=== PATIENT | female | born 1955 | race Caucasian/White ===

== ENCOUNTER → 2017-12-16 14:20 | Outpatient (REF) | payer MEDICARE, MEDICAID, SELFPAY ==
[2017-12-16 14:39] LABS: Appearance Urine UA CLEAR; Bilirubin Urine UA NEGATIVE (NEGATIVE); Color Urine UA YELLOW; Glucose Urine UA TRACE g/dL (NEGATIVE); Ketones Urine UA NEGATIVE (NEGATIVE); Leukocyte Esterase Urine UA NEGATIVE (NEGATIVE); Nitrite Urine UA NEGATIVE (NEGATIVE); Occult Blood Urine UA NEGATIVE (NEGATIVE); Protein Urine UA NEGATIVE (NEGATIVE); Specific Gravity Urine UA <=1.005 (1.000-1.035); Urobilinogen Urine UA 0.2 E.U./dL (0.2)
[2017-12-16 15:21] LABS: Bacteria Urine None Seen; Culture Indicated Urine Cult Not Indicated; RBC Urine None Seen (0-5/HPF); Squamous Epithelial Cell Urine 0-1 /HPF; WBC Urine None Seen (0-5/HPF)
== END ==
LOC: LAB 14:20
PROVIDERS: PCP Nurse Practitioner Family; Visit Provider Internal Medicine
DX: N18.1 Chronic kidney disease, stage 1 (principal); I97.0 Postcardiotomy syndrome; I31.0 Chronic adhesive pericarditis; D50.0 Iron deficiency anemia secondary to blood loss (chronic)
CPT/HCPCS: 81001

== ENCOUNTER → 2018-01-11 06:46 | Outpatient (REF) | payer MEDICARE, MEDICAID, SELFPAY ==
[2018-01-11 09:11] LABS: Thyroid Stimulating Hormone 0.05 uIU/mL (0.47-4.68)
== END ==
LOC: LAB 06:46
PROVIDERS: PCP Nurse Practitioner Family; Visit Provider Internal Medicine Endocrinology, Diabetes & Metabolism
DX: E07.9 Disorder of thyroid, unspecified (principal)
CPT/HCPCS: 36415; 84443

== ENCOUNTER → 2018-01-13 19:55 | Outpatient (REF) | payer MEDICARE, SELFPAY ==
[2018-01-13 20:51] LABS: Thyroid Stimulating Hormone 0.04 uIU/mL (0.47-4.68)
== END ==
LOC: LAB 19:55
PROVIDERS: Visit Provider Internal Medicine
DX: E03.9 Hypothyroidism, unspecified (principal)
CPT/HCPCS: 84443

== ENCOUNTER → 2018-01-19 17:32 | Outpatient (CLI) | payer MEDICARE, MEDICAID, SELFPAY ==
[2018-01-19 18:58] LABS: BUN Creatinine Ratio 19.4 (6-22); Blood Urea Nitrogen 35 mg/dL (7-17); Calcium 9.1 mg/dL (8.4-10.2); Carbon Dioxide 24 mmol/L (22-32); Chloride 106 mmol/L (98-107); Estimated Glomerular Filt Rate 28.6 mL/min (>60); Glucose 75 mg/dL (80-110); HEMOLYSIS < 15 (0-50); Magnesium 2.2 mg/dL (1.6-2.3); Sodium 143 mmol/L (137-145)
[2018-01-19 19:14] LABS: Free T4, Direct Thyroxine 1.58 ng/dL (0.78-2.19)
[2018-01-19 19:28] LABS: Thyroid Stimulating Hormone 0.02 uIU/mL (0.47-4.68)
== END ==
PROVIDERS: Internal Medicine Endocrinology, Diabetes & Metabolism; PCP Internal Medicine Endocrinology, Diabetes & Metabolism; Visit Provider Internal Medicine
DX: E03.9 Hypothyroidism, unspecified (principal); I50.9 Heart failure, unspecified
CPT/HCPCS: 36415; 80048; 83735; 83880; 84439; 84443

== ENCOUNTER → 2018-03-01 07:17 | Outpatient (REF) | payer MEDICARE, MEDICAID, SELFPAY ==
[2018-03-01 08:15] LABS: Add Manual Diff / Slide Review NO; Basophils Percent Auto 0.7 % (0-2); Eosinophils Percent Auto 2.3 % (2-4); Hematocrit 33.8 % (36-46); Hemoglobin 11.6 g/dL (12.0-16.0); Lymphocytes Percent Auto 30.9 % (25-40); Mean Corpuscular HGB Conc 34.4 % (30-36); Mean Corpuscular Hemoglobin 30.2 PG (26-34); Mean Corpuscular Volume 87.8 fL (80-100); Monocytes Percent Auto 5.5 % (3-14); Neutrophils Absolute Auto 4600 /uL (3000-5900); Neutrophils Percent Auto 60.6 % (50-75); Platelet Count 147 X10^3/uL (150-400); Red Blood Cell Count 3.85 X10^6/uL (4.0-5.2); Red Cell Distribution Width 14.4 % (11.6-14.8); White Blood Cell Count 7.6 X10^3/uL (4.5-11.0)
[2018-03-01 09:02] LABS: TSH w/ Reflex to FT4 0.39 uIU/mL (0.47-4.68)
[2018-03-04 12:22] LABS: BUN Creatinine Ratio 12.8 (6-22); Blood Urea Nitrogen 23 mg/dL (7-17); Calcium 9.7 mg/dL (8.4-10.2); Carbon Dioxide 24 mmol/L (22-32); Chloride 106 mmol/L (98-107); Estimated Glomerular Filt Rate 28.6 mL/min (>60); Glucose 84 mg/dL (80-110); HEMOLYSIS < 15 (0-50); Potassium 4.3 mmol/L (3.4-5.1); Sodium 140 mmol/L (137-145)
== END ==
LOC: LAB 07:17
PROVIDERS: PCP Internal Medicine Endocrinology, Diabetes & Metabolism; Visit Provider Internal Medicine
DX: E03.9 Hypothyroidism, unspecified (principal)
CPT/HCPCS: 36415; 80048; 84439; 84443; 85025

== ENCOUNTER → 2018-03-17 09:04 | Outpatient (REF) | payer MEDICARE, SELFPAY ==
[2018-03-17 10:17] LABS: Thyroid Stimulating Hormone 0.14 uIU/mL (0.47-4.68)
== END ==
LOC: LAB 09:04
PROVIDERS: PCP Internal Medicine Endocrinology, Diabetes & Metabolism; Visit Provider Internal Medicine Endocrinology, Diabetes & Metabolism
DX: E03.9 Hypothyroidism, unspecified (principal)
CPT/HCPCS: 36415; 84443

== ENCOUNTER → 2018-03-22 06:52 | Outpatient (REF) | payer MEDICARE, SELFPAY ==
[2018-03-22 07:21] LABS: BUN Creatinine Ratio 14.4 (6-22); Blood Urea Nitrogen 23 mg/dL (7-17); Calcium 8.9 mg/dL (8.4-10.2); Carbon Dioxide 23 mmol/L (22-32); Chloride 106 mmol/L (98-107); Estimated Glomerular Filt Rate 32.8 mL/min (>60); Glucose 87 mg/dL (80-110); HEMOLYSIS < 15 (0-50); Potassium 4.1 mmol/L (3.4-5.1); Sodium 138 mmol/L (137-145)
== END ==
LOC: LAB 06:52
PROVIDERS: PCP Internal Medicine Endocrinology, Diabetes & Metabolism; Visit Provider Internal Medicine
DX: N18.3 Chronic kidney disease, stage 3 (moderate) (principal)
CPT/HCPCS: 36415; 80048

== ENCOUNTER → 2018-05-30 08:42 | Outpatient (REF) | payer SELFPAY ==
[2018-05-30 10:06] LABS: Add Manual Diff / Slide Review NO; Basophils Percent Auto 0.6 % (0-2); Eosinophils Percent Auto 3.1 % (2-4); Hematocrit 31.3 % (36-46); Hemoglobin 10.5 g/dL (12.0-16.0); Lymphocytes Percent Auto 11.2 % (25-40); Mean Corpuscular HGB Conc 33.5 % (30-36); Mean Corpuscular Hemoglobin 29.4 PG (26-34); Mean Corpuscular Volume 87.6 fL (80-100); Monocytes Percent Auto 4.1 % (3-14); Neutrophils Absolute Auto 9400 /uL (3000-5900); Platelet Count 213 X10^3/uL (150-400); Red Blood Cell Count 3.57 X10^6/uL (4.0-5.2); Red Cell Distribution Width 15.8 % (11.6-14.8); White Blood Cell Count 11.6 X10^3/uL (4.5-11.0)
[2018-05-30 10:30] LABS: Alanine Aminotransferase 27 IU/L (9-52); Albumin 3.9 g/dL (3.5-5.0); Albumin Globulin Ratio 1.6 (1.0-2.8); Alkaline Phosphatase 99 U/L (38-126); Aspartate Aminotransferase 22 IU/L (14-36); BUN Creatinine Ratio 6.1 (6-22); Bilirubin Total 0.6 mg/dL (0.2-1.3); Blood Urea Nitrogen 25 mg/dL (7-17); Calcium 9.8 mg/dL (8.4-10.2); Carbon Dioxide 27 mmol/L (22-32); Chloride 99 mmol/L (98-107); Globulin 2.4 g/dL (1.7-4.1); Glucose 92 mg/dL (80-110); HEMOLYSIS < 15 (0-50); Potassium 3.9 mmol/L (3.4-5.1); Sodium 140 mmol/L (137-145); Total Protein 6.3 g/dL (6.3-8.2)
== END ==
LOC: LAB 08:42
PROVIDERS: PCP Internal Medicine Endocrinology, Diabetes & Metabolism; Visit Provider Hospitalist
DX: I25.10 Atherosclerotic heart disease of native coronary artery without angina pectoris (principal); N18.3 Chronic kidney disease, stage 3 (moderate)
CPT/HCPCS: 36415; 71046; 80053; 84443; 85025

== ENCOUNTER → 2018-06-06 09:13 | Outpatient (REF) | payer SELFPAY ==
[2018-06-06 11:25] LABS: Add Manual Diff / Slide Review NO; Basophils Percent Auto 0.7 % (0-2); Eosinophils Percent Auto 3.7 % (2-4); Hematocrit 31.8 % (36-46); Hemoglobin 10.7 g/dL (12.0-16.0); Mean Corpuscular HGB Conc 33.6 % (30-36); Mean Corpuscular Hemoglobin 29.2 PG (26-34); Mean Corpuscular Volume 86.9 fL (80-100); Monocytes Percent Auto 5.2 % (3-14); Neutrophils Absolute Auto 7000 /uL (3000-5900); Neutrophils Percent Auto 77.4 % (50-75); Platelet Count 259 X10^3/uL (150-400); Red Blood Cell Count 3.66 X10^6/uL (4.0-5.2); Red Cell Distribution Width 15.6 % (11.6-14.8)
== END ==
LOC: LAB 09:13
PROVIDERS: PCP Internal Medicine Endocrinology, Diabetes & Metabolism; Visit Provider Hospitalist
DX: I10 Essential (primary) hypertension (principal)
CPT/HCPCS: 36415; 85025

== ENCOUNTER → 2018-06-16 12:02 | Outpatient (REF) | payer SELFPAY ==
[2018-06-16 12:08] LABS: Add Manual Diff / Slide Review NO; Basophils Percent Auto 0.3 % (0-2); Eosinophils Percent Auto 2.9 % (2-4); Hematocrit 28.7 % (36-46); Hemoglobin 9.7 g/dL (12.0-16.0); Lymphocytes Percent Auto 13.9 % (25-40); Mean Corpuscular HGB Conc 33.8 % (30-36); Mean Corpuscular Hemoglobin 29.1 PG (26-34); Mean Corpuscular Volume 86.1 fL (80-100); Neutrophils Absolute Auto 6600 /uL (3000-5900); Neutrophils Percent Auto 76.9 % (50-75); Platelet Count 209 X10^3/uL (150-400); Red Blood Cell Count 3.33 X10^6/uL (4.0-5.2); Red Cell Distribution Width 15.4 % (11.6-14.8); White Blood Cell Count 8.6 X10^3/uL (4.5-11.0)
[2018-06-16 12:38] LABS: Alanine Aminotransferase 23 IU/L (9-52); Albumin 3.4 g/dL (3.5-5.0); Albumin Globulin Ratio 1.5 (1.0-2.8); Alkaline Phosphatase 63 U/L (38-126); Aspartate Aminotransferase 19 IU/L (14-36); Bilirubin Total 0.3 mg/dL (0.2-1.3); Blood Urea Nitrogen 29 mg/dL (7-17); Calcium 8.8 mg/dL (8.4-10.2); Carbon Dioxide 23 mmol/L (22-32); Chloride 100 mmol/L (98-107); Estimated Glomerular Filt Rate 9.2 mL/min (>60); Globulin 2.2 g/dL (1.7-4.1); Glucose 83 mg/dL (80-110); HEMOLYSIS < 15 (0-50); Potassium 4.2 mmol/L (3.4-5.1); Sodium 139 mmol/L (137-145); Total Protein 5.6 g/dL (6.3-8.2)
== END ==
LOC: LAB 12:02
PROVIDERS: Visit Provider Hospitalist
DX: E03.9 Hypothyroidism, unspecified (principal)
CPT/HCPCS: 80053; 84443; 85025

== ENCOUNTER → 2018-06-22 08:17 | Outpatient (CLI) | payer SELFPAY ==
--- NOTE | 2018-06-22 | DI.ECHO.S_ITS ---
[facility]---------+ [facility] +---------+ : : [address] : [address] [address] : : : : [id number] : : : : Phone: [phone]---------+ Echocardiogram Report + + :Name: AURELIA ASIF Study Date: 06/22/2018 Height: 60 in: :[facility] Weight: 95 lb: : Gender: Female BSA: 1.4 m2 : :: 1955 Age: 63 yrs : :Reason For Study: Congestive Heart Failure : : Performed By: Aurelia Holguin : :Referring: SHIRAZ MOYA : + + Interpretation Summary The left ventricle is normal in size. Left ventricular systolic function is moderately reduced. Left ventricular ejection fraction is estimated to be 35%. LVEF has reduced since prior echo study. There is moderate global hypokinesis of the left ventricle. There appears to be evidence for increased LV end- diastolic pressures based on E/E' and E/A ratios. The right ventricular cavity is small. Right ventricular systolic function is mildly reduced. The right ventricular systolic pressure is estimated to be at least 31 mmHg based on an estimated right atrial pressure of 3 mm Hg. RVSP has not changed. The left atrium is severely dilated. Right atrial size is normal. There is mild to moderate mitral regurgitation. There is mild to moderate aortic regurgitation. Both MR and AR have increased. There is no other significant valvular heart disease. The aortic root is normal size. There is a large right-sided pleural effusion. There is a large left-sided pleural effusion. Both are new since prior echo study. Procedure: A two-dimensional transthoracic echocardiogram with color flow and Doppler was performed. The study quality was technically adequate. Comparison is made with the echocardiogram of 12-31-17. Blodd pressure was unobtainable. The patient was in normal sinus rhythm during the exam. Left Ventricle: The left ventricle is normal in size. There is normal left ventricular wall thickness. Left ventricular systolic function is moderately reduced. Left ventricular ejection fraction is estimated to be 35%. There is moderate global hypokinesis of the left ventricle. Right Ventricle: The right ventricular cavity is small. Right ventricular systolic function is mildly reduced. Atria: The left atrium is severely dilated. Right atrial size is normal. The interatrial septum is intact with no evidence for an atrial septal defect. Mitral Valve: The mitral valve is grossly normal. There is mild to moderate mitral regurgitation. Aortic Valve: The aortic valve is trileaflet. Leaflet mobility is minimally reduced. The aortic valve is mildly calcified. There is mild to moderate aortic regurgitation. Tricuspid Valve: The tricuspid valve leaflets are thin and pliable. There is mild tricuspid regurgitation. The right ventricular systolic pressure is estimated to be at least 31 mmHg based on an estimated right atrial pressure of 3 mm Hg. Pulmonic Valve: The pulmonic valve is not well seen, but is grossly normal. There is trace pulmonic regurgitation. There is no other significant valvular heart disease. Great Vessels: The aortic root is normal size. The dimensions of the ascending aorta are normal. The IVC is of normal diameter and collapses greater than 50% with a sniff. This suggests a low right atrial pressure of 3 mm Hg. Pericardium/ Pleura There is no pericardial effusion. There is a large right-sided pleural effusion. There is a large left-sided pleural effusion. MMode/2D Measurements & Calculations LVIDd: 5.2 cm Ao root diam: 2.7 cm LVIDs: 4.3 cm Aortic Jxn: 2.4 cm FS: 16.7 % asc Aorta Diam: 2.8 cm EPSS: 1.5 cm Ao Arch Diam (Prox Trans): 2.7 cm IVSd: 0.85 cm LVPWd: 0.76 cm LV morales. diameter/BSA (cm/m^2): 3.8 LV sys. diameter/BSA (cm/m^2): 3.2 LA dimension: 4.2 cm RA long axis: 4.4 cm LA A2 area: 22.4 cm2 RA area: 13.3 cm2 LA A4 area: 18.7 cm2 RA vol: 34.0 ml LA length (vol): 5.1 cm RA : 25.0 ml/m2 LA vol: 70.3 ml IVC diam: 1.4 cm LA vol index: 51.7 ml/m2 RVDd major: 5.0 cm RVD1 (basal): 2.4 cm RVD2 (mid): 1.9 cm Doppler Measurements & Calculations Ao V2 max: 133.8 cm/sec LVOT Max Manuel: 58.8 cm/sec Ao V2 mean: 84.0 cm/sec LV V1 max P.4 mmHg Ao max P.2 mmHg LV V1 VTI: 9.9 cm Ao mean P.3 mmHg sev ratio: 0.40 Ao V2 VTI: 24.7 cm AI P1/2t: 538.4 msec AI dec slope: 237.7 cm/sec2 MV E max manuel: 110.8 cm/sec TR max manuel: 264.6 cm/sec MV A max manuel: 59.9 cm/sec TR max P.0 mmHg MV E/A: 1.9 PA V2 max: 59.9 cm/sec Med Peak E' Manuel: 5.2 cm/sec PA V2 mean: 39.0 cm/sec E/E' med: 21.5 PA mean P.72 mmHg Lat Peak E' Manuel: 2.4 cm/sec PA Accel Time: 0.14 sec E/E' lat: 45.8 E/e' average: 33.6 MV dec time: 0.14 sec MV P1/2t: 41.8 msec MR ERO: 0.12 cm2 MV P1/2t max manuel: 110.2 cm/sec MR flow rate: 81.0 cm3/sec MVA(P1/2t): 5.3 cm2 MR PISA radius: 0.58 cm Reading Physician:SOLITARIO
== END ==
PROVIDERS: PCP Internal Medicine Endocrinology, Diabetes & Metabolism; Visit Provider Internal Medicine Cardiovascular Disease
DX: I08.3 Combined rheumatic disorders of mitral, aortic and tricuspid valves (principal); I50.22 Chronic systolic (congestive) heart failure
CPT/HCPCS: 93306

== ENCOUNTER 2018-07-04 09:16 | Emergency (ER) | payer MEDICARE, MEDICAID, SELFPAY ==
[2018-07-04] VITALS (11 sets, daily range): BP systolic 153–174; BP diastolic 72–126; PULSE 77–88; RESP 16–29; TEMP 37.2–37.7; O2SAT 91–100
--- NOTE | 2018-07-04 | DI.RAD.S_ITS ---
PROCEDURE: XR CHEST 1V INDICATIONS: POST LEFT SIDED THORACENTESIS TECHNIQUE: One view of the chest was acquired. COMPARISON: [facility], CR, XR CHEST 1V, 07/04/2018, 9:34. FINDINGS: Surgical changes and devices: Sternal wires, left hilar clips and right dialysis catheter is present overlying the right atrium. Lungs and pleura: Bilateral pleural effusions, decreased on the left compared to prior exam. Mediastinum: Mediastinal contours appear normal. Heart size is normal. Bones and chest wall: No suspicious bony lesions. Overlying soft tissues appear unremarkable. IMPRESSION: Status post thoracentesis with decreased appearance of left pleural effusion. Dictated by: Liset Britton M.D. on 07/04/2018 at 12:29 Approved by: Liset Britton M.D. on 07/04/2018 at 12:35
--- NOTE | 2018-07-04 09:25 | ED.SOB ---
HPI - SOB/Dyspnea General Chief Complaint: Shortness of Breath/Dyspnea Stated Complaint: Hypertension / SOB Time Seen by Provider: 07/04/18 09:20 Source: patient and EMS Mode of arrival: EMS Limitations: no limitations History of Present Illness Patient states that she has been having labored respirations since she had dialysis yesterday. Patient states she has been struggling with her breathing for the last couple of months since she had her last coronary artery bypass grafting. She states that her kidney failure also started at that same time, and that she has just been on dialysis for the past couple of months. Patient states that usually after dialysis, she experiences an increased feeling of difficulty breathing and labored respirations, and she states that her doctors think it is due to pulmonary edema. patient is not known to have COPD. Patient states she has somewhat of labored respirations and between but usually not as bad as right after dialysis. However, patient states that this episode is worse the previous episodes, and does not seem to be getting better. Patient denies any recent cough or fever. She has not had any chest pain. She has been at a rehab facility, trying to recover her strength after the CABG and with the new onset of renal failure. Patient was given a breathing treatment EN route, without improvement. She had been found to be quite hypertensive at her rehab facility and was given antihypertensive there, which did not initially seem to improve things. However, the medics have noted to be very good, normal blood pressures EN route. MD Complaint: shortness of breath Onset (ago): day(s) Context: other ( See above) Severity: moderate Consistency/Duration: constant Relieving factors: nothing Exacerbating factors: exertion Related Data Home Medications Medication Instructions Recorded Confirmed Bifidobacterium Bifidum 1 cap PO DAILY 07/04/18 07/04/18 Renal-Ameena 1 tab PO QPM 07/04/18 07/04/18 acetaminophen 500 mg PO Q6H PRN MDD 4 G 07/04/18 07/04/18 amlodipine 5 mg PO BID 07/04/18 07/04/18 atorvastatin 40 mg PO QPM 07/04/18 07/04/18 bisacodyl 5 - 10 mg PO PRN PRN 07/04/18 07/04/18 bisacodyl 10 mg ME DAILY PRN 07/04/18 07/04/18 cholecalciferol (vitamin D3) 1,000 unit PO DAILY 07/04/18 07/04/18 [Vitamin D3] clopidogrel 75 mg PO DAILY 07/04/18 07/04/18 cyanocobalamin (vitamin B-12) 1,000 mcg PO DAILY 07/04/18 07/04/18 [Vitamin B-12] famotidine 20 mg PO DAILY 07/04/18 07/04/18 ferrous sulfate 325 mg PO DAILY 07/04/18 07/04/18 hydralazine 25 mg PO Q8H PRN 07/04/18 07/04/18 hydrocortisone acetate 1 ea ME Q8H PRN 07/04/18 07/04/18 hydroxyzine pamoate 25 mg PO Q6H PRN 07/04/18 07/04/18 hydroxyzine pamoate 50 mg PO Q6H PRN 07/04/18 07/04/18 levothyroxine 88 mcg PO DAILY 07/04/18 07/04/18 lorazepam 0.5 mg PO Q8H PRN 07/04/18 07/04/18 magnesium hydroxide 10 ml PO DAILY PRN 07/04/18 07/04/18 melatonin 3 mg PO BEDTIME PRN 07/04/18 07/04/18 metoprolol tartrate 50 mg PO BID 07/04/18 07/04/18 mirtazapine 7.5 mg PO BEDTIME 07/04/18 07/04/18 ondansetron 4 mg PO Q6H PRN 07/04/18 07/04/18 sertraline 75 mg PO DAILY 07/04/18 07/04/18 sevelamer carbonate [Renvela] 800 mg PO TIDWM 07/04/18 07/04/18 sodium phosphates [Fleet Enema] 1 ea ME PRN PRN 07/04/18 07/04/18 Allergies Allergy/AdvReac Type Severity Reaction Status Date / Time No Known Drug Allergies Allergy Verified 07/04/18 09:21 Review of Systems Review of Systems All systems reviewed & are unremarkable except as noted in HPI and below Constitutional Denies chills, Denies fever(s), Denies lethargy and Denies weakness Eyes Denies change in vision, Denies eye discharge, Denies irritation and Denies loss of vision ENT Ears, Nose, Mouth, and Throat: Denies change in voice, Denies neck pain and Denies sore throat Cardiovascular Denies chest pain, Denies irregular heart rhythm, Denies lightheadedness, Denies palpitations, Reports dyspnea and Denies orthopnea Respiratory Denies cough, Reports dyspnea and Denies wheezing Gastrointestinal Gastrointestinal: Denies abdominal pain, Denies change in bowel habits, Denies diarrhea, Denies nausea and Denies vomiting Genitourinary Denies hematuria, Denies flank pain, Denies urinary incontinence and Denies urinary urgency Musculoskeletal Denies neck pain Integumentary/Breasts Denies pruritus, Denies erythema, Denies rash and Denies wounds Neurologic Denies confusion, Denies loss of vision and Denies weakness Psychiatric Denies anxiety, Denies confusion, Denies depression, Denies homicidal ideation and Denies suicidal ideation Endocrine Denies palpitations Hematologic/Lymphatic Denies easy bruising Allergic/Immunologic Denies wheezing PFSH Medical History Acute kidney failure (Acute) Acute renal failure on dialysis (Acute) Anemia (Acute) Anxiety (Acute) CHF (congestive heart failure) (Acute) Chronic kidney disease (Acute) Fibromyalgia (Acute) GI bleed (Acute) HTN (hypertension) (Acute) Hyperlipidemia (Acute) Hypothyroid (Acute) IBS (irritable bowel syndrome) (Acute) Major depressive disorder (Acute) Malnutrition (Acute) Peripheral vascular disease (Acute) TIA (transient ischemic attack) (Acute) Thrombocytopenia (Acute) Exam Initial Vital Signs Initial Vital Signs: Vital Signs Pulse Rate 81 07/04/18 09:21 Respiratory Rate 22 07/04/18 09:21 Pulse Oximetry 93 07/04/18 09:21 Const General: cooperative and well developed Nutritional Appearance: well nourished Orientation: alert, awake, oriented x3 and not confused [facility] [place] Head: normocephalic and atraumatic Ears: external ears normal and TM's normal bilaterally Nose: external nose normal and No nasal discharge Face and sinus: sinuses nontender, face symmetric, no sinus tenderness and No dry mucous membranes Mouth: oral mucosae normal and moist mucous membranes Teeth and gingiva: dentition normal Throat: tonsils normal and uvula midline Eyes General: appearance normal, both eyes and all related structures Eyelids: eyelids normal Conjunctivae: conjunctivae normal Sclera: sclerae normal Pupils: PERRL EOM: EOM intact bilaterally Neck Neck: normal visual inspection, trachea midline, No lymphadenopathy, No midline deformity and No JVD Lymphatic: No lymphedema Chest Chest: normal inspection of the chest Resp Effort & Inspection: abnormal respiratory effort, able to speak in complete sentences, respiratory distress ( Mild, with mildly labored respirations.) and no use of accessory muscles Auscultation: clear to auscultation bilaterally, no rales, no rhonchi and no wheezes Cardio Rate: regular rate Rhythm: regular rhythm Heart Sounds: no click, no gallops, no murmurs and no rubs Pulses: normal peripheral pulses GI Inspection: non-distended Palpation: soft, no hepatosplenomegaly, No guarding, No pulsatile mass and No tender Auscultation: normal bowel sounds Back/Spine/Pelvis Back: No CVA tenderness Cervical Spine: cervical ROM normal and No pain with cervical ROM Thoracic/Lumbar Spine: thoracic and lumbar spine normal to inspection Skin General: no rashes or lesions noted, No jaundice and No petechiae Neuro General: alert, oriented x3, gait normal and no focal motor deficits Speech: speech normal Extrem General: full ROM, no clubbing, cyanosis or edema, no pedal edema and no calf tenderness Psych Appearance: well kempt Mental Status: mental status grossly normal Attitude: cooperative Thought Content: normal and suicidality Judgment: judgment good Course Course Narrative: Patient was worked up with labs, EKG, and blood work. She was kept on supplemental oxygen in the emergency department. her chest x-ray showed a left pleural effusion a moderate size, and I felt the patient should have a thoracentesis for this. At the same time, Dr. Moya's nurse had called, and let us know that an x-ray 10 days ago had showed the same thing, and that Dr. Moya had also wanted her to get a thoracentesis. As such, I did have Radiology perform an ultrasound-guided thoracentesis. About 400 cc were evacuated from the patient's thoracic cavity when the patient began to cough and complained of discomfort. Therefore, the procedure was ended. Patient reported feeling overall much better, though she was coughing quite a bit. Repeat chest x-ray showed a greatly decreased left pleural effusion with no pneumothorax. Patient was observed in the emergency department and ultimately given a dose of morphine for her cough. Patient slept for a while while awaiting her ride, and upon awakening, complained of chest discomfort and was coughing again. I did repeat an x-ray 1 more time to be sure the patient did not have a slowly developing pneumothorax and this was once again negative for pneumothorax patient was given a little more analgesia, and reported feeling much better. I felt she was stable for discharge home. We have discussed the need for follow-up, as well as the usual indications for return. Orders Ordered: Discontinued Medications Albuterol (Ventolin) 2.5 mg INH NOW ONE Stop: 07/04/18 14:17 Last Admin: 07/04/18 14:16 Dose: 2.5 mg Morphine Sulfate (Morphine) 2 mg IV NOW ONE Stop: 07/04/18 14:30 Last Admin: 07/04/18 14:31 Dose: 2 mg Vital Signs - 8 hr 07/04/18 09:21 Pulse Rate 81 Respiratory Rate 22 Pulse Oximetry 93 MDM - SOB/Dyspnea Medical Records Attestation: I reviewed the patient's medical records. Lab Data Attestation: I reviewed the patient's lab results. Result diagrams: 07/04/18 09:45 07/04/18 09:45 Lab Results 07/04/18 07/04/18 07/04/18 Range/Units 09:45 09:45 09:45 WBC 13.1 H (4.5-11.0) X10^3/uL RBC 3.29 L (4.0-5.2) X10^6/uL Hgb 9.4 L (12.0-16.0) g/dL Hct 28.5 L (36-46) % MCV 86.6 (80-100) fL MCH 28.7 (26-34) PG MCHC 33.1 (30-36) % RDW 15.9 H (11.6-14.8) % Plt Count 231 (150-400) X10^3/uL Neut % (Auto) 84.4 H (50-75) % Lymph % (Auto) 9.1 L (25-40) % [place] % (Auto) 3.5 (3-14) % Eos % (Auto) 2.2 (2-4) % Baso % (Auto) 0.8 (0-2) % Neut # (Auto) 59772 H (3507-2763) /uL PT (10.1-12.7) SECONDS INR (0.9-1.3) APTT (26.4-36.2) SECONDS ABG pH (7.35-7.45) ABG pCO2 (35-45) mmHg ABG pO2 (80-105) mmHg ABG HCO3 (23-27) mmol/L ABG Total CO2 (23-27) mmol/L ABG O2 Saturation (95-100) % ABG Base Excess (-2-3) mmol/L FiO2 Sodium 134 L (137-145) mmol/L Potassium 4.2 (3.4-5.1) mmol/L Chloride 93 L (98-107) mmol/L Carbon Dioxide 24 (22-32) mmol/L BUN 44 H (7-17) mg/dL Creatinine 5.60 H (0.52-1.04) mg/dL Estimated GFR 7.7 L (>60) mL/min BUN/Creatinine Ratio 7.9 (6-22) Glucose 114 H (80-110) mg/dL Lactate (0.7-2.1) mmol/L Calcium 9.4 (8.4-10.2) mg/dL Total Bilirubin 0.3 (0.2-1.3) mg/dL AST 21 (14-36) IU/L ALT 19 (9-52) IU/L Alkaline Phosphatase 67 (38-126) U/L Total Creatine Kinase 33 (30-135) U/L CK-MB (CK-2) TNP CK-MB (CK-2) Rel Index TNP Troponin I 0.030 (0.01-0.034) ng/mL Total Protein 7.1 (6.3-8.2) g/dL Albumin 4.5 (3.5-5.0) g/dL Globulin 2.6 (1.7-4.1) g/dL Albumin/Globulin Ratio 1.7 (1.0-2.8) Procalcitonin (<0.5) ng/mL Fluid Color Fluid Appearance Fluid pH pH Fluid RBC /uL Fld Tot Nucleated Cell /uL Fluid Polynuclear WBCs % Fluid Mononuclear WBCs % Fluid Eosinophils Fluid Other Cells Body Fluid Clot Fluid Total Protein g/dL Fluid LDH U/L 07/04/18 07/04/18 07/04/18 Range/Units 09:45 09:45 09:59 WBC (4.5-11.0) X10^3/uL RBC (4.0-5.2) X10^6/uL Hgb (12.0-16.0) g/dL Hct (36-46) % MCV (80-100) fL MCH (26-34) PG MCHC (30-36) % RDW (11.6-14.8) % Plt Count (150-400) X10^3/uL Neut % (Auto) (50-75) % Lymph % (Auto) (25-40) % [place] % (Auto) (3-14) % Eos % (Auto) (2-4) % Baso % (Auto) (0-2) % Neut # (Auto) (4811-8347) /uL PT 12.5 (10.1-12.7) SECONDS INR 1.1 (0.9-1.3) APTT 38 H (26.4-36.2) SECONDS ABG pH 7.44 (7.35-7.45) ABG pCO2 33.9 L (35-45) mmHg ABG pO2 54 L (80-105) mmHg ABG HCO3 23 (23-27) mmol/L ABG Total CO2 24 (23-27) mmol/L ABG O2 Saturation 89 L (95-100) % ABG Base Excess -1.0 (-2-3) mmol/L FiO2 0.21 Sodium (137-145) mmol/L Potassium (3.4-5.1) mmol/L Chloride (98-107) mmol/L Carbon Dioxide (22-32) mmol/L BUN (7-17) mg/dL Creatinine (0.52-1.04) mg/dL Estimated GFR (>60) mL/min BUN/Creatinine Ratio (6-22) Glucose (80-110) mg/dL Lactate 1.4 (0.7-2.1) mmol/L Calcium (8.4-10.2) mg/dL Total Bilirubin (0.2-1.3) mg/dL AST (14-36) IU/L ALT (9-52) IU/L Alkaline Phosphatase (38-126) U/L Total Creatine Kinase (30-135) U/L CK-MB (CK-2) CK-MB (CK-2) Rel Index Troponin I (0.01-0.034) ng/mL Total Protein (6.3-8.2) g/dL Albumin (3.5-5.0) g/dL Globulin (1.7-4.1) g/dL Albumin/Globulin Ratio (1.0-2.8) Procalcitonin (<0.5) ng/mL Fluid Color Fluid Appearance Fluid pH pH Fluid RBC /uL Fld Tot Nucleated Cell /uL Fluid Polynuclear WBCs % Fluid Mononuclear WBCs % Fluid Eosinophils Fluid Other Cells Body Fluid Clot Fluid Total Protein g/dL Fluid LDH U/L 07/04/18 07/04/18 07/04/18 Range/Units 11:24 12:23 12:23 WBC (4.5-11.0) X10^3/uL RBC (4.0-5.2) X10^6/uL Hgb (12.0-16.0) g/dL Hct (36-46) % MCV (80-100) fL MCH (26-34) PG MCHC (30-36) % RDW (11.6-14.8) % Plt Count (150-400) X10^3/uL Neut % (Auto) (50-75) % Lymph % (Auto) (25-40) % [place] % (Auto) (3-14) % Eos % (Auto) (2-4) % Baso % (Auto) (0-2) % Neut # (Auto) (7067-6720) /uL PT (10.1-12.7) SECONDS INR (0.9-1.3) APTT (26.4-36.2) SECONDS ABG pH (7.35-7.45) ABG pCO2 (35-45) mmHg ABG pO2 (80-105) mmHg ABG HCO3 (23-27) mmol/L ABG Total CO2 (23-27) mmol/L ABG O2 Saturation (95-100) % ABG Base Excess (-2-3) mmol/L FiO2 Sodium (137-145) mmol/L Potassium (3.4-5.1) mmol/L Chloride (98-107) mmol/L Carbon Dioxide (22-32) mmol/L BUN (7-17) mg/dL Creatinine (0.52-1.04) mg/dL Estimated GFR (>60) mL/min BUN/Creatinine Ratio (6-22) Glucose (80-110) mg/dL Lactate (0.7-2.1) mmol/L Calcium (8.4-10.2) mg/dL Total Bilirubin (0.2-1.3) mg/dL AST (14-36) IU/L ALT (9-52) IU/L Alkaline Phosphatase (38-126) U/L Total Creatine Kinase (30-135) U/L CK-MB (CK-2) CK-MB (CK-2) Rel Index Troponin I (0.01-0.034) ng/mL Total Protein (6.3-8.2) g/dL Albumin (3.5-5.0) g/dL Globulin (1.7-4.1) g/dL Albumin/Globulin Ratio (1.0-2.8) Procalcitonin 0.14 (<0.5) ng/mL Fluid Color Yellow Fluid Appearance Hazy Fluid pH 7.5 pH Fluid RBC 1637 /uL Fld Tot Nucleated Cell 314 /uL Fluid Polynuclear WBCs 30 % Fluid Mononuclear WBCs 70 % Fluid Eosinophils Not Reportable Fluid Other Cells Not Reportable Body Fluid Clot No clots present Fluid Total Protein 3.2 g/dL Fluid LDH 240 U/L Imaging Data Chest x-ray: Radiologist's impression: PROCEDURE: XR CHEST 1V INDICATIONS: dyspnea TECHNIQUE: One view of the chest was acquired. COMPARISON: Outside Film, CR, XR CHEST 2 VIEWS, 06/24/2018, 10:10. FINDINGS: Surgical changes and devices: Sternal wires are present. Left axillary clips are present. Left tunnel catheter is present, with distal tip overlying the right atrium. Lungs and pleura: Unchanged mild to modreate left effusion, trace on the right. There is increased pulmonary vascularity. Mediastinum: Mediastinal contours appear normal. Heart size is normal. Bones and chest wall: No suspicious bony lesions. Overlying soft tissues appear unremarkable. IMPRESSION: Left greater than right pleural effusions with increased vascularity. Underlyhing air space disease such as pneumonia and/or atelectasis cannot be excluded. Recommend interval followup to document resolution to exclude underlying mass lesion. Dictated by: Liset Britton M.D. on 07/04/2018 at 9:51 Approved by: Liset Britton M.D. on 07/04/2018 at 9:59 PROCEDURE: XR CHEST 1V INDICATIONS: POST LEFT SIDED THORACENTESIS TECHNIQUE: One view of the chest was acquired. COMPARISON: [facility], , XR CHEST 1V, 07/04/2018, 9:34. FINDINGS: Surgical changes and devices: Sternal wires, left hilar clips and right dialysis catheter is present overlying the right atrium. Lungs and pleura: Bilateral pleural effusions, decreased on the left compared to prior exam. Mediastinum: Mediastinal contours appear normal. Heart size is normal. Bones and chest wall: No suspicious bony lesions. Overlying soft tissues appear unremarkable. IMPRESSION: Status post thoracentesis with decreased appearance of left pleural effusion. Dictated by: Liset Britton M.D. on 07/04/2018 at 12:29 Approved by: Liset Britton M.D. on 07/04/2018 at 12:35 PROCEDURE: XR CHEST 1V INDICATIONS: dyspnea TECHNIQUE: One view of the chest was acquired. COMPARISON: [facility], , XR CHEST 1V, 07/04/2018, 12:17. FINDINGS: Surgical changes and devices: There is a dual-lumen left-sided central line catheter identified with the tip overlying the right atrium. Postoperative changes related to prior median sternotomy is evident. Clips within the left axilla are noted. Lungs and pleura: Bibasilar airspace disease is identified that obscures the diaphragms (left greater than right). These areas of consolidation are more prominent on the left on the current study compared to the prior exam. The pulmonary vasculature is increased. No pneumothorax is evident. Mediastinum: Mediastinal contours appear normal. Heart size is enlarged. There is aortic atherosclerosis. Bones and chest wall: No suspicious bony lesions. Overlying soft tissues appear unremarkable. IMPRESSION: 1. Cardiomegaly and moderate vascular congestion may represent developing pulmonary edema. 2. Increasing left basilar consolidation is suggestive of atelectasis and/or pleural fluid. 3. Trace right-sided pleural effusion is unchanged. 4. No pneumothorax. Dictated by: Doug Atkinson M.D. on 07/04/2018 at 14:02 Approved by: Doug Atkinson M.D. on 07/04/2018 at 14:03 ECG Data Attestation: I personally reviewed and interpreted this ECG as follows: (see below) Interpretation: the 12 lead EKG performed on July 04, 2018 at 9:28 a.m., as follows: Regular ventricular rhythm with a rate of 81 beats per minute ME intervals 159 millisecond QRS duration 90 millisecond QTC interval 429 milliseconds normal axis in summary, normal sinus rhythm with left atrial enlargement and incomplete right bundle branch block, as interpreted by ED MD. Discharge Plan Departure Patient Disposition: Home Clinical Impression: Pleural effusion, S/P thoracentesis Discharge Date/Time: 07/04/18 16:45 Interventions: ED Discharge Assessment Last Done: 07/04/18 16:39 Instructions: DI for Pleural Effusion Prescriptions: No Action atorvastatin 40 mg Tablet 40 mg PO QPM RF: 0 cyanocobalamin (vitamin B-12) [Vitamin B-12] 1,000 mcg Tablet 1,000 mcg PO DAILY RF: 0 hydroxyzine pamoate 50 mg Capsule 50 mg PO Q6H PRN (Reason: Anxiety) RF: 0 hydralazine 25 mg Tablet 25 mg PO Q8H PRN (Reason: Hypertension) RF: 0 melatonin 3 mg Tablet 3 mg PO BEDTIME PRN (Reason: Insomnia) RF: 0 clopidogrel 75 mg Tablet 75 mg PO DAILY RF: 0 amlodipine 5 mg Tablet 5 mg PO BID RF: 0 acetaminophen 500 mg Tablet 500 mg PO Q6H MDD 4 G PRN (Reason: Fever) RF: 0 levothyroxine 88 mcg Tablet 88 mcg PO DAILY RF: 0 famotidine 20 mg Tablet 20 mg PO DAILY RF: 0 lorazepam 0.5 mg Tablet 0.5 mg PO Q8H PRN (Reason: Anxiety) RF: 0 bisacodyl 10 mg Suppository 10 mg ME DAILY PRN (Reason: Constipation) RF: 0 ferrous sulfate 325 mg (65 mg iron) Tablet 325 mg PO DAILY RF: 0 metoprolol tartrate 50 mg Tablet 50 mg PO BID RF: 0 sodium phosphates [Fleet Enema] 19-7 gram/118 mL Enema 1 ea ME PRN PRN (Reason: Constipation) RF: 0 sertraline 25 mg Tablet 75 mg PO DAILY RF: 0 ondansetron 4 mg Tablet,Disintegrating 4 mg PO Q6H PRN (Reason: Nausea And Vomiting) RF: 0 hydroxyzine pamoate 25 mg Capsule 25 mg PO Q6H PRN (Reason: Anxiety) RF: 0 bisacodyl 5 mg Tablet 5 - 10 mg PO PRN PRN (Reason: Constipation) RF: 0 cholecalciferol (vitamin D3) [Vitamin D3] 1,000 unit Capsule 1,000 unit PO DAILY RF: 0 mirtazapine 7.5 mg Tablet 7.5 mg PO BEDTIME RF: 0 magnesium hydroxide 2,400 mg/10 mL Suspension 10 ml PO DAILY PRN (Reason: Constipation) RF: 0 sevelamer carbonate [Renvela] 800 mg Tablet 800 mg PO TIDWM RF: 0 Bifidobacterium Bifidum capsule 1 cap PO DAILY RF: 0 Renal-Ameena 1 tab PO QPM RF: 0 hydrocortisone acetate suppository 1 ea ME Q8H PRN (Reason: LOWER GI BLEED) RF: 0 Referrals: Shiraz Moya MD [Physician] - (Please call for follow-up appointment in the next week.) Paulina Centeno [Primary Care Provider] -
--- NOTE | 2018-07-04 09:30 | ED_ITS ---
HPI - SOB/Dyspnea General Chief Complaint: Shortness of Breath/Dyspnea Stated Complaint: Hypertension / SOB Time Seen by Provider: 07/04/18 09:20 Source: patient and EMS Mode of arrival: EMS Limitations: no limitations History of Present Illness Patient states that she has been having labored respirations since she had dialysis yesterday. Patient states she has been struggling with her breathing for the last couple of months since she had her last coronary artery bypass grafting. She states that her kidney failure also started at that same time, and that she has just been on dialysis for the past couple of months. Patient states that usually after dialysis, she experiences an increased feeling of difficulty breathing and labored respirations, and she states that her doctors think it is due to pulmonary edema. patient is not known to have COPD. Patient states she has somewhat of labored respirations and between but usually not as bad as right after dialysis. However, patient states that this episode is worse the previous episodes, and does not seem to be getting better. Patient denies any recent cough or fever. She has not had any chest pain. She has been at a rehab facility, trying to recover her strength after the CABG and with the new onset of renal failure. Patient was given a breathing treatment EN route, without improvement. She had been found to be quite hypertensive at her rehab facility and was given antihypertensive there, which did not initially seem to improve things. However, the medics have noted to be very good, normal blood pressures EN route. MD Complaint: shortness of breath Onset (ago): day(s) Context: other ( See above) Severity: moderate Consistency/Duration: constant Relieving factors: nothing Exacerbating factors: exertion Related Data Home Medications Medication Instructions Recorded Confirmed Bifidobacterium Bifidum 1 cap PO DAILY 07/04/18 07/04/18 Renal-Ameena 1 tab PO QPM 07/04/18 07/04/18 acetaminophen 500 mg PO Q6H PRN MDD 4 G 07/04/18 07/04/18 amlodipine 5 mg PO BID 07/04/18 07/04/18 atorvastatin 40 mg PO QPM 07/04/18 07/04/18 bisacodyl 5 - 10 mg PO PRN PRN 07/04/18 07/04/18 bisacodyl 10 mg IL DAILY PRN 07/04/18 07/04/18 cholecalciferol (vitamin D3) 1,000 unit PO DAILY 07/04/18 07/04/18 [Vitamin D3] clopidogrel 75 mg PO DAILY 07/04/18 07/04/18 cyanocobalamin (vitamin B-12) 1,000 mcg PO DAILY 07/04/18 07/04/18 [Vitamin B-12] famotidine 20 mg PO DAILY 07/04/18 07/04/18 ferrous sulfate 325 mg PO DAILY 07/04/18 07/04/18 hydralazine 25 mg PO Q8H PRN 07/04/18 07/04/18 hydrocortisone acetate 1 ea IL Q8H PRN 07/04/18 07/04/18 hydroxyzine pamoate 25 mg PO Q6H PRN 07/04/18 07/04/18 hydroxyzine pamoate 50 mg PO Q6H PRN 07/04/18 07/04/18 levothyroxine 88 mcg PO DAILY 07/04/18 07/04/18 lorazepam 0.5 mg PO Q8H PRN 07/04/18 07/04/18 magnesium hydroxide 10 ml PO DAILY PRN 07/04/18 07/04/18 melatonin 3 mg PO BEDTIME PRN 07/04/18 07/04/18 metoprolol tartrate 50 mg PO BID 07/04/18 07/04/18 mirtazapine 7.5 mg PO BEDTIME 07/04/18 07/04/18 ondansetron 4 mg PO Q6H PRN 07/04/18 07/04/18 sertraline 75 mg PO DAILY 07/04/18 07/04/18 sevelamer carbonate [Renvela] 800 mg PO TIDWM 07/04/18 07/04/18 sodium phosphates [Fleet Enema] 1 ea IL PRN PRN 07/04/18 07/04/18 Allergies Allergy/AdvReac Type Severity Reaction Status Date / Time No Known Drug Allergies Allergy Verified 07/04/18 09:21 Review of Systems Review of Systems All systems reviewed & are unremarkable except as noted in HPI and below Constitutional Denies chills, Denies fever(s), Denies lethargy and Denies weakness Eyes Denies change in vision, Denies eye discharge, Denies irritation and Denies loss of vision ENT Ears, Nose, Mouth, and Throat: Denies change in voice, Denies neck pain and Denies sore throat Cardiovascular Denies chest pain, Denies irregular heart rhythm, Denies lightheadedness, Denies palpitations, Reports dyspnea and Denies orthopnea Respiratory Denies cough, Reports dyspnea and Denies wheezing Gastrointestinal Gastrointestinal: Denies abdominal pain, Denies change in bowel habits, Denies diarrhea, Denies nausea and Denies vomiting Genitourinary Denies hematuria, Denies flank pain, Denies urinary incontinence and Denies urinary urgency Musculoskeletal Denies neck pain Integumentary/Breasts Denies pruritus, Denies erythema, Denies rash and Denies wounds Neurologic Denies confusion, Denies loss of vision and Denies weakness Psychiatric Denies anxiety, Denies confusion, Denies depression, Denies homicidal ideation and Denies suicidal ideation Endocrine Denies palpitations Hematologic/Lymphatic Denies easy bruising Allergic/Immunologic Denies wheezing PFSH Medical History Acute kidney failure (Acute) Acute renal failure on dialysis (Acute) Anemia (Acute) Anxiety (Acute) CHF (congestive heart failure) (Acute) Chronic kidney disease (Acute) Fibromyalgia (Acute) GI bleed (Acute) HTN (hypertension) (Acute) Hyperlipidemia (Acute) Hypothyroid (Acute) IBS (irritable bowel syndrome) (Acute) Major depressive disorder (Acute) Malnutrition (Acute) Peripheral vascular disease (Acute) TIA (transient ischemic attack) (Acute) Thrombocytopenia (Acute) Exam Initial Vital Signs Initial Vital Signs: Vital Signs Pulse Rate 81 07/04/18 09:21 Respiratory Rate 22 07/04/18 09:21 Pulse Oximetry 93 07/04/18 09:21 Const General: cooperative and well developed Nutritional Appearance: well nourished Orientation: alert, awake, oriented x3 and not confused [facility] Head: normocephalic and atraumatic Ears: external ears normal and TM's normal bilaterally Nose: external nose normal and No nasal discharge Face and sinus: sinuses nontender, face symmetric, no sinus tenderness and No dry mucous membranes Mouth: oral mucosae normal and moist mucous membranes Teeth and gingiva: dentition normal Throat: tonsils normal and uvula midline Eyes General: appearance normal, both eyes and all related structures Eyelids: eyelids normal Conjunctivae: conjunctivae normal Sclera: sclerae normal Pupils: PERRL EOM: EOM intact bilaterally Neck Neck: normal visual inspection, trachea midline, No lymphadenopathy, No midline deformity and No JVD Lymphatic: No lymphedema Chest Chest: normal inspection of the chest Resp Effort & Inspection: abnormal respiratory effort, able to speak in complete sentences, respiratory distress ( Mild, with mildly labored respirations.) and no use of accessory muscles Auscultation: clear to auscultation bilaterally, no rales, no rhonchi and no wheezes Cardio Rate: regular rate Rhythm: regular rhythm Heart Sounds: no click, no gallops, no murmurs and no rubs Pulses: normal peripheral pulses GI Inspection: non-distended Palpation: soft, no hepatosplenomegaly, No guarding, No pulsatile mass and No tender Auscultation: normal bowel sounds Back/Spine/Pelvis Back: No CVA tenderness Cervical Spine: cervical ROM normal and No pain with cervical ROM Thoracic/Lumbar Spine: thoracic and lumbar spine normal to inspection Skin General: no rashes or lesions noted, No jaundice and No petechiae Neuro General: alert, oriented x3, gait normal and no focal motor deficits Speech: speech normal Extrem General: full ROM, no clubbing, cyanosis or edema, no pedal edema and no calf tenderness Psych Appearance: well kempt Mental Status: mental status grossly normal Attitude: cooperative Thought Content: normal and suicidality Judgment: judgment good Course Course Narrative: Patient was worked up with labs, EKG, and blood work. She was kept on supplemental oxygen in the emergency department. her chest x-ray showed a left pleural effusion a moderate size, and I felt the patient should have a thoracentesis for this. At the same time, Dr. Moya's nurse had called , and let us know that an x-ray 10 days ago had showed the same thing, and that Dr. Moya had also wanted her to get a thoracentesis. As such, I did have Radiology perform an ultrasound-guided thoracentesis. About 400 cc were evacuated from the patient's thoracic cavity when the patient began to cough and complained of discomfort. Therefore, the procedure was ended. Patient reported feeling overall much better, though she was coughing quite a bit. Repeat chest x-ray showed a greatly decreased left pleural effusion with no pneumothorax. Patient was observed in the emergency department and ultimately given a dose of morphine for her cough. Patient slept for a while while awaiting her ride, and upon awakening, complained of chest discomfort and was coughing again. I did repeat an x-ray 1 more time to be sure the patient did not have a slowly developing pneumothorax and this was once again negative for pneumothorax patient was given a little more analgesia, and reported feeling much better. I felt she was stable for discharge home. We have discussed the need for follow-up, as well as the usual indications for return. Orders Ordered: Discontinued Medications Albuterol (Ventolin) 2.5 mg INH NOW ONE Stop: 07/04/18 14:17 Last Admin: 07/04/18 14:16 Dose: 2.5 mg Morphine Sulfate (Morphine) 2 mg IV NOW ONE Stop: 07/04/18 14:30 Last Admin: 07/04/18 14:31 Dose: 2 mg Vital Signs - 8 hr 07/04/18 09:21 Pulse Rate 81 Respiratory Rate 22 Pulse Oximetry 93 MDM - SOB/Dyspnea Medical Records Attestation: I reviewed the patient's medical records. Lab Data Attestation: I reviewed the patient's lab results. Result diagrams: 07/04/18 09:45 07/04/18 09:45 Lab Results 07/04/18 07/04/18 07/04/18 Range/Units 09:45 09:45 09:45 WBC 13.1 H (4.5-11.0) X10^3/uL RBC 3.29 L (4.0-5.2) X10^6/uL Hgb 9.4 L (12.0-16.0) g/dL Hct 28.5 L (36-46) % MCV 86.6 (80-100) fL MCH 28.7 (26-34) PG MCHC 33.1 (30-36) % RDW 15.9 H (11.6-14.8) % Plt Count 231 (150-400) X10^3/uL Neut % (Auto) 84.4 H (50-75) % Lymph % (Auto) 9.1 L (25-40) % [place] % (Auto) 3.5 (3-14) % Eos % (Auto) 2.2 (2-4) % Baso % (Auto) 0.8 (0-2) % Neut # (Auto) 40364 H (7442-9414) /uL PT (10.1-12.7) SECONDS INR (0.9-1.3) APTT (26.4-36.2) SECONDS ABG pH (7.35-7.45) ABG pCO2 (35-45) mmHg ABG pO2 (80-105) mmHg ABG HCO3 (23-27) mmol/L ABG Total CO2 (23-27) mmol/L ABG O2 Saturation (95-100) % ABG Base Excess (-2-3) mmol/L FiO2 Sodium 134 L (137-145) mmol/L Potassium 4.2 (3.4-5.1) mmol/L Chloride 93 L (98-107) mmol/L Carbon Dioxide 24 (22-32) mmol/L BUN 44 H (7-17) mg/dL Creatinine 5.60 H (0.52-1.04) mg/dL Estimated GFR 7.7 L (>60) mL/min BUN/Creatinine Ratio 7.9 (6-22) Glucose 114 H (80-110) mg/dL Lactate (0.7-2.1) mmol/L Calcium 9.4 (8.4-10.2) mg/dL Total Bilirubin 0.3 (0.2-1.3) mg/dL AST 21 (14-36) IU/L ALT 19 (9-52) IU/L Alkaline Phosphatase 67 (38-126) U/L Total Creatine Kinase 33 (30-135) U/L CK-MB (CK-2) TNP CK-MB (CK-2) Rel Index TNP Troponin I 0.030 (0.01-0.034) ng/mL Total Protein 7.1 (6.3-8.2) g/dL Albumin 4.5 (3.5-5.0) g/dL Globulin 2.6 (1.7-4.1) g/dL Albumin/Globulin Ratio 1.7 (1.0-2.8) Procalcitonin (<0.5) ng/mL Fluid Color Fluid Appearance Fluid pH pH Fluid RBC /uL Fld Tot Nucleated Cell /uL Fluid Polynuclear WBCs % Fluid Mononuclear WBCs % Fluid Eosinophils Fluid Other Cells Body Fluid Clot Fluid Total Protein g/dL Fluid LDH U/L 07/04/18 07/04/18 07/04/18 Range/Units 09:45 09:45 09:59 WBC (4.5-11.0) X10^3/uL RBC (4.0-5.2) X10^6/uL Hgb (12.0-16.0) g/dL Hct (36-46) % MCV (80-100) fL MCH (26-34) PG MCHC (30-36) % RDW (11.6-14.8) % Plt Count (150-400) X10^3/uL Neut % (Auto) (50-75) % Lymph % (Auto) (25-40) % [place] % (Auto) (3-14) % Eos % (Auto) (2-4) % Baso % (Auto) (0-2) % Neut # (Auto) (9572-9320) /uL PT 12.5 (10.1-12.7) SECONDS INR 1.1 (0.9-1.3) APTT 38 H (26.4-36.2) SECONDS ABG pH 7.44 (7.35-7.45) ABG pCO2 33.9 L (35-45) mmHg ABG pO2 54 L (80-105) mmHg ABG HCO3 23 (23-27) mmol/L ABG Total CO2 24 (23-27) mmol/L ABG O2 Saturation 89 L (95-100) % ABG Base Excess -1.0 (-2-3) mmol/L FiO2 0.21 Sodium (137-145) mmol/L Potassium (3.4-5.1) mmol/L Chloride (98-107) mmol/L Carbon Dioxide (22-32) mmol/L BUN (7-17) mg/dL Creatinine (0.52-1.04) mg/dL Estimated GFR (>60) mL/min BUN/Creatinine Ratio (6-22) Glucose (80-110) mg/dL Lactate 1.4 (0.7-2.1) mmol/L Calcium (8.4-10.2) mg/dL Total Bilirubin (0.2-1.3) mg/dL AST (14-36) IU/L ALT (9-52) IU/L Alkaline Phosphatase (38-126) U/L Total Creatine Kinase (30-135) U/L CK-MB (CK-2) CK-MB (CK-2) Rel Index Troponin I (0.01-0.034) ng/mL Total Protein (6.3-8.2) g/dL Albumin (3.5-5.0) g/dL Globulin (1.7-4.1) g/dL Albumin/Globulin Ratio (1.0-2.8) Procalcitonin (<0.5) ng/mL Fluid Color Fluid Appearance Fluid pH pH Fluid RBC /uL Fld Tot Nucleated Cell /uL Fluid Polynuclear WBCs % Fluid Mononuclear WBCs % Fluid Eosinophils Fluid Other Cells Body Fluid Clot Fluid Total Protein g/dL Fluid LDH U/L 07/04/18 07/04/18 07/04/18 Range/Units 11:24 12:23 12:23 WBC (4.5-11.0) X10^3/uL RBC (4.0-5.2) X10^6/uL Hgb (12.0-16.0) g/dL Hct (36-46) % MCV (80-100) fL MCH (26-34) PG MCHC (30-36) % RDW (11.6-14.8) % Plt Count (150-400) X10^3/uL Neut % (Auto) (50-75) % Lymph % (Auto) (25-40) % [place] % (Auto) (3-14) % Eos % (Auto) (2-4) % Baso % (Auto) (0-2) % Neut # (Auto) (8846-4695) /uL PT (10.1-12.7) SECONDS INR (0.9-1.3) APTT (26.4-36.2) SECONDS ABG pH (7.35-7.45) ABG pCO2 (35-45) mmHg ABG pO2 (80-105) mmHg ABG HCO3 (23-27) mmol/L ABG Total CO2 (23-27) mmol/L ABG O2 Saturation (95-100) % ABG Base Excess (-2-3) mmol/L FiO2 Sodium (137-145) mmol/L Potassium (3.4-5.1) mmol/L Chloride (98-107) mmol/L Carbon Dioxide (22-32) mmol/L BUN (7-17) mg/dL Creatinine (0.52-1.04) mg/dL Estimated GFR (>60) mL/min BUN/Creatinine Ratio (6-22) Glucose (80-110) mg/dL Lactate (0.7-2.1) mmol/L Calcium (8.4-10.2) mg/dL Total Bilirubin (0.2-1.3) mg/dL AST (14-36) IU/L ALT (9-52) IU/L Alkaline Phosphatase (38-126) U/L Total Creatine Kinase (30-135) U/L CK-MB (CK-2) CK-MB (CK-2) Rel Index Troponin I (0.01-0.034) ng/mL Total Protein (6.3-8.2) g/dL Albumin (3.5-5.0) g/dL Globulin (1.7-4.1) g/dL Albumin/Globulin Ratio (1.0-2.8) Procalcitonin 0.14 (<0.5) ng/mL Fluid Color Yellow Fluid Appearance Hazy Fluid pH 7.5 pH Fluid RBC 1637 /uL Fld Tot Nucleated Cell 314 /uL Fluid Polynuclear WBCs 30 % Fluid Mononuclear WBCs 70 % Fluid Eosinophils Not Reportable Fluid Other Cells Not Reportable Body Fluid Clot No clots present Fluid Total Protein 3.2 g/dL Fluid LDH 240 U/L Imaging Data Chest x-ray: Radiologist's impression: PROCEDURE: XR CHEST 1V INDICATIONS: dyspnea TECHNIQUE: One view of the chest was acquired. COMPARISON: Outside Film, CR, XR CHEST 2 VIEWS, 06/24/2018, 10:10. FINDINGS: Surgical changes and devices: Sternal wires are present. Left axillary clips are present. Left tunnel catheter is present, with distal tip overlying the right atrium. Lungs and pleura: Unchanged mild to modreate left effusion, trace on the right. There is increased pulmonary vascularity. Mediastinum: Mediastinal contours appear normal. Heart size is normal. Bones and chest wall: No suspicious bony lesions. Overlying soft tissues appear unremarkable. IMPRESSION: Left greater than right pleural effusions with increased vascularity. Underlyhing air space disease such as pneumonia and/or atelectasis cannot be excluded. Recommend interval followup to document resolution to exclude underlying mass lesion. Dictated by: Liset Britton M.D. on 07/04/2018 at 9:51 Approved by: Liset Brittno M.D. on 07/04/2018 at 9:59 PROCEDURE: XR CHEST 1V INDICATIONS: POST LEFT SIDED THORACENTESIS TECHNIQUE: One view of the chest was acquired. COMPARISON: [facility], , XR CHEST 1V, 07/04/2018, 9:34. FINDINGS: Surgical changes and devices: Sternal wires, left hilar clips and right dialysis catheter is present overlying the right atrium. Lungs and pleura: Bilateral pleural effusions, decreased on the left compared to prior exam. Mediastinum: Mediastinal contours appear normal. Heart size is normal. Bones and chest wall: No suspicious bony lesions. Overlying soft tissues appear unremarkable. IMPRESSION: Status post thoracentesis with decreased appearance of left pleural effusion. Dictated by: Liset Britton M.D. on 07/04/2018 at 12:29 Approved by: Liset Britton M.D. on 07/04/2018 at 12:35 PROCEDURE: XR CHEST 1V INDICATIONS: dyspnea TECHNIQUE: One view of the chest was acquired. COMPARISON: [facility], , XR CHEST 1V, 07/04/2018, 12:17. FINDINGS: Surgical changes and devices: There is a dual-lumen left-sided central line catheter identified with the tip overlying the right atrium. Postoperative changes related to prior median sternotomy is evident. Clips within the left axilla are noted. Lungs and pleura: Bibasilar airspace disease is identified that obscures the diaphragms (left greater than right). These areas of consolidation are more prominent on the left on the current study compared to the prior exam. The pulmonary vasculature is increased. No pneumothorax is evident. Mediastinum: Mediastinal contours appear normal. Heart size is enlarged. There is aortic atherosclerosis. Bones and chest wall: No suspicious bony lesions. Overlying soft tissues appear unremarkable. IMPRESSION: 1. Cardiomegaly and moderate vascular congestion may represent developing pulmonary edema. 2. Increasing left basilar consolidation is suggestive of atelectasis and/or pleural fluid. 3. Trace right-sided pleural effusion is unchanged. 4. No pneumothorax. Dictated by: Doug Atkinson M.D. on 07/04/2018 at 14:02 Approved by: Doug Atkinson M.D. on 07/04/2018 at 14:03 ECG Data Attestation: I personally reviewed and interpreted this ECG as follows: (see below) Interpretation: the 12 lead EKG performed on July 04, 2018 at 9:28 a.m., as follows: Regular ventricular rhythm with a rate of 81 beats per minute IL intervals 159 millisecond QRS duration 90 millisecond QTC interval 429 milliseconds normal axis in summary, normal sinus rhythm with left atrial enlargement and incomplete right bundle branch block, as interpreted by ED MD. Discharge Plan Departure Patient Disposition: Home Clinical Impression: Pleural effusion, S/P thoracentesis Discharge Date/Time: 07/04/18 16:45 Interventions: ED Discharge Assessment Last Done: 07/04/18 16:39 Instructions: DI for Pleural Effusion Prescriptions: No Action atorvastatin 40 mg Tablet 40 mg PO QPM RF: 0 cyanocobalamin (vitamin B-12) [Vitamin B-12] 1,000 mcg Tablet 1,000 mcg PO DAILY RF: 0 hydroxyzine pamoate 50 mg Capsule 50 mg PO Q6H PRN (Reason: Anxiety) RF: 0 hydralazine 25 mg Tablet 25 mg PO Q8H PRN (Reason: Hypertension) RF: 0 melatonin 3 mg Tablet 3 mg PO BEDTIME PRN (Reason: Insomnia) RF: 0 clopidogrel 75 mg Tablet 75 mg PO DAILY RF: 0 amlodipine 5 mg Tablet 5 mg PO BID RF: 0 acetaminophen 500 mg Tablet 500 mg PO Q6H MDD 4 G PRN (Reason: Fever) RF: 0 levothyroxine 88 mcg Tablet 88 mcg PO DAILY RF: 0 famotidine 20 mg Tablet 20 mg PO DAILY RF: 0 lorazepam 0.5 mg Tablet 0.5 mg PO Q8H PRN (Reason: Anxiety) RF: 0 bisacodyl 10 mg Suppository 10 mg IL DAILY PRN (Reason: Constipation) RF: 0 ferrous sulfate 325 mg (65 mg iron) Tablet 325 mg PO DAILY RF: 0 metoprolol tartrate 50 mg Tablet 50 mg PO BID RF: 0 sodium phosphates [Fleet Enema] 19-7 gram/118 mL Enema 1 ea IL PRN PRN (Reason: Constipation) RF: 0 sertraline 25 mg Tablet 75 mg PO DAILY RF: 0 ondansetron 4 mg Tablet,Disintegrating 4 mg PO Q6H PRN (Reason: Nausea And Vomiting) RF: 0 hydroxyzine pamoate 25 mg Capsule 25 mg PO Q6H PRN (Reason: Anxiety) RF: 0 bisacodyl 5 mg Tablet 5 - 10 mg PO PRN PRN (Reason: Constipation) RF: 0 cholecalciferol (vitamin D3) [Vitamin D3] 1,000 unit Capsule 1,000 unit PO DAILY RF: 0 mirtazapine 7.5 mg Tablet 7.5 mg PO BEDTIME RF: 0 magnesium hydroxide 2,400 mg/10 mL Suspension 10 ml PO DAILY PRN (Reason: Constipation) RF: 0 sevelamer carbonate [Renvela] 800 mg Tablet 800 mg PO TIDWM RF: 0 Bifidobacterium Bifidum capsule 1 cap PO DAILY RF: 0 Renal-Ameena 1 tab PO QPM RF: 0 hydrocortisone acetate suppository 1 ea IL Q8H PRN (Reason: LOWER GI BLEED) RF: 0 Referrals: Shiraz Moya MD [Physician] - (Please call for follow-up appointment in the next week.) Paulina Centeno [Primary Care Provider] -
--- NOTE | 2018-07-04 09:52 | PC.NURSE ---
Pt arrived on oxygen and was weaned to room air. H/O COPD. RA 93% w/ RR 30-32 & labored. BS in upper lobes clear. Left Lower Lobe is absent, right lower lobe has scant aeration.
[2018-07-04 10:05] LABS: Add Manual Diff / Slide Review NO; Basophils Percent Auto 0.8 % (0-2); Eosinophils Percent Auto 2.2 % (2-4); Hematocrit 28.5 % (36-46); Hemoglobin 9.4 g/dL (12.0-16.0); Lymphocytes Percent Auto 9.1 % (25-40); Mean Corpuscular HGB Conc 33.1 % (30-36); Mean Corpuscular Hemoglobin 28.7 PG (26-34); Mean Corpuscular Volume 86.6 fL (80-100); Monocytes Percent Auto 3.5 % (3-14); Neutrophils Absolute Auto 11100 /uL (3000-5900); Neutrophils Percent Auto 84.4 % (50-75); Platelet Count 231 X10^3/uL (150-400); Red Blood Cell Count 3.29 X10^6/uL (4.0-5.2); Red Cell Distribution Width 15.9 % (11.6-14.8); White Blood Cell Count 13.1 X10^3/uL (4.5-11.0)
[2018-07-04 10:09] LABS: Fractionated Inspired Oxygen 0.21; HCO3 ABG 23 mmol/L (23-27); Oxygen Saturation ABG 89 % (95-100); PCO2 ABG 33.9 mmHg (35-45); PO2 ABG 54 mmHg (80-105); TCO2 ABG 24 mmol/L (23-27); pH ABG 7.44 (7.35-7.45)
[2018-07-04 10:18] LABS: Alanine Aminotransferase 19 IU/L (9-52); Albumin 4.5 g/dL (3.5-5.0); Albumin Globulin Ratio 1.7 (1.0-2.8); Alkaline Phosphatase 67 U/L (38-126); Aspartate Aminotransferase 21 IU/L (14-36); BUN Creatinine Ratio 7.9 (6-22); Bilirubin Total 0.3 mg/dL (0.2-1.3); Blood Urea Nitrogen 44 mg/dL (7-17); Calcium 9.4 mg/dL (8.4-10.2); Carbon Dioxide 24 mmol/L (22-32); Chloride 93 mmol/L (98-107); Creatine Kinase 33 U/L (30-135); Estimated Glomerular Filt Rate 7.7 mL/min (>60); Globulin 2.6 g/dL (1.7-4.1); Glucose 114 mg/dL (80-110); HEMOLYSIS < 15 (0-50); Potassium 4.2 mmol/L (3.4-5.1); Sodium 134 mmol/L (137-145); Total Protein 7.1 g/dL (6.3-8.2)
--- NOTE | 2018-07-04 10:30 | DI.US.S_ITS ---
PROCEDURE: US THORACENTESIS INDICATIONS: LEFT PLEURAL EFFUSION; DYSPNEA TECHNIQUE: The indications, alternatives, benefits, risks, and complications of the procedure were explained to the patient. Written informed consent was obtained and placed in the chart. The chest was examined sonographically, and an appropriate site was chosen for thoracentesis. The skin was prepared and draped in the usual sterile fashion, and 1% lidocaine was infiltrated from the skin down through the pleural surface. A 19-gauge catheter-covered needle was then introduced into the pleural space, the catheter was advanced and the needle was withdrawn, and thereafter pleural fluid was aspirated. The catheter was then removed and a dressing was applied. COMPARISON: [facility], CR, XR CHEST 1V, 07/04/2018, 9:34. [facility], CR, XR CHEST 1V, 07/04/2018, 12:17. FINDINGS: Access site: Left hemithorax. Needle: One-Step centesis catheter with introducer needle. Fluid volume and description: 300 cc of serous fluid, however the patient experienced chest pain and uncontrollable coughing therefore the procedure was terminated before additional fluid could be obtained. Fluid sent for diagnostic testing: As requested Medications: 1% lidocaine for local anaesthesia. Complications: None; post-procedural chest radiograph is pending to assess for pneumothorax. IMPRESSION: Successful ultrasound-guided thoracentesis. Dictated by: Gilson Moore M.D. on 07/04/2018 at 14:41 Approved by: Gilson Moore M.D. on 07/04/2018 at 14:48
[2018-07-04 10:45] LABS: Lactate (Lactic Acid) 1.4 mmol/L (0.7-2.1)
[2018-07-04 11:12] LABS: INR 1.1 (0.9-1.3); Prothrombin Time 12.5 SECONDS (10.1-12.7)
[2018-07-04 11:14] LABS: PTT Partial Thromboplastin Tim 38 SECONDS (26.4-36.2)
--- NOTE | 2018-07-04 11:42 | PATH_ITS ---
Note [facility] Accession Number: [id number] TESTS RESULT FLAG UNITS REF RANGE LAB Clinician Provided Cytology Information No. of containers..01 Other (Miscellaneous) 01 PLERAL FLUID DIAGNOSIS: 02 PLERAL FLUID NEGATIVE FOR MALIGNANT CELLS. Pathologist ICD10: 02 J90 02 Pelon Love MD, PhD, Pathologist NPI- [id number] Slade Garcia, Architecture Technician ([facility]) 01 55 CC, YELLOW, CLEAR /LCS FLAG LEGEND: L-Low Normal,H-High Normal,LL-Alert Low,HH-Alert High <-Panic Low,>-Panic High,A-Abnormal,AA-Critical Abnormal Performed at: 01 =Z [facility] Located within [facility] [address], [place] [address] Vasiliy Roy MD, 02 LCLWA [facility] [place] [address] [place] [id number] Teresa Miller MD, Performed at: 01 [facility] Located within [facility] [address], [place], [place] [id number] MD Vasiliy Roy MD Phone: [phone]
[2018-07-04 12:49] LABS: Body Fluid Red Blood Cells 1637 /uL; Body Fluid Tot Nucleated Cells 314 /uL
[2018-07-04 12:50] LABS: Body Fluid Appearance HAZY; Body Fluid Color YELLOW
[2018-07-04 12:51] LABS: Body Fluid Clotted? NO CLOTS PRESENT
[2018-07-04 12:52] LABS: Mononuclear WBC Body Fluid 70 %; Polynuclear WBC Body Fluid 30 %
[2018-07-04 13:16] LABS: Total Protein Body Fluid 3.2 g/dL
[2018-07-04 13:31] LABS: Procalcitonin 0.14 ng/mL (<0.5)
[2018-07-04] MEDS: ALBUTEROL 2.5 MG/3 ML NEB (ADULT) INH (14:16)
--- NOTE | 2018-07-04 14:29 | DI.RAD.S_ITS ---
PROCEDURE: XR CHEST 1V INDICATIONS: dyspnea TECHNIQUE: One view of the chest was acquired. COMPARISON: [facility], CR, XR CHEST 1V, 07/04/2018, 12:17. FINDINGS: Surgical changes and devices: There is a dual-lumen left-sided central line catheter identified with the tip overlying the right atrium. Postoperative changes related to prior median sternotomy is evident. Clips within the left axilla are noted. Lungs and pleura: Bibasilar airspace disease is identified that obscures the diaphragms (left greater than right). These areas of consolidation are more prominent on the left on the current study compared to the prior exam. The pulmonary vasculature is increased. No pneumothorax is evident. Mediastinum: Mediastinal contours appear normal. Heart size is enlarged. There is aortic atherosclerosis. Bones and chest wall: No suspicious bony lesions. Overlying soft tissues appear unremarkable. IMPRESSION: 1. Cardiomegaly and moderate vascular congestion may represent developing pulmonary edema. 2. Increasing left basilar consolidation is suggestive of atelectasis and/or pleural fluid. 3. Trace right-sided pleural effusion is unchanged. 4. No pneumothorax. Dictated by: Doug Atkinson M.D. on 07/04/2018 at 14:02 Approved by: Doug Atkinson M.D. on 07/04/2018 at 14:03
[2018-07-04] MEDS: MORPHINE 2 MG/ML INJ IV (14:31)
[2018-07-04 15:08] LABS: pH Body Fluid 7.5 pH
--- NOTE | 2018-07-04 16:08 | PC.NURSE ---
spoke with caregiver at [facility].
[2018-07-04 18:01] LABS: LDH Body Fluid 240 U/L
== END 2018-07-04 16:45 | disposition home or self-care (01) ==
PROVIDERS: Emergency Provider Emergency Medicine; PCP Internal Medicine Endocrinology, Diabetes & Metabolism
DX: J90 Pleural effusion, not elsewhere classified (principal); Z98.890 Other specified postprocedural states
CPT/HCPCS: 32555; 36415; 36591; 36600; 71045; 80053; 82550; 82805; 83605; 83615; 83986; 84145; 84157; 84484; 85025; 85610; 85730; 87040; 87070; 87075; 87205; 89051; 93005; 93041; 94640; 96374; 99285; J2270; J7613

== ENCOUNTER → 2018-07-13 08:53 | Outpatient (REF) | payer MEDICARE, MEDICAID, SELFPAY | LOC: LAB 08:53 | PROVIDERS: PCP Internal Medicine Endocrinology, Diabetes & Metabolism; Visit Provider Nurse Practitioner | DX: E03.9 Hypothyroidism, unspecified (principal) | CPT/HCPCS: 36415; 84443 ==

== ENCOUNTER 2018-07-13 15:14 | Emergency (ER) | payer MEDICARE, MEDICAID, SELFPAY ==
[2018-07-13 15:15] VITALS: BP 137/68; PULSE 74; RESP 18; TEMP 36.9; O2SAT 98
[2018-07-13 15:30] VITALS: BP 133/46; PULSE 72; O2SAT 19
[2018-07-13 15:45] LABS: Add Manual Diff / Slide Review NO; Basophils Percent Auto 0.9 % (0-2); Eosinophils Percent Auto 2.8 % (2-4); Hematocrit 26.7 % (36-46); Hemoglobin 9.1 g/dL (12.0-16.0); Lymphocytes Percent Auto 12.6 % (25-40); Mean Corpuscular HGB Conc 33.9 % (30-36); Mean Corpuscular Hemoglobin 29.5 PG (26-34); Monocytes Percent Auto 6.2 % (3-14); Neutrophils Absolute Auto 6500 /uL (3000-5900); Neutrophils Percent Auto 77.5 % (50-75); Platelet Count 231 X10^3/uL (150-400); Red Blood Cell Count 3.07 X10^6/uL (4.0-5.2); Red Cell Distribution Width 16.8 % (11.6-14.8); White Blood Cell Count 8.4 X10^3/uL (4.5-11.0)
[2018-07-13 15:55] LABS: INR 1.2 (0.9-1.3); Prothrombin Time 12.5 SECONDS (10.1-12.7)
[2018-07-13 15:58] LABS: PTT Partial Thromboplastin Tim 36 SECONDS (26.4-36.2)
[2018-07-13 16:03] LABS: BUN Creatinine Ratio 6.8 (6-22); Blood Urea Nitrogen 25 mg/dL (7-17); Calcium 8.3 mg/dL (8.4-10.2); Carbon Dioxide 27 mmol/L (22-32); Chloride 97 mmol/L (98-107); Estimated Glomerular Filt Rate 12.4 mL/min (>60); Glucose 109 mg/dL (80-110); HEMOLYSIS < 15 (0-50); Potassium 3.7 mmol/L (3.4-5.1); Sodium 136 mmol/L (137-145)
--- NOTE | 2018-07-13 16:05 | ED.WEAKNESS ---
HPI - Weakness General Chief complaint: Weakness Stated complaint: low blood count Time Seen by Provider: 07/13/18 15:19 Source: EMS Limitations: no limitations History of Present Illness HPI Narrative: Patient is a 63-year-old female who presents with abnormal blood work. Apparently she had his blood work at dialysis yesterday and noted that her hemoglobin was 6.6. She is completely asymptomatic she denies shortness of breath weakness or fatigue. Dialysis is relatively new for her. She has no cough black stool she is not vomiting Related Data Home Medications Medication Instructions Recorded Confirmed Renal-Ameena 1 tab PO QPM 07/04/18 07/13/18 acetaminophen 500 mg PO Q6H PRN MDD 4 G 07/04/18 07/13/18 atorvastatin 40 mg PO QPM 07/04/18 07/13/18 bisacodyl 5 - 10 mg PO PRN PRN 07/04/18 07/13/18 bisacodyl 10 mg [place] DAILY PRN 07/04/18 07/13/18 cholecalciferol (vitamin D3) 1,000 unit PO DAILY 07/04/18 07/13/18 [Vitamin D3] clopidogrel 75 mg PO DAILY 07/04/18 07/13/18 cyanocobalamin (vitamin B-12) 1,000 mcg PO DAILY 07/04/18 07/13/18 [Vitamin B-12] famotidine 20 mg PO DAILY 07/04/18 07/13/18 hydrocortisone acetate 1 ea [place] Q8H PRN 07/04/18 07/13/18 hydroxyzine pamoate 25 mg PO Q6H PRN 07/04/18 07/13/18 hydroxyzine pamoate 50 mg PO Q6H PRN 07/04/18 07/13/18 levothyroxine 88 mcg PO DAILY 07/04/18 07/13/18 lorazepam 0.5 mg PO Q8H PRN 07/04/18 07/13/18 melatonin 3 mg PO BEDTIME PRN 07/04/18 07/13/18 metoprolol tartrate 50 mg PO BID 07/04/18 07/13/18 mirtazapine 7.5 mg PO BEDTIME 07/04/18 07/13/18 ondansetron 4 mg PO Q6H PRN 07/04/18 07/13/18 sertraline 75 mg PO DAILY 07/04/18 07/13/18 sevelamer carbonate [Renvela] 800 mg PO TIDWM 07/04/18 07/13/18 sodium phosphates [Fleet Enema] 1 ea OH PRN PRN 07/04/18 07/13/18 Lactobacillus acidophilus 1 tab PO DAILY 07/13/18 07/13/18 [Acidophilus] Nitrostat 1 tab SUBLINGUAL .ONCE PRN 07/13/18 07/13/18 acetaminophen-codeine 1 - 2 tab PO Q4H PRN 07/13/18 07/13/18 clonidine HCl 0.2 mg PO .ONCE PRN 07/13/18 07/13/18 isosorbide mononitrate 30 mg PO QAM 07/13/18 07/13/18 Allergies Allergy/AdvReac Type Severity Reaction Status Date / Time No Known Drug Allergies Allergy Verified 07/13/18 15:26 Review of Systems Review of Systems All systems reviewed & are unremarkable except as noted in HPI and below Constitutional Denies chills, Denies fever(s), Denies lethargy and Denies weakness Cardiovascular Denies chest pain, Denies irregular heart rhythm, Denies lightheadedness, Denies palpitations, Denies dyspnea, Denies dyspnea on exertion and Denies orthopnea Respiratory Denies cough, Denies dyspnea, Denies dyspnea on exertion and Denies wheezing Gastrointestinal Gastrointestinal: Denies abdominal pain, Denies change in bowel habits, Denies diarrhea, Denies nausea and Denies vomiting Musculoskeletal Denies back pain, Denies muscle weakness, Denies numbness and Denies tingling Integumentary/Breasts Denies pruritus, Denies erythema, Denies rash and Denies wounds Neurologic Denies numbness, Denies tingling and Denies weakness Endocrine Denies palpitations Hematologic/Lymphatic Reports as per HPI Allergic/Immunologic Denies wheezing PFSH Medical History Acute kidney failure (Acute) Acute renal failure on dialysis (Acute) Anemia (Acute) Anxiety (Acute) CHF (congestive heart failure) (Acute) Chronic kidney disease (Acute) Fibromyalgia (Acute) GI bleed (Acute) HTN (hypertension) (Acute) Hyperlipidemia (Acute) Hypothyroid (Acute) IBS (irritable bowel syndrome) (Acute) Major depressive disorder (Acute) Malnutrition (Acute) Peripheral vascular disease (Acute) TIA (transient ischemic attack) (Acute) Thrombocytopenia (Acute) Social History Smoking Status: Former smoker Exam Initial Vital Signs Initial Vital Signs: Vital Signs Temperature 98.5 F 07/13/18 15:15 Pulse Rate 74 07/13/18 15:15 Respiratory Rate 18 07/13/18 15:15 Blood Pressure 137/68 07/13/18 15:15 Pulse Oximetry 98 07/13/18 15:15 GENERAL: Thin slightly pale female no acute distress alert oriented and cooperative HEENT: Head atraumatic,EOMI, pupils reactive, CARDIOVASCULAR: Regular rate and rhythm without murmurs, rubs or gallops. RESPIRATORY: Breath sounds equal bilaterally, no wheezes rales or rhonchi. ABDOMEN: Soft, nontender. Normoactive bowel sounds all 4 quadrants. No guarding or rebound. EXTREMITIES: Normal range of motion, no clubbing or edema. Neurovascularly intact NEUROLOGICAL: Alert and oriented x4.Normal gait and speech. Cranial nerves II through XII grossly intact. SKIN: Warm, dry, no laceration, no petechiae, no rashes or lesions. Course Orders Ordered: ED Orders 07/13/18 15:30 Basic Metabolic Panel Stat Complete Blood Count AUTO DIFF Stat Partial Thromboplastin Time Stat Prothrombin Time INR Stat Type and Screen Stat Vital Signs - 8 hr 07/13/18 15:15 07/13/18 15:30 07/13/18 16:07 Temperature 98.5 F Pulse Rate 74 72 75 Respiratory Rate 18 20 Blood Pressure 137/68 Blood Pressure [Right Arm] 133/46 L 142/58 H Pulse Oximetry 98 19 L 99 07/13/18 16:30 07/13/18 17:01 Temperature 98.5 F Pulse Rate 73 74 Respiratory Rate 18 Blood Pressure 149/67 H Blood Pressure [Right Arm] 134/68 Pulse Oximetry 17 L 97 MDM - Weakness Lab Data Attestation: I reviewed the patient's lab results. Result diagrams: 07/13/18 15:30 07/13/18 15:30 Lab Results 07/13/18 07/13/18 07/13/18 Range/Units 15:30 15:30 15:30 WBC 8.4 (4.5-11.0) X10^3/uL RBC 3.07 L (4.0-5.2) X10^6/uL Hgb 9.1 L (12.0-16.0) g/dL Hct 26.7 L (36-46) % MCV 87.0 (80-100) fL MCH 29.5 (26-34) PG MCHC 33.9 (30-36) % RDW 16.8 H (11.6-14.8) % Plt Count 231 (150-400) X10^3/uL Neut % (Auto) 77.5 H (50-75) % Lymph % (Auto) 12.6 L (25-40) % [place] % (Auto) 6.2 (3-14) % Eos % (Auto) 2.8 (2-4) % Baso % (Auto) 0.9 (0-2) % Neut # (Auto) 6500 H (0587-5004) /uL PT 12.5 (10.1-12.7) SECONDS INR 1.2 (0.9-1.3) APTT 36 D (26.4-36.2) SECONDS Sodium 136 L (137-145) mmol/L Potassium 3.7 (3.4-5.1) mmol/L Chloride 97 L (98-107) mmol/L Carbon Dioxide 27 (22-32) mmol/L BUN 25 H (7-17) mg/dL Creatinine 3.70 H (0.52-1.04) mg/dL Estimated GFR 12.4 L (>60) mL/min BUN/Creatinine Ratio 6.8 (6-22) Glucose 109 (80-110) mg/dL Calcium 8.3 L (8.4-10.2) mg/dL Blood Type Antibody Screen 07/13/18 Range/Units 15:30 WBC (4.5-11.0) X10^3/uL RBC (4.0-5.2) X10^6/uL Hgb (12.0-16.0) g/dL Hct (36-46) % MCV (80-100) fL MCH (26-34) PG MCHC (30-36) % RDW (11.6-14.8) % Plt Count (150-400) X10^3/uL Neut % (Auto) (50-75) % Lymph % (Auto) (25-40) % [place] % (Auto) (3-14) % Eos % (Auto) (2-4) % Baso % (Auto) (0-2) % Neut # (Auto) (5605-6142) /uL PT (10.1-12.7) SECONDS INR (0.9-1.3) APTT (26.4-36.2) SECONDS Sodium (137-145) mmol/L Potassium (3.4-5.1) mmol/L Chloride (98-107) mmol/L Carbon Dioxide (22-32) mmol/L BUN (7-17) mg/dL Creatinine (0.52-1.04) mg/dL Estimated GFR (>60) mL/min BUN/Creatinine Ratio (6-22) Glucose (80-110) mg/dL Calcium (8.4-10.2) mg/dL Blood Type A Positive Antibody Screen Negative MDM Narrative Medical decision making narrative: Patient is hemoglobin is 9.1 which is slightly lower than her previous, but it certainly is not in the transfusion range. Patient again is asymptomatic she feels ready and able to go. Discharge Plan Departure Patient Disposition: Home Clinical Impression: Anemia Discharge Date/Time: 07/13/18 17:24 Interventions: ED Discharge Assessment Last Done: 07/13/18 17:01 Instructions: Anemia Activity Restrictions/Additional Instructions: *You have been diagnosed with anemia *What to do: At this time there is no indication for any blood transfusion. Hemoglobin 9.1, hematocrit 26.7 though this is slightly lower than your previous level. Please continue to monitor *Continue to take medications as directed *Follow up with your primary care provider in 2-3 days *Return to ER if you should have dizziness, lightheadedness, extreme fatigue, shortness of breath or any new, worsening or concerning symptoms Prescriptions: No Action atorvastatin 40 mg Tablet 40 mg PO QPM RF: 0 cyanocobalamin (vitamin B-12) [Vitamin B-12] 1,000 mcg Tablet 1,000 mcg PO DAILY RF: 0 hydroxyzine pamoate 50 mg Capsule 50 mg PO Q6H PRN (Reason: Anxiety) RF: 0 melatonin 3 mg Tablet 3 mg PO BEDTIME PRN (Reason: Insomnia) RF: 0 clopidogrel 75 mg Tablet 75 mg PO DAILY RF: 0 acetaminophen 500 mg Tablet 500 mg PO Q6H MDD 4 G PRN (Reason: Fever) RF: 0 levothyroxine 88 mcg Tablet 88 mcg PO DAILY RF: 0 famotidine 20 mg Tablet 20 mg PO DAILY RF: 0 lorazepam 0.5 mg Tablet 0.5 mg PO Q8H PRN (Reason: Anxiety) RF: 0 bisacodyl 10 mg Suppository 10 mg [place] DAILY PRN (Reason: Constipation) RF: 0 metoprolol tartrate 50 mg Tablet 50 mg PO BID RF: 0 sodium phosphates [Fleet Enema] 19-7 gram/118 mL Enema 1 ea OH PRN PRN (Reason: Constipation) RF: 0 sertraline 25 mg Tablet 75 mg PO DAILY RF: 0 ondansetron 4 mg Tablet,Disintegrating 4 mg PO Q6H PRN (Reason: Nausea And Vomiting) RF: 0 hydroxyzine pamoate 25 mg Capsule 25 mg PO Q6H PRN (Reason: Anxiety) RF: 0 bisacodyl 5 mg Tablet 5 - 10 mg PO PRN PRN (Reason: Constipation) RF: 0 cholecalciferol (vitamin D3) [Vitamin D3] 1,000 unit Capsule 1,000 unit PO DAILY RF: 0 mirtazapine 7.5 mg Tablet 7.5 mg PO BEDTIME RF: 0 sevelamer carbonate [Renvela] 800 mg Tablet 800 mg PO TIDWM RF: 0 Renal-Ameena 1 tab PO QPM RF: 0 hydrocortisone acetate suppository 1 ea [place] Q8H PRN (Reason: LOWER GI BLEED) RF: 0 Lactobacillus acidophilus [Acidophilus] Capsule 1 tab PO DAILY RF: 0 isosorbide mononitrate 30 mg Tablet Extended Release 24 Hr 30 mg PO QAM RF: 0 clonidine HCl 0.2 mg Tablet 0.2 mg PO .ONCE PRN (Reason: BP>160) RF: 0 acetaminophen-codeine 300-30 mg Tablet 1 - 2 tab PO Q4H PRN (Reason: mild-mod cough and chest pain) RF: 0 Nitrostat 1 tab Sublingual .ONCE PRN (Reason: BP >160) RF: 0 Referrals: Paulina Centeno [Primary Care Provider] -
[2018-07-13 16:07] VITALS: BP 142/58; PULSE 75; RESP 20; O2SAT 99
[2018-07-13 16:30] VITALS: BP 134/68; PULSE 73; O2SAT 17
[2018-07-13 17:01] VITALS: BP 149/67; PULSE 74; RESP 18; TEMP 36.9; O2SAT 97
== END 2018-07-13 17:24 | disposition home or self-care (01) ==
PROVIDERS: Emergency Provider Emergency Medicine; PCP Internal Medicine Endocrinology, Diabetes & Metabolism
DX: D64.9 Anemia, unspecified (principal); E03.9 Hypothyroidism, unspecified
CPT/HCPCS: 36415; 36591; 80048; 84443; 85025; 85610; 85730; 86850; 86900; 86901; 93041; 99283; 99284

== ENCOUNTER → 2018-07-14 10:12 | Outpatient (CLI) | payer MEDICARE, MEDICAID, SELFPAY ==
--- NOTE | 2018-07-14 | DI.RAD.S_ITS ---
PROCEDURE: XR CHEST 2V INDICATIONS: PLEURAL EFFUSION TECHNIQUE: 2 views of the chest were acquired. COMPARISON: [facility], CR, XR CHEST 1V, 07/04/2018, 14:36. [facility], CR, XR CHEST 1V, 07/04/2018, 12:17. FINDINGS: Surgical changes and devices: Double-lumen central venous catheter from left-sided approach extends into the right atrium. Sternotomy wires, presumed prior CABG. Lungs and pleura: No right-sided pleural effusions or pneumothorax bilaterally but there is a subpulmonic left effusion previously present associated with left lower lobe pneumonia seen 07/04/18. A slight subpulmonic right effusion has almost completely. Lungs are clear on the right but demonstrate persistent pneumonia on the left versus left basilar atelectasis. Mediastinum: Mediastinal contours are normal. Heart size is normal. Bones and chest wall: No suspicious bony abnormalities. Soft tissues appear unremarkable. IMPRESSION: Subpulmonic right effusion has almost completely resolved. Subpulmonic left effusion is mild to moderate in quantity and associated with what appears to be a left lower lobe pneumonia. Secondary atelectasis at the left lung base adjacent to the effusion also could produce the appearance. Double-lumen central venous catheter in normal position. Dictated by: Ash aDmon M.D. on 07/14/2018 at 10:31 Approved by: Ash Damon M.D. on 07/14/2018 at 10:33
== END ==
PROVIDERS: PCP Internal Medicine Endocrinology, Diabetes & Metabolism; Visit Provider Internal Medicine Cardiovascular Disease
DX: J90 Pleural effusion, not elsewhere classified (principal)
CPT/HCPCS: 71046

== ENCOUNTER → 2018-07-18 12:49 | Outpatient (REF) | payer SELFPAY ==
[2018-07-18 12:57] LABS: Hematocrit 26.6 % (36-46); Hemoglobin 8.8 g/dL (12.0-16.0); Platelet Count 165 X10^3/uL (150-400)
[2018-07-18 12:58] LABS: INR 1.1 (0.9-1.3); Prothrombin Time 12.3 SECONDS (10.1-12.7)
== END ==
LOC: LAB 12:49
PROVIDERS: PCP Internal Medicine Endocrinology, Diabetes & Metabolism; Visit Provider Hospitalist
DX: N18.9 Chronic kidney disease, unspecified (principal)
CPT/HCPCS: 85014; 85018; 85049; 85610

== ENCOUNTER 2018-07-28 02:43 | Emergency (ER) | payer MEDICARE, MEDICAID, SELFPAY ==
--- NOTE | 2018-07-28 02:51 | DI.RAD.S_ITS ---
PROCEDURE: XR CHEST 2V INDICATIONS: Shortness of breath TECHNIQUE: 2 views of the chest were acquired. COMPARISON: [facility], CR, XR CHEST 1 VIEW, 07/19/2018, 10:32. [facility], CR, XR CHEST 2V, 07/14/2018, 10:15. FINDINGS: Surgical changes and devices: Large bore left tunneled central venous catheter. Sternotomy wires and CABG clips. Surgical clips projecting in the left axilla Lungs and pleura: Probable small left pleural effusion. No pneumothorax. Retrocardiac and left basilar consolidation. There are scattered bilateral diffuse hazy groundglass opacities. Mediastinum: Mediastinal contours are normal. Heart size is mildly enlarged. Bones and chest wall: No suspicious bony abnormalities. Soft tissues appear unremarkable. IMPRESSION: Interval development of retrocardiac and left lower lobe consolidation, probable small left pleural effusion since 07/19/18 Widespread bilateral groundglass opacities in keeping with pulmonary edema. This finding is also new. Please correlate clinically to exclude superimposed infection. Dictated by: Gilson Moore M.D. on 07/28/2018 at 8:08 Approved by: Gilson Moore M.D. on 07/28/2018 at 8:11
--- NOTE | 2018-07-28 02:52 | ED.SOB ---
HPI - SOB/Dyspnea General Chief Complaint: Shortness of Breath/Dyspnea Stated Complaint: SOB Time Seen by Provider: 07/28/18 02:47 Source: patient Mode of arrival: EMS Limitations: no limitations History of Present Illness Patient is a 63-year-old female on dialysis Wednesday. She stated that she reported a full dialysis treatment on Wednesday of this week. Her renal failure started after she underwent a coronary artery bypass graft several weeks ago. She is currently a resident at a intermediate facility secondary to her new onset renal failure and also recovery from her coronary bypass graft. Approximately 1 month ago she was seen here in our emergency department for left-sided pleural effusion which was drained under ultrasound guidance by Radiology. Her symptoms seemed to improve with this procedure. She returns today with symptoms very similar to that. She states she has shortness of breath with any sort of exertion. She only produces a very small amount a urine. She reports no prior history of heart failure. Related Data Home Medications Medication Instructions Recorded Confirmed Renal-Ameena 1 tab PO QPM 07/04/18 07/13/18 acetaminophen 500 mg PO Q6H PRN MDD 4 G 07/04/18 07/13/18 atorvastatin 40 mg PO QPM 07/04/18 07/13/18 bisacodyl 5 - 10 mg PO PRN PRN 07/04/18 07/13/18 bisacodyl 10 mg [place] DAILY PRN 07/04/18 07/13/18 cholecalciferol (vitamin D3) 1,000 unit PO DAILY 07/04/18 07/13/18 [Vitamin D3] clopidogrel 75 mg PO DAILY 07/04/18 07/13/18 cyanocobalamin (vitamin B-12) 1,000 mcg PO DAILY 07/04/18 07/13/18 [Vitamin B-12] famotidine 20 mg PO DAILY 07/04/18 07/13/18 hydrocortisone acetate 1 ea AK Q8H PRN 07/04/18 07/13/18 hydroxyzine pamoate 25 mg PO Q6H PRN 07/04/18 07/13/18 hydroxyzine pamoate 50 mg PO Q6H PRN 07/04/18 07/13/18 levothyroxine 88 mcg PO DAILY 07/04/18 07/13/18 lorazepam 0.5 mg PO Q8H PRN 07/04/18 07/13/18 melatonin 3 mg PO BEDTIME PRN 07/04/18 07/13/18 metoprolol tartrate 50 mg PO BID 07/04/18 07/13/18 mirtazapine 7.5 mg PO BEDTIME 07/04/18 07/13/18 ondansetron 4 mg PO Q6H PRN 07/04/18 07/13/18 sertraline 75 mg PO DAILY 07/04/18 07/13/18 sevelamer carbonate [Renvela] 800 mg PO TIDWM 07/04/18 07/13/18 sodium phosphates [Fleet Enema] 1 ea [place] PRN PRN 07/04/18 07/13/18 Lactobacillus acidophilus 1 tab PO DAILY 07/13/18 07/13/18 [Acidophilus] Nitrostat 1 tab SUBLINGUAL .ONCE PRN 07/13/18 07/13/18 acetaminophen-codeine 1 - 2 tab PO Q4H PRN 07/13/18 07/13/18 clonidine HCl 0.2 mg PO .ONCE PRN 07/13/18 07/13/18 isosorbide mononitrate 30 mg PO QAM 07/13/18 07/13/18 Allergies Allergy/AdvReac Type Severity Reaction Status Date / Time No Known Drug Allergies Allergy Verified 07/13/18 15:26 Review of Systems Constitutional Reports fatigue and Denies headache(s) ENT Ears, Nose, Mouth, and Throat: Denies headache(s) Cardiovascular Denies chest pain, Denies rapid heart rate, Denies edema, Reports dyspnea and Reports dyspnea on exertion Respiratory Denies cough, Denies pain on inspiration, Reports dyspnea and Reports dyspnea on exertion Gastrointestinal Gastrointestinal: Denies abdominal pain, Denies nausea and Denies vomiting Genitourinary Comments: Anuric Musculoskeletal Denies myalgias and Denies arthralgias Integumentary/Breasts Denies lesions and Denies rash Neurologic Denies headache(s) Endocrine Reports fatigue Hematologic/Lymphatic Denies easy bleeding and Denies easy bruising PFSH Social History lives independently: No Smoking Status: Former smoker Exam Initial Vital Signs Initial Vital Signs: Vital Signs Temperature 98 F 07/28/18 02:53 Pulse Rate 88 07/28/18 02:53 Respiratory Rate 25 H 07/28/18 02:53 Blood Pressure 125/87 07/28/18 02:53 Pulse Oximetry 92 07/28/18 02:53 Const General: cooperative, well developed, well groomed and No acute distress Orientation: alert, awake and oriented x3 HENMT Head: normal to inspection and normocephalic Chest Other: Dialysis catheter left upper chest Resp Other: Decreased breath sounds bilateral lower lung [place]. Crackles upper lung field Cardio Rate: regular rate Rhythm: regular rhythm Pulses: radial pulses present GI Inspection: non-distended Palpation: soft Skin Lesions: no lesions Rashes: no rashes Neuro General: alert, awake and oriented x3 Cognition: normal cognition Speech: speech normal Extrem General: No edema Psych Appearance: grossly normal and well kempt Course Orders Ordered: ED Orders 07/28/18 EKG-12 Lead Stat 07/28/18 02:50 B Type Natriuretic Peptide Stat Complete Blood Count AUTO DIFF Stat Comprehensive Metabolic Panel Stat Lipase Stat Partial Thromboplastin Time Stat Prothrombin Time INR Stat 07/28/18 02:51 XR chest 2V Stat EKG-12 Lead Stat Vital Signs - 8 hr 07/28/18 02:53 Temperature 98 F Pulse Rate 88 Respiratory Rate 25 H Blood Pressure 125/87 Pulse Oximetry 92 MDM - SOB/Dyspnea Medical Records Attestation: I reviewed the patient's medical records. Lab Data Attestation: I reviewed the patient's lab results. Result diagrams: 07/28/18 02:50 07/28/18 02:50 Lab Results 07/28/18 07/28/18 07/28/18 Range/Units 02:50 02:50 02:50 WBC 8.0 (4.5-11.0) X10^3/uL RBC 2.74 L (4.0-5.2) X10^6/uL Hgb 8.0 L (12.0-16.0) g/dL Hct 23.6 L (36-46) % MCV 86.1 (80-100) fL MCH 29.3 (26-34) PG MCHC 34.1 (30-36) % RDW 16.6 H (11.6-14.8) % Plt Count 206 (150-400) X10^3/uL Neut % (Auto) 77.0 H (50-75) % Lymph % (Auto) 14.1 L (25-40) % [place] % (Auto) 4.7 (3-14) % Eos % (Auto) 3.4 (2-4) % Baso % (Auto) 0.8 (0-2) % Neut # (Auto) 6200 H (0564-3808) /uL PT 13.0 H (10.1-12.7) SECONDS INR 1.1 (0.9-1.3) APTT 36 (26.4-36.2) SECONDS Sodium 135 L (137-145) mmol/L Potassium 3.9 (3.4-5.1) mmol/L Chloride 96 L (98-107) mmol/L Carbon Dioxide 24 (22-32) mmol/L BUN 29 H (7-17) mg/dL Creatinine 3.60 H (0.52-1.04) mg/dL Estimated GFR 12.8 L (>60) mL/min BUN/Creatinine Ratio 8.1 (6-22) Glucose 95 (80-110) mg/dL Calcium 8.6 (8.4-10.2) mg/dL Total Bilirubin 0.4 (0.2-1.3) mg/dL AST 22 (14-36) IU/L ALT 22 (9-52) IU/L Alkaline Phosphatase 65 (38-126) U/L B-Natriuretic Peptide 1530.0 H (<100) Total Protein 6.3 (6.3-8.2) g/dL Albumin 3.9 (3.5-5.0) g/dL Globulin 2.4 (1.7-4.1) g/dL Albumin/Globulin Ratio 1.6 (1.0-2.8) Lipase (23-300) U/L 07/28/18 Range/Units 02:50 WBC (4.5-11.0) X10^3/uL RBC (4.0-5.2) X10^6/uL Hgb (12.0-16.0) g/dL Hct (36-46) % MCV (80-100) fL MCH (26-34) PG MCHC (30-36) % RDW (11.6-14.8) % Plt Count (150-400) X10^3/uL Neut % (Auto) (50-75) % Lymph % (Auto) (25-40) % [place] % (Auto) (3-14) % Eos % (Auto) (2-4) % Baso % (Auto) (0-2) % Neut # (Auto) (4420-9368) /uL PT (10.1-12.7) SECONDS INR (0.9-1.3) APTT (26.4-36.2) SECONDS Sodium (137-145) mmol/L Potassium (3.4-5.1) mmol/L Chloride (98-107) mmol/L Carbon Dioxide (22-32) mmol/L BUN (7-17) mg/dL Creatinine (0.52-1.04) mg/dL Estimated GFR (>60) mL/min BUN/Creatinine Ratio (6-22) Glucose (80-110) mg/dL Calcium (8.4-10.2) mg/dL Total Bilirubin (0.2-1.3) mg/dL AST (14-36) IU/L ALT (9-52) IU/L Alkaline Phosphatase (38-126) U/L B-Natriuretic Peptide (<100) Total Protein (6.3-8.2) g/dL Albumin (3.5-5.0) g/dL Globulin (1.7-4.1) g/dL Albumin/Globulin Ratio (1.0-2.8) Lipase 156 (23-300) U/L Imaging Data Chest x-ray: Radiologist's impression: Findings suggest active congestive heart failure with persistent density in the left lower lobe may represent a combination of atelectasis infiltrate or effusion. Cardiomegaly. Sternotomy. Multi lumen catheter from a left-sided approach distal tip seen in the right atrium ECG Data Attestation: I personally reviewed and interpreted this ECG as follows: Prior ECG tracings: not available for review Interpretation: Sinus rhythm Ventricular rate 81 Normal axis Normal QRS Normal QTC Nonspecific ST T wave changes MDM Narrative Medical decision making narrative: Patient's chest x-ray today shows more pulmonary edema rather than effusion. There is a small effusion on the left lower lung. Patient is not complaining of any chest pain. Is on 2 L of nasal cannula for comfort and the fact she dropped to the high 80s with exertion. Patient is tachypneic. No signs of pneumonia. Nonischemic EKG. Is scheduled for dialysis later today. Does have a elevation in her BNP. The patient was not given any Lasix here in the emergency department. Not hypotensive. I do feel that she needs admitted to the hospital for dialysis and then continued evaluation. I discussed the case with the party planner over at [facility] who stated that they would be able to evaluate the patient. I discussed the case with Dr. Valdez with Internal Medicine who accepts the patient in transport. I discussed the transfer with the patient. She expressed understanding and agreement. Patient is stable for transport. Discharge Plan Departure Patient Disposition: [facility] Clinical Impression: Pulmonary edema, Acute renal failure on dialysis, Anemia, Coronary artery disease Prescriptions: No Action atorvastatin 40 mg Tablet 40 mg PO QPM RF: 0 cyanocobalamin (vitamin B-12) [Vitamin B-12] 1,000 mcg Tablet 1,000 mcg PO DAILY RF: 0 hydroxyzine pamoate 50 mg Capsule 50 mg PO Q6H PRN (Reason: Anxiety) RF: 0 melatonin 3 mg Tablet 3 mg PO BEDTIME PRN (Reason: Insomnia) RF: 0 clopidogrel 75 mg Tablet 75 mg PO DAILY RF: 0 acetaminophen 500 mg Tablet 500 mg PO Q6H MDD 4 G PRN (Reason: Fever) RF: 0 levothyroxine 88 mcg Tablet 88 mcg PO DAILY RF: 0 famotidine 20 mg Tablet 20 mg PO DAILY RF: 0 lorazepam 0.5 mg Tablet 0.5 mg PO Q8H PRN (Reason: Anxiety) RF: 0 bisacodyl 10 mg Suppository 10 mg [place] DAILY PRN (Reason: Constipation) RF: 0 metoprolol tartrate 50 mg Tablet 50 mg PO BID RF: 0 sodium phosphates [Fleet Enema] 19-7 gram/118 mL Enema 1 ea [place] PRN PRN (Reason: Constipation) RF: 0 sertraline 25 mg Tablet 75 mg PO DAILY RF: 0 ondansetron 4 mg Tablet,Disintegrating 4 mg PO Q6H PRN (Reason: Nausea And Vomiting) RF: 0 hydroxyzine pamoate 25 mg Capsule 25 mg PO Q6H PRN (Reason: Anxiety) RF: 0 bisacodyl 5 mg Tablet 5 - 10 mg PO PRN PRN (Reason: Constipation) RF: 0 cholecalciferol (vitamin D3) [Vitamin D3] 1,000 unit Capsule 1,000 unit PO DAILY RF: 0 mirtazapine 7.5 mg Tablet 7.5 mg PO BEDTIME RF: 0 sevelamer carbonate [Renvela] 800 mg Tablet 800 mg PO TIDWM RF: 0 Renal-Ameena 1 tab PO QPM RF: 0 hydrocortisone acetate suppository 1 ea [place] Q8H PRN (Reason: LOWER GI BLEED) RF: 0 Lactobacillus acidophilus [Acidophilus] Capsule 1 tab PO DAILY RF: 0 isosorbide mononitrate 30 mg Tablet Extended Release 24 Hr 30 mg PO QAM RF: 0 clonidine HCl 0.2 mg Tablet 0.2 mg PO .ONCE PRN (Reason: BP>160) RF: 0 acetaminophen-codeine 300-30 mg Tablet 1 - 2 tab PO Q4H PRN (Reason: mild-mod cough and chest pain) RF: 0 Nitrostat 1 tab Sublingual .ONCE PRN (Reason: BP >160) RF: 0
[2018-07-28 02:53] VITALS: BP 125/87; PULSE 88; RESP 25; TEMP 36.6; O2SAT 92; BMI 20.5
[2018-07-28 03:09] LABS: Add Manual Diff / Slide Review NO; Basophils Percent Auto 0.8 % (0-2); Eosinophils Percent Auto 3.4 % (2-4); Hematocrit 23.6 % (36-46); Lymphocytes Percent Auto 14.1 % (25-40); Mean Corpuscular HGB Conc 34.1 % (30-36); Mean Corpuscular Hemoglobin 29.3 PG (26-34); Mean Corpuscular Volume 86.1 fL (80-100); Monocytes Percent Auto 4.7 % (3-14); Neutrophils Absolute Auto 6200 /uL (3000-5900); Platelet Count 206 X10^3/uL (150-400); Red Blood Cell Count 2.74 X10^6/uL (4.0-5.2); Red Cell Distribution Width 16.6 % (11.6-14.8)
[2018-07-28 03:19] LABS: Lipase 156 U/L (23-300)
[2018-07-28 03:21] LABS: Alanine Aminotransferase 22 IU/L (9-52); Albumin 3.9 g/dL (3.5-5.0); Albumin Globulin Ratio 1.6 (1.0-2.8); Alkaline Phosphatase 65 U/L (38-126); Aspartate Aminotransferase 22 IU/L (14-36); BUN Creatinine Ratio 8.1 (6-22); Bilirubin Total 0.4 mg/dL (0.2-1.3); Blood Urea Nitrogen 29 mg/dL (7-17); Calcium 8.6 mg/dL (8.4-10.2); Carbon Dioxide 24 mmol/L (22-32); Chloride 96 mmol/L (98-107); Estimated Glomerular Filt Rate 12.8 mL/min (>60); Globulin 2.4 g/dL (1.7-4.1); Glucose 95 mg/dL (80-110); HEMOLYSIS < 15 (0-50); Potassium 3.9 mmol/L (3.4-5.1); Sodium 135 mmol/L (137-145); Total Protein 6.3 g/dL (6.3-8.2)
[2018-07-28 03:47] LABS: INR 1.1 (0.9-1.3)
[2018-07-28 03:50] LABS: PTT Partial Thromboplastin Tim 36 SECONDS (26.4-36.2)
[2018-07-28 04:30] VITALS: BP 134/89; PULSE 83; RESP 22; O2SAT 97
[2018-07-28 06:01] VITALS: BP 130/87; PULSE 69; RESP 20; O2SAT 96
== END 2018-07-28 06:03 | disposition short-term general hospital (02) ==
PROVIDERS: Emergency Provider Emergency Medicine; PCP Internal Medicine Endocrinology, Diabetes & Metabolism
DX: J81.1 Chronic pulmonary edema (principal); N17.9 Acute kidney failure, unspecified; D64.9 Anemia, unspecified; I25.10 Atherosclerotic heart disease of native coronary artery without angina pectoris; Z99.2 Dependence on renal dialysis
CPT/HCPCS: 36415; 36591; 71046; 80053; 83690; 83880; 85025; 85610; 85730; 93005; 93010; 99282; 99285

== ENCOUNTER → 2018-09-06 18:22 | Outpatient (REF) | payer MEDICARE, MEDICAID, SELFPAY ==
[2018-09-06 18:49] LABS: Influenza A and B by PCR Rapid Negative (Negative)
== END ==
LOC: LAB 18:22
PROVIDERS: PCP Internal Medicine Endocrinology, Diabetes & Metabolism; Visit Provider Internal Medicine
DX: R05 Cough (principal); R51 Headache; J02.9 Acute pharyngitis, unspecified
CPT/HCPCS: 87400

== ENCOUNTER → 2018-09-09 09:08 | Outpatient (CLI) | payer MEDICARE, MEDICAID, SELFPAY ==
--- NOTE | 2018-09-09 | DI.CT.S_ITS ---
PROCEDURE: CT CHEST WO CON INDICATIONS: CHRONIC COUGH TECHNIQUE: Noncontrast 5 mm thick sections acquired from the pulmonary apices to the posterior costophrenic angles. 7 mm thick coronal and sagittal MIP reformats were then acquired. For radiation dose reduction, the following was used: automated exposure control, adjustment of mA and/or kV according to patient size. COMPARISON: [facility], CR, XR CHEST 1V, 07/04/2018, 9:34. FINDINGS: Image quality: Excellent. Lungs and pleura: Pleural thickening and scar is present at the left apex. There is a small low-density left pleural effusion. There is mild centrilobular emphysema with an apical predominance. Trace pulmonary scar is present along the anterior aspect of the left hemithorax. A calcified granuloma is present within the right lower lobe and at the lateral right lung base. Mediastinum: Heart size is normal. No pericardial effusion. No mediastinal adenopathy by size criteria. There are calcified right hilar lymph nodes. Thoracic aorta and central pulmonary arteries are normal in size. Scattered atheromatous calcifications are present within the aortic arch. Esophagus is normal in caliber. No hiatal hernia. A hemodialysis catheter is present with the tip in the right atrium. Bones and chest wall: The bilateral breast implants are intact. Patient is status post median sternotomy and CABG. Patient is status post left axillary maksim dissection.. No suspicious bony lesions. No vertebral body compression fractures. No axillary or supraclavicular adenopathy by size criteria. Thyroid gland are is poorly visualized. Abdomen: Visualized upper abdominal solid organs and bowel loops appear normal in the absence of contrast. IMPRESSION: 1. Probable left apical pleural scarring. However, apical mass cannot be entirely excluded. If there is clinical suspicion for neoplasm, PET CT may be helpful to evaluate this region. Given the deep apical location, this is likely not amenable to percutaneous biopsy. Alternatively, prior chest CTs would be helpful to evaluate for stability over time. 2. Small low-density left pleural effusion. 3. Findings suspicious for prior granulomatous disease. Dictated by: Suzi Payne M.D. on 09/09/2018 at 14:06 Approved by: Suzi Payne M.D. on 09/09/2018 at 14:13
== END ==
PROVIDERS: PCP Internal Medicine Endocrinology, Diabetes & Metabolism; Visit Provider Internal Medicine
DX: R05 Cough (principal); J90 Pleural effusion, not elsewhere classified
CPT/HCPCS: 71250

== ENCOUNTER → 2018-09-10 19:12 | Outpatient (REF) | payer MEDICARE, MEDICAID, SELFPAY ==
[2018-09-10 19:31] LABS: Add Manual Diff / Slide Review NO; Basophils Absolute Auto 0 /uL (0-100); Basophils Percent Auto 0.5 % (0-2); Eosinophils Absolute Auto 200 /uL (0-450); Eosinophils Percent Auto 3.5 % (2-4); Hematocrit 27.6 % (36-46); Hemoglobin 9.3 g/dL (12.0-16.0); Lymphocytes Absolute Auto 900 /uL (1100-4500); Lymphocytes Percent Auto 15.8 % (25-40); Mean Corpuscular HGB Conc 33.7 % (30-36); Mean Corpuscular Hemoglobin 29.8 PG (26-34); Mean Corpuscular Volume 88.4 fL (80-100); Monocytes Absolute Auto 200 /uL (0-900); Monocytes Percent Auto 4.2 % (3-14); Neutrophils Absolute Auto 4100 /uL (1500-7000); Platelet Count 146 X10^3/uL (150-400); Red Blood Cell Count 3.13 X10^6/uL (4.0-5.2); Red Cell Distribution Width 17.7 % (11.6-14.8); White Blood Cell Count 5.5 X10^3/uL (4.5-11.0)
[2018-09-10 20:04] LABS: Thyroid Stimulating Hormone 5.18 uIU/mL (0.47-4.68)
== END ==
LOC: LAB 19:12
PROVIDERS: PCP Internal Medicine Endocrinology, Diabetes & Metabolism; Visit Provider Internal Medicine
DX: I10 Essential (primary) hypertension (principal); D64.9 Anemia, unspecified
CPT/HCPCS: 84443; 85025

== ENCOUNTER 2018-10-04 00:07 | Emergency (ER) | payer MEDICARE, MEDICAID, SELFPAY ==
[2018-10-04] VITALS (17 sets, daily range): BP systolic 82–149; BP diastolic 60–90; PULSE 64–95; RESP 12–24; TEMP 36.3–36.4; O2SAT 91–100; BMI 22.4
--- NOTE | 2018-10-04 00:25 | ED.SOB ---
HPI - SOB/Dyspnea <Erica Kellie, DO - Last Filed: 10/07/18 09:23> General Chief Complaint: Shortness of Breath/Dyspnea Stated Complaint: Does not feel well S/P 3 day dialysis Time Seen by Provider: 10/04/18 00:11 Source: patient, EMS and old records reviewed Mode of arrival: EMS Limitations: no limitations History of Present Illness Patient is a 63-year-old female who presents with increasing shortness of breath. He is in known dialysis patient she has dialysis to stay Wednesday she had dialysis 3 days ago on Wednesday. She does have a tendency to get short of breath between dialysis appointments. She has previously had pulmonary edema and pleural effusion. She has no chest pain no cough. She does feel like she is short of breath at rest. She states that she has not been making much urine over the last day but she does still make some. She was recently started on dialysis after heart surgery, Where she had a bypass is MD Complaint: shortness of breath Related Data Home Medications Medication Instructions Recorded Confirmed atorvastatin 40 mg PO QPM 07/04/18 10/04/18 cholecalciferol (vitamin D3) 1,000 unit PO DAILY 07/04/18 10/04/18 [Vitamin D3] clopidogrel 75 mg PO DAILY 07/04/18 10/04/18 cyanocobalamin (vitamin B-12) 1,000 mcg PO DAILY 07/04/18 10/04/18 [Vitamin B-12] hydrocortisone acetate 25 mg MT PRN PRN 07/04/18 10/04/18 lorazepam 0.5 mg PO Q8H PRN 07/04/18 10/04/18 melatonin 3 mg PO BEDTIME PRN 07/04/18 10/04/18 ondansetron 4 mg PO Q6H PRN 07/04/18 10/04/18 Lactobacillus acidophilus 1 tab PO DAILY 07/13/18 10/04/18 [Acidophilus] acetaminophen-codeine 1 - 2 tab PO Q4H PRN 07/13/18 10/04/18 clonidine HCl 0.2 mg PO PRN PRN 07/13/18 10/04/18 isosorbide mononitrate 30 mg PO QAM 07/13/18 10/04/18 nitroglycerin [Nitrostat] 0.4 mg SUBLINGUAL Q5-15M PRN 07/13/18 10/04/18 acetaminophen 650 mg PO Q4H PRN 10/04/18 10/04/18 albuterol sulfate [Ventolin HFA] 2 puff INHALATION Q4H PRN 10/04/18 10/04/18 carvedilol 3.125 mg PO BID 10/04/18 10/04/18 fluticasone [Flovent HFA] 2 puff INHALATION BID 10/04/18 10/04/18 levothyroxine 125 mcg PO QAM 10/04/18 10/04/18 mirtazapine 15 mg PO DAILY 10/04/18 10/04/18 multivitamin 1 cap PO DAILY 10/04/18 10/04/18 omeprazole 20 mg PO DAILY 10/04/18 10/04/18 promethazine-codeine 5 ml PO Q4H PRN 10/04/18 10/04/18 valsartan 20 mg PO DAILY 10/04/18 10/04/18 Allergies Allergy/AdvReac Type Severity Reaction Status Date / Time No Known Drug Allergies Allergy Verified 10/04/18 00:33 Review of Systems <Erica Hopkins DO - Last Filed: 10/07/18 09:23> Review of Systems ROS Unobtainable: All systems reviewed & are unremarkable except as noted in HPI and below Constitutional Denies chills, Denies fever(s), Denies lethargy and Denies weakness Eyes Denies change in vision, Denies eye discharge, Denies irritation and Denies loss of vision ENT Ears, Nose, Mouth, and Throat: Denies change in voice, Denies neck pain and Denies sore throat Cardiovascular Denies chest pain, Denies irregular heart rhythm, Denies lightheadedness, Denies palpitations, Reports dyspnea, Reports dyspnea on exertion (and at rest) and Denies orthopnea Respiratory Denies cough, Reports dyspnea and Reports dyspnea on exertion (and at rest) Gastrointestinal Gastrointestinal: Denies abdominal pain, Denies change in bowel habits, Denies diarrhea, Denies nausea and Denies vomiting Genitourinary Denies hematuria, Denies flank pain, Denies urinary incontinence and Denies urinary urgency Musculoskeletal Denies neck pain Integumentary/Breasts Denies pruritus, Denies erythema, Denies rash and Denies wounds Neurologic Denies loss of vision and Denies weakness Endocrine Denies palpitations PFS <Erica Hopkins DO - Last Filed: 10/07/18 09:23> Medical History Acute kidney failure (Acute) Acute renal failure on dialysis (Acute) Anemia (Acute) Anxiety (Acute) CHF (congestive heart failure) (Acute) Chronic kidney disease (Acute) Fibromyalgia (Acute) GI bleed (Acute) HTN (hypertension) (Acute) Hyperlipidemia (Acute) Hypothyroid (Acute) IBS (irritable bowel syndrome) (Acute) Major depressive disorder (Acute) Malnutrition (Acute) Peripheral vascular disease (Acute) TIA (transient ischemic attack) (Acute) Thrombocytopenia (Acute) Breast cancer, left (Resolved) Social History lives independently: No Smoking Status: Never smoker Social History lives independently: No Smoking Status: Never smoker Exam <Erica Hopkins DO - Last Filed: 10/07/18 09:23> Initial Vital Signs Initial Vital Signs: Vital Signs Temperature 97.5 F L 10/04/18 00:33 Pulse Rate 83 10/04/18 00:33 Respiratory Rate 22 10/04/18 00:33 Blood Pressure 105/73 10/04/18 00:33 Pulse Oximetry 94 10/04/18 00:33 GENERAL: alert chronically ill well-appearing female no acute distress HEENT: Head atraumatic,EOMI, pupils reactive, CARDIOVASCULAR: Regular rate and rhythm without murmurs, rubs or gallops. RESPIRATORY: Breath sounds equal bilaterally, no wheezes rales or rhonchi. ABDOMEN: Soft, nontender. Normoactive bowel sounds all 4 quadrants. No guarding or rebound. EXTREMITIES: Normal range of motion, no clubbing or edema. Neurovascularly intact NEUROLOGICAL: Alert and oriented x4.Normal gait and speech. Cranial nerves II through XII grossly intact. SKIN: Warm, dry, no laceration, no petechiae, no rashes or lesions. <Edson Friend DO - Last Filed: 10/04/18 10:56> Initial Vital Signs Initial Vital Signs: Vital Signs Temperature 97.5 F L 10/04/18 00:33 Pulse Rate 83 10/04/18 00:33 Respiratory Rate 22 10/04/18 00:33 Blood Pressure 105/73 02/19/19 00:33 Pulse Oximetry 94 10/04/18 00:33 Course <DO Lv Shi Last Filed: 10/07/18 09:23> Orders Ordered: Discontinued Medications Dextrose (D50w) 25 gm IV NOW ONE Stop: 10/04/18 01:19 Last Admin: 10/04/18 01:33 Dose: 25 gm Furosemide (Lasix) 60 mg IV NOW ONE Stop: 10/04/18 01:13 Last Admin: 10/04/18 01:34 Dose: 60 mg Sodium Chloride (Normal Saline 0.9%) 500 mls @ 1,000 mls/hr IV BOLUS ONE Stop: 10/04/18 07:57 Last Infusion: 10/04/18 11:24 Dose: 0 mls/hr Admin: 10/04/18 07:39 Dose: 1,000 mls/hr Insulin Human Regular (Humulin R) 10 unit IV NOW ONE Stop: 10/04/18 01:19 Last Admin: 10/04/18 01:40 Dose: 10 unit Sodium Polystyrene Sulfonate (Kayexalate) 15 gm PO NOW ONE Stop: 10/04/18 01:19 Last Admin: 10/04/18 01:34 Dose: 15 gm Vital Signs - 8 hr 10/04/18 03:25 10/04/18 04:30 10/04/18 05:00 Pulse Rate 87 81 79 Respiratory Rate 20 17 19 Blood Pressure [Left Arm] 149/85 H 137/90 99/61 Pulse Oximetry 91 97 100 10/04/18 05:35 10/04/18 06:53 10/04/18 07:30 Pulse Rate 80 89 82 Respiratory Rate 19 24 17 Blood Pressure [Left Arm] 82/60 L 85/66 L 102/71 Pulse Oximetry 98 91 10/04/18 08:06 10/04/18 08:50 10/04/18 09:31 Pulse Rate 82 95 H 78 Respiratory Rate 16 22 12 Blood Pressure [Left Arm] 94/61 103/83 119/83 Pulse Oximetry 96 95 10/04/18 10:01 10/04/18 10:30 Pulse Rate 87 84 Respiratory Rate 15 17 Blood Pressure [Left Arm] 118/76 102/68 Pulse Oximetry 96 94 <DO Lv Perales Last Filed: 10/04/18 10:56> Orders Ordered: Discontinued Medications Dextrose (D50w) 25 gm IV NOW ONE Stop: 10/04/18 01:19 Last Admin: 10/04/18 01:33 Dose: 25 gm Furosemide (Lasix) 60 mg IV NOW ONE Stop: 10/04/18 01:13 Last Admin: 10/04/18 01:34 Dose: 60 mg Sodium Chloride (Normal Saline 0.9%) 500 mls @ 1,000 mls/hr IV BOLUS ONE Stop: 10/04/18 07:57 Last Infusion: 10/04/18 11:24 Dose: 0 mls/hr Admin: 10/04/18 07:39 Dose: 1,000 mls/hr Insulin Human Regular (Humulin R) 10 unit IV NOW ONE Stop: 10/04/18 01:19 Last Admin: 10/04/18 01:40 Dose: 10 unit Sodium Polystyrene Sulfonate (Kayexalate) 15 gm PO NOW ONE Stop: 10/04/18 01:19 Last Admin: 10/04/18 01:34 Dose: 15 gm Vital Signs - 8 hr 10/04/18 03:25 10/04/18 04:30 10/04/18 05:00 Pulse Rate 87 81 79 Respiratory Rate 20 17 19 Blood Pressure [Left Arm] 149/85 H 137/90 99/61 Pulse Oximetry 91 97 100 10/04/18 05:35 10/04/18 06:53 10/04/18 07:30 Pulse Rate 80 89 82 Respiratory Rate 19 24 17 Blood Pressure [Left Arm] 82/60 L 85/66 L 102/71 Pulse Oximetry 98 91 10/04/18 08:06 10/04/18 08:50 10/04/18 09:31 Pulse Rate 82 95 H 78 Respiratory Rate 16 22 12 Blood Pressure [Left Arm] 94/61 103/83 119/83 Pulse Oximetry 96 95 10/04/18 10:01 10/04/18 10:30 Pulse Rate 87 84 Respiratory Rate 15 17 Blood Pressure [Left Arm] 118/76 102/68 Pulse Oximetry 96 94 MDM - SOB/Dyspnea <Erica Hopkins DO - Last Filed: 10/07/18 09:23> Lab Data Attestation: I reviewed the patient's lab results. Result diagrams: 10/04/18 00:20 10/04/18 07:48 Lab Results 10/04/18 10/04/18 10/04/18 Range/Units 00:20 00:20 00:20 WBC 9.2 (4.5-11.0) X10^3/uL RBC 3.22 L (4.0-5.2) X10^6/uL Hgb 9.3 L (12.0-16.0) g/dL Hct 28.7 L (36-46) % MCV 89.2 (80-100) fL MCH 28.9 (26-34) PG MCHC 32.4 (30-36) % RDW 18.5 H (11.6-14.8) % Plt Count 112 L (150-400) X10^3/uL Neut % (Auto) 79.7 H (50-75) % Lymph % (Auto) 10.6 L (25-40) % [place] % (Auto) 6.2 (3-14) % Eos % (Auto) 2.9 (2-4) % Baso % (Auto) 0.6 (0-2) % Neut # (Auto) 7300 H (2629-6909) /uL Lymph # (Auto) 1000 L (2267-1647) /uL [place] # (Auto) 600 (0-900) /uL Eos # (Auto) 300 (0-450) /uL Baso # (Auto) 100 (0-100) /uL PT 12.5 (10.1-12.7) SECONDS INR 1.1 (0.9-1.3) APTT 33 D (26.4-36.2) SECONDS Sodium (137-145) mmol/L Potassium (3.4-5.1) mmol/L Chloride (98-107) mmol/L Carbon Dioxide (22-32) mmol/L BUN (7-17) mg/dL Creatinine (0.52-1.04) mg/dL Estimated GFR (>60) mL/min BUN/Creatinine Ratio (6-22) Glucose (80-110) mg/dL Calcium (8.4-10.2) mg/dL Magnesium 1.8 (1.6-2.3) mg/dL Total Bilirubin (0.2-1.3) mg/dL AST (14-36) IU/L ALT (9-52) IU/L Alkaline Phosphatase (38-126) U/L Total Creatine Kinase < 20 L (30-135) U/L CK-MB (CK-2) TNP CK-MB (CK-2) Rel Index TNP Troponin I 0.042 H (0.01-0.034) ng/mL B-Natriuretic Peptide 2330 H (<100) Total Protein (6.3-8.2) g/dL Albumin (3.5-5.0) g/dL Globulin (1.7-4.1) g/dL Albumin/Globulin Ratio (1.0-2.8) 10/04/18 10/04/18 10/04/18 Range/Units 00:20 03:31 07:48 WBC (4.5-11.0) X10^3/uL RBC (4.0-5.2) X10^6/uL Hgb (12.0-16.0) g/dL Hct (36-46) % MCV (80-100) fL MCH (26-34) PG MCHC (30-36) % RDW (11.6-14.8) % Plt Count (150-400) X10^3/uL Neut % (Auto) (50-75) % Lymph % (Auto) (25-40) % [place] % (Auto) (3-14) % Eos % (Auto) (2-4) % Baso % (Auto) (0-2) % Neut # (Auto) (8242-7128) /uL Lymph # (Auto) (8384-6451) /uL [place] # (Auto) (0-900) /uL Eos # (Auto) (0-450) /uL Baso # (Auto) (0-100) /uL PT (10.1-12.7) SECONDS INR (0.9-1.3) APTT (26.4-36.2) SECONDS Sodium 134 L 134 L (137-145) mmol/L Potassium 6.5 H* 5.1 D 5.8 H (3.4-5.1) mmol/L Chloride 99 97 L (98-107) mmol/L Carbon Dioxide 20 L 19 L (22-32) mmol/L BUN 90 H 94 H (7-17) mg/dL Creatinine 6.90 H 7.00 H (0.52-1.04) mg/dL Estimated GFR 6.0 L 5.9 L (>60) mL/min BUN/Creatinine Ratio 13.0 13.4 (6-22) Glucose 88 174 H (80-110) mg/dL Calcium 8.7 8.4 (8.4-10.2) mg/dL Magnesium (1.6-2.3) mg/dL Total Bilirubin 0.4 (0.2-1.3) mg/dL AST 45 H (14-36) IU/L ALT 45 (9-52) IU/L Alkaline Phosphatase 72 (38-126) U/L Total Creatine Kinase (30-135) U/L CK-MB (CK-2) CK-MB (CK-2) Rel Index Troponin I (0.01-0.034) ng/mL B-Natriuretic Peptide (<100) Total Protein 6.1 L (6.3-8.2) g/dL Albumin 3.7 (3.5-5.0) g/dL Globulin 2.4 (1.7-4.1) g/dL Albumin/Globulin Ratio 1.5 (1.0-2.8) Point of Care Testing Glucose POC 169 Imaging Data Chest x-ray: Attestation: I personally reviewed and interpreted this imaging study as follows: My impression: improved left-sided pleural effusion is some bilateral pulmonary congestion. ECG Data Attestation: I personally reviewed and interpreted this ECG as follows: Prior ECG tracings: available for review Interpretation: Sinus rhythm rate [address] changes no T-wave inversions. no peaked T changes MDM Narrative Medical decision making narrative: patient is a not actually requiring oxygen although sometimes she does decreased. Potassium noted to be 6.5. I did call and talk with hospitalist Dr. Keith, at [facility] at around 2:00 a.m.. The patient is currently being treated for hyperkalemia. He recommended rechecking the potassium and possibly having the patient go to dialysis from the emergency department. He actually did call the operator supply on-call to see if patient can get in earlier today. I personally did not speak with the operator supply. But he did state the operator supply with make a phone call the dialysis center to get patient dialysis earlier than scheduled. At this time patient is non toxic and cooperative and agrees with this plan. Patient got sweaty and diaphoretic. Accu-Chek was 37. She was given orange juice cheese and a sandwich. Patient's blood pressure did start to decrease. She seemed to be asymptomatic however her systolic did drop down to 79. His she is given 500 cc bolus. Patient is ambulatory to the restroom with minimal assistance and continues to be asymptomatic. I personally called at the and a [facility] dialysis center to see if her dialysis could be moved up. The unfortunately a cannot. I have paged Dr. Horton and waiting for return call. Patient signed out to Dr. Friend anticipate discharge directly to dialysis when time is available. <Edson Friend, DO - Last Filed: 10/04/18 10:56> Lab Data Lab Results 10/04/18 10/04/18 10/04/18 Range/Units 00:20 00:20 00:20 WBC 9.2 (4.5-11.0) X10^3/uL RBC 3.22 L (4.0-5.2) X10^6/uL Hgb 9.3 L (12.0-16.0) g/dL Hct 28.7 L (36-46) % MCV 89.2 (80-100) fL MCH 28.9 (26-34) PG MCHC 32.4 (30-36) % RDW 18.5 H (11.6-14.8) % Plt Count 112 L (150-400) X10^3/uL Neut % (Auto) 79.7 H (50-75) % Lymph % (Auto) 10.6 L (25-40) % [place] % (Auto) 6.2 (3-14) % Eos % (Auto) 2.9 (2-4) % Baso % (Auto) 0.6 (0-2) % Neut # (Auto) 7300 H (0130-7777) /uL Lymph # (Auto) 1000 L (4819-0676) /uL [place] # (Auto) 600 (0-900) /uL Eos # (Auto) 300 (0-450) /uL Baso # (Auto) 100 (0-100) /uL PT 12.5 (10.1-12.7) SECONDS INR 1.1 (0.9-1.3) APTT 33 D (26.4-36.2) SECONDS Sodium (137-145) mmol/L Potassium (3.4-5.1) mmol/L Chloride (98-107) mmol/L Carbon Dioxide (22-32) mmol/L BUN (7-17) mg/dL Creatinine (0.52-1.04) mg/dL Estimated GFR (>60) mL/min BUN/Creatinine Ratio (6-22) Glucose (80-110) mg/dL Calcium (8.4-10.2) mg/dL Magnesium 1.8 (1.6-2.3) mg/dL Total Bilirubin (0.2-1.3) mg/dL AST (14-36) IU/L ALT (9-52) IU/L Alkaline Phosphatase (38-126) U/L Total Creatine Kinase < 20 L (30-135) U/L CK-MB (CK-2) TNP CK-MB (CK-2) Rel Index TNP Troponin I 0.042 H (0.01-0.034) ng/mL B-Natriuretic Peptide 2330 H (<100) Total Protein (6.3-8.2) g/dL Albumin (3.5-5.0) g/dL Globulin (1.7-4.1) g/dL Albumin/Globulin Ratio (1.0-2.8) 10/04/18 10/04/18 10/04/18 Range/Units 00:20 03:31 07:48 WBC (4.5-11.0) X10^3/uL RBC (4.0-5.2) X10^6/uL Hgb (12.0-16.0) g/dL Hct (36-46) % MCV (80-100) fL MCH (26-34) PG MCHC (30-36) % RDW (11.6-14.8) % Plt Count (150-400) X10^3/uL Neut % (Auto) (50-75) % Lymph % (Auto) (25-40) % [place] % (Auto) (3-14) % Eos % (Auto) (2-4) % Baso % (Auto) (0-2) % Neut # (Auto) (9228-9389) /uL Lymph # (Auto) (3136-3236) /uL [place] # (Auto) (0-900) /uL Eos # (Auto) (0-450) /uL Baso # (Auto) (0-100) /uL PT (10.1-12.7) SECONDS INR (0.9-1.3) APTT (26.4-36.2) SECONDS Sodium 134 L 134 L (137-145) mmol/L Potassium 6.5 H* 5.1 D 5.8 H (3.4-5.1) mmol/L Chloride 99 97 L (98-107) mmol/L Carbon Dioxide 20 L 19 L (22-32) mmol/L BUN 90 H 94 H (7-17) mg/dL Creatinine 6.90 H 7.00 H (0.52-1.04) mg/dL Estimated GFR 6.0 L 5.9 L (>60) mL/min BUN/Creatinine Ratio 13.0 13.4 (6-22) Glucose 88 174 H (80-110) mg/dL Calcium 8.7 8.4 (8.4-10.2) mg/dL Magnesium (1.6-2.3) mg/dL Total Bilirubin 0.4 (0.2-1.3) mg/dL AST 45 H (14-36) IU/L ALT 45 (9-52) IU/L Alkaline Phosphatase 72 (38-126) U/L Total Creatine Kinase (30-135) U/L CK-MB (CK-2) CK-MB (CK-2) Rel Index Troponin I (0.01-0.034) ng/mL B-Natriuretic Peptide (<100) Total Protein 6.1 L (6.3-8.2) g/dL Albumin 3.7 (3.5-5.0) g/dL Globulin 2.4 (1.7-4.1) g/dL Albumin/Globulin Ratio 1.5 (1.0-2.8) Point of Care Testing Glucose POC 169 MDM Narrative Medical decision making narrative: 0730: Received turned over. Perform my own history and physical. Review the patient's lab report. Her blood pressure was decreasing however the last blood pressure had a systolic greater than 100. She is slowly receiving 500 cc of normal saline. Plan will be to repeat her BMP. If her blood sugar is unremarkable. The frequent blood sugar checks. This is also to evaluate her potassium level. She states that she feels much better. She has ambulated without becoming short of breath. She states that she does have oxygen at home that she uses occasionally. Plan will be is to keep the patient here in the emergency department until her dialysis appointment later today and then transport her. Patient's potassium is climbing slightly however having no ectopy. Her blood sugars unremarkable. Blood pressure has improved. Patient does have an appointment dialysis at 1215. She will be picked up by her nursing facility transport at noon. Patient is stable for discharge to go to dialysis and then back to her nursing facility afterwards. Discharge Plan Departure Patient Disposition: Home Clinical Impression: Acute hyperkalemia Pulmonary edema Qualifiers: Chronicity: acute Qualified Code(s): J81.0 - Acute pulmonary edema Discharge Date/Time: 10/04/18 11:57 Interventions: ED Discharge Assessment Last Done: 10/04/18 11:57 Activity Restrictions/Additional Instructions: *You have been diagnosed with Pulmonary edema, hyperkalemia *What to do: GO DIRECTLY TO DIALYSIS *Continue to take medications as directed *Follow up with your primary care provider in 2-3 days *Return to ER if you should have chest pain, shortness of breath or any new, worsening or concerning symptoms You also need to follow up with your primary doctor regarding non emergent finding seen on the CT scan specifically a nodule in your left lung. Prescriptions: No Action atorvastatin 40 mg Tablet 40 mg PO QPM RF: 0 cyanocobalamin (vitamin B-12) [Vitamin B-12] 1,000 mcg Tablet 1,000 mcg PO DAILY RF: 0 melatonin 3 mg Tablet 3 mg PO BEDTIME PRN (Reason: Insomnia) RF: 0 clopidogrel 75 mg Tablet 75 mg PO DAILY RF: 0 hydrocortisone acetate 25 mg Suppository 25 mg MT PRN PRN (Reason: Hemorrhoids) RF: 0 lorazepam 0.5 mg Tablet 0.5 mg PO Q8H PRN (Reason: Anxiety) RF: 0 ondansetron 4 mg Tablet,Disintegrating 4 mg PO Q6H PRN (Reason: Nausea And Vomiting) RF: 0 cholecalciferol (vitamin D3) [Vitamin D3] 1,000 unit Capsule 1,000 unit PO DAILY RF: 0 Lactobacillus acidophilus [Acidophilus] Capsule 1 tab PO DAILY RF: 0 isosorbide mononitrate 30 mg Tablet Extended Release 24 Hr 30 mg PO QAM RF: 0 clonidine HCl 0.2 mg Tablet 0.2 mg PO PRN PRN (Reason: BP>160) RF: 0 acetaminophen-codeine 300-30 mg Tablet 1 - 2 tab PO Q4H PRN (Reason: pain) RF: 0 nitroglycerin [Nitrostat] 0.4 mg Tablet, Sublingual 0.4 mg SUBLINGUAL Q5-15M PRN (Reason: Chest Pain) RF: 0 acetaminophen 325 mg Tablet 650 mg PO Q4H PRN (Reason: fever>100 and pain) RF: 0 promethazine-codeine 6.25-10 mg/5 mL Syrup 5 ml PO Q4H PRN (Reason: Cough) RF: 0 carvedilol 3.125 mg tablet 3.125 mg PO BID RF: 0 levothyroxine 125 mcg tablet 125 mcg PO QAM RF: 0 Flovent HFA 44 mcg/actuation HFA aerosol inhaler 2 puff Inhalation BID RF: 0 omeprazole 20 mg capsule,delayed release(DR/EC) 20 mg PO DAILY RF: 0 mirtazapine 15 mg tablet 15 mg PO DAILY RF: 0 Ventolin HFA 90 mcg/actuation HFA aerosol inhaler 2 puff Inhalation Q4H PRN (Reason: cough, shortness of breath) RF: 0 multivitamin Capsule 1 cap PO DAILY RF: 0 valsartan 40 mg tablet 20 mg PO DAILY RF: 0 Referrals: Paulina Centeno [Primary Care Provider] -
--- NOTE | 2018-10-04 00:28 | DI.RAD.S_ITS ---
PROCEDURE: XR CHEST 1V INDICATIONS: short of breath TECHNIQUE: One view of the chest was acquired. COMPARISON: [facility], CT, CT CHEST WO CON, 09/09/2018, 9:07. [facility], CR, XR CHEST 1 VIEW, 07/31/2018, 8:05. [facility], CR, XR CHEST 2V, 07/28/2018, 2:54. FINDINGS: Surgical changes and devices: Sternotomy wires and CABG clips. A left-sided tunnel catheter is unchanged with the tip projecting at the cavoatrial junction. Lungs and pleura: bilateral widespread hazy and ground glass opacities, suggesting pulmonary edema. There is small left pleural effusion, slightly increased since the prior study. There is adjacent atelectasis. Left apical focal nodular opacity, better characterized on the recent chest CT dated 09/09/18 please see report Cardiac silhouette and mediastinal contours are stable. Bones and chest wall: No suspicious bony lesions. Overlying soft tissues appear unremarkable. IMPRESSION: Small left pleural effusion with adjacent atelectasis. Pulmonary edema. Please correlate clinically to exclude the possibility of superimposed infection. Left apical nodular opacity, better characterized on the comparison CT dated 09/09/18. Please see report and followup recommendations Dictated by: Gilson Moore M.D. on 10/04/2018 at 8:20 Approved by: Gilson Moore M.D. on 10/04/2018 at 8:24
--- NOTE | 2018-10-04 00:32 | ED_ITS ---
HPI - SOB/Dyspnea <Erica Kellie, DO - Last Filed: 10/07/18 09:23> General Chief Complaint: Shortness of Breath/Dyspnea Stated Complaint: Does not feel well S/P 3 day dialysis Time Seen by Provider: 10/04/18 00:11 Source: patient, EMS and old records reviewed Mode of arrival: EMS Limitations: no limitations History of Present Illness Patient is a 63-year-old female who presents with increasing shortness of shauna ath. He is in known dialysis patient she has dialysis to stay Wednesday she had dialysis 3 days ago on Wednesday. She does have a tendency to get short of breath between dialysis appointments. She has previously had pulmonary edema and pleural effusion. She has no chest pain no cough. She does feel like she is short of breath at rest. She states that she has not been making much urine over the last day but she does still make some. She was recently started on dialysis after heart surgery, Where she had a bypass is MD Complaint: shortness of breath Related Data Home Medications Medication Instructions Recorded Confirmed atorvastatin 40 mg PO QPM 07/04/18 10/04/18 cholecalciferol (vitamin D3) 1,000 unit PO DAILY 07/04/18 10/04/18 [Vitamin D3] clopidogrel 75 mg PO DAILY 07/04/18 10/04/18 cyanocobalamin (vitamin B-12) 1,000 mcg PO DAILY 07/04/18 10/04/18 [Vitamin B-12] hydrocortisone acetate 25 mg OR PRN PRN 07/04/18 10/04/18 lorazepam 0.5 mg PO Q8H PRN 07/04/18 10/04/18 melatonin 3 mg PO BEDTIME PRN 07/04/18 10/04/18 ondansetron 4 mg PO Q6H PRN 07/04/18 10/04/18 Lactobacillus acidophilus 1 tab PO DAILY 07/13/18 10/04/18 [Acidophilus] acetaminophen-codeine 1 - 2 tab PO Q4H PRN 07/13/18 10/04/18 clonidine HCl 0.2 mg PO PRN PRN 07/13/18 10/04/18 isosorbide mononitrate 30 mg PO QAM 07/13/18 10/04/18 nitroglycerin [Nitrostat] 0.4 mg SUBLINGUAL Q5-15M PRN 07/13/18 10/04/18 acetaminophen 650 mg PO Q4H PRN 10/04/18 10/04/18 albuterol sulfate [Ventolin HFA] 2 puff INHALATION Q4H PRN 10/04/18 10/04/18 carvedilol 3.125 mg PO BID 10/04/18 10/04/18 fluticasone [Flovent HFA] 2 puff INHALATION BID 10/04/18 10/04/18 levothyroxine 125 mcg PO QAM 10/04/18 10/04/18 mirtazapine 15 mg PO DAILY 10/04/18 10/04/18 multivitamin 1 cap PO DAILY 10/04/18 10/04/18 omeprazole 20 mg PO DAILY 10/04/18 10/04/18 promethazine-codeine 5 ml PO Q4H PRN 10/04/18 10/04/18 valsartan 20 mg PO DAILY 10/04/18 10/04/18 Allergies Allergy/AdvReac Type Severity Reaction Status Date / Time No Known Drug Allergies Allergy Verified 10/04/18 00:33 Review of Systems <Erica Hopkins DO - Last Filed: 10/07/18 09:23> Review of Systems ROS Unobtainable: All systems reviewed & are unremarkable except as noted in HPI and below Constitutional Denies chills, Denies fever(s), Denies lethargy and Denies weakness Eyes Denies change in vision, Denies eye discharge, Denies irritation and Denies loss of vision ENT Ears, Nose, Mouth, and Throat: Denies change in voice, Denies neck pain and Denies sore throat Cardiovascular Denies chest pain, Denies irregular heart rhythm, Denies lightheadedness, Denies palpitations, Reports dyspnea, Reports dyspnea on exertion (and at rest) and Denies orthopnea Respiratory Denies cough, Reports dyspnea and Reports dyspnea on exertion (and at rest) Gastrointestinal Gastrointestinal: Denies abdominal pain, Denies change in bowel habits, Denies diarrhea, Denies nausea and Denies vomiting Genitourinary Denies hematuria, Denies flank pain, Denies urinary incontinence and Denies urinary urgency Musculoskeletal Denies neck pain Integumentary/Breasts Denies pruritus, Denies erythema, Denies rash and Denies wounds Neurologic Denies loss of vision and Denies weakness Endocrine Denies palpitations PFS <Erica Hopkins DO - Last Filed: 10/07/18 09:23> Medical History Acute kidney failure (Acute) Acute renal failure on dialysis (Acute) Anemia (Acute) Anxiety (Acute) CHF (congestive heart failure) (Acute) Chronic kidney disease (Acute) Fibromyalgia (Acute) GI bleed (Acute) HTN (hypertension) (Acute) Hyperlipidemia (Acute) Hypothyroid (Acute) IBS (irritable bowel syndrome) (Acute) Major depressive disorder (Acute) Malnutrition (Acute) Peripheral vascular disease (Acute) TIA (transient ischemic attack) (Acute) Thrombocytopenia (Acute) Breast cancer, left (Resolved) Social History lives independently: No Smoking Status: Never smoker Social History lives independently: No Smoking Status: Never smoker Exam <Erica Hopkins DO - Last Filed: 10/07/18 09:23> Initial Vital Signs Initial Vital Signs: Vital Signs Temperature 97.5 F L 10/04/18 00:33 Pulse Rate 83 10/04/18 00:33 Respiratory Rate 22 10/04/18 00:33 Blood Pressure 105/73 10/04/18 00:33 Pulse Oximetry 94 10/04/18 00:33 GENERAL: alert chronically ill well-appearing female no acute distress HEENT: Head atraumatic,EOMI, pupils reactive, CARDIOVASCULAR: Regular rate and rhythm without murmurs, rubs or gallops. RESPIRATORY: Breath sounds equal bilaterally, no wheezes rales or rhonchi. ABDOMEN: Soft, nontender. Normoactive bowel sounds all 4 quadrants. No guarding or rebound. EXTREMITIES: Normal range of motion, no clubbing or edema. Neurovascularly intact NEUROLOGICAL: Alert and oriented x4.Normal gait and speech. Cranial nerves II through XII grossly intact. SKIN: Warm, dry, no laceration, no petechiae, no rashes or lesions. <Edson Friend DO - Last Filed: 10/04/18 10:56> Initial Vital Signs Initial Vital Signs: Vital Signs Temperature 97.5 F L 10/04/18 00:33 Pulse Rate 83 10/04/18 00:33 Respiratory Rate 22 10/04/18 00:33 Blood Pressure 105/73 02/19/19 00:33 Pulse Oximetry 94 10/04/18 00:33 Course <Erica Hopkins DO - Last Filed: 10/07/18 09:23> Orders Ordered: Discontinued Medications Dextrose (D50w) 25 gm IV NOW ONE Stop: 10/04/18 01:19 Last Admin: 10/04/18 01:33 Dose: 25 gm Furosemide (Lasix) 60 mg IV NOW ONE Stop: 10/04/18 01:13 Last Admin: 10/04/18 01:34 Dose: 60 mg Sodium Chloride (Normal Saline 0.9%) 500 mls @ 1,000 mls/hr IV BOLUS ONE Stop: 10/04/18 07:57 Last Infusion: 10/04/18 11:24 Dose: 0 mls/hr Admin: 10/04/18 07:39 Dose: 1,000 mls/hr Insulin Human Regular (Humulin R) 10 unit IV NOW ONE Stop: 10/04/18 01:19 Last Admin: 10/04/18 01:40 Dose: 10 unit Sodium Polystyrene Sulfonate (Kayexalate) 15 gm PO NOW ONE Stop: 10/04/18 01:19 Last Admin: 10/04/18 01:34 Dose: 15 gm Vital Signs - 8 hr 10/04/18 03:25 10/04/18 04:30 10/04/18 05:00 Pulse Rate 87 81 79 Respiratory Rate 20 17 19 Blood Pressure [Left Arm] 149/85 H 137/90 99/61 Pulse Oximetry 91 97 100 10/04/18 05:35 10/04/18 06:53 10/04/18 07:30 Pulse Rate 80 89 82 Respiratory Rate 19 24 17 Blood Pressure [Left Arm] 82/60 L 85/66 L 102/71 Pulse Oximetry 98 91 10/04/18 08:06 10/04/18 08:50 10/04/18 09:31 Pulse Rate 82 95 H 78 Respiratory Rate 16 22 12 Blood Pressure [Left Arm] 94/61 103/83 119/83 Pulse Oximetry 96 95 10/04/18 10:01 10/04/18 10:30 Pulse Rate 87 84 Respiratory Rate 15 17 Blood Pressure [Left Arm] 118/76 102/68 Pulse Oximetry 96 94 <DO Lv Perales Last Filed: 10/04/18 10:56> Orders Ordered: Discontinued Medications Dextrose (D50w) 25 gm IV NOW ONE Stop: 10/04/18 01:19 Last Admin: 10/04/18 01:33 Dose: 25 gm Furosemide (Lasix) 60 mg IV NOW ONE Stop: 10/04/18 01:13 Last Admin: 10/04/18 01:34 Dose: 60 mg Sodium Chloride (Normal Saline 0.9%) 500 mls @ 1,000 mls/hr IV BOLUS ONE Stop: 10/04/18 07:57 Last Infusion: 10/04/18 11:24 Dose: 0 mls/hr Admin: 10/04/18 07:39 Dose: 1,000 mls/hr Insulin Human Regular (Humulin R) 10 unit IV NOW ONE Stop: 10/04/18 01:19 Last Admin: 10/04/18 01:40 Dose: 10 unit Sodium Polystyrene Sulfonate (Kayexalate) 15 gm PO NOW ONE Stop: 10/04/18 01:19 Last Admin: 10/04/18 01:34 Dose: 15 gm Vital Signs - 8 hr 10/04/18 03:25 10/04/18 04:30 10/04/18 05:00 Pulse Rate 87 81 79 Respiratory Rate 20 17 19 Blood Pressure [Left Arm] 149/85 H 137/90 99/61 Pulse Oximetry 91 97 100 10/04/18 05:35 10/04/18 06:53 10/04/18 07:30 Pulse Rate 80 89 82 Respiratory Rate 19 24 17 Blood Pressure [Left Arm] 82/60 L 85/66 L 102/71 Pulse Oximetry 98 91 10/04/18 08:06 10/04/18 08:50 10/04/18 09:31 Pulse Rate 82 95 H 78 Respiratory Rate 16 22 12 Blood Pressure [Left Arm] 94/61 103/83 119/83 Pulse Oximetry 96 95 10/04/18 10:01 10/04/18 10:30 Pulse Rate 87 84 Respiratory Rate 15 17 Blood Pressure [Left Arm] 118/76 102/68 Pulse Oximetry 96 94 MDM - SOB/Dyspnea <Erica Hopkins DO - Last Filed: 10/07/18 09:23> Lab Data Attestation: I reviewed the patient's lab results. Result diagrams: 10/04/18 00:20 10/04/18 07:48 Lab Results 10/04/18 10/04/18 10/04/18 Range/Units 00:20 00:20 00:20 WBC 9.2 (4.5-11.0) X10^3/uL RBC 3.22 L (4.0-5.2) X10^6/uL Hgb 9.3 L (12.0-16.0) g/dL Hct 28.7 L (36-46) % MCV 89.2 (80-100) fL MCH 28.9 (26-34) PG MCHC 32.4 (30-36) % RDW 18.5 H (11.6-14.8) % Plt Count 112 L (150-400) X10^3/uL Neut % (Auto) 79.7 H (50-75) % Lymph % (Auto) 10.6 L (25-40) % Bollinger % (Auto) 6.2 (3-14) % Eos % (Auto) 2.9 (2-4) % Baso % (Auto) 0.6 (0-2) % Neut # (Auto) 7300 H (9929-0441) /uL Lymph # (Auto) 1000 L (5115-0654) /uL Bollinger # (Auto) 600 (0-900) /uL Eos # (Auto) 300 (0-450) /uL Baso # (Auto) 100 (0-100) /uL PT 12.5 (10.1-12.7) SECONDS INR 1.1 (0.9-1.3) APTT 33 D (26.4-36.2) SECONDS Sodium (137-145) mmol/L Potassium (3.4-5.1) mmol/L Chloride (98-107) mmol/L Carbon Dioxide (22-32) mmol/L BUN (7-17) mg/dL Creatinine (0.52-1.04) mg/dL Estimated GFR (>60) mL/min BUN/Creatinine Ratio (6-22) Glucose (80-110) mg/dL Calcium (8.4-10.2) mg/dL Magnesium 1.8 (1.6-2.3) mg/dL Total Bilirubin (0.2-1.3) mg/dL AST (14-36) IU/L ALT (9-52) IU/L Alkaline Phosphatase (38-126) U/L Total Creatine Kinase < 20 L (30-135) U/L CK-MB (CK-2) TNP CK-MB (CK-2) Rel Index TNP Troponin I 0.042 H (0.01-0.034) ng/mL B-Natriuretic Peptide 2330 H (<100) Total Protein (6.3-8.2) g/dL Albumin (3.5-5.0) g/dL Globulin (1.7-4.1) g/dL Albumin/Globulin Ratio (1.0-2.8) 10/04/18 10/04/18 10/04/18 Range/Units 00:20 03:31 07:48 WBC (4.5-11.0) X10^3/uL RBC (4.0-5.2) X10^6/uL Hgb (12.0-16.0) g/dL Hct (36-46) % MCV (80-100) fL MCH (26-34) PG MCHC (30-36) % RDW (11.6-14.8) % Plt Count (150-400) X10^3/uL Neut % (Auto) (50-75) % Lymph % (Auto) (25-40) % Bollinger % (Auto) (3-14) % Eos % (Auto) (2-4) % Baso % (Auto) (0-2) % Neut # (Auto) (8240-0730) /uL Lymph # (Auto) (6181-1312) /uL Bollinger # (Auto) (0-900) /uL Eos # (Auto) (0-450) /uL Baso # (Auto) (0-100) /uL PT (10.1-12.7) SECONDS INR (0.9-1.3) APTT (26.4-36.2) SECONDS Sodium 134 L 134 L (137-145) mmol/L Potassium 6.5 H* 5.1 D 5.8 H (3.4-5.1) mmol/L Chloride 99 97 L (98-107) mmol/L Carbon Dioxide 20 L 19 L (22-32) mmol/L BUN 90 H 94 H (7-17) mg/dL Creatinine 6.90 H 7.00 H (0.52-1.04) mg/dL Estimated GFR 6.0 L 5.9 L (>60) mL/min BUN/Creatinine Ratio 13.0 13.4 (6-22) Glucose 88 174 H (80-110) mg/dL Calcium 8.7 8.4 (8.4-10.2) mg/dL Magnesium (1.6-2.3) mg/dL Total Bilirubin 0.4 (0.2-1.3) mg/dL AST 45 H (14-36) IU/L ALT 45 (9-52) IU/L Alkaline Phosphatase 72 (38-126) U/L Total Creatine Kinase (30-135) U/L CK-MB (CK-2) CK-MB (CK-2) Rel Index Troponin I (0.01-0.034) ng/mL B-Natriuretic Peptide (<100) Total Protein 6.1 L (6.3-8.2) g/dL Albumin 3.7 (3.5-5.0) g/dL Globulin 2.4 (1.7-4.1) g/dL Albumin/Globulin Ratio 1.5 (1.0-2.8) Point of Care Testing Glucose POC 169 Imaging Data Chest x-ray: Attestation: I personally reviewed and interpreted this imaging study as follows: My impression: improved left-sided pleural effusion is some bilateral pulmonary congestion. ECG Data Attestation: I personally reviewed and interpreted this ECG as follows: Prior ECG tracings: available for review Interpretation: Sinus rhythm rate [address] changes no T-wave inversions. no peaked T changes MDM Narrative Medical decision making narrative: patient is a not actually requiring oxygen although sometimes she does decreased. Potassium noted to be 6.5. I did call and talk with hospitalist Dr. Keith, at [facility] at around 2:00 a.m.. The patient is currently being treated for hyperkalemia. He recommended rechecking the potassium and possibly having the patient go to dialysis from the emergency department. He actually did call the caterer helper on-call to see if patient can get in earlier today. I personally did not speak with the caterer helper. But he did state the caterer helper with make a phone call the dialysis center to get patient dialysis earlier than scheduled. At this time patient is non toxic and cooperative and agrees with this plan. Patient got sweaty and diaphoretic. Accu-Chek was 37. She was given orange juice cheese and a sandwich. Patient's blood pressure did start to decrease. She seemed to be asymptomatic however her systolic did drop down to 79. His she is given 500 cc bolus. Patient is ambulatory to the restroom with minimal assistance and continues to be asymptomatic. I personally called at the and a [facility] dialysis center to see if her dialysis could be moved up. The unfortunately a cannot. I have paged Dr. Horton and waiting for return call. Patient signed out to Dr. Friend anticipate discharge directly to dialysis when time is available. <Edson Friend, DO - Last Filed: 10/04/18 10:56> Lab Data Lab Results 10/04/18 10/04/18 10/04/18 Range/Units 00:20 00:20 00:20 WBC 9.2 (4.5-11.0) X10^3/uL RBC 3.22 L (4.0-5.2) X10^6/uL Hgb 9.3 L (12.0-16.0) g/dL Hct 28.7 L (36-46) % MCV 89.2 (80-100) fL MCH 28.9 (26-34) PG MCHC 32.4 (30-36) % RDW 18.5 H (11.6-14.8) % Plt Count 112 L (150-400) X10^3/uL Neut % (Auto) 79.7 H (50-75) % Lymph % (Auto) 10.6 L (25-40) % Bollinger % (Auto) 6.2 (3-14) % Eos % (Auto) 2.9 (2-4) % Baso % (Auto) 0.6 (0-2) % Neut # (Auto) 7300 H (5131-7469) /uL Lymph # (Auto) 1000 L (8022-3092) /uL Bollinger # (Auto) 600 (0-900) /uL Eos # (Auto) 300 (0-450) /uL Baso # (Auto) 100 (0-100) /uL PT 12.5 (10.1-12.7) SECONDS INR 1.1 (0.9-1.3) APTT 33 D (26.4-36.2) SECONDS Sodium (137-145) mmol/L Potassium (3.4-5.1) mmol/L Chloride (98-107) mmol/L Carbon Dioxide (22-32) mmol/L BUN (7-17) mg/dL Creatinine (0.52-1.04) mg/dL Estimated GFR (>60) mL/min BUN/Creatinine Ratio (6-22) Glucose (80-110) mg/dL Calcium (8.4-10.2) mg/dL Magnesium 1.8 (1.6-2.3) mg/dL Total Bilirubin (0.2-1.3) mg/dL AST (14-36) IU/L ALT (9-52) IU/L Alkaline Phosphatase (38-126) U/L Total Creatine Kinase < 20 L (30-135) U/L CK-MB (CK-2) TNP CK-MB (CK-2) Rel Index TNP Troponin I 0.042 H (0.01-0.034) ng/mL B-Natriuretic Peptide 2330 H (<100) Total Protein (6.3-8.2) g/dL Albumin (3.5-5.0) g/dL Globulin (1.7-4.1) g/dL Albumin/Globulin Ratio (1.0-2.8) 10/04/18 10/04/18 10/04/18 Range/Units 00:20 03:31 07:48 WBC (4.5-11.0) X10^3/uL RBC (4.0-5.2) X10^6/uL Hgb (12.0-16.0) g/dL Hct (36-46) % MCV (80-100) fL MCH (26-34) PG MCHC (30-36) % RDW (11.6-14.8) % Plt Count (150-400) X10^3/uL Neut % (Auto) (50-75) % Lymph % (Auto) (25-40) % Bollinger % (Auto) (3-14) % Eos % (Auto) (2-4) % Baso % (Auto) (0-2) % Neut # (Auto) (3978-5435) /uL Lymph # (Auto) (8143-3321) /uL Bollinger # (Auto) (0-900) /uL Eos # (Auto) (0-450) /uL Baso # (Auto) (0-100) /uL PT (10.1-12.7) SECONDS INR (0.9-1.3) APTT (26.4-36.2) SECONDS Sodium 134 L 134 L (137-145) mmol/L Potassium 6.5 H* 5.1 D 5.8 H (3.4-5.1) mmol/L Chloride 99 97 L (98-107) mmol/L Carbon Dioxide 20 L 19 L (22-32) mmol/L BUN 90 H 94 H (7-17) mg/dL Creatinine 6.90 H 7.00 H (0.52-1.04) mg/dL Estimated GFR 6.0 L 5.9 L (>60) mL/min BUN/Creatinine Ratio 13.0 13.4 (6-22) Glucose 88 174 H (80-110) mg/dL Calcium 8.7 8.4 (8.4-10.2) mg/dL Magnesium (1.6-2.3) mg/dL Total Bilirubin 0.4 (0.2-1.3) mg/dL AST 45 H (14-36) IU/L ALT 45 (9-52) IU/L Alkaline Phosphatase 72 (38-126) U/L Total Creatine Kinase (30-135) U/L CK-MB (CK-2) CK-MB (CK-2) Rel Index Troponin I (0.01-0.034) ng/mL B-Natriuretic Peptide (<100) Total Protein 6.1 L (6.3-8.2) g/dL Albumin 3.7 (3.5-5.0) g/dL Globulin 2.4 (1.7-4.1) g/dL Albumin/Globulin Ratio 1.5 (1.0-2.8) Point of Care Testing Glucose POC 169 MDM Narrative Medical decision making narrative: 0730: Received turned over. Perform my own history and physical. Review the patient's lab report. Her blood pressure was decreasing however the last blood pressure had a systolic greater than 100. She is slowly receiving 500 cc of normal saline. Plan will be to repeat her BMP. If her blood sugar is unremarkable. The frequent blood sugar checks. This is also to evaluate her potassium level. She states that she feels much better. She has ambulated without becoming short of breath. She states that she does have oxygen at home that she uses occasionally. Plan will be is to keep the patient here in the emergency department until her dialysis appointment later today and then transport her. Patient's potassium is climbing slightly however having no ectopy. Her blood sugars unremarkable. Blood pressure has improved. Patient does have an appointment dialysis at 1215. She will be picked up by her nursing facility transport at noon. Patient is stable for discharge to go to dialysis and then back to her nursing facility afterwards. Discharge Plan Departure Patient Disposition: Home Clinical Impression: Acute hyperkalemia Pulmonary edema Qualifiers: Chronicity: acute Qualified Code(s): J81.0 - Acute pulmonary edema Discharge Date/Time: 10/04/18 11:57 Interventions: ED Discharge Assessment Last Done: 10/04/18 11:57 Activity Restrictions/Additional Instructions: *You have been diagnosed with Pulmonary edema, hyperkalemia *What to do: GO DIRECTLY TO DIALYSIS *Continue to take medications as directed *Follow up with your primary care provider in 2-3 days *Return to ER if you should have chest pain, shortness of breath or any new, worsening or concerning symptoms You also need to follow up with your primary doctor regarding non emergent finding seen on the CT scan specifically a nodule in your left lung. Prescriptions: No Action atorvastatin 40 mg Tablet 40 mg PO QPM RF: 0 cyanocobalamin (vitamin B-12) [Vitamin B-12] 1,000 mcg Tablet 1,000 mcg PO DAILY RF: 0 melatonin 3 mg Tablet 3 mg PO BEDTIME PRN (Reason: Insomnia) RF: 0 clopidogrel 75 mg Tablet 75 mg PO DAILY RF: 0 hydrocortisone acetate 25 mg Suppository 25 mg OR PRN PRN (Reason: Hemorrhoids) RF: 0 lorazepam 0.5 mg Tablet 0.5 mg PO Q8H PRN (Reason: Anxiety) RF: 0 ondansetron 4 mg Tablet,Disintegrating 4 mg PO Q6H PRN (Reason: Nausea And Vomiting) RF: 0 cholecalciferol (vitamin D3) [Vitamin D3] 1,000 unit Capsule 1,000 unit PO DAILY RF: 0 Lactobacillus acidophilus [Acidophilus] Capsule 1 tab PO DAILY RF: 0 isosorbide mononitrate 30 mg Tablet Extended Release 24 Hr 30 mg PO QAM RF: 0 clonidine HCl 0.2 mg Tablet 0.2 mg PO PRN PRN (Reason: BP>160) RF: 0 acetaminophen-codeine 300-30 mg Tablet 1 - 2 tab PO Q4H PRN (Reason: pain) RF: 0 nitroglycerin [Nitrostat] 0.4 mg Tablet, Sublingual 0.4 mg SUBLINGUAL Q5-15M PRN (Reason: Chest Pain) RF: 0 acetaminophen 325 mg Tablet 650 mg PO Q4H PRN (Reason: fever>100 and pain) RF: 0 promethazine-codeine 6.25-10 mg/5 mL Syrup 5 ml PO Q4H PRN (Reason: Cough) RF: 0 carvedilol 3.125 mg tablet 3.125 mg PO BID RF: 0 levothyroxine 125 mcg tablet 125 mcg PO QAM RF: 0 Flovent HFA 44 mcg/actuation HFA aerosol inhaler 2 puff Inhalation BID RF: 0 omeprazole 20 mg capsule,delayed release(DR/EC) 20 mg PO DAILY RF: 0 mirtazapine 15 mg tablet 15 mg PO DAILY RF: 0 Ventolin HFA 90 mcg/actuation HFA aerosol inhaler 2 puff Inhalation Q4H PRN (Reason: cough, shortness of breath) RF: 0 multivitamin Capsule 1 cap PO DAILY RF: 0 valsartan 40 mg tablet 20 mg PO DAILY RF: 0 Referrals: Paulina Centeno [Primary Care Provider] -
[2018-10-04 00:36] LABS: INR 1.1 (0.9-1.3); Prothrombin Time 12.5 SECONDS (10.1-12.7)
[2018-10-04 00:38] LABS: Add Manual Diff / Slide Review NO; Basophils Absolute Auto 100 /uL (0-100); Basophils Percent Auto 0.6 % (0-2); Eosinophils Absolute Auto 300 /uL (0-450); Eosinophils Percent Auto 2.9 % (2-4); Hematocrit 28.7 % (36-46); Hemoglobin 9.3 g/dL (12.0-16.0); Lymphocytes Absolute Auto 1000 /uL (1100-4500); Lymphocytes Percent Auto 10.6 % (25-40); Mean Corpuscular HGB Conc 32.4 % (30-36); Mean Corpuscular Hemoglobin 28.9 PG (26-34); Mean Corpuscular Volume 89.2 fL (80-100); Monocytes Absolute Auto 600 /uL (0-900); Monocytes Percent Auto 6.2 % (3-14); Neutrophils Absolute Auto 7300 /uL (1500-7000); Neutrophils Percent Auto 79.7 % (50-75); Platelet Count 112 X10^3/uL (150-400); Red Blood Cell Count 3.22 X10^6/uL (4.0-5.2); Red Cell Distribution Width 18.5 % (11.6-14.8); White Blood Cell Count 9.2 X10^3/uL (4.5-11.0)
[2018-10-04 00:40] LABS: Creatine Kinase < 20 U/L (30-135); Magnesium 1.8 mg/dL (1.6-2.3)
[2018-10-04 00:47] LABS: PTT Partial Thromboplastin Tim 33 SECONDS (26.4-36.2)
[2018-10-04 00:53] LABS: Troponin I 0.042 ng/mL (0.01-0.034)
[2018-10-04 00:54] LABS: B Type Natriuretic Peptide 2330 (<100)
[2018-10-04 01:15] LABS: Alanine Aminotransferase 45 IU/L (9-52); Albumin 3.7 g/dL (3.5-5.0); Albumin Globulin Ratio 1.5 (1.0-2.8); Alkaline Phosphatase 72 U/L (38-126); Aspartate Aminotransferase 45 IU/L (14-36); Bilirubin Total 0.4 mg/dL (0.2-1.3); Blood Urea Nitrogen 90 mg/dL (7-17); Calcium 8.7 mg/dL (8.4-10.2); Carbon Dioxide 20 mmol/L (22-32); Chloride 99 mmol/L (98-107); Globulin 2.4 g/dL (1.7-4.1); Glucose 88 mg/dL (80-110); HEMOLYSIS < 15 (0-50); Sodium 134 mmol/L (137-145); Total Protein 6.1 g/dL (6.3-8.2)
[2018-10-04 01:18] LABS: Potassium 6.5 mmol/L (3.4-5.1)
[2018-10-04] MEDS: DEXTROSE 50 % IN WATER 25 GM/50 ML SYRINGE IV (01:33)
[2018-10-04] MEDS: SODIUM POLYSTYRENE SULFON/SORB 15 GM/60 ML CUP PO (01:34)
[2018-10-04] MEDS: FUROSEMIDE 100 MG/10 ML VIAL 60 MG IV (01:34)
[2018-10-04] MEDS: INSULIN REGULAR 100 UNIT/ML 3 ML VIAL 10 UNIT IV (01:40)
[2018-10-04 03:43] LABS: HEMOLYSIS < 15 (0-50); Potassium 5.1 mmol/L (3.4-5.1)
--- NOTE | 2018-10-04 04:48 | PC.NURSE ---
04:19 patient check and patient was clammy and diaphoretic. patients blood glucose checked with a result of 37. patient arouses to sternal rub. provider notified. 04:21 patient given (2)-118 oz orange juice boxes, cheese and a tuna sandwich. patient tolerating well. provider aware. 04:26 patients blood sugar rechecked with a result 41. patient still eating and drinking. patient also given several donut holes and 3 more 118oz orange juice boxes. patient tolerating well and reports that she is feeling better. 04:40 patients blood sugar rechecked with a result of 90. patient feeling much better. provider aware. provider ordered Q1 hour accuchecks.
--- NOTE | 2018-10-04 04:57 | PC.NURSE ---
patients O2 saturation drifting into the 80's while sleeping. patient aroused and O2 saturation does not improve. patient placed on 2L via NC and patients O2 saturation is now 97%.
--- NOTE | 2018-10-04 05:48 | PC.NURSE ---
provider notified and aware of patients blood pressure. no new orders at this time.
[2018-10-04] MEDS: SODIUM CHLORIDE 0.9% 500 ML 1000 ML IV (07:39)
[2018-10-04 08:05] LABS: BUN Creatinine Ratio 13.4 (6-22); Blood Urea Nitrogen 94 mg/dL (7-17); Calcium 8.4 mg/dL (8.4-10.2); Carbon Dioxide 19 mmol/L (22-32); Chloride 97 mmol/L (98-107); Estimated Glomerular Filt Rate 5.9 mL/min (>60); Glucose 174 mg/dL (80-110); HEMOLYSIS < 15 (0-50); Sodium 134 mmol/L (137-145)
[2018-10-04 08:07] LABS: Potassium 5.8 mmol/L (3.4-5.1)
== END 2018-10-04 11:57 | disposition home or self-care (01) ==
PROVIDERS: Emergency Medicine; Emergency Provider Emergency Medicine; PCP Internal Medicine Endocrinology, Diabetes & Metabolism
DX: E87.5 Hyperkalemia (principal); J81.0 Acute pulmonary edema
CPT/HCPCS: 36415; 36591; 71045; 80048; 80053; 82550; 82962; 83735; 83880; 84132; 84484; 85025; 85610; 85730; 93005; 96361; 96374; 96375; 99285; J1940

== ENCOUNTER → 2018-10-20 07:48 | Outpatient (REF) | payer MEDICARE, MEDICAID, SELFPAY ==
[2018-10-20 08:30] LABS: Add Manual Diff / Slide Review NO; Basophils Absolute Auto 100 /uL (0-100); Basophils Percent Auto 1.1 % (0-2); Eosinophils Absolute Auto 300 /uL (0-450); Eosinophils Percent Auto 3.6 % (2-4); Hematocrit 32.3 % (36-46); Hemoglobin 10.4 g/dL (12.0-16.0); Lymphocytes Absolute Auto 1100 /uL (1100-4500); Lymphocytes Percent Auto 13.1 % (25-40); Mean Corpuscular HGB Conc 32.2 % (30-36); Mean Corpuscular Volume 87.1 fL (80-100); Monocytes Absolute Auto 600 /uL (0-900); Monocytes Percent Auto 7.1 % (3-14); Neutrophils Absolute Auto 6300 /uL (1500-7000); Neutrophils Percent Auto 75.1 % (50-75); Platelet Count 234 X10^3/uL (150-400); Red Blood Cell Count 3.71 X10^6/uL (4.0-5.2); Red Cell Distribution Width 18.1 % (11.6-14.8); White Blood Cell Count 8.4 X10^3/uL (4.5-11.0)
[2018-10-20 08:50] LABS: Alanine Aminotransferase 24 IU/L (9-52); Albumin 4.4 g/dL (3.5-5.0); Albumin Globulin Ratio 1.6 (1.0-2.8); Alkaline Phosphatase 95 U/L (38-126); Aspartate Aminotransferase 20 IU/L (14-36); BUN Creatinine Ratio 8.4 (6-22); Bilirubin Total 0.4 mg/dL (0.2-1.3); Blood Urea Nitrogen 59 mg/dL (7-17); Calcium 9.4 mg/dL (8.4-10.2); Carbon Dioxide 22 mmol/L (22-32); Chloride 94 mmol/L (98-107); Estimated Glomerular Filt Rate 5.9 mL/min (>60); Globulin 2.7 g/dL (1.7-4.1); Glucose 84 mg/dL (80-110); HEMOLYSIS < 15 (0-50); Potassium 5.2 mmol/L (3.4-5.1); Sodium 134 mmol/L (137-145); Total Protein 7.1 g/dL (6.3-8.2)
[2018-10-20 09:13] LABS: Thyroid Stimulating Hormone 3.91 uIU/mL (0.47-4.68)
[2018-10-20 13:28] LABS: Free T4, Direct Thyroxine 1.83 ng/dL (0.78-2.19)
== END ==
LOC: LAB 07:48
PROVIDERS: PCP Internal Medicine Endocrinology, Diabetes & Metabolism; Visit Provider Internal Medicine
DX: E89.0 Postprocedural hypothyroidism (principal); I25.10 Atherosclerotic heart disease of native coronary artery without angina pectoris; N18.3 Chronic kidney disease, stage 3 (moderate)
CPT/HCPCS: 36415; 80053; 84439; 84443; 85025

== ENCOUNTER → 2018-11-01 07:40 | Outpatient (REF) | payer MEDICARE, MEDICAID, SELFPAY ==
[2018-11-01 08:32] LABS: BUN Creatinine Ratio 6.3 (6-22); Blood Urea Nitrogen 56 mg/dL (7-17); Calcium 9.1 mg/dL (8.4-10.2); Carbon Dioxide 20 mmol/L (22-32); Chloride 95 mmol/L (98-107); Estimated Glomerular Filt Rate 4.5 mL/min (>60); Glucose 90 mg/dL (80-110); HEMOLYSIS < 15 (0-50); Potassium 4.9 mmol/L (3.4-5.1); Sodium 132 mmol/L (137-145)
[2018-11-01 08:33] LABS: Add Manual Diff / Slide Review NO; Basophils Absolute Auto 0 /uL (0-100); Basophils Percent Auto 0.6 % (0-2); Eosinophils Absolute Auto 200 /uL (0-450); Eosinophils Percent Auto 3.2 % (2-4); Hematocrit 27.7 % (36-46); Hemoglobin 9.2 g/dL (12.0-16.0); Lymphocytes Absolute Auto 800 /uL (1100-4500); Lymphocytes Percent Auto 13.9 % (25-40); Mean Corpuscular HGB Conc 33.3 % (30-36); Mean Corpuscular Hemoglobin 28.8 PG (26-34); Mean Corpuscular Volume 86.6 fL (80-100); Monocytes Absolute Auto 400 /uL (0-900); Monocytes Percent Auto 7.6 % (3-14); Neutrophils Absolute Auto 4200 /uL (1500-7000); Neutrophils Percent Auto 74.7 % (50-75); Platelet Count 106 X10^3/uL (150-400); Red Blood Cell Count 3.19 X10^6/uL (4.0-5.2); Red Cell Distribution Width 18.2 % (11.6-14.8); White Blood Cell Count 5.6 X10^3/uL (4.5-11.0)
[2018-11-01 08:46] LABS: Free T4, Direct Thyroxine 2.25 ng/dL (0.78-2.19)
[2018-11-01 09:00] LABS: Thyroid Stimulating Hormone 0.52 uIU/mL (0.47-4.68)
== END ==
LOC: LAB 07:40
PROVIDERS: PCP Internal Medicine Endocrinology, Diabetes & Metabolism; Visit Provider Internal Medicine
DX: I50.22 Chronic systolic (congestive) heart failure (principal); K92.2 Gastrointestinal hemorrhage, unspecified; D62 Acute posthemorrhagic anemia; N18.3 Chronic kidney disease, stage 3 (moderate); Z99.2 Dependence on renal dialysis; E03.8 Other specified hypothyroidism
CPT/HCPCS: 36415; 80048; 84439; 84443; 85025

== ENCOUNTER 2018-11-03 17:34 | Emergency (ER) | payer MEDICARE, MEDICAID, SELFPAY ==
[2018-11-03] VITALS (8 sets, daily range): BP systolic 123–150; BP diastolic 65–98; PULSE 105–121; RESP 17–26; TEMP 36.7–39.4; O2SAT 86–100; BMI 19.5
--- NOTE | 2018-11-03 17:44 | DI.RAD.S_ITS ---
PROCEDURE: XR CHEST 1V INDICATIONS: cough TECHNIQUE: One view of the chest was acquired. COMPARISON: [facility], CT, CT CHEST WO CON, 09/09/2018, 9:07. [facility], CR, XR CHEST 1V, 10/04/2018, 0:41. FINDINGS: Surgical changes and devices: Multiple sternotomy wires are intact. Left-sided central venous catheter is unchanged in position with the distal tip projecting over the cavoatrial junction. Multiple clips noted over the mediastinum and left axilla. Lungs and pleura: Stable appearance of diffuse interstitial prominence. No new focal consolidation. Subtle left apical nodularity as before. Interval decrease in size of left pleural effusion with associated compressive atelectasis. Mediastinum: Mediastinal contours appear normal. Heart size is normal. Bones and chest wall: No suspicious bony lesions. Overlying soft tissues appear unremarkable. IMPRESSION: 1. Interval decrease in size of left pleural effusion. 2. Persistent diffuse interstitial prominence remains unchanged. This likely represents a chronic process. No new focal airspace disease. 3. Stable appearance of left apical nodularity better seen on comparison CT of 09/09/2018. Dictated by: Raymond Flores M.D. on 11/03/2018 at 19:02 Approved by: Raymond Flores M.D. on 11/03/2018 at 19:07
--- NOTE | 2018-11-03 18:07 | ED.URI ---
HPI - URI/Sore Throat <SHAHZAD Torres - Last Filed: 11/03/18 22:41> General Chief Complaint: Upper Respiratory Symptoms Stated Complaint: Fever & Cough Time Seen by Provider: 11/03/18 17:43 Source: EMS Mode of arrival: EMS Limitations: no limitations History of Present Illness HPI Narrative: 63-year-old female with history of renal failure is currently on dialysis here for complaint fever and cough over the past couple of days. She was seen at dialysis today with notice of that she had fever today and worsening cough. She denies having a productive cough at this point. She states that there have been several people that have been ill at the care facility that she is at. She denies any chest pain no shortness of breath. No abdominal pain. Positive p.o. intake. No nausea vomiting. She denies any other concerns or complaints at this timeframe. She does not make much urine she denies any urinary symptoms. No abdominal pain. No flank pain. Related Data Home Medications Medication Instructions Recorded Confirmed atorvastatin 40 mg PO BEDTIME 07/04/18 11/03/18 cholecalciferol (vitamin D3) 1,000 unit PO DAILY 07/04/18 11/03/18 [Vitamin D3] clopidogrel 75 mg PO DAILY 07/04/18 11/03/18 cyanocobalamin (vitamin B-12) 1,000 mcg PO DAILY 07/04/18 11/03/18 [Vitamin B-12] hydrocortisone acetate 25 mg MD TID 07/04/18 11/03/18 lorazepam 0.5 mg PO Q8H PRN 07/04/18 11/03/18 melatonin 3 mg PO BEDTIME PRN 07/04/18 11/03/18 ondansetron 4 mg PO Q6H PRN 07/04/18 11/03/18 Lactobacillus acidophilus 1 tab PO DAILY 07/13/18 11/03/18 [Acidophilus] acetaminophen-codeine 1 - 2 tab PO Q4H PRN 07/13/18 11/03/18 clonidine HCl 0.2 mg PO PRN PRN 07/13/18 11/03/18 isosorbide mononitrate 30 mg PO QAM 07/13/18 11/03/18 nitroglycerin [Nitrostat] 0.4 mg SUBLINGUAL Q5-15M PRN 07/13/18 11/03/18 albuterol sulfate [Ventolin HFA] 2 puff INHALATION Q4H PRN 10/04/18 11/03/18 carvedilol 3.125 mg PO BID 10/04/18 11/03/18 fluticasone propionate [Flovent 2 puff INHALATION BID 10/04/18 11/03/18 HFA] levothyroxine 125 mcg PO QAM 10/04/18 11/03/18 mirtazapine 15 mg PO DAILY 10/04/18 11/03/18 multivitamin 1 cap PO DAILY 10/04/18 11/03/18 omeprazole 20 mg PO DAILY 10/04/18 11/03/18 promethazine-codeine 5 ml PO Q4H PRN 10/04/18 11/03/18 valsartan 20 mg PO DAILY 10/04/18 11/03/18 acetaminophen 500 mg PO PRN PRN 11/03/18 11/03/18 epoetin beta, methoxy peg [Mircera] 75 mcg SUBCUT Q2W 11/03/18 11/03/18 famotidine 20 mg PO DAILY 11/03/18 11/03/18 ferrous sulfate 325 mg PO DAILY 11/03/18 11/03/18 sevelamer carbonate 800 mg PO DAILY 11/03/18 11/03/18 sodium ferric gluconat-sucrose 125 mg IV DIRECTED 11/03/18 11/03/18 [Ferrlecit] Previous Rx's Medication Instructions Recorded benzonatate [Tessalon Perles] 100 mg PO BID-TID PRN #15 cap 11/03/18 Allergies Allergy/AdvReac Type Severity Reaction Status Date / Time No Known Drug Allergies Allergy Verified 11/03/18 17:47 Review of Systems <SHAHZAD Torres - Last Filed: 11/03/18 22:41> Constitutional Denies chills, Reports fever(s), Denies lethargy and Denies weakness Eyes Denies change in vision, Denies eye discharge, Denies irritation and Denies loss of vision ENT Ears, Nose, Mouth, and Throat: Denies change in voice, Denies neck pain, Denies sore throat and Denies throat swelling Cardiovascular Denies chest pain, Denies irregular heart rhythm, Denies lightheadedness, Denies palpitations and Denies orthopnea Respiratory Reports cough and Denies wheezing Genitourinary Denies hematuria, Denies flank pain, Denies urinary incontinence and Denies urinary urgency Musculoskeletal Denies neck pain Integumentary/Breasts Denies pruritus, Denies erythema, Denies rash and Denies wounds Neurologic Denies confusion, Denies loss of vision and Denies weakness Psychiatric Denies anxiety, Denies confusion, Denies depression, Denies homicidal ideation and Denies suicidal ideation Endocrine Denies palpitations Allergic/Immunologic Denies urticaria, Denies throat swelling and Denies wheezing PFSH <SHAHZAD Torres - Last Filed: 11/03/18 22:41> Medical History Acute kidney failure (Acute) Acute renal failure on dialysis (Acute) Anemia (Acute) Anxiety (Acute) CHF (congestive heart failure) (Acute) Chronic kidney disease (Acute) Fibromyalgia (Acute) GI bleed (Acute) HTN (hypertension) (Acute) Hyperlipidemia (Acute) Hypothyroid (Acute) IBS (irritable bowel syndrome) (Acute) Major depressive disorder (Acute) Malnutrition (Acute) Peripheral vascular disease (Acute) TIA (transient ischemic attack) (Acute) Thrombocytopenia (Acute) Breast cancer, left (Resolved) Social History lives independently: No Smoking Status: Never smoker Social History lives independently: No Smoking Status: Never smoker Exam <SHAHZAD Torres - Last Filed: 11/03/18 22:41> Initial Vital Signs Initial Vital Signs: Vital Signs Temperature 103.0 F H 11/03/18 17:47 Pulse Rate 121 H 11/03/18 17:47 Respiratory Rate 17 11/03/18 17:47 Blood Pressure 150/70 H 11/03/18 17:47 Pulse Oximetry 86 L 11/03/18 17:47 Const General: cooperative and well developed Nutritional Appearance: well nourished Orientation: alert, awake, oriented x3 and not confused HENKY Mouth: oral mucosae normal and moist mucous membranes Eyes Conjunctivae: conjunctivae normal Sclera: sclerae normal Pupils: PERRL EOM: EOM intact bilaterally Resp Effort & Inspection: normal respiratory effort, able to speak in complete sentences, no respiratory distress and no use of accessory muscles Auscultation: clear to auscultation bilaterally, no rales and no rhonchi Cardio Rate: regular rate Rhythm: regular rhythm Heart Sounds: no click, no gallops, no murmurs and no rubs Pulses: normal peripheral pulses GI Inspection: non-distended Palpation: soft, no hepatosplenomegaly, No guarding, No pulsatile mass and No tender Auscultation: normal bowel sounds General: No CVA tenderness Neuro General: alert, oriented x3, gait normal and no focal motor deficits Speech: speech normal <Kary Adrian MD - Last Filed: 11/04/18 05:34> Initial Vital Signs Initial Vital Signs: Vital Signs Temperature 103.0 F H 11/03/18 17:47 Pulse Rate 121 H 11/03/18 17:47 Respiratory Rate 17 11/03/18 17:47 Blood Pressure 150/70 H 11/03/18 17:47 Pulse Oximetry 86 L 11/03/18 17:47 Course <SHAHZAD Torres - Last Filed: 11/03/18 22:41> Orders Ordered: ED Orders 11/03/18 15:28 Blood Culture Stat 11/03/18 17:25 Complete Blood Count AUTO DIFF Stat Comprehensive Metabolic Panel Stat Procalcitonin Stat 11/03/18 17:44 XR chest 1V Stat 11/03/18 18:10 Lactate (Lactic Acid) Stat 11/03/18 18:30 Influenza A and B by PCR Rapid Stat Vital Signs - 8 hr 11/03/18 17:47 11/03/18 17:50 11/03/18 18:30 Temperature 103.0 F H Pulse Rate 121 H 110 H Respiratory Rate 17 19 Blood Pressure 150/70 H Blood Pressure [Right Arm] 123/98 H Pulse Oximetry 86 L 96 100 11/03/18 18:51 11/03/18 19:00 11/03/18 19:36 Temperature Pulse Rate 105 H 111 H 107 H Respiratory Rate 18 26 H 22 Blood Pressure Blood Pressure [Right Arm] 123/98 H 145/71 H 147/66 H Pulse Oximetry 98 94 11/03/18 19:50 11/03/18 20:21 Temperature 98.1 F 100.3 F H Pulse Rate 106 H Respiratory Rate 23 Blood Pressure 124/65 Blood Pressure [Right Arm] Pulse Oximetry 97 <Kary Adrian MD - Last Filed: 11/04/18 05:34> Orders Ordered: ED Orders 11/03/18 15:28 Blood Culture Stat 11/03/18 17:25 Complete Blood Count AUTO DIFF Stat Comprehensive Metabolic Panel Stat Procalcitonin Stat 11/03/18 17:44 XR chest 1V Stat 11/03/18 18:10 Lactate (Lactic Acid) Stat 11/03/18 18:30 Influenza A and B by PCR Rapid Stat Vital Signs - 8 hr 11/03/18 17:47 11/03/18 17:50 11/03/18 18:30 Temperature 103.0 F H Pulse Rate 121 H 110 H Respiratory Rate 17 19 Blood Pressure 150/70 H Blood Pressure [Right Arm] 123/98 H Pulse Oximetry 86 L 96 100 11/03/18 18:51 11/03/18 19:00 11/03/18 19:36 Temperature Pulse Rate 105 H 111 H 107 H Respiratory Rate 18 26 H 22 Blood Pressure Blood Pressure [Right Arm] 123/98 H 145/71 H 147/66 H Pulse Oximetry 98 94 11/03/18 19:50 11/03/18 20:21 Temperature 98.1 F 100.3 F H Pulse Rate 106 H Respiratory Rate 23 Blood Pressure 124/65 Blood Pressure [Right Arm] Pulse Oximetry 97 MDM - URI/Sore Throat <SHAHZAD Torres - Last Filed: 11/03/18 22:41> Lab Data Result diagrams: 11/03/18 17:25 11/03/18 17:25 Lab Results 11/03/18 11/03/18 11/03/18 Range/Units 17:25 17:25 17:25 WBC 8.1 (4.5-11.0) X10^3/uL RBC 3.54 L (4.0-5.2) X10^6/uL Hgb 9.9 L (12.0-16.0) g/dL Hct 30.7 L (36-46) % MCV 86.6 (80-100) fL MCH 28.0 (26-34) PG MCHC 32.4 (30-36) % RDW 18.4 H (11.6-14.8) % Plt Count 129 L (150-400) X10^3/uL Neut % (Auto) 84.7 H (50-75) % Lymph % (Auto) 7.9 L (25-40) % [place] % (Auto) 6.3 (3-14) % Eos % (Auto) 0.6 L (2-4) % Baso % (Auto) 0.5 (0-2) % Neut # (Auto) 6800 (2795-6746) /uL Lymph # (Auto) 600 L (0887-2786) /uL [place] # (Auto) 500 (0-900) /uL Eos # (Auto) 100 (0-450) /uL Baso # (Auto) 0 (0-100) /uL Sodium 137 (137-145) mmol/L Potassium 4.4 (3.4-5.1) mmol/L Chloride 98 (98-107) mmol/L Carbon Dioxide 26 (22-32) mmol/L BUN 10 (7-17) mg/dL Creatinine 2.30 H (0.52-1.04) mg/dL Estimated GFR 21.5 L (>60) mL/min BUN/Creatinine Ratio 4.3 L (6-22) Glucose 86 (80-110) mg/dL Lactate (0.7-2.1) mmol/L Calcium 8.6 (8.4-10.2) mg/dL Total Bilirubin 0.7 (0.2-1.3) mg/dL AST 30 (14-36) IU/L ALT 25 (9-52) IU/L Alkaline Phosphatase 89 (38-126) U/L Total Protein 6.8 (6.3-8.2) g/dL Albumin 4.1 (3.5-5.0) g/dL Globulin 2.7 (1.7-4.1) g/dL Albumin/Globulin Ratio 1.5 (1.0-2.8) Procalcitonin 0.56 H (<0.5) ng/mL Influenza A & B (PCR) (Negative) 11/03/18 11/03/18 Range/Units 18:10 18:30 WBC (4.5-11.0) X10^3/uL RBC (4.0-5.2) X10^6/uL Hgb (12.0-16.0) g/dL Hct (36-46) % MCV (80-100) fL MCH (26-34) PG MCHC (30-36) % RDW (11.6-14.8) % Plt Count (150-400) X10^3/uL Neut % (Auto) (50-75) % Lymph % (Auto) (25-40) % [place] % (Auto) (3-14) % Eos % (Auto) (2-4) % Baso % (Auto) (0-2) % Neut # (Auto) (8318-6360) /uL Lymph # (Auto) (0246-8638) /uL [place] # (Auto) (0-900) /uL Eos # (Auto) (0-450) /uL Baso # (Auto) (0-100) /uL Sodium (137-145) mmol/L Potassium (3.4-5.1) mmol/L Chloride (98-107) mmol/L Carbon Dioxide (22-32) mmol/L BUN (7-17) mg/dL Creatinine (0.52-1.04) mg/dL Estimated GFR (>60) mL/min BUN/Creatinine Ratio (6-22) Glucose (80-110) mg/dL Lactate 1.3 (0.7-2.1) mmol/L Calcium (8.4-10.2) mg/dL Total Bilirubin (0.2-1.3) mg/dL AST (14-36) IU/L ALT (9-52) IU/L Alkaline Phosphatase (38-126) U/L Total Protein (6.3-8.2) g/dL Albumin (3.5-5.0) g/dL Globulin (1.7-4.1) g/dL Albumin/Globulin Ratio (1.0-2.8) Procalcitonin (<0.5) ng/mL Influenza A & B (PCR) Negative (Negative) Imaging Data Chest x-ray: Radiologist's impression: [address] [address] XRay Report Signed Patient: Aurelia Gr EMR#: [id number] : 6Acct:[id number] Age/Sex: 63 / FDate of Service: 11/03/18 Loc: ED Accession Number: [id number] Procedure: XR chest 1V Ordering Provider: Erica Hopkins D.O. PROCEDURE: XR CHEST 1V INDICATIONS: cough TECHNIQUE: One view of the chest was acquired. COMPARISON: [facility], CT, CT CHEST WO CON, 09/09/2018, 9:07. [facility], CR, XR CHEST 1V, 10/04/2018, 0:41. FINDINGS: Surgical changes and devices: Multiple sternotomy wires are intact. Left-sided central venous catheter is unchanged in position with the distal tip projecting over the cavoatrial junction. Multiple clips noted over the mediastinum and left axilla. Lungs and pleura: Stable appearance of diffuse interstitial prominence. No new focal consolidation. Subtle left apical nodularity as before. Interval decrease in size of left pleural effusion with associated compressive atelectasis. Mediastinum: Mediastinal contours appear normal. Heart size is normal. Bones and chest wall: No suspicious bony lesions. Overlying soft tissues appear unremarkable. IMPRESSION: 1. Interval decrease in size of left pleural effusion. 2. Persistent diffuse interstitial prominence remains unchanged. This likely represents a chronic process. No new focal airspace disease. 3. Stable appearance of left apical nodularity better seen on comparison CT of 09/09/2018. Dictated by: Raymond Flores M.D. on 11/03/2018 at 19:02 Approved by: Raymond Flores M.D. on 11/03/2018 at 19:07 MDM Narrative Medical decision making narrative: CBC was obtained and shows H&H of 10 and 30.7 which is consistent with her prior lab values. Chem panel shows creatinine 2.3 and GFR 21.5. Lactate was unremarkable. Procalcitonin was at 0.56 chest x-ray was obtained and shows decrease in size of chronic left pleural effusion. And also shows a persistent diffuse interstitial prominence no focal findings are seen.. Influenza swab was obtained and was negative. Sinus symptoms presents as a viral upper respiratory infection. Follow up with primary care provider in the next couple days for re-evaluation. Use [id number] Tylenol as needed for discomfort or fever. Plenty of fluids. Return emergency room for any worsening symptoms. <Kary Adrian MD - Last Filed: 11/04/18 05:34> Lab Data Lab Results 11/03/18 11/03/18 11/03/18 Range/Units 17:25 17:25 17:25 WBC 8.1 (4.5-11.0) X10^3/uL RBC 3.54 L (4.0-5.2) X10^6/uL Hgb 9.9 L (12.0-16.0) g/dL Hct 30.7 L (36-46) % MCV 86.6 (80-100) fL MCH 28.0 (26-34) PG MCHC 32.4 (30-36) % RDW 18.4 H (11.6-14.8) % Plt Count 129 L (150-400) X10^3/uL Neut % (Auto) 84.7 H (50-75) % Lymph % (Auto) 7.9 L (25-40) % [place] % (Auto) 6.3 (3-14) % Eos % (Auto) 0.6 L (2-4) % Baso % (Auto) 0.5 (0-2) % Neut # (Auto) 6800 (6038-0617) /uL Lymph # (Auto) 600 L (9957-0222) /uL [place] # (Auto) 500 (0-900) /uL Eos # (Auto) 100 (0-450) /uL Baso # (Auto) 0 (0-100) /uL Sodium 137 (137-145) mmol/L Potassium 4.4 (3.4-5.1) mmol/L Chloride 98 (98-107) mmol/L Carbon Dioxide 26 (22-32) mmol/L BUN 10 (7-17) mg/dL Creatinine 2.30 H (0.52-1.04) mg/dL Estimated GFR 21.5 L (>60) mL/min BUN/Creatinine Ratio 4.3 L (6-22) Glucose 86 (80-110) mg/dL Lactate (0.7-2.1) mmol/L Calcium 8.6 (8.4-10.2) mg/dL Total Bilirubin 0.7 (0.2-1.3) mg/dL AST 30 (14-36) IU/L ALT 25 (9-52) IU/L Alkaline Phosphatase 89 (38-126) U/L Total Protein 6.8 (6.3-8.2) g/dL Albumin 4.1 (3.5-5.0) g/dL Globulin 2.7 (1.7-4.1) g/dL Albumin/Globulin Ratio 1.5 (1.0-2.8) Procalcitonin 0.56 H (<0.5) ng/mL Influenza A & B (PCR) (Negative) 11/03/18 11/03/18 Range/Units 18:10 18:30 WBC (4.5-11.0) X10^3/uL RBC (4.0-5.2) X10^6/uL Hgb (12.0-16.0) g/dL Hct (36-46) % MCV (80-100) fL MCH (26-34) PG MCHC (30-36) % RDW (11.6-14.8) % Plt Count (150-400) X10^3/uL Neut % (Auto) (50-75) % Lymph % (Auto) (25-40) % [place] % (Auto) (3-14) % Eos % (Auto) (2-4) % Baso % (Auto) (0-2) % Neut # (Auto) (2578-6359) /uL Lymph # (Auto) (1983-8549) /uL [place] # (Auto) (0-900) /uL Eos # (Auto) (0-450) /uL Baso # (Auto) (0-100) /uL Sodium (137-145) mmol/L Potassium (3.4-5.1) mmol/L Chloride (98-107) mmol/L Carbon Dioxide (22-32) mmol/L BUN (7-17) mg/dL Creatinine (0.52-1.04) mg/dL Estimated GFR (>60) mL/min BUN/Creatinine Ratio (6-22) Glucose (80-110) mg/dL Lactate 1.3 (0.7-2.1) mmol/L Calcium (8.4-10.2) mg/dL Total Bilirubin (0.2-1.3) mg/dL AST (14-36) IU/L ALT (9-52) IU/L Alkaline Phosphatase (38-126) U/L Total Protein (6.3-8.2) g/dL Albumin (3.5-5.0) g/dL Globulin (1.7-4.1) g/dL Albumin/Globulin Ratio (1.0-2.8) Procalcitonin (<0.5) ng/mL Influenza A & B (PCR) Negative (Negative) Discharge Plan Departure Patient Disposition: Home Clinical Impression: Upper respiratory infection Qualifiers: URI type: unspecified viral URI Qualified Code(s): J06.9 - Acute upper respiratory infection, unspecified Discharge Date/Time: 11/03/18 20:22 Interventions: ED Discharge Assessment Last Done: 11/03/18 20:21 Instructions: DI for Viral Upper Respiratory Infection -- Adult Activity Restrictions/Additional Instructions: Laboratory results today were consistent with her prior laboratory results. Chest x-ray was obtained and shows findings consistent with prior findings no acute findings are seen today. Influenza swab was obtained was negative. Signs and symptoms presents as a viral upper respiratory infection. Fluids as directed. Tylenol as needed for fever or discomfort. Follow up with primary care provider in the next couple days for re-evaluation. For any worsening symptoms return to the emergency room. Tessalon Perles as prescribed to help with cough Prescriptions: New benzonatate [Tessalon Perles] 100 mg capsule 100 mg PO BID-TID PRN (Reason: cough) Qty: 15 RF: 0 No Action atorvastatin 40 mg Tablet 40 mg PO BEDTIME RF: 0 cyanocobalamin (vitamin B-12) [Vitamin B-12] 1,000 mcg Tablet 1,000 mcg PO DAILY RF: 0 melatonin 3 mg Tablet 3 mg PO BEDTIME PRN (Reason: Insomnia) RF: 0 clopidogrel 75 mg Tablet 75 mg PO DAILY RF: 0 hydrocortisone acetate 25 mg Suppository 25 mg MD TID RF: 0 lorazepam 0.5 mg Tablet 0.5 mg PO Q8H PRN (Reason: Anxiety) RF: 0 ondansetron 4 mg Tablet,Disintegrating 4 mg PO Q6H PRN (Reason: Nausea And Vomiting) RF: 0 cholecalciferol (vitamin D3) [Vitamin D3] 1,000 unit Capsule 1,000 unit PO DAILY RF: 0 sodium ferric gluconat-sucrose [Ferrlecit] 62.5 mg/5 mL Solution 125 mg IV DIRECTED RF: 0 sevelamer carbonate 800 mg tablet 800 mg PO DAILY RF: 0 Mircera 75 mcg/0.3 mL Syringe 75 mcg SUBCUT Q2W RF: 0 acetaminophen 500 mg Tablet 500 mg PO PRN PRN (Reason: pain or fever) RF: 0 famotidine 20 mg Tablet 20 mg PO DAILY RF: 0 ferrous sulfate 325 mg (65 mg iron) Tablet 325 mg PO DAILY RF: 0 Lactobacillus acidophilus [Acidophilus] Capsule 1 tab PO DAILY RF: 0 isosorbide mononitrate 30 mg Tablet Extended Release 24 Hr 30 mg PO QAM RF: 0 clonidine HCl 0.2 mg Tablet 0.2 mg PO PRN PRN (Reason: BP>160) RF: 0 acetaminophen-codeine 300-30 mg Tablet 1 - 2 tab PO Q4H PRN (Reason: pain) RF: 0 nitroglycerin [Nitrostat] 0.4 mg Tablet, Sublingual 0.4 mg SUBLINGUAL Q5-15M PRN (Reason: Chest Pain) RF: 0 promethazine-codeine 6.25-10 mg/5 mL Syrup 5 ml PO Q4H PRN (Reason: Cough) RF: 0 carvedilol 3.125 mg tablet 3.125 mg PO BID RF: 0 levothyroxine 125 mcg tablet 125 mcg PO QAM RF: 0 Flovent HFA 44 mcg/actuation HFA aerosol inhaler 2 puff Inhalation BID RF: 0 omeprazole 20 mg capsule,delayed release(DR/EC) 20 mg PO DAILY RF: 0 mirtazapine 15 mg tablet 15 mg PO DAILY RF: 0 albuterol sulfate [Ventolin HFA] 90 mcg/actuation HFA aerosol inhaler 2 puff Inhalation Q4H PRN (Reason: cough, shortness of breath) RF: 0 multivitamin Capsule 1 cap PO DAILY RF: 0 valsartan 40 mg tablet 20 mg PO DAILY RF: 0 Referrals: Germaine Jalloh MD [Primary Care Provider] -
[2018-11-03 18:11] LABS: Add Manual Diff / Slide Review NO; Basophils Absolute Auto 0 /uL (0-100); Basophils Percent Auto 0.5 % (0-2); Eosinophils Absolute Auto 100 /uL (0-450); Eosinophils Percent Auto 0.6 % (2-4); Hematocrit 30.7 % (36-46); Hemoglobin 9.9 g/dL (12.0-16.0); Lymphocytes Absolute Auto 600 /uL (1100-4500); Lymphocytes Percent Auto 7.9 % (25-40); Mean Corpuscular HGB Conc 32.4 % (30-36); Mean Corpuscular Volume 86.6 fL (80-100); Monocytes Absolute Auto 500 /uL (0-900); Monocytes Percent Auto 6.3 % (3-14); Neutrophils Absolute Auto 6800 /uL (1500-7000); Neutrophils Percent Auto 84.7 % (50-75); Platelet Count 129 X10^3/uL (150-400); Red Blood Cell Count 3.54 X10^6/uL (4.0-5.2); Red Cell Distribution Width 18.4 % (11.6-14.8); White Blood Cell Count 8.1 X10^3/uL (4.5-11.0)
[2018-11-03 18:13] LABS: Alanine Aminotransferase 25 IU/L (9-52); Albumin 4.1 g/dL (3.5-5.0); Albumin Globulin Ratio 1.5 (1.0-2.8); Alkaline Phosphatase 89 U/L (38-126); Aspartate Aminotransferase 30 IU/L (14-36); BUN Creatinine Ratio 4.3 (6-22); Bilirubin Total 0.7 mg/dL (0.2-1.3); Blood Urea Nitrogen 10 mg/dL (7-17); Calcium 8.6 mg/dL (8.4-10.2); Carbon Dioxide 26 mmol/L (22-32); Chloride 98 mmol/L (98-107); Estimated Glomerular Filt Rate 21.5 mL/min (>60); Globulin 2.7 g/dL (1.7-4.1); Glucose 86 mg/dL (80-110); HEMOLYSIS 21 (0-50); Potassium 4.4 mmol/L (3.4-5.1); Sodium 137 mmol/L (137-145); Total Protein 6.8 g/dL (6.3-8.2)
[2018-11-03 18:40] LABS: Procalcitonin 0.56 ng/mL (<0.5)
[2018-11-03 18:42] LABS: Lactate (Lactic Acid) 1.3 mmol/L (0.7-2.1)
--- NOTE | 2018-11-03 18:50 | PC.NURSE ---
left cw dialysis cath. dressing clean dry and intact.
[2018-11-03 18:53] LABS: Influenza A and B by PCR Rapid Negative (Negative)
--- NOTE | 2018-11-03 19:41 | ED_ITS ---
HPI - URI/Sore Throat <SHAHZAD Torres - Last Filed: 11/03/18 22:41> General Chief Complaint: Upper Respiratory Symptoms Stated Complaint: Fever & Cough Time Seen by Provider: 11/03/18 17:43 Source: EMS Mode of arrival: EMS Limitations: no limitations History of Present Illness HPI Narrative: 63-year-old female with history of renal failure is currently on dialysis here for complaint fever and cough over the past couple of days. She was seen at dialysis today with notice of that she had fever today and worsening cough. She denies having a productive cough at this point. She states that there have been several people that have been ill at the care facility that she is at. She denies any chest pain no shortness of breath. No abdominal pain. Positive p.o. intake. No nausea vomiting. She denies any other concerns or complaints at this timeframe. She does not make much urine she denies any urinary symptoms. No abdominal pain. No flank pain. Related Data Home Medications Medication Instructions Recorded Confirmed atorvastatin 40 mg PO BEDTIME 07/04/18 11/03/18 cholecalciferol (vitamin D3) 1,000 unit PO DAILY 07/04/18 11/03/18 [Vitamin D3] clopidogrel 75 mg PO DAILY 07/04/18 11/03/18 cyanocobalamin (vitamin B-12) 1,000 mcg PO DAILY 07/04/18 11/03/18 [Vitamin B-12] hydrocortisone acetate 25 mg WV TID 07/04/18 11/03/18 lorazepam 0.5 mg PO Q8H PRN 07/04/18 11/03/18 melatonin 3 mg PO BEDTIME PRN 07/04/18 11/03/18 ondansetron 4 mg PO Q6H PRN 07/04/18 11/03/18 Lactobacillus acidophilus 1 tab PO DAILY 07/13/18 11/03/18 [Acidophilus] acetaminophen-codeine 1 - 2 tab PO Q4H PRN 07/13/18 11/03/18 clonidine HCl 0.2 mg PO PRN PRN 07/13/18 11/03/18 isosorbide mononitrate 30 mg PO QAM 07/13/18 11/03/18 nitroglycerin [Nitrostat] 0.4 mg SUBLINGUAL Q5-15M PRN 07/13/18 11/03/18 albuterol sulfate [Ventolin HFA] 2 puff INHALATION Q4H PRN 10/04/18 11/03/18 carvedilol 3.125 mg PO BID 10/04/18 11/03/18 fluticasone propionate [Flovent 2 puff INHALATION BID 10/04/18 11/03/18 HFA] levothyroxine 125 mcg PO QAM 10/04/18 11/03/18 mirtazapine 15 mg PO DAILY 10/04/18 11/03/18 multivitamin 1 cap PO DAILY 10/04/18 11/03/18 omeprazole 20 mg PO DAILY 10/04/18 11/03/18 promethazine-codeine 5 ml PO Q4H PRN 10/04/18 11/03/18 valsartan 20 mg PO DAILY 10/04/18 11/03/18 acetaminophen 500 mg PO PRN PRN 11/03/18 11/03/18 epoetin beta, methoxy peg [Mircera] 75 mcg SUBCUT Q2W 11/03/18 11/03/18 famotidine 20 mg PO DAILY 11/03/18 11/03/18 ferrous sulfate 325 mg PO DAILY 11/03/18 11/03/18 sevelamer carbonate 800 mg PO DAILY 11/03/18 11/03/18 sodium ferric gluconat-sucrose 125 mg IV DIRECTED 11/03/18 11/03/18 [Ferrlecit] Previous Rx's Medication Instructions Recorded benzonatate [Tessalon Perles] 100 mg PO BID-TID PRN #15 cap 11/03/18 Allergies Allergy/AdvReac Type Severity Reaction Status Date / Time No Known Drug Allergies Allergy Verified 11/03/18 17:47 Review of Systems <SHAHZAD Torres - Last Filed: 11/03/18 22:41> Constitutional Denies chills, Reports fever(s), Denies lethargy and Denies weakness Eyes Denies change in vision, Denies eye discharge, Denies irritation and Denies loss of vision ENT Ears, Nose, Mouth, and Throat: Denies change in voice, Denies neck pain, Denies sore throat and Denies throat swelling Cardiovascular Denies chest pain, Denies irregular heart rhythm, Denies lightheadedness, Denies palpitations and Denies orthopnea Respiratory Reports cough and Denies wheezing Genitourinary Denies hematuria, Denies flank pain, Denies urinary incontinence and Denies urinary urgency Musculoskeletal Denies neck pain Integumentary/Breasts Denies pruritus, Denies erythema, Denies rash and Denies wounds Neurologic Denies confusion, Denies loss of vision and Denies weakness Psychiatric Denies anxiety, Denies confusion, Denies depression, Denies homicidal ideation and Denies suicidal ideation Endocrine Denies palpitations Allergic/Immunologic Denies urticaria, Denies throat swelling and Denies wheezing PFSH <SHAHZAD Torres - Last Filed: 11/03/18 22:41> Medical History Acute kidney failure (Acute) Acute renal failure on dialysis (Acute) Anemia (Acute) Anxiety (Acute) CHF (congestive heart failure) (Acute) Chronic kidney disease (Acute) Fibromyalgia (Acute) GI bleed (Acute) HTN (hypertension) (Acute) Hyperlipidemia (Acute) Hypothyroid (Acute) IBS (irritable bowel syndrome) (Acute) Major depressive disorder (Acute) Malnutrition (Acute) Peripheral vascular disease (Acute) TIA (transient ischemic attack) (Acute) Thrombocytopenia (Acute) Breast cancer, left (Resolved) Social History lives independently: No Smoking Status: Never smoker Social History lives independently: No Smoking Status: Never smoker Exam <SHAHZAD Torres - Last Filed: 11/03/18 22:41> Initial Vital Signs Initial Vital Signs: Vital Signs Temperature 103.0 F H 11/03/18 17:47 Pulse Rate 121 H 11/03/18 17:47 Respiratory Rate 17 11/03/18 17:47 Blood Pressure 150/70 H 11/03/18 17:47 Pulse Oximetry 86 L 11/03/18 17:47 Const General: cooperative and well developed Nutritional Appearance: well nourished Orientation: alert, awake, oriented x3 and not confused HENWI Mouth: oral mucosae normal and moist mucous membranes Eyes Conjunctivae: conjunctivae normal Sclera: sclerae normal Pupils: PERRL EOM: EOM intact bilaterally Resp Effort & Inspection: normal respiratory effort, able to speak in complete sentences, no respiratory distress and no use of accessory muscles Auscultation: clear to auscultation bilaterally, no rales and no rhonchi Cardio Rate: regular rate Rhythm: regular rhythm Heart Sounds: no click, no gallops, no murmurs and no rubs Pulses: normal peripheral pulses GI Inspection: non-distended Palpation: soft, no hepatosplenomegaly, No guarding, No pulsatile mass and No t luke Auscultation: normal bowel sounds General: No CVA tenderness Neuro General: alert, oriented x3, gait normal and no focal motor deficits Speech: speech normal <Kray Adrian MD - Last Filed: 11/04/18 05:34> Initial Vital Signs Initial Vital Signs: Vital Signs Temperature 103.0 F H 11/03/18 17:47 Pulse Rate 121 H 11/03/18 17:47 Respiratory Rate 17 11/03/18 17:47 Blood Pressure 150/70 H 11/03/18 17:47 Pulse Oximetry 86 L 11/03/18 17:47 Course <SHAHZAD Torres - Last Filed: 11/03/18 22:41> Orders Ordered: ED Orders 11/03/18 15:28 Blood Culture Stat 11/03/18 17:25 Complete Blood Count AUTO DIFF Stat Comprehensive Metabolic Panel Stat Procalcitonin Stat 11/03/18 17:44 XR chest 1V Stat 11/03/18 18:10 Lactate (Lactic Acid) Stat 11/03/18 18:30 Influenza A and B by PCR Rapid Stat Vital Signs - 8 hr 11/03/18 17:47 11/03/18 17:50 11/03/18 18:30 Temperature 103.0 F H Pulse Rate 121 H 110 H Respiratory Rate 17 19 Blood Pressure 150/70 H Blood Pressure [Right Arm] 123/98 H Pulse Oximetry 86 L 96 100 11/03/18 18:51 11/03/18 19:00 11/03/18 19:36 Temperature Pulse Rate 105 H 111 H 107 H Respiratory Rate 18 26 H 22 Blood Pressure Blood Pressure [Right Arm] 123/98 H 145/71 H 147/66 H Pulse Oximetry 98 94 11/03/18 19:50 11/03/18 20:21 Temperature 98.1 F 100.3 F H Pulse Rate 106 H Respiratory Rate 23 Blood Pressure 124/65 Blood Pressure [Right Arm] Pulse Oximetry 97 <Kary Adrian MD - Last Filed: 11/04/18 05:34> Orders Ordered: ED Orders 11/03/18 15:28 Blood Culture Stat 11/03/18 17:25 Complete Blood Count AUTO DIFF Stat Comprehensive Metabolic Panel Stat Procalcitonin Stat 11/03/18 17:44 XR chest 1V Stat 11/03/18 18:10 Lactate (Lactic Acid) Stat 11/03/18 18:30 Influenza A and B by PCR Rapid Stat Vital Signs - 8 hr 11/03/18 17:47 11/03/18 17:50 11/03/18 18:30 Temperature 103.0 F H Pulse Rate 121 H 110 H Respiratory Rate 17 19 Blood Pressure 150/70 H Blood Pressure [Right Arm] 123/98 H Pulse Oximetry 86 L 96 100 11/03/18 18:51 11/03/18 19:00 11/03/18 19:36 Temperature Pulse Rate 105 H 111 H 107 H Respiratory Rate 18 26 H 22 Blood Pressure Blood Pressure [Right Arm] 123/98 H 145/71 H 147/66 H Pulse Oximetry 98 94 11/03/18 19:50 11/03/18 20:21 Temperature 98.1 F 100.3 F H Pulse Rate 106 H Respiratory Rate 23 Blood Pressure 124/65 Blood Pressure [Right Arm] Pulse Oximetry 97 MDM - URI/Sore Throat <SHAHZAD Torres - Last Filed: 11/03/18 22:41> Lab Data Result diagrams: 11/03/18 17:25 11/03/18 17:25 Lab Results 11/03/18 11/03/18 11/03/18 Range/Units 17:25 17:25 17:25 WBC 8.1 (4.5-11.0) X10^3/uL RBC 3.54 L (4.0-5.2) X10^6/uL Hgb 9.9 L (12.0-16.0) g/dL Hct 30.7 L (36-46) % MCV 86.6 (80-100) fL MCH 28.0 (26-34) PG MCHC 32.4 (30-36) % RDW 18.4 H (11.6-14.8) % Plt Count 129 L (150-400) X10^3/uL Neut % (Auto) 84.7 H (50-75) % Lymph % (Auto) 7.9 L (25-40) % [place] % (Auto) 6.3 (3-14) % Eos % (Auto) 0.6 L (2-4) % Baso % (Auto) 0.5 (0-2) % Neut # (Auto) 6800 (3392-3997) /uL Lymph # (Auto) 600 L (0611-9060) /uL [place] # (Auto) 500 (0-900) /uL Eos # (Auto) 100 (0-450) /uL Baso # (Auto) 0 (0-100) /uL Sodium 137 (137-145) mmol/L Potassium 4.4 (3.4-5.1) mmol/L Chloride 98 (98-107) mmol/L Carbon Dioxide 26 (22-32) mmol/L BUN 10 (7-17) mg/dL Creatinine 2.30 H (0.52-1.04) mg/dL Estimated GFR 21.5 L (>60) mL/min BUN/Creatinine Ratio 4.3 L (6-22) Glucose 86 (80-110) mg/dL Lactate (0.7-2.1) mmol/L Calcium 8.6 (8.4-10.2) mg/dL Total Bilirubin 0.7 (0.2-1.3) mg/dL AST 30 (14-36) IU/L ALT 25 (9-52) IU/L Alkaline Phosphatase 89 (38-126) U/L Total Protein 6.8 (6.3-8.2) g/dL Albumin 4.1 (3.5-5.0) g/dL Globulin 2.7 (1.7-4.1) g/dL Albumin/Globulin Ratio 1.5 (1.0-2.8) Procalcitonin 0.56 H (<0.5) ng/mL Influenza A & B (PCR) (Negative) 11/03/18 11/03/18 Range/Units 18:10 18:30 WBC (4.5-11.0) X10^3/uL RBC (4.0-5.2) X10^6/uL Hgb (12.0-16.0) g/dL Hct (36-46) % MCV (80-100) fL MCH (26-34) PG MCHC (30-36) % RDW (11.6-14.8) % Plt Count (150-400) X10^3/uL Neut % (Auto) (50-75) % Lymph % (Auto) (25-40) % [place] % (Auto) (3-14) % Eos % (Auto) (2-4) % Baso % (Auto) (0-2) % Neut # (Auto) (0344-3120) /uL Lymph # (Auto) (2170-9321) /uL [place] # (Auto) (0-900) /uL Eos # (Auto) (0-450) /uL Baso # (Auto) (0-100) /uL Sodium (137-145) mmol/L Potassium (3.4-5.1) mmol/L Chloride (98-107) mmol/L Carbon Dioxide (22-32) mmol/L BUN (7-17) mg/dL Creatinine (0.52-1.04) mg/dL Estimated GFR (>60) mL/min BUN/Creatinine Ratio (6-22) Glucose (80-110) mg/dL Lactate 1.3 (0.7-2.1) mmol/L Calcium (8.4-10.2) mg/dL Total Bilirubin (0.2-1.3) mg/dL AST (14-36) IU/L ALT (9-52) IU/L Alkaline Phosphatase (38-126) U/L Total Protein (6.3-8.2) g/dL Albumin (3.5-5.0) g/dL Globulin (1.7-4.1) g/dL Albumin/Globulin Ratio (1.0-2.8) Procalcitonin (<0.5) ng/mL Influenza A & B (PCR) Negative (Negative) Imaging Data Chest x-ray: Radiologist's impression: [address] [address] XRay Report Signed Patient: Aurelia Gr EMR#: [id number] : 6Acct:[id number] Age/Sex: 63 / FDate of Service: 11/03/18 Loc: ED Accession Number: [id number] Procedure: XR chest 1V Ordering Provider: Erica Hopkins D.O. PROCEDURE: XR CHEST 1V INDICATIONS: cough TECHNIQUE: One view of the chest was acquired. COMPARISON: [facility], CT, CT CHEST WO CON, 09/09/2018, 9:07. [facility], CR, XR CHEST 1V, 10/04/2018, 0:41. FINDINGS: Surgical changes and devices: Multiple sternotomy wires are intact. Left-sided central venous catheter is unchanged in position with the distal tip projecting over the cavoatrial junction. Multiple clips noted over the mediastinum and left axilla. Lungs and pleura: Stable appearance of diffuse interstitial prominence. No new f ocal consolidation. Subtle left apical nodularity as before. Interval decrease in size of left pleural effusion with associated compressive atelectasis. Mediastinum: Mediastinal contours appear normal. Heart size is normal. Bones and chest wall: No suspicious bony lesions. Overlying soft tissues appear unremarkable. IMPRESSION: 1. Interval decrease in size of left pleural effusion. 2. Persistent diffuse interstitial prominence remains unchanged. This likely represents a chronic process. No new focal airspace disease. 3. Stable appearance of left apical nodularity better seen on comparison CT of 09/09/2018. Dictated by: Raymond Flores M.D. on 11/03/2018 at 19:02 Approved by: Raymond Flores M.D. on 11/03/2018 at 19:07 MDM Narrative Medical decision making narrative: CBC was obtained and shows H&H of 10 and 30.7 which is consistent with her prior lab values. Chem panel shows creatinine 2.3 and GFR 21.5. Lactate was unremarkable. Procalcitonin was at 0.56 chest x-ray was obtained and shows decrease in size of chronic left pleural effusion. And also shows a persistent diffuse interstitial prominence no focal findings are seen.. Influenza swab was obtained and was negative. Sinus symptoms presents as a viral upper respiratory infection. Follow up with primary care provider in the next couple days for re-evaluation. Use [id number] Tylenol as needed for discomfort or fever. Plenty of fluids. Return emergency room for any worsening symptoms. <Kary Adrian MD - Last Filed: 11/04/18 05:34> Lab Data Lab Results 11/03/18 11/03/18 11/03/18 Range/Units 17:25 17:25 17:25 WBC 8.1 (4.5-11.0) X10^3/uL RBC 3.54 L (4.0-5.2) X10^6/uL Hgb 9.9 L (12.0-16.0) g/dL Hct 30.7 L (36-46) % MCV 86.6 (80-100) fL MCH 28.0 (26-34) PG MCHC 32.4 (30-36) % RDW 18.4 H (11.6-14.8) % Plt Count 129 L (150-400) X10^3/uL Neut % (Auto) 84.7 H (50-75) % Lymph % (Auto) 7.9 L (25-40) % [place] % (Auto) 6.3 (3-14) % Eos % (Auto) 0.6 L (2-4) % Baso % (Auto) 0.5 (0-2) % Neut # (Auto) 6800 (6693-9979) /uL Lymph # (Auto) 600 L (4340-5540) /uL [place] # (Auto) 500 (0-900) /uL Eos # (Auto) 100 (0-450) /uL Baso # (Auto) 0 (0-100) /uL Sodium 137 (137-145) mmol/L Potassium 4.4 (3.4-5.1) mmol/L Chloride 98 (98-107) mmol/L Carbon Dioxide 26 (22-32) mmol/L BUN 10 (7-17) mg/dL Creatinine 2.30 H (0.52-1.04) mg/dL Estimated GFR 21.5 L (>60) mL/min BUN/Creatinine Ratio 4.3 L (6-22) Glucose 86 (80-110) mg/dL Lactate (0.7-2.1) mmol/L Calcium 8.6 (8.4-10.2) mg/dL Total Bilirubin 0.7 (0.2-1.3) mg/dL AST 30 (14-36) IU/L ALT 25 (9-52) IU/L Alkaline Phosphatase 89 (38-126) U/L Total Protein 6.8 (6.3-8.2) g/dL Albumin 4.1 (3.5-5.0) g/dL Globulin 2.7 (1.7-4.1) g/dL Albumin/Globulin Ratio 1.5 (1.0-2.8) Procalcitonin 0.56 H (<0.5) ng/mL Influenza A & B (PCR) (Negative) 11/03/18 11/03/18 Range/Units 18:10 18:30 WBC (4.5-11.0) X10^3/uL RBC (4.0-5.2) X10^6/uL Hgb (12.0-16.0) g/dL Hct (36-46) % MCV (80-100) fL MCH (26-34) PG MCHC (30-36) % RDW (11.6-14.8) % Plt Count (150-400) X10^3/uL Neut % (Auto) (50-75) % Lymph % (Auto) (25-40) % [place] % (Auto) (3-14) % Eos % (Auto) (2-4) % Baso % (Auto) (0-2) % Neut # (Auto) (8256-5634) /uL Lymph # (Auto) (2442-7472) /uL [place] # (Auto) (0-900) /uL Eos # (Auto) (0-450) /uL Baso # (Auto) (0-100) /uL Sodium (137-145) mmol/L Potassium (3.4-5.1) mmol/L Chloride (98-107) mmol/L Carbon Dioxide (22-32) mmol/L BUN (7-17) mg/dL Creatinine (0.52-1.04) mg/dL Estimated GFR (>60) mL/min BUN/Creatinine Ratio (6-22) Glucose (80-110) mg/dL Lactate 1.3 (0.7-2.1) mmol/L Calcium (8.4-10.2) mg/dL Total Bilirubin (0.2-1.3) mg/dL AST (14-36) IU/L ALT (9-52) IU/L Alkaline Phosphatase (38-126) U/L Total Protein (6.3-8.2) g/dL Albumin (3.5-5.0) g/dL Globulin (1.7-4.1) g/dL Albumin/Globulin Ratio (1.0-2.8) Procalcitonin (<0.5) ng/mL Influenza A & B (PCR) Negative (Negative) Discharge Plan Departure Patient Disposition: Home Clinical Impression: Upper respiratory infection Qualifiers: URI type: unspecified viral URI Qualified Code(s): J06.9 - Acute upper respiratory infection, unspecified Discharge Date/Time: 11/03/18 20:22 Interventions: ED Discharge Assessment Last Done: 11/03/18 20:21 Instructions: DI for Viral Upper Respiratory Infection -- Adult Activity Restrictions/Additional Instructions: Laboratory results today were consistent with her prior laboratory results. Chest x-ray was obtained and shows findings consistent with prior findings no acute findings are seen today. Influenza swab was obtained was negative. Signs and symptoms presents as a viral upper respiratory infection. Fluids as directed. Tylenol as needed for fever or discomfort. Follow up with primary care provider in the next couple days for re-evaluation. For any worsening symptoms return to the emergency room. Tessalon Perles as prescribed to help with cough Prescriptions: New benzonatate [Tessalon Perles] 100 mg capsule 100 mg PO BID-TID PRN (Reason: cough) Qty: 15 RF: 0 No Action atorvastatin 40 mg Tablet 40 mg PO BEDTIME RF: 0 cyanocobalamin (vitamin B-12) [Vitamin B-12] 1,000 mcg Tablet 1,000 mcg PO DAILY RF: 0 melatonin 3 mg Tablet 3 mg PO BEDTIME PRN (Reason: Insomnia) RF: 0 clopidogrel 75 mg Tablet 75 mg PO DAILY RF: 0 hydrocortisone acetate 25 mg Suppository 25 mg [place] TID RF: 0 lorazepam 0.5 mg Tablet 0.5 mg PO Q8H PRN (Reason: Anxiety) RF: 0 ondansetron 4 mg Tablet,Disintegrating 4 mg PO Q6H PRN (Reason: Nausea And Vomiting) RF: 0 cholecalciferol (vitamin D3) [Vitamin D3] 1,000 unit Capsule 1,000 unit PO DAILY RF: 0 sodium ferric gluconat-sucrose [Ferrlecit] 62.5 mg/5 mL Solution 125 mg IV DIRECTED RF: 0 sevelamer carbonate 800 mg tablet 800 mg PO DAILY RF: 0 Mircera 75 mcg/0.3 mL Syringe 75 mcg SUBCUT Q2W RF: 0 acetaminophen 500 mg Tablet 500 mg PO PRN PRN (Reason: pain or fever) RF: 0 famotidine 20 mg Tablet 20 mg PO DAILY RF: 0 ferrous sulfate 325 mg (65 mg iron) Tablet 325 mg PO DAILY RF: 0 Lactobacillus acidophilus [Acidophilus] Capsule 1 tab PO DAILY RF: 0 isosorbide mononitrate 30 mg Tablet Extended Release 24 Hr 30 mg PO QAM RF: 0 clonidine HCl 0.2 mg Tablet 0.2 mg PO PRN PRN (Reason: BP>160) RF: 0 acetaminophen-codeine 300-30 mg Tablet 1 - 2 tab PO Q4H PRN (Reason: pain) RF: 0 nitroglycerin [Nitrostat] 0.4 mg Tablet, Sublingual 0.4 mg SUBLINGUAL Q5-15M PRN (Reason: Chest Pain) RF: 0 promethazine-codeine 6.25-10 mg/5 mL Syrup 5 ml PO Q4H PRN (Reason: Cough) RF: 0 carvedilol 3.125 mg tablet 3.125 mg PO BID RF: 0 levothyroxine 125 mcg tablet 125 mcg PO QAM RF: 0 Flovent HFA 44 mcg/actuation HFA aerosol inhaler 2 puff Inhalation BID RF: 0 omeprazole 20 mg capsule,delayed release(DR/EC) 20 mg PO DAILY RF: 0 mirtazapine 15 mg tablet 15 mg PO DAILY RF: 0 albuterol sulfate [Ventolin HFA] 90 mcg/actuation HFA aerosol inhaler 2 puff Inhalation Q4H PRN (Reason: cough, shortness of breath) RF: 0 multivitamin Capsule 1 cap PO DAILY RF: 0 valsartan 40 mg tablet 20 mg PO DAILY RF: 0 Referrals: Germaine Jalloh MD [Primary Care Provider] -
== END 2018-11-03 20:22 | disposition home or self-care (01) ==
PROVIDERS: Emergency Medicine; Emergency Provider Nurse Practitioner Family; PCP Internal Medicine
DX: J06.9 Acute upper respiratory infection, unspecified (principal)
CPT/HCPCS: 36591; 71045; 80053; 83605; 84145; 85025; 87040; 87400; 99283; 99284

== ENCOUNTER → 2019-01-27 07:41 | Outpatient (CLI) | payer MEDICARE, MEDICAID, SELFPAY ==
--- NOTE | 2019-01-27 | DI.NM.S_ITS ---
PROCEDURE: NM SANTOSH PERF SPECT R&S PHARM Rest and pharmacological stress myocardial perfusion SPECT with gated imaging and ejection fraction RADIOPHARMACEUTICAL: 11.0 mCi Tc-99m tetrafosmin IV at rest and 25.4 mCi Tc-99m tetrafosmin IV at peak effect of pharmacological stress. [id number] was performed. INDICATIONS: chronic systolic heart failure TECHNIQUE: Radiopharmaceutical was injected at peak stress test, and also at rest. SPECT images were obtained. SPECT myocardial perfusion images were displayed in short axis, horizontal long axis, and vertical long axis views. Gated images were reviewed using [employer] software. COMPARISON: None. CARDIAC STRESS: A pharmacologic stress test was performed under the supervision of an attending staff, using an infusion of lexiscan 0.4mg IV X1. Hemodynamic data: There is normal blood pressure and heart rate response to pharmacologic stress. Symptoms: The patient denied anginal chest pain. Aminophylline: none EKG: No diagnostic changes of ischemia; no ectopy. FINDINGS: Raw data: There is good myocardial uptake of radiotracer. No significant motion artifacts. Tacp-dr-aihbh ratio is 0.38 (normal is less than 0.38 for tetrafosmin tracer). Left ventricle function: Gated images demonstrate akinesis of the entire apex. No transient ischemic dilation; TID is 1.03 (normal less than 1.3). Left ventricle resting end diastolic volume is 94 mL. Left ventricle stress ejection fraction is 40%; normal range is above 45%. Myocardial perfusion: There is severe fixed defect of the entire apex consistent with prior infarction with no ischemia. SSS 8. Patient unable to do prone images. IMPRESSION: Abnormal nuclear stress test consistent with prior infarction. 1) Prior infarct of the entire apex. There is severe fixed defect of the entire apex consistent with prior infarction with no ischemia. SSS 8. 2) Normal left ventricular size with mildly-moderately reduced LV function (EF about 40%). The entire apex is akinetic. 3) No ECG evidence of ischemia. 4) No angina during the study. 5) No prior nuclear stress test available for comparison. Dictated by: Aston Goldman MD on 01/30/2019 at 12:57 Approved by: Aston Goldman MD on 01/30/2019 at 13:00
--- NOTE | 2019-01-27 08:50 | PM.TREADMILL ---
Cardiac Stress Test Report Referral & Results Date Patient Seen: 01/27/19 Time Patient Seen: 08:30 Requesting provider: Shiraz Moya Indication: Ischemic cardiomyopathy Rest ECG: Sinus tachycardia Procedure Note: After both written and verbal informed consent the patient had an IV started by the diagnostic imaging RN, and then was hooked up to the treadmill monitoring system. The Lexiscan material, and then the Cardiolite tracer, were administered sequentially. An additional 3 min was spent monitoring the patient while supine on the gurney. The patient had a normal response to all infused materials. Impression: Completed Lexiscan protocol. Will await perfusion imaging. Please note: Actual ECG tracings can be found in the PACS system.
== END ==
PROVIDERS: PCP Internal Medicine; Visit Provider Internal Medicine Cardiovascular Disease
DX: I50.22 Chronic systolic (congestive) heart failure (principal); I25.5 Ischemic cardiomyopathy; I25.2 Old myocardial infarction
CPT/HCPCS: 78452; 93016; 93017; 93018; A9502; J2785

== ENCOUNTER 2019-02-22 20:52 | Emergency (ER) | payer MEDICARE, MEDICAID, SELFPAY ==
[2019-02-22] VITALS (20 sets, daily range): BP systolic 142–229; BP diastolic 61–136; PULSE 96–130; RESP 17–26; O2SAT 86–99
[2019-02-22] MEDS: LORazepam 2 MG/ML INJ IV (20:50)
--- NOTE | 2019-02-22 20:57 | ED_ITS ---
HPI - General Adult General Chief complaint: Neuro Symptoms/Deficit Stated complaint: Stroke Time Seen by Provider: 02/22/19 20:56 Source: EMS Mode of arrival: EMS Limitations: altered mental status History of Present Illness HPI narrative: 63-year-old female arrived as a code stroke after EMS was called to her nursing facility for altered level consciousness. Last normal was within an hour prior to arrival in the emergency department. EMS reports that she potentially had a seizure in the ambulance on the way to the emergency department. Patient was maintaining airway. Not following commands. Due to short transport time to the emergency department EMS unable to provide in neurologic exam. Related Data Home Medications Medication Instructions Recorded Confirmed atorvastatin 40 mg PO BEDTIME 07/04/18 02/22/19 cholecalciferol (vitamin D3) 1,000 unit PO DAILY 07/04/18 02/22/19 [Vitamin D3] clopidogrel 75 mg PO DAILY 07/04/18 02/22/19 hydrocortisone acetate 25 mg CO TID 07/04/18 02/22/19 lorazepam 0.5 mg PO Q8H PRN 07/04/18 02/22/19 melatonin 3 mg PO BEDTIME PRN 07/04/18 02/22/19 ondansetron 4 mg PO Q6H PRN 07/04/18 02/22/19 Lactobacillus acidophilus 1 tab PO DAILY 07/13/18 02/22/19 [Acidophilus] acetaminophen-codeine 1 - 2 tab PO Q4H PRN 07/13/18 02/22/19 clonidine HCl 0.2 mg PO PRN PRN 07/13/18 02/22/19 isosorbide mononitrate 30 mg PO QAM 07/13/18 02/22/19 nitroglycerin [Nitrostat] 0.4 mg SUBLINGUAL Q5-15M PRN 07/13/18 02/22/19 albuterol sulfate [Ventolin HFA] 2 puff INHALATION Q4H PRN 10/04/18 02/22/19 carvedilol 3.125 mg PO BID 10/04/18 02/22/19 fluticasone propionate [Flovent 2 puff INHALATION BID 10/04/18 02/22/19 HFA] levothyroxine 125 mcg PO QAM 10/04/18 02/22/19 mirtazapine 15 mg PO DAILY 10/04/18 02/22/19 multivitamin 1 cap PO DAILY 10/04/18 02/22/19 omeprazole 20 mg PO DAILY 10/04/18 02/22/19 promethazine-codeine 5 ml PO Q4H PRN 10/04/18 11/03/18 valsartan 20 mg PO DAILY 10/04/18 02/22/19 acetaminophen 500 mg PO PRN PRN 11/03/18 02/22/19 sevelamer carbonate 800 mg PO DAILY 11/03/18 02/22/19 sodium ferric gluconat-sucrose 125 mg IV DIRECTED 11/03/18 11/03/18 [Ferrlecit] calcium carbonate 195 mg PO QID 02/22/19 02/22/19 sevelamer HCl 800 mg PO TID 02/22/19 02/22/19 Previous Rx's Medication Instructions Recorded benzonatate [Tessalon Perles] 100 mg PO BID-TID PRN #15 cap 11/03/18 Allergies Allergy/AdvReac Type Severity Reaction Status Date / Time No Known Drug Allergies Allergy Verified 11/03/18 17:47 Review of Systems Review of Systems ROS Unobtainable: Unobtainable due to medical condition [facility] Medical History Acute kidney failure (Acute) Acute renal failure on dialysis (Acute) Anemia (Acute) Anxiety (Acute) CHF (congestive heart failure) (Acute) Chronic kidney disease (Acute) Fibromyalgia (Acute) GI bleed (Acute) HTN (hypertension) (Acute) Hyperlipidemia (Acute) Hypothyroid (Acute) IBS (irritable bowel syndrome) (Acute) Major depressive disorder (Acute) Malnutrition (Acute) Peripheral vascular disease (Acute) TIA (transient ischemic attack) (Acute) Thrombocytopenia (Acute) Breast cancer, left (Resolved) Social History lives independently: No Smoking Status: Never smoker Social History lives independently: No Smoking Status: Never smoker Exam Initial Vital Signs Initial Vital Signs: Vital Signs Pulse Rate 128 H 02/22/19 20:47 Respiratory Rate 22 02/22/19 20:47 Blood Pressure 227/99 H 02/22/19 20:47 Pulse Oximetry 86 L 02/22/19 20:47 Const General: in distress and ill appearing Nutritional Appearance: average body habitus Orientation: obtunded Limitations: altered mental status HENMT Head: normal to inspection and normocephalic Eyes Pupils: PERRL Neck Neck: trachea midline Chest Chest: No crepitus Resp Effort & Inspection: grunting, labored and tachypneic Auscultation: clear to auscultation bilaterally Cardio Rate: tachycardic Rhythm: regular rhythm Pulses: radial pulses present GI Inspection: non-distended Palpation: soft Back/Spine/Pelvis Other: Pelvis stable Skin Lesions: no lesions Rashes: no rashes Neuro Other: Patient did move all 4 extremities spontaneously however not to command. Did not follow commands. Extrem General: capillary refill normal and No edema Other: No gross deformities Psych Appearance: well kempt Scores GCS Trey coma scale eye opening: None Trey coma scale verbal response: None Trey coma scale motor response: None Trey coma scale total score: 3 Course Orders Ordered: ED Orders 02/22/19 21:00 Complete Blood Count AUTO DIFF Stat Comprehensive Metabolic Panel Stat Ethanol (ETOH) Stat Lipase Stat Partial Thromboplastin Time Stat Prolactin Stat Prothrombin Time INR Stat Troponin I Stat 02/22/19 21:07 CT head/brain wo con Stat EKG-12 Lead Stat 02/22/19 21:30 Ammonia (NH3) Stat Sodium Chloride (Normal Saline 0.9%) 1,000 mls @ 125 mls/hr IV CONT WILMAR Last Admin: 02/22/19 21:31 Dose: 125 mls/hr Discontinued Medications Acetaminophen (Tylenol) 325 mg CO NOW ONE Stop: 02/22/19 22:57 Last Admin: 02/22/19 22:59 Dose: 325 mg Levetiracetam 1,000 mg/ Sodium (Chloride) 110 mls @ 440 mls/hr IV NOW ONE Stop: 02/22/19 23:35 Last Infusion: 02/23/19 00:21 Dose: 0 mls/hr Admin: 02/23/19 00:05 Dose: 440 mls/hr Lorazepam (Ativan) 2 mg IV NOW ONE Stop: 02/22/19 21:07 Last Admin: 02/22/19 20:50 Dose: 2 mg Ondansetron HCl (Zofran) 4 mg IV NOW ONE Stop: 02/22/19 21:43 Last Admin: 02/22/19 21:45 Dose: 4 mg Ondansetron HCl (Zofran) 4 mg IV NOW ONE Stop: 02/22/19 21:54 Last Admin: 02/22/19 21:56 Dose: Not Given Ondansetron HCl (Zofran) 4 mg IV NOW ONE Stop: 02/22/19 21:54 Last Admin: 02/22/19 21:57 Dose: 4 mg Ondansetron HCl (Zofran) 4 mg IV NOW ONE Stop: 02/22/19 23:24 Last Admin: 02/22/19 23:24 Dose: 4 mg Vital Signs - 8 hr 02/22/19 20:59 02/22/19 21:01 02/22/19 21:15 Pulse Rate 124 H 117 H 124 H Respiratory Rate 22 22 26 H Blood Pressure [Left Arm] Blood Pressure [Right Arm] 229/101 H 210/85 H 222/110 H Pulse Oximetry 90 L 95 94 02/22/19 21:25 02/22/19 21:42 02/22/19 22:05 Pulse Rate 130 H 98 H 100 H Respiratory Rate 24 26 H 23 Blood Pressure [Left Arm] Blood Pressure [Right Arm] 210/99 H 199/120 H 175/136 H Pulse Oximetry 94 88 L 92 02/22/19 22:07 02/22/19 22:22 02/22/19 22:26 Pulse Rate 100 H 97 H 97 H Respiratory Rate 21 17 Blood Pressure [Left Arm] Blood Pressure [Right Arm] 145/111 H 142/117 H 166/89 H Pulse Oximetry 98 98 02/22/19 22:31 02/22/19 22:36 02/22/19 22:40 Pulse Rate 96 H 98 H 98 H Respiratory Rate 20 21 21 Blood Pressure [Left Arm] Blood Pressure [Right Arm] 180/71 H 188/70 H 188/75 H Pulse Oximetry 96 96 98 02/22/19 22:48 02/22/19 22:55 02/22/19 23:15 Pulse Rate 98 H 100 H 100 H Respiratory Rate 18 21 19 Blood Pressure [Left Arm] Blood Pressure [Right Arm] 189/72 H 174/61 H 193/72 H Pulse Oximetry 99 99 98 02/22/19 23:25 02/22/19 23:30 02/22/19 23:40 Pulse Rate 104 H 102 H 106 H Respiratory Rate 22 18 Blood Pressure [Left Arm] Blood Pressure [Right Arm] 177/95 H 182/92 H 187/78 H Pulse Oximetry 98 99 99 02/22/19 23:50 02/23/19 00:06 02/23/19 00:18 Pulse Rate 104 H 104 H 105 H Respiratory Rate 19 19 Blood Pressure [Left Arm] 119/64 Blood Pressure [Right Arm] 187/73 H 192/87 H Pulse Oximetry 99 98 99 02/23/19 00:31 02/23/19 01:29 02/23/19 02:00 Pulse Rate 103 H 96 H 103 H Respiratory Rate 20 30 H 20 Blood Pressure [Left Arm] 149/78 H 167/77 H 131/82 Blood Pressure [Right Arm] Pulse Oximetry 92 98 93 02/23/19 02:30 02/23/19 03:30 02/23/19 04:30 Pulse Rate 97 H 99 H 102 H Respiratory Rate 20 15 17 Blood Pressure [Left Arm] 175/79 H 141/70 H 145/69 H Blood Pressure [Right Arm] 141/70 H Pulse Oximetry 95 95 95 Medical Decision Making Lab Data Lab results reviewed: Yes I reviewed the patient's lab results. Result diagrams: 02/22/19 21:00 02/22/19 21:00 Lab Results 02/22/19 02/22/19 02/22/19 Range/Units 21:00 21:00 21:00 WBC 16.3 H (4.5-11.0) X10^3/uL RBC 5.02 (4.0-5.2) X10^6/uL Hgb 14.9 (12.0-16.0) g/dL Hct 47.1 H (36-46) % MCV 93.9 (80-100) fL MCH 29.7 (26-34) PG MCHC 31.7 (30-36) % RDW 21.5 H (11.6-14.8) % Plt Count 134 L (150-400) X10^3/uL Neut % (Auto) 81.9 H (50-75) % Lymph % (Auto) 8.3 L (25-40) % Sampson % (Auto) 8.0 (3-14) % Eos % (Auto) 1.2 L (2-4) % Baso % (Auto) 0.6 (0-2) % Neut # (Auto) 98541 H (6501-2954) /uL Lymph # (Auto) 1300 (6637-4353) /uL Sampson # (Auto) 1300 H (0-900) /uL Eos # (Auto) 200 (0-450) /uL Baso # (Auto) 100 (0-100) /uL Hypersegmented Neuts 2+ RBC Morphology Not Reportable Anisocytosis 3+ H Microcytosis 1+ H Macrocytosis 1+ H PT 11.8 (10.1-12.7) SECONDS INR 1.0 (0.9-1.3) APTT 101 H* D (26.4-36.2) SECONDS Sodium 145 (137-145) mmol/L Potassium 3.7 (3.4-5.1) mmol/L Chloride 100 (98-107) mmol/L Carbon Dioxide 15 L (22-32) mmol/L BUN 30 H (7-17) mg/dL Creatinine 4.40 H (0.52-1.04) mg/dL Estimated GFR 10.2 L (>60) mL/min BUN/Creatinine Ratio 6.8 (6-22) Glucose 138 H (80-110) mg/dL Calcium 9.6 (8.4-10.2) mg/dL Total Bilirubin 0.9 (0.2-1.3) mg/dL AST 30 (14-36) IU/L ALT 7 L (9-52) IU/L Alkaline Phosphatase 88 (38-126) U/L Ammonia (9-30) umol/L Troponin I (0.01-0.034) ng/mL Total Protein 7.3 (6.3-8.2) g/dL Albumin 4.9 (3.5-5.0) g/dL Globulin 2.4 (1.7-4.1) g/dL Albumin/Globulin Ratio 2.0 (1.0-2.8) Lipase (23-300) U/L Prolactin (3.0-18.6) ng/mL Ethyl Alcohol < 10 mg/dL 02/22/19 02/22/19 Range/Units 21:00 21:30 WBC (4.5-11.0) X10^3/uL RBC (4.0-5.2) X10^6/uL Hgb (12.0-16.0) g/dL Hct (36-46) % MCV (80-100) fL MCH (26-34) PG MCHC (30-36) % RDW (11.6-14.8) % Plt Count (150-400) X10^3/uL Neut % (Auto) (50-75) % Lymph % (Auto) (25-40) % Sampson % (Auto) (3-14) % Eos % (Auto) (2-4) % Baso % (Auto) (0-2) % Neut # (Auto) (8112-3654) /uL Lymph # (Auto) (9731-7394) /uL Sampson # (Auto) (0-900) /uL Eos # (Auto) (0-450) /uL Baso # (Auto) (0-100) /uL Hypersegmented Neuts RBC Morphology Anisocytosis Microcytosis Macrocytosis PT (10.1-12.7) SECONDS INR (0.9-1.3) APTT (26.4-36.2) SECONDS Sodium (137-145) mmol/L Potassium (3.4-5.1) mmol/L Chloride (98-107) mmol/L Carbon Dioxide (22-32) mmol/L BUN (7-17) mg/dL Creatinine (0.52-1.04) mg/dL Estimated GFR (>60) mL/min BUN/Creatinine Ratio (6-22) Glucose (80-110) mg/dL Calcium (8.4-10.2) mg/dL Total Bilirubin (0.2-1.3) mg/dL AST (14-36) IU/L ALT (9-52) IU/L Alkaline Phosphatase (38-126) U/L Ammonia < 9.0 L (9-30) umol/L Troponin I 0.064 H (0.01-0.034) ng/mL Total Protein (6.3-8.2) g/dL Albumin (3.5-5.0) g/dL Globulin (1.7-4.1) g/dL Albumin/Globulin Ratio (1.0-2.8) Lipase 234 (23-300) U/L Prolactin 131.7 H (3.0-18.6) ng/mL Ethyl Alcohol mg/dL Point of Care Testing Glucose POC 127 Point of care testing: Point of Care Testing Glucose POC [address] scan - head: Radiologist's impression: [address] [address] [address] Scan Report Signed Patient: Aurelia Gr EMR#: [id number] : 6Acct:[id number] Age/Sex: 63 / FDate of Service: 02/22/19 Loc: ED Accession Number: [id number] Procedure: CT head/brain wo con Ordering Provider: Edson Friend D.O. PROCEDURE: CT HEAD/BRAIN WO CON INDICATIONS: Code stroke. Seizure. TECHNIQUE: Noncontrast 4.5 mm thick angled axial sections acquired from the foramen magnum to the vertex, with coronal and sagittal reformats. For radiation dose reduction, the following was used: automated exposure control, adjustment of mA and/or kV according to patient size. COMPARISON: None. FINDINGS: Image quality: There is motion artifact limiting evaluation. CSF spaces: Basal cisterns are patent. No extra-axial fluid collections. The ventricles are symmetric in size and shape. There is mild cerebral volume loss, with resultant ventricular and sulcal prominence. Brain: No intracranial hemorrhage, mass, or mass effect. There is a moderate sized region of encephalomalacia in the medial right occipital lobe consistent with sequela of a prior infarct. There are subcortical, periventricular and deep white matter hypodensities consistent with mild chronic small vessel ischemic changes. There is intracranial internal carotid artery atherosclerosis. Skull and face: Calvarium and visualized facial bones are intact, without suspicious lesions. Sinuses: Visualized sinuses and mastoids are clear. IMPRESSION: 1. No definite acute intracranial abnormality. 2. Right occipital lobe encephalomalacia consistent with sequela of a prior infarct. 3. Mild chronic white matter small vessel ischemic changes and cerebral volume loss. Findings discussed with Dr. Friend on 02/22/19 at 9:35 PM. Dictated by: Vasiliy Marcelino M.D. on 02/22/2019 at 21:32 Approved by: Vasiliy Marcelino M.D. on 02/22/2019 at 21:37 ECG Data Attestation: I personally reviewed and interpreted this ECG as follows: Prior ECG tracings: not available for review Interpretation: Sinus tachycardia Ventricular rate of 110 Normal axis Normal QRS Normal QTC Q-waves V1 V2 Nonspecific ST T wave changes MDM Narrative Medical decision making narrative: Patient was taken directly to the CT scan upon arrival however had a seizure while still on the EMS gurney. Supplemental oxygen and chin lift was provided and mouth was suctioned. 2 mg of Ativan is given IV. We were unable to obtain a head CT immediately secondary to this. She was brought back to the trauma room for respiratory support. A nasopharyngeal airway was placed. Supplemental oxygen was provided. Paperwork with EMS does contain a PLOST form which states DNR with selective treatment. I did contact the patient's [id number] that [phone]. This is the patient's sister. I talk with her on the phone. They were on her way to the ospital from [place]. Patient's sister stated that if we found a condition that was reversible then in intubation was okay however she made it abundantly clear that she did not want to see her sister have to be extubated secondary to a non reversible condition. She also minute abundantly clear that she did not want chest compressions performed. The head CT did not show into cranial hemorrhage or acute CVA. I did have concern that patient did not have a stroke but did have seizures which reported by the sister the patient has never had in the past. I feel that given her PLOST form and her presentation that tPA would not be warranted. Patient was brought back to the trauma room after the CTA respiratory support was again provided. She seemed to become more arousable during this observation time and eventually was able to follow commands and speak. She did not remember how she got to the emergency department. She did not remember the time prior to coming to the emergency department. She denied any chest pain or problems breathing. She did complain of a headache. Her renal function seems to be at baseline. Her prolactin was elevated which would support seizure-like activity. She does have a leukocytosis however I feel that this is demargination secondary to seizure-like activity. Will hold on any antibiotics for now. She is due for dialysis tomorrow. Given her need for dialysis in the new onset of seizures we are unable to provide a this supported the hospital. Bili transport and admission is necessary. Discussed the case with Dr. Valdez with internal medicine in [facility] who accepts the patient in transport. Patient was given Keppra. Discussed the transfer with the patient and the family is at bedside and they expressed understanding and agreement. Patient is stable for transport. 0420: Patient is much more alert and oriented. She states that she generally just does not feel very well but has no other specific complaints. She is a sking to go the bathroom. She is asking for something to eat. She still does not remember what brought her here to the emergency department. Moving all 4 extremities. GCS of 15. Awaiting transport. Patient was informed of transport. She expressed understanding and agreement. Critical Care Time Critical Care Time: Yes Total Critical Care Time: 40 Attestation: The high probability of a clinically significant, sudden or life threatening deterioration of the neurologic system(s) required my full and direct attention, intervention and personal management. The aggregate critical care time was 40 minutes. This time is in addition to time spent performing reported procedures but includes the following: [] Data Review and interpretation [] Patient assessment and monitoring of vital signs [] Documentation [] Medication orders and management Discharge Plan Departure Patient Disposition: [facility] Clinical Impression: Seizure, End stage renal disease on dialysis Altered mental status Qualifiers: Altered mental status type: unspecified Qualified Code(s): R41.82 - Altered mental status, unspecified Prescriptions: No Action atorvastatin 40 mg Tablet 40 mg PO BEDTIME RF: 0 melatonin 3 mg Tablet 3 mg PO BEDTIME PRN (Reason: Insomnia) RF: 0 clopidogrel 75 mg Tablet 75 mg PO DAILY RF: 0 hydrocortisone acetate 25 mg Suppository 25 mg CO TID RF: 0 lorazepam 0.5 mg Tablet 0.5 mg PO Q8H PRN (Reason: Anxiety) RF: 0 ondansetron 4 mg Tablet,Disintegrating 4 mg PO Q6H PRN (Reason: Nausea And Vomiting) RF: 0 cholecalciferol (vitamin D3) [Vitamin D3] 1,000 unit Capsule 1,000 unit PO DAILY RF: 0 sodium ferric gluconat-sucrose [Ferrlecit] 62.5 mg/5 mL Solution 125 mg IV DIRECTED RF: 0 sevelamer carbonate 800 mg tablet 800 mg PO DAILY RF: 0 acetaminophen 500 mg Tablet 500 mg PO PRN PRN (Reason: pain or fever) RF: 0 benzonatate [Tessalon Perles] 100 mg capsule 100 mg PO BID-TID PRN (Reason: cough) Qty: 15 RF: 0 calcium carbonate 195 mg calcium (500 mg) Tablet,Chewable 195 mg PO QID RF: 0 sevelamer HCl 800 mg Tablet 800 mg PO TID RF: 0 Lactobacillus acidophilus [Acidophilus] Capsule 1 tab PO DAILY RF: 0 isosorbide mononitrate 30 mg Tablet Extended Release 24 Hr 30 mg PO QAM RF: 0 clonidine HCl 0.2 mg Tablet 0.2 mg PO PRN PRN (Reason: BP>160) RF: 0 acetaminophen-codeine 300-30 mg Tablet 1 - 2 tab PO Q4H PRN (Reason: pain) RF: 0 nitroglycerin [Nitrostat] 0.4 mg Tablet, Sublingual 0.4 mg SUBLINGUAL Q5-15M PRN (Reason: Chest Pain) RF: 0 promethazine-codeine 6.25-10 mg/5 mL Syrup 5 ml PO Q4H PRN (Reason: Cough) RF: 0 carvedilol 3.125 mg tablet 3.125 mg PO BID RF: 0 levothyroxine 125 mcg tablet 125 mcg PO QAM RF: 0 Flovent HFA 44 mcg/actuation HFA aerosol inhaler 2 puff Inhalation BID RF: 0 omeprazole 20 mg capsule,delayed release(DR/EC) 20 mg PO DAILY RF: 0 mirtazapine 15 mg tablet 15 mg PO DAILY RF: 0 albuterol sulfate [Ventolin HFA] 90 mcg/actuation HFA aerosol inhaler 2 puff Inhalation Q4H PRN (Reason: cough, shortness of breath) RF: 0 multivitamin Capsule 1 cap PO DAILY RF: 0 valsartan 40 mg tablet 20 mg PO DAILY RF: 0 Referrals: Germaine Jalloh MD [Primary Care Provider] -
--- NOTE | 2019-02-22 21:07 | DI.CT.S_ITS ---
PROCEDURE: CT HEAD/BRAIN WO CON INDICATIONS: Code stroke. Seizure. TECHNIQUE: Noncontrast 4.5 mm thick angled axial sections acquired from the foramen magnum to the vertex, with coronal and sagittal reformats. For radiation dose reduction, the following was used: automated exposure control, adjustment of mA and/or kV according to patient size. COMPARISON: None. FINDINGS: Image quality: There is motion artifact limiting evaluation. CSF spaces: Basal cisterns are patent. No extra-axial fluid collections. The ventricles are symmetric in size and shape. There is mild cerebral volume loss, with resultant ventricular and sulcal prominence. Brain: No intracranial hemorrhage, mass, or mass effect. There is a moderate sized region of encephalomalacia in the medial right occipital lobe consistent with sequela of a prior infarct. There are subcortical, periventricular and deep white matter hypodensities consistent with mild chronic small vessel ischemic changes. There is intracranial internal carotid artery atherosclerosis. Skull and face: Calvarium and visualized facial bones are intact, without suspicious lesions. Sinuses: Visualized sinuses and mastoids are clear. IMPRESSION: 1. No definite acute intracranial abnormality. 2. Right occipital lobe encephalomalacia consistent with sequela of a prior infarct. 3. Mild chronic white matter small vessel ischemic changes and cerebral volume loss. Findings discussed with Dr. Friend on 02/22/19 at 9:35 PM. Dictated by: Vasiliy Marcelino M.D. on 02/22/2019 at 21:32 Approved by: Vasiliy Marcelino M.D. on 02/22/2019 at 21:37
[2019-02-22 21:12] LABS: Add Manual Diff / Slide Review NO; Basophils Absolute Auto 100 /uL (0-100); Basophils Percent Auto 0.6 % (0-2); Eosinophils Absolute Auto 200 /uL (0-450); Eosinophils Percent Auto 1.2 % (2-4); Hematocrit 47.1 % (36-46); Hemoglobin 14.9 g/dL (12.0-16.0); Lymphocytes Absolute Auto 1300 /uL (1100-4500); Lymphocytes Percent Auto 8.3 % (25-40); Mean Corpuscular HGB Conc 31.7 % (30-36); Mean Corpuscular Hemoglobin 29.7 PG (26-34); Mean Corpuscular Volume 93.9 fL (80-100); Monocytes Absolute Auto 1300 /uL (0-900); Neutrophils Absolute Auto 13300 /uL (1500-7000); Neutrophils Percent Auto 81.9 % (50-75); Platelet Count 134 X10^3/uL (150-400); Red Blood Cell Count 5.02 X10^6/uL (4.0-5.2); Red Cell Distribution Width 21.5 % (11.6-14.8); White Blood Cell Count 16.3 X10^3/uL (4.5-11.0)
[2019-02-22 21:19] LABS: Prothrombin Time 11.8 SECONDS (10.1-12.7)
--- NOTE | 2019-02-22 21:20 | PC.NURSE ---
Upon arrival to CT via EMS per Stroke protocol pt began to foam at mouth, have decorticate posturing, clenched teeth and involuntary muscle movement which appeared to be seizure activity. Pt airway maintained w/ jaw thrust, suctioned for secretions, turned to side (recovery position). Given Ativan 2 mg IV w/ resolution of symptoms after 2 -3 min. [employer] airway placed w/ resolution of snoring respirations. NRB changed to NC 2 L to maintain sats > 95%. Pt remained unresponsive to general stimulus but responsive to knoxious stimultus.
[2019-02-22 21:21] LABS: Lipase 234 U/L (23-300)
[2019-02-22 21:23] LABS: Alanine Aminotransferase 7 IU/L (9-52); Albumin 4.9 g/dL (3.5-5.0); Alkaline Phosphatase 88 U/L (38-126); Aspartate Aminotransferase 30 IU/L (14-36); BUN Creatinine Ratio 6.8 (6-22); Bilirubin Total 0.9 mg/dL (0.2-1.3); Blood Urea Nitrogen 30 mg/dL (7-17); Calcium 9.6 mg/dL (8.4-10.2); Carbon Dioxide 15 mmol/L (22-32); Chloride 100 mmol/L (98-107); Estimated Glomerular Filt Rate 10.2 mL/min (>60); Ethanol (ETOH) < 10 mg/dL; Globulin 2.4 g/dL (1.7-4.1); Glucose 138 mg/dL (80-110); HEMOLYSIS < 15 (0-50); Potassium 3.7 mmol/L (3.4-5.1); Sodium 145 mmol/L (137-145); Total Protein 7.3 g/dL (6.3-8.2)
[2019-02-22] MEDS: SODIUM CHLORIDE 0.9% 1,000 ML 125 ML IV (21:31)
[2019-02-22 21:34] LABS: Troponin I 0.064 ng/mL (0.01-0.034)
[2019-02-22 21:39] LABS: Prolactin 131.7 ng/mL (3.0-18.6)
[2019-02-22 21:43] LABS: Anisocytosis 3+; Hypersegmented Neutrophils 2+; Macrocytosis 1+; Microcytosis 1+
--- NOTE | 2019-02-22 21:44 | PC.NURSE ---
pulling at monitoring, non redirectable. family in to see patient
[2019-02-22] MEDS: ONDANSETRON 4 MG/2 ML INJ IV ×3 (21:45→23:24)
[2019-02-22 21:53] LABS: Ammonia (NH3) < 9.0 umol/L (9-30)
[2019-02-22 22:19] LABS: PTT Partial Thromboplastin Tim 101 SECONDS (26.4-36.2)
--- NOTE | 2019-02-22 22:23 | PC.NURSE ---
At 2214, pt spontaneously opened eyes. Pt talking with me and with family. Port event confusion. Notified. Pt able to move all limbs on command, opens eyes on her own. States she feels fuzzy. Does not know what happened
--- NOTE | 2019-02-22 22:35 | PC.NURSE ---
Dr. Friend came and spoke with patient. Pt spontaneously opens eyes. Is confused about situation and does not remember anything. Pt able to follow basic commands and is no longer putting at cords. States she feels Fuzzy, Informed her of dose of ativan.
--- NOTE | 2019-02-22 22:47 | PC.NURSE ---
pt C/o pain on tounge. it appears that she bit it. Swelling noted and slight laceration noted to lip and left side of tounge.
[2019-02-22] MEDS: ACETAMINOPHEN 325 MG SUPP PR (22:59)
--- NOTE | 2019-02-22 23:40 | PC.NURSE ---
Medication list updated per report From [facility].
[2019-02-23] VITALS (8 sets, daily range): BP systolic 119–192; BP diastolic 64–87; PULSE 96–105; RESP 15–30; O2SAT 92–99
[2019-02-23] MEDS: levETIRAcetam 1,000 MG in SODIUM CHLORIDE 0.9% 100 ML 440 ML IV (00:05)
--- NOTE | 2019-02-23 00:11 | PC.NURSE ---
Manny Cell (Son in law) [phone]
== END 2019-02-23 05:00 | disposition short-term general hospital (02) ==
LOC: ED 23:00
PROVIDERS: Emergency Provider Emergency Medicine; PCP Internal Medicine
DX: R41.82 Altered mental status, unspecified (principal); R56.9 Unspecified convulsions; R00.0 Tachycardia, unspecified; N18.6 End stage renal disease; I50.9 Heart failure, unspecified; Z99.2 Dependence on renal dialysis; Z86.73 Personal history of transient ischemic attack (TIA), and cerebral infarction without residual deficits
CPT/HCPCS: 36415; 36591; 70450; 80053; 80320; 82140; 82962; 83690; 84146; 84484; 85025; 85610; 85730; 93005; 96361; 96365; 96375; 96376; 99285; 99291; 99292; J1953; J2060; J2405

== ENCOUNTER → 2019-03-29 11:26 | Outpatient (ROUT) | payer MEDICARE, MEDICAID, SELFPAY ==
[2019-03-29 11:28] LABS: Bacteria Urine None Seen; RBC Urine None Seen (0-5/HPF)
[2019-03-29 11:34] LABS: Appearance Urine UA CLEAR; Bilirubin Urine UA NEGATIVE (NEGATIVE); Color Urine UA YELLOW; Glucose Urine UA NEGATIVE (Negative); Ketones Urine UA NEGATIVE (NEGATIVE); Leukocyte Esterase Urine UA 1+ (NEGATIVE); Nitrite Urine UA NEGATIVE (Negative); Occult Blood Urine UA TRACE-LYSED (Negative); Protein Urine UA 2+ (Negative); Urobilinogen Urine UA 0.2 E.U./dL (0.2)
[2019-03-29 11:40] LABS: Culture Indicated Urine Cult Not Indicated; Squamous Epithelial Cell Urine 5-10 /HPF (0-5/HPF); WBC Urine 1-5/HPF (0-5/HPF)
== END ==
PROVIDERS: PCP Internal Medicine; Visit Provider Internal Medicine
DX: R35.0 Frequency of micturition (principal)
CPT/HCPCS: 81001

== ENCOUNTER → 2019-04-21 15:16 | Outpatient (ROUT) | payer MEDICARE, MEDICAID, SELFPAY ==
[2019-04-21 16:46] LABS: BUN Creatinine Ratio 7.2 (6-22); Blood Urea Nitrogen 42 mg/dL (7-17); Calcium 8.7 mg/dL (8.4-10.2); Carbon Dioxide 24 mmol/L (22-32); Chloride 99 mmol/L (98-107); Estimated Glomerular Filt Rate 7.4 mL/min (>60); Glucose 92 mg/dL (80-110); HEMOLYSIS < 15 (0-50); Sodium 136 mmol/L (137-145)
[2019-04-21 16:52] LABS: Potassium 5.8 mmol/L (3.4-5.1)
[2019-04-21 17:17] LABS: Thyroid Stimulating Hormone 0.37 uIU/mL (0.47-4.68)
== END ==
PROVIDERS: PCP Internal Medicine; Visit Provider Registered Nurse
DX: E03.9 Hypothyroidism, unspecified (principal)
CPT/HCPCS: 80048; 84443

== ENCOUNTER → 2019-05-30 08:00 | Outpatient (ROUT) | payer MEDICARE, MEDICAID, SELFPAY ==
[2019-05-30 09:37] LABS: Thyroid Stimulating Hormone 0.08 uIU/mL (0.47-4.68)
== END ==
PROVIDERS: PCP Internal Medicine; Visit Provider Internal Medicine
DX: E03.9 Hypothyroidism, unspecified (principal)
CPT/HCPCS: 36415; 84443

== ENCOUNTER 2019-06-14 12:56 | Emergency (ER) | payer MEDICARE, MEDICAID, SELFPAY ==
[2019-06-14 13:00] VITALS: BP 89/77; PULSE 101; RESP 22; TEMP 37; O2SAT 96
--- NOTE | 2019-06-14 13:10 | DI.RAD.S_ITS ---
PROCEDURE: XR CHEST 1V INDICATIONS: chest pain TECHNIQUE: One view of the chest was acquired. COMPARISON: [facility], CR, XR CHEST 1V, 11/03/2018, 17:51. FINDINGS: Surgical changes and devices: Left-sided tunneled hemodialysis catheter. Median sternotomy. Left axillary surgical clips. Lungs and pleura: Lungs are clear. No pleural effusions or pneumothorax. Mediastinum: Mediastinal contours appear normal. Heart size is normal. Bones and chest wall: No suspicious bony lesions. Overlying soft tissues appear unremarkable. IMPRESSION: No acute process. Dictated by: Milad Reilly M.D. on 06/14/2019 at 14:17 Approved by: Milad Reilly M.D. on 06/14/2019 at 14:18
[2019-06-14 13:28] LABS: Add Manual Diff / Slide Review NO; Basophils Absolute Auto 100 /uL (0-100); Basophils Percent Auto 1.5 % (0-2); Eosinophils Absolute Auto 300 /uL (0-450); Eosinophils Percent Auto 3.4 % (2-4); Hematocrit 36.7 % (36-46); Hemoglobin 12.6 g/dL (12.0-16.0); Lymphocytes Absolute Auto 1400 /uL (1100-4500); Lymphocytes Percent Auto 17.9 % (25-40); Mean Corpuscular HGB Conc 34.2 % (30-36); Mean Corpuscular Hemoglobin 31.3 PG (26-34); Mean Corpuscular Volume 91.6 fL (80-100); Monocytes Absolute Auto 500 /uL (0-900); Neutrophils Absolute Auto 5300 /uL (1500-7000); Neutrophils Percent Auto 70.2 % (50-75); Platelet Count 133 X10^3/uL (150-400); Red Blood Cell Count 4.01 X10^6/uL (4.0-5.2); Red Cell Distribution Width 17.9 % (11.6-14.8); White Blood Cell Count 7.6 X10^3/uL (4.5-11.0)
[2019-06-14 13:30] VITALS: BP 106/58; PULSE 94; RESP 20; O2SAT 96
[2019-06-14 13:32] LABS: Prothrombin Time 11.8 SECONDS (10.1-12.7)
[2019-06-14 13:35] LABS: PTT Partial Thromboplastin Tim 37 SECONDS (26.4-36.2)
[2019-06-14 13:36] LABS: Alanine Aminotransferase 21 IU/L (9-52); Albumin 4.4 g/dL (3.5-5.0); Albumin Globulin Ratio 2.2 (1.0-2.8); Alkaline Phosphatase 109 U/L (38-126); Aspartate Aminotransferase 22 IU/L (14-36); BUN Creatinine Ratio 5.8 (6-22); Bilirubin Total 0.5 mg/dL (0.2-1.3); Blood Urea Nitrogen 39 mg/dL (7-17); Carbon Dioxide 26 mmol/L (22-32); Chloride 96 mmol/L (98-107); Creatine Kinase 23 U/L (30-135); Estimated Glomerular Filt Rate 6.2 mL/min (>60); Glucose 91 mg/dL (80-110); HEMOLYSIS < 15 (0-50); Lipase 237 U/L (23-300); Potassium 4.7 mmol/L (3.4-5.1); Sodium 136 mmol/L (137-145); Total Protein 6.4 g/dL (6.3-8.2)
--- NOTE | 2019-06-14 14:18 | ED_ITS ---
HPI - Chest Pain General Chief Complaint: Chest Pain Stated Complaint: Chest Pain Time Seen by Provider: 06/14/19 13:01 Source: EMS Mode of arrival: EMS Limitations: no limitations History of Present Illness HPI narrative: Patient comes emergency department complaining of an episode of chest pain that occurred earlier today. Patient states she was just sitting in her chair and began to feel a pressure pain in the middle of her chest. Patient denies any radiation of pain. No shortness of breath or nausea. No diaphoresis or lightheadedness. Patient states that the pain resolved on its own within a couple of hours. Nothing seems to make it better or worse. Patient is completely back at baseline now. 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 Related Data Home Medications Medication Instructions Recorded Confirmed atorvastatin 40 mg PO BEDTIME 07/04/18 06/14/19 cholecalciferol (vitamin D3) 1,000 unit PO DAILY 07/04/18 06/14/19 [Vitamin D3] hydrocortisone acetate 25 mg AL Q12H PRN 07/04/18 06/14/19 lorazepam 0.5 mg PO Q12H PRN 07/04/18 06/14/19 melatonin 3 mg PO BEDTIME PRN 07/04/18 06/14/19 Lactobacillus acidophilus 1 tab PO DAILY 07/13/18 06/14/19 [Acidophilus] acetaminophen-codeine 1 tab PO Q12H PRN 07/13/18 06/14/19 nitroglycerin [Nitrostat] 0.4 mg SUBLINGUAL Q5-15M PRN 07/13/18 06/14/19 fluticasone propionate [Flovent 2 puff INHALATION BID 10/04/18 06/14/19 HFA] mirtazapine 7.5 mg PO BEDTIMEX7 10/04/18 06/14/19 multivitamin 1 cap PO DAILY 10/04/18 06/14/19 sevelamer carbonate 800 mg PO BID 11/03/18 06/14/19 Nepro Liquid 240 ml PO TID 06/14/19 06/14/19 acetaminophen 650 mg PO Q4H PRN 06/14/19 06/14/19 aspirin 81 mg PO DAILY 06/14/19 06/14/19 benzonatate [Tessalon Perles] 100 mg PO Q8H PRN 06/14/19 06/14/19 calcium carbonate [Calcium 500] 500 mg PO Q2H PRN 06/14/19 06/14/19 cyanocobalamin (vitamin B-12) 1,000 mcg PO DAILY 06/14/19 06/14/19 [Vitamin B-12] hydrocortisone 15 mg PO QAM 06/14/19 06/14/19 levetiracetam 500 mg PO BID 06/14/19 06/14/19 levothyroxine 112 mcg PO QAM 06/14/19 06/14/19 loperamide [Imodium A-D] 2 mg PO PRN PRN MDD 6 CAP 06/14/19 06/14/19 magnesium hydroxide [Milk of 30 ml PO PRN PRN 06/14/19 06/14/19 Magnesia] sacubitril-valsartan [Entresto] 1 tab PO BID 06/14/19 06/14/19 Allergies Allergy/AdvReac Type Severity Reaction Status Date / Time No Known Drug Allergies Allergy Verified 11/03/18 17:47 Review of Systems Constitutional Constitutional: Denies chills, Denies fatigue, Denies fever(s), Denies frequent falls, Denies lethargy and Denies weakness Eyes Eyes: Denies change in vision, Denies eye discharge, Denies irritation and Denies loss of vision ENT Ears, Nose, Mouth, and Throat: Denies change in voice, Denies dizziness, Denies neck pain, Denies sore throat and Denies throat swelling Cardiovascular Cardiovascular: Reports chest pain, Denies irregular heart rhythm, Denies lightheadedness, Denies palpitations, Denies dyspnea, Denies dyspnea on exertion and Denies orthopnea Respiratory Respiratory: Denies cough, Denies dyspnea, Denies dyspnea on exertion and Denies wheezing Gastrointestinal Gastrointestinal: Denies abdominal pain, Denies change in bowel habits, Denies diarrhea, Denies nausea and Denies vomiting Genitourinary Genitourinary: Denies hematuria, Denies flank pain, Denies urinary incontinence and Denies urinary urgency Musculoskeletal Musculoskeletal: Denies back pain, Denies muscle weakness, Denies neck pain, Denies numbness and Denies tingling Integumentary/Breasts Skin/Breast: Denies pruritus, Denies erythema, Denies rash and Denies wounds Neurologic Neurologic: Denies behavioral changes, Denies confusion, Denies dizziness, Denies frequent falls, Denies loss of vision, Denies numbness, Denies tingling and Denies weakness Psychiatric Psychiatric: Denies anxiety, Denies behavioral changes, Denies confusion, Denies depression, Denies homicidal ideation and Denies suicidal ideation Endocrine Endocrine: Denies fatigue, Denies flushing and Denies palpitations Hematologic/Lymphatic Hematologic/Lymphatic: Denies easy bruising Allergic/Immunologic Allergic/Immunologic: Denies urticaria, Denies throat swelling and Denies wheezing Patient History Medical History Acute kidney failure (Acute) Acute renal failure on dialysis (Acute) Anemia (Acute) Anxiety (Acute) Breast cancer, left (Resolved) CHF (congestive heart failure) (Acute) Chronic kidney disease (Acute) Fibromyalgia (Acute) GI bleed (Acute) HTN (hypertension) (Acute) Hyperlipidemia (Acute) Hypothyroid (Acute) IBS (irritable bowel syndrome) (Acute) Major depressive disorder (Acute) Malnutrition (Acute) Peripheral vascular disease (Acute) Thrombocytopenia (Acute) TIA (transient ischemic attack) (Acute) Social History lives independently: No Smoking Status: Never smoker alcohol intake frequency: holidays/special occasions only Substance Use Type: does not use Exam Initial Vital Signs Initial Vital Signs: Vital Signs Temperature 98.6 F 06/14/19 13:00 Pulse Rate 101 H 06/14/19 13:00 Respiratory Rate 22 06/14/19 13:00 Blood Pressure 89/77 L 06/14/19 13:00 Pulse Oximetry 96 06/14/19 13:00 Const General: cooperative and well developed Nutritional Appearance: well nourished Orientation: alert, awake, oriented x3 and not confused [facility] Head: normocephalic and atraumatic Ears: external ears normal Nose: external nose normal and No nasal discharge Face and sinus: face symmetric and No dry mucous membranes Mouth: oral mucosae normal and moist mucous membranes Teeth and gingiva: dentition normal Eyes General: appearance normal, both eyes and all related structures Eyelids: eyelids normal Conjunctivae: conjunctivae normal Sclera: sclerae normal Pupils: PERRL EOM: EOM intact bilaterally Neck Neck: normal visual inspection, trachea midline, No lymphadenopathy, No midline deformity and No JVD Lymphatic: No lymphedema Chest Chest: normal inspection of the chest Resp Effort & Inspection: normal respiratory effort, able to speak in complete sentences, no respiratory distress and no use of accessory muscles Auscultation: clear to auscultation bilaterally, no rales, no rhonchi and no wheezes Cardio Rate: regular rate Rhythm: regular rhythm Heart Sounds: no click, no gallops, no murmurs and no rubs Pulses: normal peripheral pulses GI Inspection: non-distended Palpation: soft, no hepatosplenomegaly, No guarding, No pulsatile mass and No tender Back/Spine/Pelvis Back: No CVA tenderness Cervical Spine: cervical ROM normal and No pain with cervical ROM Thoracic/Lumbar Spine: thoracic and lumbar spine normal to inspection Skin General: no rashes or lesions noted, No jaundice and No petechiae Neuro General: alert, oriented x3, gait normal and no focal motor deficits Speech: speech normal Extrem General: full ROM, no clubbing, cyanosis or edema, no pedal edema and no calf tenderness Psych Appearance: well kempt Mental Status: mental status grossly normal Attitude: cooperative Thought Content: normal and suicidality Judgment: judgment good Course Course Course Narrative: Patient was pain-free at the time of my evaluation. She was evaluated initially with basic labs and troponin, with troponin being found to be slightly, indeterminately elevated. A repeat troponin was performed a couple of hours later and found to be slightly less than the initial value. The patient remained pain-free and I felt she was stable for discharge home. We have discussed home management of symptoms, the need for follow-up, and the usual indications for return. Orders Ordered: ED Orders 06/14/19 13:10 XR chest 1V Stat EKG-12 Lead Stat 06/14/19 13:20 Complete Blood Count AUTO DIFF Stat Comprehensive Metabolic Panel Stat Lipase Stat Partial Thromboplastin Time Stat Prothrombin Time INR Stat Troponin & CK Cardiac Panel Stat 06/14/19 15:37 Troponin I Stat Vital Signs Vital signs: Vital Signs - 8 hr 06/14/19 13:00 06/14/19 13:30 06/14/19 14:30 Temperature 98.6 F Pulse Rate 101 H 94 H 90 Respiratory Rate 22 20 19 Blood Pressure 89/77 L Blood Pressure [Left Arm] 106/58 L 94/78 Pulse Oximetry 96 96 98 06/14/19 15:49 06/14/19 16:29 Temperature 97.7 F Pulse Rate 105 H 94 H Respiratory Rate 19 14 Blood Pressure Blood Pressure [Left Arm] 101/76 109/82 Pulse Oximetry 97 95 MDM - Chest Pain Medical Records Data Attestation: I reviewed the patient's medical records. Lab Data Attestation: I reviewed the patient's lab results. Result diagrams: 06/14/19 13:20 06/14/19 13:20 Labs: Lab Results 06/14/19 06/14/19 06/14/19 Range/Units 13:20 13:20 13:20 WBC 7.6 (4.5-11.0) X10^3/uL RBC 4.01 (4.0-5.2) X10^6/uL Hgb 12.6 (12.0-16.0) g/dL Hct 36.7 (36-46) % MCV 91.6 (80-100) fL MCH 31.3 (26-34) PG MCHC 34.2 (30-36) % RDW 17.9 H (11.6-14.8) % Plt Count 133 L (150-400) X10^3/uL Neut % (Auto) 70.2 (50-75) % Lymph % (Auto) 17.9 L (25-40) % Letcher % (Auto) 7.0 (3-14) % Eos % (Auto) 3.4 (2-4) % Baso % (Auto) 1.5 (0-2) % Neut # (Auto) 5300 (6191-7570) /uL Lymph # (Auto) 1400 (3011-5721) /uL Letcher # (Auto) 500 (0-900) /uL Eos # (Auto) 300 (0-450) /uL Baso # (Auto) 100 (0-100) /uL PT 11.8 (10.1-12.7) SECONDS INR 1.0 (0.9-1.3) APTT 37 H D (26.4-36.2) SECONDS Sodium 136 L (137-145) mmol/L Potassium 4.7 (3.4-5.1) mmol/L Chloride 96 L (98-107) mmol/L Carbon Dioxide 26 (22-32) mmol/L BUN 39 H (7-17) mg/dL Creatinine 6.70 H (0.52-1.04) mg/dL Estimated GFR 6.2 L (>60) mL/min BUN/Creatinine Ratio 5.8 L (6-22) Glucose 91 (80-110) mg/dL Calcium 9.0 (8.4-10.2) mg/dL Total Bilirubin 0.5 (0.2-1.3) mg/dL AST 22 (14-36) IU/L ALT 21 (9-52) IU/L Alkaline Phosphatase 109 (38-126) U/L Total Creatine Kinase 23 L (30-135) U/L CK-MB (CK-2) TNP CK-MB (CK-2) Rel Index TNP Troponin I 0.040 H (0.01-0.034) ng/mL Total Protein 6.4 (6.3-8.2) g/dL Albumin 4.4 (3.5-5.0) g/dL Globulin 2.0 (1.7-4.1) g/dL Albumin/Globulin Ratio 2.2 (1.0-2.8) Lipase 237 (23-300) U/L 06/14/ Range/Units 15:37 WBC (4.5-11.0) X10^3/uL RBC (4.0-5.2) X10^6/uL Hgb (12.0-16.0) g/dL Hct (36-46) % MCV (80-100) fL MCH (26-34) PG MCHC (30-36) % RDW (11.6-14.8) % Plt Count (150-400) X10^3/uL Neut % (Auto) (50-75) % Lymph % (Auto) (25-40) % Letcher % (Auto) (3-14) % Eos % (Auto) (2-4) % Baso % (Auto) (0-2) % Neut # (Auto) (2518-0823) /uL Lymph # (Auto) (2530-1583) /uL Letcher # (Auto) (0-900) /uL Eos # (Auto) (0-450) /uL Baso # (Auto) (0-100) /uL PT (10.1-12.7) SECONDS INR (0.9-1.3) APTT (26.4-36.2) SECONDS Sodium (137-145) mmol/L Potassium (3.4-5.1) mmol/L Chloride (98-107) mmol/L Carbon Dioxide (22-32) mmol/L BUN (7-17) mg/dL Creatinine (0.52-1.04) mg/dL Estimated GFR (>60) mL/min BUN/Creatinine Ratio (6-22) Glucose (80-110) mg/dL Calcium (8.4-10.2) mg/dL Total Bilirubin (0.2-1.3) mg/dL AST (14-36) IU/L ALT (9-52) IU/L Alkaline Phosphatase (38-126) U/L Total Creatine Kinase (30-135) U/L CK-MB (CK-2) CK-MB (CK-2) Rel Index Troponin I 0.039 H (0.01-0.034) ng/mL Total Protein (6.3-8.2) g/dL Albumin (3.5-5.0) g/dL Globulin (1.7-4.1) g/dL Albumin/Globulin Ratio (1.0-2.8) Lipase (23-300) U/L Imaging Data Chest x-ray: Radiologist's impression: OCEDURE: XR CHEST 1V INDICATIONS: chest pain TECHNIQUE: One view of the chest was acquired. COMPARISON: [facility], , XR CHEST 1V, 11/03/2018, 17:51. FINDINGS: Surgical changes and devices: Left-sided tunneled hemodialysis catheter. Median sternotomy. Left axillary surgical clips. Lungs and pleura: Lungs are clear. No pleural effusions or pneumothorax. Mediastinum: Mediastinal contours appear normal. Heart size is normal. Bones and chest wall: No suspicious bony lesions. Overlying soft tissues appear unremarkable. IMPRESSION: No acute process. Dictated by: Milad Reilly M.D. on 06/14/2019 at 14:17 Approved by: Milad Reilly M.D. on 06/14/2019 at 14:18 ECG Data Attestation: I personally reviewed and interpreted this ECG as follows: (See below) Interpretation: Twelve lead EKG performed June 14, 2019 at 1:11 p.m., as follows: Regular ventricular rhythm with a rate of 98 beats per minute AL intervals 133 millisecond QRS duration 90 millisecond QTC interval 416 millisecond No ectopy No significant ST T wave changes Interpretation: Sinus rhythm; left atrial enlargement; borderline left axis deviation; nonspecific T-wave abnormality; no signs of acute ischemia; abnormal EKG as interpreted by ED MD. Discharge Plan Departure Patient Disposition: Home Clinical Impression: Chest pain Qualifiers: Chest pain type: unspecified Qualified Code(s): R07.9 - Chest pain, unspecified Discharge Date/Time: 06/14/19 17:06 Instructions: DI for Chest Pain Activity Restrictions/Additional Instructions: Your labs, x-ray and EKG do not show any sign of a heart attack or any other emergent condition causing your symptoms today. Please continue to take your medications, as directed, and follow up with your primary care physician as needed. Prescriptions: No Action atorvastatin 40 mg Tablet 40 mg PO BEDTIME RF: 0 melatonin 3 mg Tablet 3 mg PO BEDTIME PRN (Reason: Insomnia) RF: 0 hydrocortisone acetate 25 mg Suppository 25 mg AL Q12H PRN (Reason: Hemorrhoids) RF: 0 lorazepam 0.5 mg Tablet 0.5 mg PO Q12H PRN (Reason: Anxiety) RF: 0 cholecalciferol (vitamin D3) [Vitamin D3] 1,000 unit Capsule 1,000 unit PO DAILY RF: 0 sevelamer carbonate 800 mg tablet 800 mg PO BID RF: 0 Lactobacillus acidophilus [Acidophilus] Capsule 1 tab PO DAILY RF: 0 acetaminophen-codeine 300-30 mg Tablet 1 tab PO Q12H PRN (Reason: pain) RF: 0 nitroglycerin [Nitrostat] 0.4 mg Tablet, Sublingual 0.4 mg SUBLINGUAL Q5-15M PRN (Reason: Chest Pain) RF: 0 Flovent HFA 44 mcg/actuation HFA aerosol inhaler 2 puff Inhalation BID RF: 0 mirtazapine 15 mg tablet 7.5 mg PO [id number] RF: 0 multivitamin Capsule 1 cap PO DAILY RF: 0 acetaminophen 325 mg Tablet 650 mg PO Q4H PRN (Reason: FEVER > 100 AND PAIN) RF: 0 levetiracetam 500 mg tablet 500 mg PO BID RF: 0 cyanocobalamin (vitamin B-12) [Vitamin B-12] 1,000 mcg Tablet 1,000 mcg PO DAILY RF: 0 aspirin 81 mg Tablet,Chewable 81 mg PO DAILY RF: 0 hydrocortisone 10 mg tablet 15 mg PO QAM RF: 0 levothyroxine 112 mcg tablet 112 mcg PO QAM RF: 0 Entresto 24-26 mg tablet 1 tab PO BID RF: 0 Nepro Liquid 240 ml PO TID RF: 0 loperamide [Imodium A-D] 2 mg Capsule 2 mg PO PRN MDD 6 CAP PRN (Reason: Diarrhea) RF: 0 magnesium hydroxide [Milk of Magnesia] 400 mg/5 mL Suspension 30 ml PO PRN PRN (Reason: Constipation) RF: 0 calcium carbonate [Calcium 500] 500 mg calcium (1,250 mg) Tablet,Chewable 500 mg PO Q2H PRN (Reason: GI UPSET) RF: 0 benzonatate [Tessalon Perles] 100 mg capsule 100 mg PO Q8H PRN (Reason: cough) RF: 0 Referrals: Germaine Jalloh MD [Primary Care Provider] -
[2019-06-14 14:30] VITALS: BP 94/78; PULSE 90; RESP 19; O2SAT 98
[2019-06-14 15:49] VITALS: BP 101/76; PULSE 105; RESP 19; O2SAT 97
[2019-06-14 16:11] LABS: Troponin I 0.039 ng/mL (0.01-0.034)
[2019-06-14 16:29] VITALS: BP 109/82; PULSE 94; RESP 14; TEMP 36.5; O2SAT 95
--- NOTE | 2019-06-14 17:05 | PC.NURSE ---
pt discharged in no acute distress. denies chest pain. sob, vss. aaox3.
== END 2019-06-14 17:06 | disposition home or self-care (01) ==
PROVIDERS: Emergency Provider Emergency Medicine; PCP Internal Medicine
DX: R07.9 Chest pain, unspecified (principal); R94.31 Abnormal electrocardiogram [ECG] [EKG]; R79.89 Other specified abnormal findings of blood chemistry
CPT/HCPCS: 36415; 71045; 80053; 82550; 83690; 84484; 85025; 85610; 85730; 93005; 93010; 99283; 99285

== ENCOUNTER → 2019-07-04 07:46 | Outpatient (ROUT) | payer MEDICARE, MEDICAID, SELFPAY ==
[2019-07-04 08:57] LABS: Thyroid Stimulating Hormone 0.14 uIU/mL (0.47-4.68)
== END ==
PROVIDERS: PCP Internal Medicine; Visit Provider Nurse Practitioner Family
DX: E03.9 Hypothyroidism, unspecified (principal)
CPT/HCPCS: 36415; 84443

== ENCOUNTER 2019-08-18 17:16 | Emergency (ER) | payer MEDICARE, MEDICAID, SELFPAY ==
[2019-08-18 17:15] VITALS: BP 114/84; PULSE 111; RESP 20; TEMP 37.1; O2SAT 94; BMI 27.6
--- NOTE | 2019-08-18 17:21 | DI.RAD.S_ITS ---
PROCEDURE: XR CHEST 1V INDICATIONS: suspected sepsis TECHNIQUE: One view of the chest was acquired. COMPARISON: [facility], CR, XR CHEST 1V, 06/14/2019, 13:45. FINDINGS: Surgical changes and devices: Sternotomy wires and CABG clips. Surgical clips projecting in the left axilla. Large bore right-sided central venous catheter with the tip projecting in the cavoatrial junction as before. Lungs and pleura: Mildly increasing retrocardiac patchy consolidative opacities. Probable small left pleural effusion. Probable nipple shadow projects in the left costophrenic angle although this could be confirmed with followup chest radiographs utilizing nipple markers to exclude pulmonary nodule. No pleural effusions or pneumothorax. Mediastinum: Mediastinal contours appear normal. Heart size is normal. Bones and chest wall: No suspicious bony lesions. Overlying soft tissues appear unremarkable. IMPRESSION: Mildly worsening retrocardiac and left basilar patchy opacities suggesting pneumonia or aspiration. Small left pleural effusion Nonspecific nodular opacity projects in the left costophrenic angle as discussed above. Please see recommendations Dictated by: Gilson Moore M.D. on 08/18/2019 at 17:45 Approved by: Gilson Moore M.D. on 08/18/2019 at 17:48
[2019-08-18 17:46] VITALS: O2SAT 100
[2019-08-18 17:47] LABS: Add Manual Diff / Slide Review NO; Basophils Absolute Auto 0 /uL (0-100); Basophils Percent Auto 0.2 % (0-2); Eosinophils Absolute Auto 100 /uL (0-450); Eosinophils Percent Auto 0.6 % (2-4); Hematocrit 36.3 % (36-46); Hemoglobin 12.1 g/dL (12.0-16.0); Lymphocytes Absolute Auto 600 /uL (1100-4500); Lymphocytes Percent Auto 5.7 % (25-40); Mean Corpuscular HGB Conc 33.5 % (30-36); Mean Corpuscular Hemoglobin 30.7 PG (26-34); Mean Corpuscular Volume 91.9 fL (80-100); Monocytes Absolute Auto 500 /uL (0-900); Monocytes Percent Auto 4.3 % (3-14); Neutrophils Absolute Auto 9500 /uL (1500-7000); Neutrophils Percent Auto 89.2 % (50-75); Platelet Count 112 X10^3/uL (150-400); Red Blood Cell Count 3.95 X10^6/uL (4.0-5.2); Red Cell Distribution Width 18.1 % (11.6-14.8); White Blood Cell Count 10.6 X10^3/uL (4.5-11.0)
--- NOTE | 2019-08-18 17:48 | ED_ITS ---
HPI - URI/Sore Throat General Chief Complaint: Upper Respiratory Symptoms Stated Complaint: Congestion Time Seen by Provider: 08/18/19 17:30 Source: EMS Mode of arrival: EMS Limitations: no limitations History of Present Illness HPI Narrative: 64-year-old female nonsmoker with history of significant coronary artery disease including multiple stents and a bypass as well as end-stage renal disease with hemodialysis on Tuesdays, and Saturdays presents with 2 days of worsening shortness of breath cough productive of yellow sputum chills and body aches over the course of the day. She has had some nausea but denies any vomiting. [facility] and has not been admitted within the last year. Her chest pain is described as pressure and she denies any provocation, palliation or radiation. MD Complaint: rhinorrhea and nasal congestion Onset (ago): hour(s) Duration: constant and progressively worsening Severity: moderate Exacerbating factors: nothing Description of mucous: yellow Able to tolerate fluids by mouth: Yes Associated symptoms: chills, cough and shortness of breath Treatments prior to arrival: none Related Data Home Medications Medication Instructions Recorded Confirmed atorvastatin 40 mg PO BEDTIME 07/04/18 06/14/19 cholecalciferol (vitamin D3) 1,000 unit PO DAILY 07/04/18 06/14/19 [Vitamin D3] hydrocortisone acetate 25 mg AZ Q12H PRN 07/04/18 06/14/19 lorazepam 0.5 mg PO Q12H PRN 07/04/18 06/14/19 melatonin 3 mg PO BEDTIME PRN 07/04/18 06/14/19 Lactobacillus acidophilus 1 tab PO DAILY 07/13/18 06/14/19 [Acidophilus] acetaminophen-codeine 1 tab PO Q12H PRN 07/13/18 06/14/19 nitroglycerin [Nitrostat] 0.4 mg SUBLINGUAL Q5-15M PRN 07/13/18 06/14/19 fluticasone propionate [Flovent 2 puff INHALATION BID 10/04/18 06/14/19 HFA] mirtazapine 7.5 mg PO BEDTIMEX7 10/04/18 06/14/19 multivitamin 1 cap PO DAILY 10/04/18 06/14/19 sevelamer carbonate 800 mg PO BID 11/03/18 06/14/19 Nepro Liquid 240 ml PO TID 06/14/19 06/14/19 acetaminophen 650 mg PO Q4H PRN 06/14/19 06/14/19 aspirin 81 mg PO DAILY 06/14/19 06/14/19 benzonatate [Tessalon Perles] 100 mg PO Q8H PRN 06/14/19 06/14/19 calcium carbonate [Calcium 500] 500 mg PO Q2H PRN 06/14/19 06/14/19 cyanocobalamin (vitamin B-12) 1,000 mcg PO DAILY 06/14/19 06/14/19 [Vitamin B-12] hydrocortisone 15 mg PO QAM 06/14/19 06/14/19 levetiracetam 500 mg PO BID 06/14/19 06/14/19 levothyroxine 112 mcg PO QAM 06/14/19 06/14/19 loperamide [Imodium A-D] 2 mg PO PRN PRN MDD 6 CAP 06/14/19 06/14/19 magnesium hydroxide [Milk of 30 ml PO PRN PRN 06/14/19 06/14/19 Magnesia] sacubitril-valsartan [Entresto] 1 tab PO BID 06/14/19 06/14/19 Allergies Allergy/AdvReac Type Severity Reaction Status Date / Time No Known Drug Allergies Allergy Verified 08/18/19 17:42 Review of Systems Constitutional Constitutional: Reports chills, Reports fatigue, Denies frequent falls, Denies lethargy and Reports weakness Eyes Eyes: Denies change in vision, Denies eye discharge, Denies irritation and Denies loss of vision ENT Ears, Nose, Mouth, and Throat: Denies change in voice, Denies dizziness, Denies neck pain, Denies sore throat and Denies throat swelling Cardiovascular Cardiovascular: Denies chest pain, Denies irregular heart rhythm, Denies lightheadedness, Denies palpitations, Reports dyspnea, Reports dyspnea on exertion and Denies orthopnea Respiratory Respiratory: Reports cough, Reports dyspnea, Reports dyspnea on exertion and Denies wheezing Gastrointestinal Gastrointestinal: Denies abdominal pain, Denies change in bowel habits, Denies diarrhea, Denies nausea and Denies vomiting Genitourinary Genitourinary: Denies hematuria, Denies flank pain, Denies urinary incontinence and Denies urinary urgency Musculoskeletal Musculoskeletal: Denies back pain, Denies muscle weakness, Denies neck pain, Denies numbness and Denies tingling Integumentary/Breasts Skin/Breast: Denies pruritus, Denies erythema, Denies rash and Denies wounds Neurologic Neurologic: Denies behavioral changes, Denies confusion, Denies dizziness, Denies frequent falls, Denies loss of vision, Denies numbness, Denies tingling and Reports weakness Psychiatric Psychiatric: Denies anxiety, Denies behavioral changes, Denies confusion, Denies depression, Denies homicidal ideation and Denies suicidal ideation Endocrine Endocrine: Reports fatigue, Denies flushing and Denies palpitations Hematologic/Lymphatic Hematologic/Lymphatic: Denies easy bruising Allergic/Immunologic Allergic/Immunologic: Denies urticaria, Denies throat swelling and Denies wheezing Patient History Medical History Acute kidney failure (Acute) Acute renal failure on dialysis (Acute) Anemia (Acute) Anxiety (Acute) Breast cancer, left (Resolved) CHF (congestive heart failure) (Acute) Chronic kidney disease (Acute) Fibromyalgia (Acute) GI bleed (Acute) HTN (hypertension) (Acute) Hyperlipidemia (Acute) Hypothyroid (Acute) IBS (irritable bowel syndrome) (Acute) Major depressive disorder (Acute) Malnutrition (Acute) Peripheral vascular disease (Acute) Thrombocytopenia (Acute) TIA (transient ischemic attack) (Acute) Social History lives independently: No Smoking Status: Never smoker Smoking Status: Never smoker alcohol intake frequency: holidays/special occasions only Substance Use Type: does not use Exam Narrative Exam Narrative: GENERAL: 64 year old patient appears stated age. Well-nourished, well-developed patient, in mild distress. Chronically ill HEAD: Atraumatic. Normocephalic. EYES: Pupils equal round and reactive. Extraocular motions intact. No scleral icterus. No injection or drainage. ENT: Nose without bleeding, purulent drainage. Throat without erythema, tonsillar hypertrophy or exudate. Airway patent. NECK: Trachea midline. Non tender CARDIOVASCULAR: Tachycardic but regular rhythm without murmurs, gallops, or rubs. RESPIRATORY: Crackles in bases GASTROINTESTINAL: Abdomen soft, non-tender, nondistended. EXTREMITIES: No edema or joint tenderness. BACK: Nontender without deformity or crepitance. No flank tenderness. NEURO: AOx3. SKIN: No rash or erythema of visible areas Initial Vital Signs Initial Vital Signs: Vital Signs Temperature 98.8 F 08/18/19 17:15 Pulse Rate 111 H 08/18/19 17:15 Respiratory Rate 20 08/18/19 17:15 Blood Pressure 114/84 08/18/19 17:15 Pulse Oximetry 94 08/18/19 17:15 Scores qSOFA Altered Mental Status (GCS <15): No Respiratory rate greater than/equal to 22: No Systolic blood pressure less than or equal to 100: Yes qSOFA Total: 1 0-1 Not High Risk 1-3 High risk Course Orders Ordered: ED Orders 08/18/19 17:21 XR chest 1V Stat EKG-12 Lead Stat RT Consult Eval and Treat Now 08/18/19 17:26 B Type Natriuretic Peptide Stat Complete Blood Count AUTO DIFF Stat Comprehensive Metabolic Panel Stat Lactate (Lactic Acid) Stat Lipase Stat Partial Thromboplastin Time Stat Phosphorous Stat Procalcitonin Stat Prothrombin Time INR Stat Troponin & CK Cardiac Panel Stat 08/18/19 18:16 Blood Culture Stat 08/18/19 18:22 Influenza A & B (PCR) Stat Discontinued Medications Alprazolam (Xanax) 0.25 mg PO NOW ONE Stop: 08/18/19 18:41 Last Admin: 08/18/19 18:44 Dose: 0.25 mg Documented by: LORENASENJesus Sodium Chloride (Normal Saline 0.9%) 1,000 mls @ 1,000 mls/hr IV BOLUS ONE Stop: 08/18/19 19:02 Last Infusion: 08/18/19 19:38 Dose: 0 mls/hr Documented by: Admin: 08/18/19 18:14 Dose: 1,000 mls/hr Documented by: ESPERANZA Ceftriaxone Sodium/Dextrose (Rocephin) 1 gm in 50 mls @ 100 mls/hr IV NOW ONE Stop: 08/18/19 18:32 Last Infusion: 08/18/19 19:00 Dose: 0 mls/hr Documented by: Admin: 08/18/19 18:13 Dose: 100 mls/hr Documented by: LORENASENJesus Azithromycin 500 mg/ Dextrose 250 mls @ 250 mls/hr IV NOW ONE Stop: 08/18/19 18:04 Last Admin: 08/18/19 18:24 Dose: 250 mls/hr Documented by: ESPERANZA Ondansetron HCl (Zofran) 4 mg IV NOW ONE Stop: 08/18/19 19:30 Last Admin: 08/18/19 19:32 Dose: 4 mg Documented by: LEXI Ondansetron HCl (Zofran) 4 mg IV NOW ONE Stop: 08/18/19 19:53 Last Admin: 08/18/19 19:57 Dose: 4 mg Documented by: LEXI [facility] and agrees with plan Vital Signs Vital signs: Vital Signs - 8 hr 08/18/19 17:15 08/18/19 17:46 08/18/19 18:14 Temperature 98.8 F Pulse Rate 111 H 113 H Respiratory Rate 20 17 Blood Pressure 114/84 Blood Pressure [Left Arm] 113/92 H Pulse Oximetry 94 100 99 08/18/19 19:30 Temperature Pulse Rate 121 H Respiratory Rate 27 H Blood Pressure Blood Pressure [Left Arm] 121/98 H Pulse Oximetry 100 MDM - URI/Sore Throat Lab Data Result diagrams: 08/18/19 17:26 08/18/19 17:26 Labs: Lab Results 08/18/19 08/18/19 08/18/19 Range/Units 17:26 17:26 17:26 WBC 10.6 (4.5-11.0) X10^3/uL RBC 3.95 L (4.0-5.2) X10^6/uL Hgb 12.1 (12.0-16.0) g/dL Hct 36.3 (36-46) % MCV 91.9 (80-100) fL MCH 30.7 (26-34) PG MCHC 33.5 (30-36) % RDW 18.1 H (11.6-14.8) % Plt Count 112 L (150-400) X10^3/uL Neut % (Auto) 89.2 H (50-75) % Lymph % (Auto) 5.7 L (25-40) % [place] % (Auto) 4.3 (3-14) % Eos % (Auto) 0.6 L (2-4) % Baso % (Auto) 0.2 (0-2) % Neut # (Auto) 9500 H (8375-4022) /uL Lymph # (Auto) 600 L (2369-0647) /uL [place] # (Auto) 500 (0-900) /uL Eos # (Auto) 100 (0-450) /uL Baso # (Auto) 0 (0-100) /uL PT 12.3 (10.1-12.7) SECONDS INR 1.1 (0.9-1.3) APTT 40 H D (26.4-36.2) SECONDS Sodium (137-145) mmol/L Potassium (3.4-5.1) mmol/L Chloride (98-107) mmol/L Carbon Dioxide (22-32) mmol/L BUN (7-17) mg/dL Creatinine (0.52-1.04) mg/dL Estimated GFR (>60) mL/min BUN/Creatinine Ratio (6-22) Glucose (80-110) mg/dL Lactate (0.7-2.1) mmol/L Calcium (8.4-10.2) mg/dL Phosphorus (2.8-4.1) mg/dL Total Bilirubin (0.2-1.3) mg/dL AST (14-36) IU/L ALT (<35) IU/L Alkaline Phosphatase (38-126) U/L Total Creatine Kinase (30-135) U/L CK-MB (CK-2) CK-MB (CK-2) Rel Index Troponin I (0.01-0.034) ng/mL B-Natriuretic Peptide (<100) Total Protein (6.3-8.2) g/dL Albumin (3.5-5.0) g/dL Globulin (1.7-4.1) g/dL Albumin/Globulin Ratio (1.0-2.8) Lipase (23-300) U/L Procalcitonin 0.20 (<0.5) ng/mL Influenza A (RT-PCR) (NEGATIVE) Influenza B (RT-PCR) (NEGATIVE) 08/18/19 08/18/19 08/18/19 Range/Units 17:26 17:26 17:26 WBC (4.5-11.0) X10^3/uL RBC (4.0-5.2) X10^6/uL Hgb (12.0-16.0) g/dL Hct (36-46) % MCV (80-100) fL MCH (26-34) PG MCHC (30-36) % RDW (11.6-14.8) % Plt Count (150-400) X10^3/uL Neut % (Auto) (50-75) % Lymph % (Auto) (25-40) % [place] % (Auto) (3-14) % Eos % (Auto) (2-4) % Baso % (Auto) (0-2) % Neut # (Auto) (7931-1096) /uL Lymph # (Auto) (9528-8997) /uL [place] # (Auto) (0-900) /uL Eos # (Auto) (0-450) /uL Baso # (Auto) (0-100) /uL PT (10.1-12.7) SECONDS INR (0.9-1.3) APTT (26.4-36.2) SECONDS Sodium 132 L (137-145) mmol/L Potassium 4.5 (3.4-5.1) mmol/L Chloride 94 L (98-107) mmol/L Carbon Dioxide 25 (22-32) mmol/L BUN 21 H (7-17) mg/dL Creatinine 5.70 H (0.52-1.04) mg/dL Estimated GFR 7.5 L (>60) mL/min BUN/Creatinine Ratio 3.7 L (6-22) Glucose 93 (80-110) mg/dL Lactate 0.9 (0.7-2.1) mmol/L Calcium 8.9 (8.4-10.2) mg/dL Phosphorus 4.1 (2.8-4.1) mg/dL Total Bilirubin 0.7 (0.2-1.3) mg/dL AST 23 (14-36) IU/L ALT 13 (<35) IU/L Alkaline Phosphatase 115 (38-126) U/L Total Creatine Kinase (30-135) U/L CK-MB (CK-2) CK-MB (CK-2) Rel Index Troponin I (0.01-0.034) ng/mL B-Natriuretic Peptide (<100) Total Protein 6.3 (6.3-8.2) g/dL Albumin 4.3 (3.5-5.0) g/dL Globulin 2.0 (1.7-4.1) g/dL Albumin/Globulin Ratio 2.2 (1.0-2.8) Lipase 189 (23-300) U/L Procalcitonin (<0.5) ng/mL Influenza A (RT-PCR) (NEGATIVE) Influenza B (RT-PCR) (NEGATIVE) 08/18/19 08/18/19 08/18/19 Range/Units 17:26 17:26 18:22 WBC (4.5-11.0) X10^3/uL RBC (4.0-5.2) X10^6/uL Hgb (12.0-16.0) g/dL Hct (36-46) % MCV (80-100) fL MCH (26-34) PG MCHC (30-36) % RDW (11.6-14.8) % Plt Count (150-400) X10^3/uL Neut % (Auto) (50-75) % Lymph % (Auto) (25-40) % [place] % (Auto) (3-14) % Eos % (Auto) (2-4) % Baso % (Auto) (0-2) % Neut # (Auto) (1191-2786) /uL Lymph # (Auto) (0380-5887) /uL [place] # (Auto) (0-900) /uL Eos # (Auto) (0-450) /uL Baso # (Auto) (0-100) /uL PT (10.1-12.7) SECONDS INR (0.9-1.3) APTT (26.4-36.2) SECONDS Sodium (137-145) mmol/L Potassium (3.4-5.1) mmol/L Chloride (98-107) mmol/L Carbon Dioxide (22-32) mmol/L BUN (7-17) mg/dL Creatinine (0.52-1.04) mg/dL Estimated GFR (>60) mL/min BUN/Creatinine Ratio (6-22) Glucose (80-110) mg/dL Lactate (0.7-2.1) mmol/L Calcium (8.4-10.2) mg/dL Phosphorus (2.8-4.1) mg/dL Total Bilirubin (0.2-1.3) mg/dL AST (14-36) IU/L ALT (<35) IU/L Alkaline Phosphatase (38-126) U/L Total Creatine Kinase 31 (30-135) U/L CK-MB (CK-2) TNP CK-MB (CK-2) Rel Index TNP Troponin I 0.035 H (0.01-0.034) ng/mL B-Natriuretic Peptide > 3630 H (<100) Total Protein (6.3-8.2) g/dL Albumin (3.5-5.0) g/dL Globulin (1.7-4.1) g/dL Albumin/Globulin Ratio (1.0-2.8) Lipase (23-300) U/L Procalcitonin (<0.5) ng/mL Influenza A (RT-PCR) Flu a negative (NEGATIVE) Influenza B (RT-PCR) Flu b negative (NEGATIVE) Imaging Data Chest x-ray: Radiologist's Impression: Aurelia Gr 64 F 1955 [place] [address] XRay Report Signed Patient: Aurelia Gr EMR#: [id number] : [id number]:[id number] Age/Sex: 64 / FDate of Service: 08/18/19 Loc: ED Accession Number: [id number] Procedure: XR chest 1V Ordering Provider: Hazel Jo D.O. PROCEDURE: XR CHEST 1V INDICATIONS: suspected sepsis TECHNIQUE: One view of the chest was acquired. COMPARISON: [facility], , XR CHEST 1V, 06/14/2019, 13:45. FINDINGS: Surgical changes and devices: Sternotomy wires and CABG clips. Surgical clips projecting in the left axilla. Large bore right-sided central venous catheter with the tip projecting in the cavoatrial junction as before. Lungs and pleura: Mildly increasing retrocardiac patchy consolidative opacities. Probable small left pleural effusion. Probable nipple shadow projects in the left costophrenic angle although this could be confirmed with followup chest radiographs utilizing nipple markers to exclude pulmonary nodule. No pleural effusions or pneumothorax. Mediastinum: Mediastinal contours appear normal. Heart size is normal. Bones and chest wall: No suspicious bony lesions. Overlying soft tissues appear unremarkable. IMPRESSION: Mildly worsening retrocardiac and left basilar patchy opacities suggesting pneumonia or aspiration. Small left pleural effusion Nonspecific nodular opacity projects in the left costophrenic angle as discussed above. Please see recommendations Dictated by: Gilson Moore M.D. on 08/18/2019 at 17:45 Approved by: Gilson Moore M.D. on 08/18/2019 at 17:48 ECG Data Attestation: I personally reviewed and interpreted this ECG as follows: Prior ECG tracings: available for review Interpretation: EKG is sinus tachycardia at 110 and free of any signs of ischemia or ectopy. No ST segmental elevation or depression. No T wave inversions MDM Narrative Medical decision making narrative: 64F chronic illness with rapid onset respiratory symptoms, chills, bodyaches, cough, and SOB and multilobar PNA on C XR. Hemodynamically stable. Fluids, ABX given. Flu pending. Patient meets admission criteria and needs stabilization and further evaluation of her condition. We cannot keep HD patients here as we have no nephrology. 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 Horton at [facility]. We thank [facility] for their help in caring fo r Ms. Gr. Discharge Plan Departure Patient Disposition: [facility] Clinical Impression: Pneumonia Qualifiers: Pneumonia type: due to unspecified organism Laterality: bilateral Lung location: unspecified part of lung Qualified Code(s): J18.9 - Pneumonia, unspecified organism Prescriptions: No Action atorvastatin 40 mg Tablet 40 mg PO BEDTIME RF: 0 melatonin 3 mg Tablet 3 mg PO BEDTIME PRN (Reason: Insomnia) RF: 0 hydrocortisone acetate 25 mg Suppository 25 mg AZ Q12H PRN (Reason: Hemorrhoids) RF: 0 lorazepam 0.5 mg Tablet 0.5 mg PO Q12H PRN (Reason: Anxiety) RF: 0 cholecalciferol (vitamin D3) [Vitamin D3] 1,000 unit Capsule 1,000 unit PO DAILY RF: 0 sevelamer carbonate 800 mg tablet 800 mg PO BID RF: 0 Lactobacillus acidophilus [Acidophilus] Capsule 1 tab PO DAILY RF: 0 acetaminophen-codeine 300-30 mg Tablet 1 tab PO Q12H PRN (Reason: pain) RF: 0 nitroglycerin [Nitrostat] 0.4 mg Tablet, Sublingual 0.4 mg SUBLINGUAL Q5-15M PRN (Reason: Chest Pain) RF: 0 Flovent HFA 44 mcg/actuation HFA aerosol inhaler 2 puff Inhalation BID RF: 0 mirtazapine 15 mg tablet 7.5 mg PO [id number] RF: 0 multivitamin Capsule 1 cap PO DAILY RF: 0 acetaminophen 325 mg Tablet 650 mg PO Q4H PRN (Reason: FEVER > 100 AND PAIN) RF: 0 levetiracetam 500 mg tablet 500 mg PO BID RF: 0 cyanocobalamin (vitamin B-12) [Vitamin B-12] 1,000 mcg Tablet 1,000 mcg PO DAILY RF: 0 aspirin 81 mg Tablet,Chewable 81 mg PO DAILY RF: 0 hydrocortisone 10 mg tablet 15 mg PO QAM RF: 0 levothyroxine 112 mcg tablet 112 mcg PO QAM RF: 0 Entresto 24-26 mg tablet 1 tab PO BID RF: 0 Nepro Liquid 240 ml PO TID RF: 0 loperamide [Imodium A-D] 2 mg Capsule 2 mg PO PRN MDD 6 CAP PRN (Reason: Diarrhea) RF: 0 magnesium hydroxide [Milk of Magnesia] 400 mg/5 mL Suspension 30 ml PO PRN PRN (Reason: Constipation) RF: 0 calcium carbonate [Calcium 500] 500 mg calcium (1,250 mg) Tablet,Chewable 500 mg PO Q2H PRN (Reason: GI UPSET) RF: 0 benzonatate [Tessalon Perles] 100 mg capsule 100 mg PO Q8H PRN (Reason: cough) RF: 0 Referrals: Germaine Jalloh MD [Primary Care Provider] -
[2019-08-18 17:55] LABS: INR 1.1 (0.9-1.3); Prothrombin Time 12.3 SECONDS (10.1-12.7)
[2019-08-18 17:57] LABS: PTT Partial Thromboplastin Tim 40 SECONDS (26.4-36.2)
[2019-08-18 17:59] LABS: Alanine Aminotransferase 13 IU/L (<35); Albumin 4.3 g/dL (3.5-5.0); Albumin Globulin Ratio 2.2 (1.0-2.8); Alkaline Phosphatase 115 U/L (38-126); Aspartate Aminotransferase 23 IU/L (14-36); BUN Creatinine Ratio 3.7 (6-22); Bilirubin Total 0.7 mg/dL (0.2-1.3); Blood Urea Nitrogen 21 mg/dL (7-17); Calcium 8.9 mg/dL (8.4-10.2); Carbon Dioxide 25 mmol/L (22-32); Chloride 94 mmol/L (98-107); Estimated Glomerular Filt Rate 7.5 mL/min (>60); Glucose 93 mg/dL (80-110); HEMOLYSIS < 15 (0-50); Lactate (Lactic Acid) 0.9 mmol/L (0.7-2.1); Lipase 189 U/L (23-300); Potassium 4.5 mmol/L (3.4-5.1); Sodium 132 mmol/L (137-145); Total Protein 6.3 g/dL (6.3-8.2)
[2019-08-18 18:04] LABS: Creatine Kinase 31 U/L (30-135); Phosphorous 4.1 mg/dL (2.8-4.1)
[2019-08-18] MEDS: CEFTRIAXONE 1 GM/50 ML FROZ.PIGGY IV (18:13)
[2019-08-18 18:14] VITALS: BP 113/92; PULSE 113; RESP 17; O2SAT 99
[2019-08-18] MEDS: SODIUM CHLORIDE 0.9% 1,000 ML 1000 ML IV (18:14)
[2019-08-18 18:16] LABS: Troponin I 0.035 ng/mL (0.01-0.034)
[2019-08-18 18:23] LABS: B Type Natriuretic Peptide > 3630 (<100)
[2019-08-18] MEDS: AZITHROMYCIN 500 MG in DEXTROSE 5% IN WATER 250 ML IV (18:24)
[2019-08-18] MEDS: ALPRAZolam 0.25 MG TABLET PO (18:44)
[2019-08-18 19:04] LABS: Influenza A - CEPHEID Flu A NEGATIVE (NEGATIVE); Influenza B - CEPHEID Flu B NEGATIVE (NEGATIVE)
[2019-08-18 19:30] VITALS: BP 121/98; PULSE 121; RESP 27; O2SAT 100
[2019-08-18] MEDS: ONDANSETRON 4 MG/2 ML INJ IV ×2 (19:32→19:57)
--- NOTE | 2019-08-18 19:43 | PC.NURSE ---
192, I assumed care of this patient at this time. entered room to check IV lines, and introduce myself. Pt family member talks over me and does not allow me to talk or as questions. Pt states she is nauseated and anxious. I obtained order for zofran no anxiety medications ordered at this time. Informed pt and family that we currently have not made calls to find a bed elsewhere for pt. Family requests EKG. Notified that they can obtain that with patient permission she can obtain the EKG from medical records. Informed family of wait and informed them that doctor Solis is taking over care and will be in to update them as soon as he can.
== END 2019-08-18 20:30 | disposition short-term general hospital (02) ==
PROVIDERS: Emergency Medicine; Emergency Provider Emergency Medicine; PCP Internal Medicine
DX: J18.9 Pneumonia, unspecified organism (principal); R00.0 Tachycardia, unspecified; R11.0 Nausea
CPT/HCPCS: 36415; 71045; 80053; 82550; 83605; 83690; 83880; 84100; 84145; 84484; 85025; 85610; 85730; 87040; 87502; 93005; 96365; 96366; 96368; 96375; 99285; J2405

== ENCOUNTER → 2019-09-07 07:18 | Outpatient (ROUT) | payer MEDICARE, MEDICAID, SELFPAY ==
[2019-09-07 08:13] LABS: Alanine Aminotransferase 10 IU/L (<35); Albumin 3.9 g/dL (3.5-5.0); Albumin Globulin Ratio 1.7 (1.0-2.8); Alkaline Phosphatase 95 U/L (38-126); Aspartate Aminotransferase 20 IU/L (14-36); BUN Creatinine Ratio 4.9 (6-22); Bilirubin Total 0.5 mg/dL (0.2-1.3); Blood Urea Nitrogen 34 mg/dL (7-17); Calcium 8.8 mg/dL (8.4-10.2); Carbon Dioxide 23 mmol/L (22-32); Chloride 98 mmol/L (98-107); Estimated Glomerular Filt Rate 5.9 mL/min (>60); Globulin 2.3 g/dL (1.7-4.1); Glucose 86 mg/dL (80-110); HEMOLYSIS < 15 (0-50); Sodium 135 mmol/L (137-145); Total Protein 6.2 g/dL (6.3-8.2)
[2019-09-07 08:14] LABS: Add Manual Diff / Slide Review NO; Basophils Absolute Auto 100 /uL (0-100); Basophils Percent Auto 0.7 % (0-2); Eosinophils Absolute Auto 200 /uL (0-450); Eosinophils Percent Auto 2.6 % (2-4); Hematocrit 34.3 % (36-46); Hemoglobin 11.8 g/dL (12.0-16.0); Lymphocytes Absolute Auto 1300 /uL (1100-4500); Lymphocytes Percent Auto 17.4 % (25-40); Mean Corpuscular HGB Conc 34.4 % (30-36); Mean Corpuscular Hemoglobin 31.2 PG (26-34); Mean Corpuscular Volume 90.7 fL (80-100); Monocytes Absolute Auto 400 /uL (0-900); Monocytes Percent Auto 4.9 % (3-14); Neutrophils Absolute Auto 5700 /uL (1500-7000); Neutrophils Percent Auto 74.4 % (50-75); Platelet Count 112 X10^3/uL (150-400); Red Blood Cell Count 3.78 X10^6/uL (4.0-5.2); Red Cell Distribution Width 18.3 % (11.6-14.8); White Blood Cell Count 7.6 X10^3/uL (4.5-11.0)
== END ==
PROVIDERS: PCP Internal Medicine; Visit Provider Internal Medicine
DX: N18.9 Chronic kidney disease, unspecified (principal); R53.83 Other fatigue; J18.9 Pneumonia, unspecified organism
CPT/HCPCS: 36415; 80053; 85025

== ENCOUNTER 2019-09-09 06:05 | Emergency (ER) | payer MEDICARE, MEDICAID, SELFPAY ==
--- NOTE | 2019-09-09 06:09 | DI.RAD.S_ITS ---
PROCEDURE: XR CHEST 1V INDICATIONS: Shortness of breath TECHNIQUE: One view of the chest was acquired. COMPARISON: [facility], , XR CHEST 1V, 08/18/2019, 17:24. FINDINGS: Surgical changes and devices: A right-sided central line catheter is identified with the tip overlying the expected location of the right atrium, unchanged. Median sternotomy changes are present. Surgical clips are seen within the left axilla. Lungs and pleura: Mild prominence of the perihilar interstitial markings are present. There may be a developing left basilar consolidation. No large effusion or definite pneumothorax is evident. Mediastinum: Mediastinal contours appear normal. Heart size is normal. Bones and chest wall: No suspicious bony lesions. Overlying soft tissues appear unremarkable. IMPRESSION: 1. Probable pulmonary edema. 2. Possible developing pneumonia versus atelectasis at the left lung base. Dictated by: Doug Atkinson M.D. on 09/09/2019 at 7:12 Approved by: Doug Atkinson M.D. on 09/09/2019 at 7:14
--- NOTE | 2019-09-09 06:13 | ED_ITS ---
HPI - General Adult <Edson Friend DO - Last Filed: 09/09/19 18:06> General Chief complaint: Chest Pain Stated complaint: Hypotensive Time Seen by Provider: 09/09/19 06:07 Source: patient and EMS Mode of arrival: EMS Limitations: no limitations History of Present Illness HPI narrative: 64-year-old female. End-stage renal disease on dialysis. Receives dialysis on Wednesday. Did get a full treatment of dialysis on . Is scheduled for dialysis today at around noon. Also has a history of seizures. Is on Keppra. Also has a history of ACS. States she was laying in bed this morning. She states she was awake. Had a sudden onset of shortness of breath. no history of COPD. Does have a history of CHF. Denies any chest pain. no lower extremity swelling. states that at the time she arrived here at the hospital she was still feeling slightly short of breath however was improved from its onset. She did receive a nebulizer treatment prior to arrival from the nursing facility which patient states did not help her symptoms EMS reports that she had a low blood pressure with a systolic in the 70s. Related Data Home Medications Medication Instructions Recorded Confirmed atorvastatin 40 mg PO BEDTIME 07/04/18 06/14/19 cholecalciferol (vitamin D3) 1,000 unit PO DAILY 07/04/18 06/14/19 [Vitamin D3] hydrocortisone acetate 25 mg UT Q12H PRN 07/04/18 06/14/19 lorazepam 0.5 mg PO Q12H PRN 07/04/18 06/14/19 melatonin 3 mg PO BEDTIME PRN 07/04/18 06/14/19 Lactobacillus acidophilus 1 tab PO DAILY 07/13/18 06/14/19 [Acidophilus] acetaminophen-codeine 1 tab PO Q12H PRN 07/13/18 06/14/19 nitroglycerin [Nitrostat] 0.4 mg SUBLINGUAL Q5-15M PRN 07/13/18 06/14/19 fluticasone propionate [Flovent 2 puff INHALATION BID 10/04/18 06/14/19 HFA] mirtazapine 7.5 mg PO BEDTIMEX7 10/04/18 06/14/19 multivitamin 1 cap PO DAILY 10/04/18 06/14/19 sevelamer carbonate 800 mg PO BID 03/21/19 10/30/19 Nepro Liquid 240 ml PO TID 06/14/19 06/14/19 acetaminophen 650 mg PO Q4H PRN 06/14/19 06/14/19 aspirin 81 mg PO DAILY 06/14/19 06/14/19 benzonatate [Tessalon Perles] 100 mg PO Q8H PRN 06/14/19 06/14/19 calcium carbonate [Calcium 500] 500 mg PO Q2H PRN 06/14/19 06/14/19 cyanocobalamin (vitamin B-12) 1,000 mcg PO DAILY 06/14/19 06/14/19 [Vitamin B-12] hydrocortisone 15 mg PO QAM 06/14/19 06/14/19 levetiracetam 500 mg PO BID 06/14/19 06/14/19 levothyroxine 112 mcg PO QAM 06/14/19 06/14/19 loperamide [Imodium A-D] 2 mg PO PRN PRN MDD 6 CAP 06/14/19 06/14/19 magnesium hydroxide [Milk of 30 ml PO PRN PRN 06/14/19 06/14/19 Magnesia] sacubitril-valsartan [Entresto] 1 tab PO BID 06/14/19 06/14/19 Allergies Allergy/AdvReac Type Severity Reaction Status Date / Time No Known Drug Allergies Allergy Verified 08/18/19 17:42 Review of Systems <Edson Friend DO - Last Filed: 09/09/19 18:06> Constitutional Constitutional: Denies fever(s) and Denies headache(s) ENT Ears, Nose, Mouth, and Throat: Denies headache(s) Cardiovascular Cardiovascular: Denies chest pain, Denies syncope, Denies rapid heart rate, Denies edema, Denies palpitations and Reports dyspnea Respiratory Respiratory: Denies cough and Reports dyspnea Gastrointestinal Gastrointestinal: Denies abdominal pain, Denies nausea and Denies vomiting Genitourinary Genitourinary: Denies dysuria Musculoskeletal Musculoskeletal: Denies myalgias and Denies arthralgias Integumentary/Breasts Skin/Breast: Denies lesions and Denies rash Neurologic Neurologic: Denies behavioral changes, Denies syncope and Denies headache(s) Psychiatric Psychiatric: Denies behavioral changes Endocrine Endocrine: Denies palpitations Hematologic/Lymphatic Hematologic/Lymphatic: Denies easy bleeding and Denies easy bruising Patient History <DO Lv Perales Last Filed: 09/09/19 18:06> Medical History Acute kidney failure (Acute) Acute renal failure on dialysis (Acute) Anemia (Acute) Anxiety (Acute) Breast cancer, left (Resolved) CHF (congestive heart failure) (Acute) Chronic kidney disease (Acute) Fibromyalgia (Acute) GI bleed (Acute) HTN (hypertension) (Acute) Hyperlipidemia (Acute) Hypothyroid (Acute) IBS (irritable bowel syndrome) (Acute) Major depressive disorder (Acute) Malnutrition (Acute) Peripheral vascular disease (Acute) Thrombocytopenia (Acute) TIA (transient ischemic attack) (Acute) Social History lives independently: No Smoking Status: Never smoker Smoking Status: Never smoker alcohol intake frequency: holidays/special occasions only Substance Use Type: does not use Exam <Edson Friend DO - Last Filed: 09/09/19 18:06> Initial Vital Signs Initial Vital Signs: Vital Signs Temperature 98.6 F 09/09/19 06:19 Pulse Rate 108 H 09/09/19 06:19 Respiratory Rate 17 09/09/19 06:19 Blood Pressure 71/14 L 09/09/19 06:19 Pulse Oximetry 93 09/09/19 06:19 Const General: cooperative and comfortable Limitations: mental status not altered HENMT Head: normal to inspection and normocephalic Chest Other: Dialysis catheter right upper chest Resp Effort & Inspection: normal respiratory effort Auscultation: clear to auscultation bilaterally Cardio Rate: regular rate Rhythm: regular rhythm GI Inspection: non-distended Palpation: soft Skin Lesions: no lesions Rashes: no rashes Neuro General: alert, awake and oriented x3 Cognition: normal cognition Speech: speech normal Extrem General: normal to inspection and capillary refill normal Psych Appearance: grossly normal and well kempt <Erica Hopkins DO - Last Filed: 09/09/19 10:15> Initial Vital Signs Initial Vital Signs: Vital Signs Temperature 98.6 F 09/09/19 06:19 Pulse Rate 108 H 09/09/19 06:19 Respiratory Rate 17 09/09/19 06:19 Blood Pressure 71/14 L 09/09/19 06:19 Pulse Oximetry 93 09/09/19 06:19 Course <Edson Friend DO - Last Filed: 09/09/19 18:06> Orders Ordered: Discontinued Medications Sodium Chloride (Normal Saline 0.9%) 1,000 mls @ 500 mls/hr IV BOLUS ONE Stop: 09/09/19 08:41 Last Infusion: 09/09/19 07:40 Dose: 0 mls/hr Documented by: Admin: 09/09/19 06:58 Dose: 500 mls/hr Documented by: ABEL Lorazepam (Ativan) 1 mg PO NOW ONE Stop: 09/09/19 09:25 Last Admin: 09/09/19 09:56 Dose: 1 mg Documented by: ESPERANZA Vital Signs Vital signs: Vital Signs - 8 hr 09/09/19 06:19 09/09/19 06:47 09/09/19 07:55 Temperature 98.6 F Pulse Rate 108 H 96 H Respiratory Rate 17 15 Blood Pressure 71/14 L Blood Pressure [Left Arm] 99/60 130/84 Pulse Oximetry 93 93 09/09/19 08:45 09/09/19 09:10 Temperature Pulse Rate 97 H 94 H Respiratory Rate 16 18 Blood Pressure Blood Pressure [Left Arm] 146/126 H 130/87 Pulse Oximetry 91 <Erica Hopkins DO - Last Filed: 09/09/19 10:15> Orders Ordered: Discontinued Medications Sodium Chloride (Normal Saline 0.9%) 1,000 mls @ 500 mls/hr IV BOLUS ONE Stop: 09/09/19 08:41 Last Infusion: 09/09/19 07:40 Dose: 0 mls/hr Documented by: Admin: 09/09/19 06:58 Dose: 500 mls/hr Documented by: ABEL Lorazepam (Ativan) 1 mg PO NOW ONE Stop: 09/09/19 09:25 Last Admin: 09/09/19 09:56 Dose: 1 mg Documented by: LORENASENJesus Consultations Consultation #1: Nephrology at [facility] has been updated patient's symptoms test results. Agrees with dialysis today and may require an extra dialysis on Wednesday. Time: 07:45 Vital Signs Vital signs: Vital Signs - 8 hr 09/09/19 06:19 09/09/19 06:47 09/09/19 07:55 Temperature 98.6 F Pulse Rate 108 H 96 H Respiratory Rate 17 15 Blood Pressure 71/14 L Blood Pressure [Left Arm] 99/60 130/84 Pulse Oximetry 93 93 09/09/19 08:45 09/09/19 09:10 Temperature Pulse Rate 97 H 94 H Respiratory Rate 16 18 Blood Pressure Blood Pressure [Left Arm] 146/126 H 130/87 Pulse Oximetry 91 Medical Decision Making <Edson Friend DO - Last Filed: 09/09/19 18:06> Medical Records Medical records reviewed: Yes I reviewed the patient's medical records. Lab Data Lab results reviewed: Yes I reviewed the patient's lab results. Result diagrams: 09/09/19 06:20 09/09/19 06:20 Labs: Lab Results 09/09/19 09/09/19 09/09/19 Range/Units 06:20 06:20 06:20 WBC 7.9 (4.5-11.0) X10^3/uL RBC 3.96 L (4.0-5.2) X10^6/uL Hgb 12.4 (12.0-16.0) g/dL Hct 36.2 (36-46) % MCV 91.4 (80-100) fL MCH 31.2 (26-34) PG MCHC 34.2 (30-36) % RDW 18.7 H (11.6-14.8) % Plt Count 130 L (150-400) X10^3/uL Neut % (Auto) 76.7 H (50-75) % Lymph % (Auto) 15.9 L (25-40) % [place] % (Auto) 4.8 (3-14) % Eos % (Auto) 1.8 L (2-4) % Baso % (Auto) 0.8 (0-2) % Neut # (Auto) 6000 (5256-3861) /uL Lymph # (Auto) 1200 (7399-4664) /uL [place] # (Auto) 400 (0-900) /uL Eos # (Auto) 100 (0-450) /uL Baso # (Auto) 100 (0-100) /uL PT 12.2 (10.1-12.7) SECONDS INR 1.1 (0.9-1.3) APTT 37 H D (26.4-36.2) SECONDS Sodium 137 (137-145) mmol/L Potassium 4.1 (3.4-5.1) mmol/L Chloride 98 (98-107) mmol/L Carbon Dioxide 25 (22-32) mmol/L BUN 29 H (7-17) mg/dL Creatinine 6.20 H (0.52-1.04) mg/dL Estimated GFR 6.8 L (>60) mL/min BUN/Creatinine Ratio 4.7 L (6-22) Glucose 86 (80-110) mg/dL Calcium 9.4 (8.4-10.2) mg/dL Total Bilirubin 0.7 (0.2-1.3) mg/dL AST 27 (14-36) IU/L ALT 14 (<35) IU/L Alkaline Phosphatase 114 (38-126) U/L Troponin I 0.035 H (0.01-0.034) ng/mL B-Natriuretic Peptide 3650 H (<100) Total Protein 6.7 (6.3-8.2) g/dL Albumin 4.3 (3.5-5.0) g/dL Globulin 2.4 (1.7-4.1) g/dL Albumin/Globulin Ratio 1.8 (1.0-2.8) Lipase 82 (23-300) U/L Procalcitonin (<0.5) ng/mL TSH (0.47-4.68) uIU/mL 09/09/19 09/09/19 Range/Units 06:20 06:20 WBC (4.5-11.0) X10^3/uL RBC (4.0-5.2) X10^6/uL Hgb (12.0-16.0) g/dL Hct (36-46) % MCV (80-100) fL MCH (26-34) PG MCHC (30-36) % RDW (11.6-14.8) % Plt Count (150-400) X10^3/uL Neut % (Auto) (50-75) % Lymph % (Auto) (25-40) % [place] % (Auto) (3-14) % Eos % (Auto) (2-4) % Baso % (Auto) (0-2) % Neut # (Auto) (3245-5531) /uL Lymph # (Auto) (6753-5439) /uL [place] # (Auto) (0-900) /uL Eos # (Auto) (0-450) /uL Baso # (Auto) (0-100) /uL PT (10.1-12.7) SECONDS INR (0.9-1.3) APTT (26.4-36.2) SECONDS Sodium (137-145) mmol/L Potassium (3.4-5.1) mmol/L Chloride (98-107) mmol/L Carbon Dioxide (22-32) mmol/L BUN (7-17) mg/dL Creatinine (0.52-1.04) mg/dL Estimated GFR (>60) mL/min BUN/Creatinine Ratio (6-22) Glucose (80-110) mg/dL Calcium (8.4-10.2) mg/dL Total Bilirubin (0.2-1.3) mg/dL AST (14-36) IU/L ALT (<35) IU/L Alkaline Phosphatase (38-126) U/L Troponin I (0.01-0.034) ng/mL B-Natriuretic Peptide (<100) Total Protein (6.3-8.2) g/dL Albumin (3.5-5.0) g/dL Globulin (1.7-4.1) g/dL Albumin/Globulin Ratio (1.0-2.8) Lipase (23-300) U/L Procalcitonin 0.27 (<0.5) ng/mL TSH 0.79 (0.47-4.68) uIU/mL Imaging Data Chest x-ray: Attestation: I personally reviewed and interpreted this imaging study as follows: My Impression: Dialysis catheter in place right upper chest, sternal wires in place, no definitive pneumonia, ECG Data Attestation: I personally reviewed and interpreted this ECG as follows: Prior ECG tracings: available for review Interpretation: Sinus tachycardia Ventricular rate of 101 Normal axis Normal QRS ST elevation in V3 without reciprocal changes Comparison EKG 08/18/2019 [facility] Narrative Medical decision making narrative: Had fairly sudden onset shortness of breath and tachycardic upon arrival. Blood pressure did improve with adjustment of her blood pressure cuff with a smaller size and fit the patient better. Labs at baseline. CTA pending. Care turned over to day provider change of shift to follow up. <Erica Kellie, DO - Last Filed: 09/09/19 10:15> Lab Data Lab results reviewed: Yes I reviewed the patient's lab results. Labs: Lab Results 09/09/19 09/09/19 09/09/19 Range/Units 06:20 06:20 06:20 WBC 7.9 (4.5-11.0) X10^3/uL RBC 3.96 L (4.0-5.2) X10^6/uL Hgb 12.4 (12.0-16.0) g/dL Hct 36.2 (36-46) % MCV 91.4 (80-100) fL MCH 31.2 (26-34) PG MCHC 34.2 (30-36) % RDW 18.7 H (11.6-14.8) % Plt Count 130 L (150-400) X10^3/uL Neut % (Auto) 76.7 H (50-75) % Lymph % (Auto) 15.9 L (25-40) % [place] % (Auto) 4.8 (3-14) % Eos % (Auto) 1.8 L (2-4) % Baso % (Auto) 0.8 (0-2) % Neut # (Auto) 6000 (0069-1298) /uL Lymph # (Auto) 1200 (3920-9563) /uL [place] # (Auto) 400 (0-900) /uL Eos # (Auto) 100 (0-450) /uL Baso # (Auto) 100 (0-100) /uL PT 12.2 (10.1-12.7) SECONDS INR 1.1 (0.9-1.3) APTT 37 H D (26.4-36.2) SECONDS Sodium 137 (137-145) mmol/L Potassium 4.1 (3.4-5.1) mmol/L Chloride 98 (98-107) mmol/L Carbon Dioxide 25 (22-32) mmol/L BUN 29 H (7-17) mg/dL Creatinine 6.20 H (0.52-1.04) mg/dL Estimated GFR 6.8 L (>60) mL/min BUN/Creatinine Ratio 4.7 L (6-22) Glucose 86 (80-110) mg/dL Calcium 9.4 (8.4-10.2) mg/dL Total Bilirubin 0.7 (0.2-1.3) mg/dL AST 27 (14-36) IU/L ALT 14 (<35) IU/L Alkaline Phosphatase 114 (38-126) U/L Troponin I 0.035 H (0.01-0.034) ng/mL B-Natriuretic Peptide 3650 H (<100) Total Protein 6.7 (6.3-8.2) g/dL Albumin 4.3 (3.5-5.0) g/dL Globulin 2.4 (1.7-4.1) g/dL Albumin/Globulin Ratio 1.8 (1.0-2.8) Lipase 82 (23-300) U/L Procalcitonin (<0.5) ng/mL TSH (0.47-4.68) uIU/mL 09/09/19 09/09/19 Range/Units 06:20 06:20 WBC (4.5-11.0) X10^3/uL RBC (4.0-5.2) X10^6/uL Hgb (12.0-16.0) g/dL Hct (36-46) % MCV (80-100) fL MCH (26-34) PG MCHC (30-36) % RDW (11.6-14.8) % Plt Count (150-400) X10^3/uL Neut % (Auto) (50-75) % Lymph % (Auto) (25-40) % [place] % (Auto) (3-14) % Eos % (Auto) (2-4) % Baso % (Auto) (0-2) % Neut # (Auto) (2212-1849) /uL Lymph # (Auto) (2188-1143) /uL [place] # (Auto) (0-900) /uL Eos # (Auto) (0-450) /uL Baso # (Auto) (0-100) /uL PT (10.1-12.7) SECONDS INR (0.9-1.3) APTT (26.4-36.2) SECONDS Sodium (137-145) mmol/L Potassium (3.4-5.1) mmol/L Chloride (98-107) mmol/L Carbon Dioxide (22-32) mmol/L BUN (7-17) mg/dL Creatinine (0.52-1.04) mg/dL Estimated GFR (>60) mL/min BUN/Creatinine Ratio (6-22) Glucose (80-110) mg/dL Calcium (8.4-10.2) mg/dL Total Bilirubin (0.2-1.3) mg/dL AST (14-36) IU/L ALT (<35) IU/L Alkaline Phosphatase (38-126) U/L Troponin I (0.01-0.034) ng/mL B-Natriuretic Peptide (<100) Total Protein (6.3-8.2) g/dL Albumin (3.5-5.0) g/dL Globulin (1.7-4.1) g/dL Albumin/Globulin Ratio (1.0-2.8) Lipase (23-300) U/L Procalcitonin 0.27 (<0.5) ng/mL TSH 0.79 (0.47-4.68) uIU/mL Imaging Data CT scan - chest: Radiologist's Impression: Preliminary report: No pulmonary embolism. Bilateral pleural effusion interstitial septal thickening and mild ground-glass opacity edema. CHF versus volume overload. Mild emphysema with mildly prominent mediastinal lymph nodes MDM Narrative Medical decision making narrative: A received sign-out from Dr. Friend. I seen and evaluated patient myself. She at rest appears well. Blood pressure improved with the proper size cough. She did not quite received the full [address] was negative for any pulmonary embolism but she does have bilateral pleural effusions. Upon ambulation trial oxygen decreased 84% and she was quite symptomatic. 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 8:[address] May dock pumper [facility] has agreed for dialysis today and admit to hospitalist. 8:[address] Spicer hospitalist at [facility] has been updated patient's symptoms test results and is happy to accept. Discharge Plan Departure Patient Disposition: [facility] Clinical Impression: CHF (congestive heart failure) Qualifiers: Heart failure type: other Qualified Code(s): I50.9 - Heart failure, unspecified Discharge Date/Time: 09/09/19 09:59 Prescriptions: No Action atorvastatin 40 mg Tablet 40 mg PO BEDTIME RF: 0 melatonin 3 mg Tablet 3 mg PO BEDTIME PRN (Reason: Insomnia) RF: 0 hydrocortisone acetate 25 mg Suppository 25 mg UT Q12H PRN (Reason: Hemorrhoids) RF: 0 lorazepam 0.5 mg Tablet 0.5 mg PO Q12H PRN (Reason: Anxiety) RF: 0 cholecalciferol (vitamin D3) [Vitamin D3] 1,000 unit Capsule 1,000 unit PO DAILY RF: 0 sevelamer carbonate 800 mg tablet 800 mg PO BID RF: 0 Lactobacillus acidophilus [Acidophilus] Capsule 1 tab PO DAILY RF: 0 acetaminophen-codeine 300-30 mg Tablet 1 tab PO Q12H PRN (Reason: pain) RF: 0 nitroglycerin [Nitrostat] 0.4 mg Tablet, Sublingual 0.4 mg SUBLINGUAL Q5-15M PRN (Reason: Chest Pain) RF: 0 Flovent HFA 44 mcg/actuation HFA aerosol inhaler 2 puff Inhalation BID RF: 0 mirtazapine 15 mg tablet 7.5 mg PO [id number] RF: 0 multivitamin Capsule 1 cap PO DAILY RF: 0 acetaminophen 325 mg Tablet 650 mg PO Q4H PRN (Reason: FEVER > 100 AND PAIN) RF: 0 levetiracetam 500 mg tablet 500 mg PO BID RF: 0 cyanocobalamin (vitamin B-12) [Vitamin B-12] 1,000 mcg Tablet 1,000 mcg PO DAILY RF: 0 aspirin 81 mg Tablet,Chewable 81 mg PO DAILY RF: 0 hydrocortisone 10 mg tablet 15 mg PO QAM RF: 0 levothyroxine 112 mcg tablet 112 mcg PO QAM RF: 0 Entresto 24-26 mg tablet 1 tab PO BID RF: 0 Nepro Liquid 240 ml PO TID RF: 0 loperamide [Imodium A-D] 2 mg Capsule 2 mg PO PRN MDD 6 CAP PRN (Reason: Diarrhea) RF: 0 magnesium hydroxide [Milk of Magnesia] 400 mg/5 mL Suspension 30 ml PO PRN PRN (Reason: Constipation) RF: 0 calcium carbonate [Calcium 500] 500 mg calcium (1,250 mg) Tablet,Chewable 500 mg PO Q2H PRN (Reason: GI UPSET) RF: 0 benzonatate [Tessalon Perles] 100 mg capsule 100 mg PO Q8H PRN (Reason: cough) RF: 0 Referrals: Germaine Jalloh MD [Primary Care Provider] -
[2019-09-09 06:19] VITALS: BP 71/14; PULSE 108; RESP 17; TEMP 37; O2SAT 93; BMI 24.6
--- NOTE | 2019-09-09 06:28 | DI.CT.S_ITS ---
PROCEDURE: CT ANGIO CHEST PE PROTOCOL INDICATIONS: Chest pain, shortness of breath, tachycardia TECHNIQUE: After the administration of intravenous contrast, 2 mm thick sections acquired from the pulmonary apices to the posterior costophrenic angles. 3-dimensional maximum intensity projection (MIP) coronal and sagittal reformats were then acquired through the thorax. For radiation dose reduction, the following was used: automated exposure control, adjustment of mA and/or kV according to patient size. COMPARISON: [facility], CT, CT CHEST WO CON, 09/09/2018, 9:07. FINDINGS: Image quality: Diagnostic. Pulmonary arteries: Pulmonary arteries are normal in size, and demonstrate no intraluminal filling defects to suggest central pulmonary embolism. Lungs and pleura: Small bilateral pleural effusions are identified (left greater than right) with associated bibasilar atelectasis. Bronchial wall thickening within the bilateral lower lobes is present. Emphysematous changes within the lung apices are noted. They groundglass attenuation is seen within the bilateral upper lobes. No lung mass is appreciated. There is no pneumothorax. There is a calcified granuloma within the right costophrenic angle. Mediastinum: The heart is borderline enlarged. No pericardial effusion is evident. No mediastinal mass is evident. Prominent mediastinal and hilar lymph nodes are identified with the largest lymph node is noted to be located within the right tracheobronchial region, which measures up to approximately 1.2 cm in short axis (previously measuring up to 1.1 cm. The other mildly prominent lymph nodes within the mediastinum and hilar regions have slightly increased in size, as well. There is prominent aortic atherosclerosis. Marked atherosclerosis is noted involving the proximal aspect of the left subclavian artery with probable area of high-grade narrowing just proximal to the left vertebral artery takeoff. Bones and chest wall: No suspicious bony lesions. Ribs and thoracic spine appear intact throughout. Median sternotomy changes are present. Age-appropriate degenerative changes of the imaged spine are present. Bilateral breast implants are noted. Thyroid gland is not enlarged or adequately evaluated. No axillary or supraclavicular adenopathy. Abdomen: Calcified granulomas are present within the liver and spleen. IMPRESSION: 1. No evidence of pulmonary emboli. 2. Cardiomegaly with findings suggesting pulmonary edema. Given bilateral effusions. These findings are suspicious for congestive heart failure. Please correlate clinically. 3. Centrilobular emphysema. 4. Bronchial wall thickening is predominately seen within the lung bases in is suspicious for possible bronchitis. Please correlate clinically. 5. Mildly prominent mediastinal and hilar lymph nodes have increased in the interim, most likely reactive. Three-month followup CT of the chest is recommended. 6. Prominent narrowing of the left subclavian artery just proximal to the left vertebral artery takeoff. Note: The preliminary report provided by [facility]. is concordant with the final report. Dictated by: Doug Atkinson M.D. on 09/09/2019 at 7:14 Approved by: Doug Atkinson M.D. on 09/09/2019 at 7:21
[2019-09-09 06:41] LABS: INR 1.1 (0.9-1.3); Prothrombin Time 12.2 SECONDS (10.1-12.7)
[2019-09-09 06:43] LABS: PTT Partial Thromboplastin Tim 37 SECONDS (26.4-36.2)
[2019-09-09 06:47] VITALS: BP 99/60
[2019-09-09 06:47] LABS: Alanine Aminotransferase 14 IU/L (<35); Albumin 4.3 g/dL (3.5-5.0); Albumin Globulin Ratio 1.8 (1.0-2.8); Alkaline Phosphatase 114 U/L (38-126); Aspartate Aminotransferase 27 IU/L (14-36); BUN Creatinine Ratio 4.7 (6-22); Bilirubin Total 0.7 mg/dL (0.2-1.3); Blood Urea Nitrogen 29 mg/dL (7-17); Calcium 9.4 mg/dL (8.4-10.2); Carbon Dioxide 25 mmol/L (22-32); Chloride 98 mmol/L (98-107); Estimated Glomerular Filt Rate 6.8 mL/min (>60); Globulin 2.4 g/dL (1.7-4.1); Glucose 86 mg/dL (80-110); HEMOLYSIS < 15 (0-50); Lipase 82 U/L (23-300); Potassium 4.1 mmol/L (3.4-5.1); Sodium 137 mmol/L (137-145); Total Protein 6.7 g/dL (6.3-8.2)
[2019-09-09 06:55] LABS: Add Manual Diff / Slide Review NO; Basophils Absolute Auto 100 /uL (0-100); Basophils Percent Auto 0.8 % (0-2); Eosinophils Absolute Auto 100 /uL (0-450); Eosinophils Percent Auto 1.8 % (2-4); Hematocrit 36.2 % (36-46); Hemoglobin 12.4 g/dL (12.0-16.0); Lymphocytes Absolute Auto 1200 /uL (1100-4500); Lymphocytes Percent Auto 15.9 % (25-40); Mean Corpuscular HGB Conc 34.2 % (30-36); Mean Corpuscular Hemoglobin 31.2 PG (26-34); Mean Corpuscular Volume 91.4 fL (80-100); Monocytes Absolute Auto 400 /uL (0-900); Monocytes Percent Auto 4.8 % (3-14); Neutrophils Absolute Auto 6000 /uL (1500-7000); Neutrophils Percent Auto 76.7 % (50-75); Platelet Count 130 X10^3/uL (150-400); Red Blood Cell Count 3.96 X10^6/uL (4.0-5.2); Red Cell Distribution Width 18.7 % (11.6-14.8); White Blood Cell Count 7.9 X10^3/uL (4.5-11.0)
[2019-09-09 06:58] LABS: Troponin I 0.035 ng/mL (0.01-0.034)
[2019-09-09] MEDS: SODIUM CHLORIDE 0.9% 1,000 ML 500 ML IV (06:58)
[2019-09-09 07:03] LABS: Procalcitonin 0.27 ng/mL (<0.5)
[2019-09-09 07:14] LABS: B Type Natriuretic Peptide 3650 (<100)
[2019-09-09 07:22] LABS: Thyroid Stimulating Hormone 0.79 uIU/mL (0.47-4.68)
[2019-09-09 07:55] VITALS: BP 130/84; PULSE 96; RESP 15; O2SAT 93
[2019-09-09 08:45] VITALS: BP 146/126; PULSE 97; RESP 16; O2SAT 91
--- NOTE | 2019-09-09 08:46 | PC.NURSE ---
lying in bed/ sat 91% md aware o2 2l nc placed.
[2019-09-09 09:10] VITALS: BP 130/87; PULSE 94; RESP 18
[2019-09-09] MEDS: LORazepam 0.5 MG TABLET 1 MG PO (09:56)
== END 2019-09-09 09:59 | disposition short-term general hospital (02) ==
PROVIDERS: Emergency Medicine; Emergency Provider Emergency Medicine; PCP Internal Medicine
DX: I50.9 Heart failure, unspecified (principal); R06.02 Shortness of breath; N18.6 End stage renal disease; Z99.2 Dependence on renal dialysis
CPT/HCPCS: 36415; 71045; 71275; 80053; 83690; 83880; 84145; 84443; 84484; 85025; 85610; 85730; 93005; 93010; 96360; 99285; Q9967

== ENCOUNTER → 2019-09-15 09:17 | Outpatient (CLI) | payer MEDICARE, MEDICAID, SELFPAY ==
--- NOTE | 2019-09-15 | DI.RAD.S_ITS ---
PROCEDURE: XR CHEST 2V INDICATIONS: Pleural effusion, not elsewhere classified TECHNIQUE: 2 views of the chest were acquired. COMPARISON: [facility], CR, XR CHEST 1V, 09/09/2019, 6:12. [facility], CR, XR CHEST 1V, 08/18/2019, 17:24. FINDINGS: Surgical changes and devices: Sternotomy wires, double lumen central venous catheter from right sided approach extends into the superior aspect of the right atrium. Lungs and pleura: Lungs are clear. No pleural effusions or pneumothorax. Mediastinum: Mediastinal contours are normal. Heart size is at the upper limits of normal. Bones and chest wall: No suspicious bony abnormalities. Soft tissues appear unremarkable. IMPRESSION: Resolution of prior subpulmonic effusion, prior presumed CABG, double lumen dialysis catheter remains in normal position. Dictated by: Ash Damon M.D. on 09/15/2019 at 10:48 Approved by: Ash Damon M.D. on 09/15/2019 at 10:49
== END ==
PROVIDERS: PCP Internal Medicine; Visit Provider Internal Medicine
DX: J90 Pleural effusion, not elsewhere classified (principal)
CPT/HCPCS: 71046

== ENCOUNTER → 2019-09-20 09:40 | Outpatient (CLI) | payer MEDICARE, MEDICAID, SELFPAY ==
--- NOTE | 2019-09-20 | DI.RAD.S_ITS ---
PROCEDURE: XR CHEST 2V INDICATIONS: Pleural effusion, not elsewhere classified TECHNIQUE: 2 views of the chest were acquired. COMPARISON: [facility], CR, XR CHEST 2V, 09/15/2019, 9:31. FINDINGS: Surgical changes and devices: Dialysis catheter, remote CABG, left axillary node resection Lungs and pleura: Interval development of a [id number] left pleural effusion and associated left basilar atelectasis. Mediastinum: Mediastinal contours are normal. Heart size is normal. Bones and chest wall: No suspicious bony abnormalities. Soft tissues appear unremarkable. IMPRESSION: Interval development of mild to moderate left pleural effusion and associated left basilar atelectasis. Dictated by: Ramo Adams M.D. on 09/20/2019 at 10:11 Approved by: Ramo Adams M.D. on 09/20/2019 at 10:13
== END ==
PROVIDERS: PCP Internal Medicine; Referring Provider Internal Medicine; Visit Provider Internal Medicine
DX: J90 Pleural effusion, not elsewhere classified (principal); J98.11 Atelectasis
CPT/HCPCS: 71046

== ENCOUNTER 2019-10-15 11:13 | Emergency (ER) | payer MEDICARE, MEDICAID, SELFPAY ==
[2019-10-15 11:15] VITALS: BP 110/67; PULSE 100; RESP 23; TEMP 37.1; O2SAT 94
--- NOTE | 2019-10-15 11:23 | ED.GENADULT ---
HPI - General Adult General Chief complaint: Shortness of Breath/Dyspnea Stated complaint: oxygen low/fluid on lungs x1 day Time Seen by Provider: 10/15/19 11:23 Source: patient and family Mode of arrival: Ambulatory Limitations: no limitations History of Present Illness HPI narrative: Patient is a 64-year-old female. Is end-stage renal disease on dialysis. Gets dialysis done on Wednesday and Saturdays. She stated that she did get dialysis yesterday. She stated that it was a full dose of dialysis yesterday. She thinks that she felt well afterwards. Family member at bedside stated that she thought maybe she was ?puffy ?in the afternoon. Patient arrives today short of breath. She thinks that it started this morning. No chest pain. No swelling. She does have home oxygen. Is normally somewhere between 2 and 3 L by nasal cannula. She is concerned that potentially she needs an extra dose of dialysis. Related Data Home Medications Medication Instructions Recorded Confirmed atorvastatin 40 mg PO BEDTIME 07/04/18 06/14/19 cholecalciferol (vitamin D3) 1,000 unit PO DAILY 07/04/18 06/14/19 [Vitamin D3] hydrocortisone acetate 25 mg OR Q12H PRN 07/04/18 06/14/19 lorazepam 0.5 mg PO Q12H PRN 07/04/18 06/14/19 melatonin 3 mg PO BEDTIME PRN 07/04/18 06/14/19 Lactobacillus acidophilus 1 tab PO DAILY 07/13/18 06/14/19 [Acidophilus] acetaminophen-codeine 1 tab PO Q12H PRN 07/13/18 06/14/19 nitroglycerin [Nitrostat] 0.4 mg SUBLINGUAL Q5-15M PRN 07/13/18 06/14/19 fluticasone propionate [Flovent 2 puff INHALATION BID 10/04/18 06/14/19 HFA] mirtazapine 7.5 mg PO BEDTIMEX7 10/04/18 06/14/19 multivitamin 1 cap PO DAILY 10/04/18 06/14/19 sevelamer carbonate 800 mg PO BID 11/03/18 06/14/19 Nepro Liquid 240 ml PO TID 06/14/19 06/14/19 acetaminophen 650 mg PO Q4H PRN 06/14/19 06/14/19 aspirin 81 mg PO DAILY 06/14/19 06/14/19 benzonatate [Tessalon Perles] 100 mg PO Q8H PRN 06/14/19 06/14/19 calcium carbonate [Calcium 500] 500 mg PO Q2H PRN 06/14/19 06/14/19 cyanocobalamin (vitamin B-12) 1,000 mcg PO DAILY 06/14/19 06/14/19 [Vitamin B-12] hydrocortisone 15 mg PO QAM 06/14/19 06/14/19 levetiracetam 500 mg PO BID 06/14/19 06/14/19 levothyroxine 112 mcg PO QAM 06/14/19 06/14/19 loperamide [Imodium A-D] 2 mg PO PRN PRN MDD 6 CAP 06/14/19 06/14/19 magnesium hydroxide [Milk of 30 ml PO PRN PRN 06/14/19 06/14/19 Magnesia] sacubitril-valsartan [Entresto] 1 tab PO BID 06/14/19 06/14/19 Allergies Allergy/AdvReac Type Severity Reaction Status Date / Time No Known Drug Allergies Allergy Verified 08/18/19 17:42 Review of Systems Constitutional Constitutional: Denies fever(s) and Denies headache(s) ENT Ears, Nose, Mouth, and Throat: Denies headache(s) Cardiovascular Cardiovascular: Denies chest pain, Reports dyspnea and Reports dyspnea on exertion Respiratory Respiratory: Denies cough, Reports dyspnea and Reports dyspnea on exertion Gastrointestinal Gastrointestinal: Denies abdominal pain and Denies nausea Integumentary/Breasts Skin/Breast: Denies lesions and Denies rash Neurologic Neurologic: Denies behavioral changes and Denies headache(s) Psychiatric Psychiatric: Denies behavioral changes Hematologic/Lymphatic Hematologic/Lymphatic: Denies easy bleeding and Denies easy bruising Patient History Medical History Acute kidney failure (Acute) Acute renal failure on dialysis (Acute) Anemia (Acute) Anxiety (Acute) Breast cancer, left (Resolved) CHF (congestive heart failure) (Acute) Chronic kidney disease (Acute) Fibromyalgia (Acute) GI bleed (Acute) HTN (hypertension) (Acute) Hyperlipidemia (Acute) Hypothyroid (Acute) IBS (irritable bowel syndrome) (Acute) Major depressive disorder (Acute) Malnutrition (Acute) Peripheral vascular disease (Acute) Thrombocytopenia (Acute) TIA (transient ischemic attack) (Acute) Social History lives independently: No Smoking Status: Never smoker Smoking Status: Never smoker alcohol intake frequency: holidays/special occasions only Substance Use Type: does not use Exam Initial Vital Signs Initial Vital Signs: Vital Signs Temperature 98.7 F 10/15/19 11:15 Pulse Rate 100 H 10/15/19 11:15 Respiratory Rate 23 10/15/19 11:15 Blood Pressure 110/67 10/15/19 11:15 Pulse Oximetry 94 10/15/19 11:15 Const General: cooperative, comfortable, well developed and well groomed Limitations: mental status not altered HENMT Head: normal to inspection and normocephalic Resp Effort & Inspection: normal respiratory effort Auscultation: clear to auscultation bilaterally Cardio Rate: regular rate Rhythm: regular rhythm GI Inspection: non-distended Palpation: soft Skin Lesions: no lesions Rashes: no rashes Neuro General: alert and awake Cognition: normal cognition Speech: speech normal Extrem General: capillary refill normal and No edema Psych Appearance: grossly normal and well kempt Course Orders Ordered: ED Orders 10/15/19 11:24 XR chest 1V Stat EKG-12 Lead Stat 10/15/19 11:26 Complete Blood Count AUTO DIFF Stat Comprehensive Metabolic Panel Stat Lipase Stat NT-proBNP (BNP-Adult 18+) Stat Partial Thromboplastin Time Stat Prothrombin Time INR Stat Troponin I Stat Vital Signs Vital signs: Vital Signs - 8 hr 10/15/19 11:15 Temperature 98.7 F Pulse Rate 100 H Respiratory Rate 23 Blood Pressure 110/67 Pulse Oximetry 94 Medical Decision Making Lab Data Lab results reviewed: Yes I reviewed the patient's lab results. Result diagrams: 10/15/19 11:26 10/15/19 11:26 Labs: Lab Results 10/15/19 10/15/19 10/15/19 Range/Units 11:26 11:26 11:26 WBC 7.8 (4.5-11.0) X10^3/uL RBC 3.80 L (4.0-5.2) X10^6/uL Hgb 11.7 L (12.0-16.0) g/dL Hct 35.3 L (36-46) % MCV 93.1 (80-100) fL MCH 30.9 (26-34) PG MCHC 33.2 (30-36) % RDW 17.0 H (11.6-14.8) % Plt Count 123 L (150-400) X10^3/uL Neut % (Auto) 82.5 H (50-75) % Lymph % (Auto) 10.3 L (25-40) % [place] % (Auto) 5.4 (3-14) % Eos % (Auto) 1.5 L (2-4) % Baso % (Auto) 0.3 (0-2) % Neut # (Auto) 6400 (7014-0370) /uL Lymph # (Auto) 800 L (6040-8086) /uL [place] # (Auto) 400 (0-900) /uL Eos # (Auto) 100 (0-450) /uL Baso # (Auto) 0 (0-100) /uL PT 12.8 H (10.1-12.7) SECONDS INR 1.1 (0.9-1.3) APTT 39 H D (26.4-36.2) SECONDS Sodium 134 L (137-145) mmol/L Potassium 4.6 (3.4-5.1) mmol/L Chloride 97 L (98-107) mmol/L Carbon Dioxide 26 (22-32) mmol/L BUN 20 H (7-17) mg/dL Creatinine 4.10 H (0.52-1.04) mg/dL Estimated GFR 11.0 L (>60) mL/min BUN/Creatinine Ratio 4.9 L (6-22) Glucose 86 (80-110) mg/dL Calcium 9.6 (8.4-10.2) mg/dL Total Bilirubin 1.0 (0.2-1.3) mg/dL AST 24 (14-36) IU/L ALT 14 (<35) IU/L Alkaline Phosphatase 92 (38-126) U/L Troponin I (0.01-0.034) ng/mL NT-Pro-B Natriuret Pep 220140 H (<125) pg/mL Total Protein 6.4 (6.3-8.2) g/dL Albumin 4.1 (3.5-5.0) g/dL Globulin 2.3 (1.7-4.1) g/dL Albumin/Globulin Ratio 1.8 (1.0-2.8) Lipase 61 (23-300) U/L 10/15/19 Range/Units 11:26 WBC (4.5-11.0) X10^3/uL RBC (4.0-5.2) X10^6/uL Hgb (12.0-16.0) g/dL Hct (36-46) % MCV (80-100) fL MCH (26-34) PG MCHC (30-36) % RDW (11.6-14.8) % Plt Count (150-400) X10^3/uL Neut % (Auto) (50-75) % Lymph % (Auto) (25-40) % [place] % (Auto) (3-14) % Eos % (Auto) (2-4) % Baso % (Auto) (0-2) % Neut # (Auto) (7771-0286) /uL Lymph # (Auto) (2376-7699) /uL [place] # (Auto) (0-900) /uL Eos # (Auto) (0-450) /uL Baso # (Auto) (0-100) /uL PT (10.1-12.7) SECONDS INR (0.9-1.3) APTT (26.4-36.2) SECONDS Sodium (137-145) mmol/L Potassium (3.4-5.1) mmol/L Chloride (98-107) mmol/L Carbon Dioxide (22-32) mmol/L BUN (7-17) mg/dL Creatinine (0.52-1.04) mg/dL Estimated GFR (>60) mL/min BUN/Creatinine Ratio (6-22) Glucose (80-110) mg/dL Calcium (8.4-10.2) mg/dL Total Bilirubin (0.2-1.3) mg/dL AST (14-36) IU/L ALT (<35) IU/L Alkaline Phosphatase (38-126) U/L Troponin I 0.022 (0.01-0.034) ng/mL NT-Pro-B Natriuret Pep (<125) pg/mL Total Protein (6.3-8.2) g/dL Albumin (3.5-5.0) g/dL Globulin (1.7-4.1) g/dL Albumin/Globulin Ratio (1.0-2.8) Lipase (23-300) U/L Imaging Data Chest x-ray: Radiologist's Impression: [address] [address] XRay Report Signed Patient: Aurelia Gr EMR#: [id number] : 6Acct:[id number] Age/Sex: 64 / FDate of Service: 10/15/19 Loc: ED Accession Number: [id number] Procedure: XR chest 1V Ordering Provider: Edson Friend D.O. PROCEDURE: XR CHEST 1V INDICATIONS: Shortness of breath TECHNIQUE: One view of the chest was acquired. COMPARISON: [facility], CR, XR CHEST 2V, 09/15/2019, 9:31. [facility], CR, XR CHEST 2V, 09/20/2019, 9:46. FINDINGS: Surgical changes and devices: Right internal jugular central venous catheter with the tip in the right atrium redemonstrated. Postsurgical changes are also again noted in mediastinum and left axilla. Lungs and pleura: There is interval increase in size of a small to moderate left pleural effusion with associated increased left basilar opacities consistent with compressive atelectasis or consolidation. There is persistent mild pulmonary edema. The right costophrenic angle is obscured by overlying catheters. No evidence of pneumothorax. Mediastinum: Mediastinal contours appear unchanged. Heart size is normal. Bones and chest wall: No suspicious bony lesions. Overlying soft tissues appear unremarkable. IMPRESSION: 1. Increase in a small to moderate left pleural effusion with increased left basilar compressive atelectasis or consolidation. 2. Persistent mild pulmonary edema. Dictated by: Vasiliy Marcelino M.D. on 10/15/2019 at 11:03 Approved by: Vasiliy Marcelino M.D. on 10/15/2019 at 11:05 ECG Data Attestation: I personally reviewed and interpreted this ECG as follows: Prior ECG tracings: not available for review Interpretation: Sinus rhythm Ventricular rate of 93 [address] T wave changes MDM Narrative Medical decision making narrative: Patient is at baseline mental status. She is on her baseline oxygen by nasal cannula. Her potassium is unremarkable. She still produces a small amount a urine. Her chest x-ray does show pleural effusions however not significantly worse than prior. Had a discussion with the patient regarding options. We did discuss that if she felt like she needed extra dialysis treatment we could transfer her to [facility] to have this performed. The other option is for her to go home and have her primary doctor schedule an extra dialysis treatment tomorrow. I did discuss the case with Dr. Jalloh who is her primary provider who stated that she could work on getting her a extra session of dialysis tomorrow if needed. After this discussion the patient and family bedside opted to be discharged home. They will continue her medications. She was given strict return precautions. She expressed understanding and agreement plan. Discharge Plan Departure Patient Disposition: Home Clinical Impression: End stage renal disease on dialysis, Pulmonary edema Instructions: How to Manage Shortness of Breath Activity Restrictions/Additional Instructions: Continue all of your medications as directed. Use your home oxygen as needed as directed. I do recommend that your primary doctor be notified to help you establish a extra dialysis session tomorrow if needed. Return to the emergency department for any new or worsening symptoms Prescriptions: No Action atorvastatin 40 mg Tablet 40 mg PO BEDTIME RF: 0 melatonin 3 mg Tablet 3 mg PO BEDTIME PRN (Reason: Insomnia) RF: 0 hydrocortisone acetate 25 mg Suppository 25 mg OR Q12H PRN (Reason: Hemorrhoids) RF: 0 lorazepam 0.5 mg Tablet 0.5 mg PO Q12H PRN (Reason: Anxiety) RF: 0 cholecalciferol (vitamin D3) [Vitamin D3] 1,000 unit Capsule 1,000 unit PO DAILY RF: 0 sevelamer carbonate 800 mg tablet 800 mg PO BID RF: 0 Lactobacillus acidophilus [Acidophilus] Capsule 1 tab PO DAILY RF: 0 acetaminophen-codeine 300-30 mg Tablet 1 tab PO Q12H PRN (Reason: pain) RF: 0 nitroglycerin [Nitrostat] 0.4 mg Tablet, Sublingual 0.4 mg SUBLINGUAL Q5-15M PRN (Reason: Chest Pain) RF: 0 Flovent HFA 44 mcg/actuation HFA aerosol inhaler 2 puff Inhalation BID RF: 0 mirtazapine 15 mg tablet 7.5 mg PO [id number] RF: 0 multivitamin Capsule 1 cap PO DAILY RF: 0 acetaminophen 325 mg Tablet 650 mg PO Q4H PRN (Reason: FEVER > 100 AND PAIN) RF: 0 levetiracetam 500 mg tablet 500 mg PO BID RF: 0 cyanocobalamin (vitamin B-12) [Vitamin B-12] 1,000 mcg Tablet 1,000 mcg PO DAILY RF: 0 aspirin 81 mg Tablet,Chewable 81 mg PO DAILY RF: 0 hydrocortisone 10 mg tablet 15 mg PO QAM RF: 0 levothyroxine 112 mcg tablet 112 mcg PO QAM RF: 0 Entresto 24-26 mg tablet 1 tab PO BID RF: 0 Nepro Liquid 240 ml PO TID RF: 0 loperamide [Imodium A-D] 2 mg Capsule 2 mg PO PRN MDD 6 CAP PRN (Reason: Diarrhea) RF: 0 magnesium hydroxide [Milk of Magnesia] 400 mg/5 mL Suspension 30 ml PO PRN PRN (Reason: Constipation) RF: 0 calcium carbonate [Calcium 500] 500 mg calcium (1,250 mg) Tablet,Chewable 500 mg PO Q2H PRN (Reason: GI UPSET) RF: 0 benzonatate [Tessalon Perles] 100 mg capsule 100 mg PO Q8H PRN (Reason: cough) RF: 0 Referrals: Germaine Jalloh MD [Primary Care Provider] -
[2019-10-15 11:42] LABS: Add Manual Diff / Slide Review NO; Basophils Absolute Auto 0 /uL (0-100); Basophils Percent Auto 0.3 % (0-2); Eosinophils Absolute Auto 100 /uL (0-450); Eosinophils Percent Auto 1.5 % (2-4); Hematocrit 35.3 % (36-46); Hemoglobin 11.7 g/dL (12.0-16.0); Lymphocytes Absolute Auto 800 /uL (1100-4500); Lymphocytes Percent Auto 10.3 % (25-40); Mean Corpuscular HGB Conc 33.2 % (30-36); Mean Corpuscular Hemoglobin 30.9 PG (26-34); Mean Corpuscular Volume 93.1 fL (80-100); Monocytes Absolute Auto 400 /uL (0-900); Monocytes Percent Auto 5.4 % (3-14); Neutrophils Absolute Auto 6400 /uL (1500-7000); Neutrophils Percent Auto 82.5 % (50-75); Platelet Count 123 X10^3/uL (150-400); White Blood Cell Count 7.8 X10^3/uL (4.5-11.0)
[2019-10-15 11:43] LABS: INR 1.1 (0.9-1.3); Prothrombin Time 12.8 SECONDS (10.1-12.7)
[2019-10-15 11:45] LABS: PTT Partial Thromboplastin Tim 39 SECONDS (26.4-36.2)
[2019-10-15 11:47] LABS: Alanine Aminotransferase 14 IU/L (<35); Albumin 4.1 g/dL (3.5-5.0); Albumin Globulin Ratio 1.8 (1.0-2.8); Alkaline Phosphatase 92 U/L (38-126); Aspartate Aminotransferase 24 IU/L (14-36); BUN Creatinine Ratio 4.9 (6-22); Blood Urea Nitrogen 20 mg/dL (7-17); Calcium 9.6 mg/dL (8.4-10.2); Carbon Dioxide 26 mmol/L (22-32); Chloride 97 mmol/L (98-107); Globulin 2.3 g/dL (1.7-4.1); Glucose 86 mg/dL (80-110); HEMOLYSIS < 15 (0-50); Lipase 61 U/L (23-300); Potassium 4.6 mmol/L (3.4-5.1); Sodium 134 mmol/L (137-145); Total Protein 6.4 g/dL (6.3-8.2)
[2019-10-15 11:59] LABS: Troponin I 0.022 ng/mL (0.01-0.034)
[2019-10-15 12:12] LABS: NT-proBNP (BNP-Adult 18+) 129000 pg/mL (<125)
--- NOTE | 2019-10-15 12:13 | PC.NURSE ---
Pts caregiver at bedside came to nurses station and asked [employer] if pt could have something to eat or drink, she also informed [employer] that she increased pts O2 to 10L. This RN went in and assessed pt. Informed pt nothing to eat or drink until approved by doctor. Also decreased O2 to 2L, reeducated on use of call hinkle for relaying concern about O2. Reassured them that monitors are being watched at nurses station.
[2019-10-15 12:30] VITALS: BP 116/67; PULSE 98; RESP 14; O2SAT 97
== END 2019-10-15 12:42 | disposition home or self-care (01) ==
PROVIDERS: Emergency Provider Emergency Medicine; PCP Internal Medicine
DX: N18.6 End stage renal disease (principal); J18.1 Lobar pneumonia, unspecified organism; R06.02 Shortness of breath; Z99.2 Dependence on renal dialysis
CPT/HCPCS: 36415; 71045; 80053; 83690; 83880; 84484; 85025; 85610; 85730; 93005; 99284; 99285

== ENCOUNTER 2019-10-18 04:13 | Emergency (ER) | payer MEDICARE, MEDICAID, SELFPAY ==
[2019-10-18 04:19] VITALS: BP 97/67; PULSE 90; RESP 21; TEMP 36.6; O2SAT 91
--- NOTE | 2019-10-18 04:30 | ED.URI ---
HPI - URI/Sore Throat General Chief Complaint: Upper Respiratory Symptoms Stated Complaint: SOB Time Seen by Provider: 10/18/19 04:30 Source: patient and EMS Mode of arrival: EMS Limitations: no limitations History of Present Illness HPI Narrative: The patient has end-stage renal disease, she is on dialysis Wednesday, and Saturdays. She received dialysis yesterday. She does pulmonary edema. The last x-ray showed small effusion. She is here with increased cough and complaints of dyspnea. She has no chest pain. She denies orthopnea, she has no peripheral edema. She has occasional urine output, she has small amount earlier today. She has no URI symptoms, no fever chills, no suggestion of infection. Although coughing, she is generally speaking in full sentences without dressed. She has been in the ER recently, she has apparently had multiple increased dialysis sessions due to dyspnea and CHF. She had an echo in 2018 revealing moderate left ventricular to the systolic dysfunction with EF of 35%. Related Data Home Medications Medication Instructions Recorded Confirmed atorvastatin 40 mg PO BEDTIME 07/04/18 06/14/19 cholecalciferol (vitamin D3) 1,000 unit PO DAILY 07/04/18 06/14/19 [Vitamin D3] hydrocortisone acetate 25 mg [place] Q12H PRN 07/04/18 06/14/19 lorazepam 0.5 mg PO Q12H PRN 07/04/18 06/14/19 melatonin 3 mg PO BEDTIME PRN 07/04/18 06/14/19 Lactobacillus acidophilus 1 tab PO DAILY 07/13/18 06/14/19 [Acidophilus] acetaminophen-codeine 1 tab PO Q12H PRN 07/13/18 06/14/19 nitroglycerin [Nitrostat] 0.4 mg SUBLINGUAL Q5-15M PRN 07/13/18 06/14/19 fluticasone propionate [Flovent 2 puff INHALATION BID 10/04/18 06/14/19 HFA] mirtazapine 7.5 mg PO [id number] 10/04/18 06/14/19 multivitamin 1 cap PO DAILY 10/04/18 06/14/19 sevelamer carbonate 800 mg PO BID 11/03/18 06/14/19 Nepro Liquid 240 ml PO TID 06/14/19 06/14/19 acetaminophen 650 mg PO Q4H PRN 06/14/19 06/14/19 aspirin 81 mg PO DAILY 06/14/19 06/14/19 benzonatate [Tessalon Perles] 100 mg PO Q8H PRN 06/14/19 06/14/19 calcium carbonate [Calcium 500] 500 mg PO Q2H PRN 06/14/19 06/14/19 cyanocobalamin (vitamin B-12) 1,000 mcg PO DAILY 06/14/19 06/14/19 [Vitamin B-12] hydrocortisone 15 mg PO QAM 06/14/19 06/14/19 levetiracetam 500 mg PO BID 06/14/19 06/14/19 levothyroxine 112 mcg PO QAM 06/14/19 06/14/19 loperamide [Imodium A-D] 2 mg PO PRN PRN MDD 6 CAP 06/14/19 06/14/19 magnesium hydroxide [Milk of 30 ml PO PRN PRN 06/14/19 06/14/19 Magnesia] sacubitril-valsartan [Entresto] 1 tab PO BID 06/14/19 06/14/19 Allergies Allergy/AdvReac Type Severity Reaction Status Date / Time No Known Drug Allergies Allergy Verified 08/18/19 17:42 Review of Systems Review of Systems ROS Unobtainable: All systems reviewed & are unremarkable except as noted in HPI and below Constitutional Constitutional: Denies chills, Denies fever(s), Denies lethargy and Denies weakness ENT Ears, Nose, Mouth, and Throat: Denies change in voice and Denies sore throat Cardiovascular Cardiovascular: Denies chest pain, Denies lightheadedness, Denies palpitations, Denies dyspnea, Denies dyspnea on exertion and Denies orthopnea Respiratory Respiratory: Reports cough, Denies dyspnea, Denies dyspnea on exertion and Denies wheezing Gastrointestinal Gastrointestinal: Denies bloating and Denies cramping Genitourinary Comments: Small amount of urine output. Musculoskeletal Comments: No lower extremity edema Integumentary/Breasts Skin/Breast: Denies erythema, Denies rash and Denies wounds Neurologic Neurologic: Denies weakness Endocrine Endocrine: Denies palpitations Allergic/Immunologic Allergic/Immunologic: Denies wheezing Patient History Medical History (Updated 10/18/19 @ 07:06 by Marco Laboy MD) Acute kidney failure (Acute) Acute renal failure on dialysis (Acute) Anemia (Acute) Anxiety (Acute) Breast cancer, left (Resolved) CHF (congestive heart failure) (Acute) Chronic kidney disease (Acute) Fibromyalgia (Acute) GI bleed (Acute) HTN (hypertension) (Acute) Hyperlipidemia (Acute) Hypothyroid (Acute) IBS (irritable bowel syndrome) (Acute) Major depressive disorder (Acute) Malnutrition (Acute) Peripheral vascular disease (Acute) Thrombocytopenia (Acute) TIA (transient ischemic attack) (Acute) Social History lives independently: No Smoking Status: Never smoker Smoking Status: Never smoker alcohol intake frequency: holidays/special occasions only Substance Use Type: does not use Exam Initial Vital Signs Initial Vital Signs: Vital Signs Temperature 97.9 F 10/18/19 04:19 Pulse Rate 90 10/18/19 04:19 Respiratory Rate 21 10/18/19 04:19 Blood Pressure 97/67 10/18/19 04:19 Pulse Oximetry 91 10/18/19 04:19 Const General: cooperative and well developed Nutritional Appearance: well nourished [facility] Head: normocephalic and atraumatic Nose: external nose normal Mouth: moist mucous membranes Throat: tonsils normal and uvula midline Eyes Conjunctivae: conjunctivae normal Neck Neck: No JVD Chest Chest: normal inspection of the chest Resp Effort & Inspection: normal respiratory effort, able to speak in complete sentences, no respiratory distress and no use of accessory muscles Auscultation: clear to auscultation bilaterally, no rales (Left base), no rhonchi and no wheezes Cardio Rate: regular rate Rhythm: regular rhythm Heart Sounds: S1 normal, S2 normal, no click, no gallops, no murmurs and no rubs Pulses: normal peripheral pulses GI Inspection: non-distended Palpation: soft, no hepatosplenomegaly and No tender Auscultation: normal bowel sounds Back/Spine/Pelvis Back: No CVA tenderness Skin General: no rashes or lesions noted, No jaundice and No petechiae Neuro General: alert, oriented x3, gait normal and no focal motor deficits Speech: speech normal Extrem General: full ROM, no pedal edema and no calf tenderness Course Course Course Narrative: Chest x-ray continues to show a left basilar effusion, BNP is 206783. Her BNP 3 days ago was 129,000. The patient has an aggravating cough, but no chest pain. She has no hypoxia. There is no JVD or peripheral edema. I discussed the patient's situation with her primary care physician, Dr. Jalloh. Dr. Jalloh has agreed to review the patient's case with her car parker, as well as her security operations specialist. Dr. Jalloh will discuss the case with Nephrology, Dr Horton, regarding her dialysis schedule, potential extra dialysis. dialysis. Orders Ordered: ED Orders 10/18/19 04:31 Chest [XR chest 1V] Stat EKG-12 Lead Stat 10/18/19 04:55 Basic Metabolic Panel Stat Complete Blood Count AUTO DIFF Stat NT-proBNP (BNP-Adult 18+) Stat Troponin & CK Cardiac Panel Stat Discontinued Medications Albuterol/Ipratropium (Duoneb) 3 ml INH NOW ONE Stop: 10/18/19 04:44 Last Admin: 10/18/19 04:46 Dose: 3 ml Documented by: YESSY Vital Signs Vital signs: Vital Signs - 8 hr 10/18/19 04:19 10/18/19 04:47 10/18/19 05:12 Temperature 97.9 F Pulse Rate 90 90 Respiratory Rate 21 20 Blood Pressure 97/67 Blood Pressure [Right Arm] 109/60 Pulse Oximetry 91 93 91 10/18/19 06:10 Temperature Pulse Rate 94 H Respiratory Rate 18 Blood Pressure Blood Pressure [Right Arm] 135/65 Pulse Oximetry 95 MDM - URI/Sore Throat Lab Data Result diagrams: 10/18/19 04:55 10/18/19 04:55 Labs: Lab Results 10/18/19 10/18/19 Range/Units 04:55 04:55 WBC 9.0 (4.5-11.0) X10^3/uL RBC 3.74 L (4.0-5.2) X10^6/uL Hgb 11.5 L (12.0-16.0) g/dL Hct 34.7 L (36-46) % MCV 92.8 (80-100) fL MCH 30.7 (26-34) PG MCHC 33.1 (30-36) % RDW 17.8 H (11.6-14.8) % Plt Count 115 L (150-400) X10^3/uL Neut % (Auto) 79.9 H (50-75) % Lymph % (Auto) 12.5 L (25-40) % [place] % (Auto) 4.7 (3-14) % Eos % (Auto) 1.5 L (2-4) % Baso % (Auto) 1.4 (0-2) % Neut # (Auto) 7200 H (2709-0894) /uL Lymph # (Auto) 1100 (6344-2966) /uL [place] # (Auto) 400 (0-900) /uL Eos # (Auto) 100 (0-450) /uL Baso # (Auto) 100 (0-100) /uL Sodium 135 L (137-145) mmol/L Potassium 4.2 (3.4-5.1) mmol/L Chloride 97 L (98-107) mmol/L Carbon Dioxide 27 (22-32) mmol/L BUN 17 (7-17) mg/dL Creatinine 4.00 H (0.52-1.04) mg/dL Estimated GFR 11.3 L (>60) mL/min BUN/Creatinine Ratio 4.3 L (6-22) Glucose 91 (80-110) mg/dL Calcium 9.0 (8.4-10.2) mg/dL Total Creatine Kinase 25 L (30-135) U/L CK-MB (CK-2) TNP CK-MB (CK-2) Rel Index TNP Troponin I 0.019 (0.01-0.034) ng/mL NT-Pro-B Natriuret Pep 732816 H (<125) pg/mL Imaging Data Chest x-ray: Attestation: I personally reviewed and interpreted this imaging study as follows: (Left pleural effusion) My Impression: Left pleural effusion, pulmonary edema. Status post CABG. ECG Data Attestation: I personally reviewed and interpreted this ECG as follows: (Normal sinus rhythm rate 90 beats per minute. Left atrial enlargement. LVH. Possible old anterior infarct, no acute ST T wave changes now. No ectopy.) Discharge Plan Departure Patient Disposition: Home Clinical Impression: End stage renal disease on dialysis Pulmonary edema Qualifiers: Chronicity: chronic Qualified Code(s): J81.1 - Chronic pulmonary edema Congestive heart failure (CHF) Qualifiers: Heart failure type: systolic Heart failure chronicity: acute on chronic Qualified Code(s): I50.23 - Acute on chronic systolic (congestive) heart failure Instructions: DI for Heart Failure, Chronic Renal Failure Activity Restrictions/Additional Instructions: Continue with her current medications and your current a dialysis schedule. Dr. Jalloh will talk with your security operations specialist Dr. Horton regarding your dialysis needs. Return here as needed Prescriptions: No Action atorvastatin 40 mg Tablet 40 mg PO BEDTIME RF: 0 melatonin 3 mg Tablet 3 mg PO BEDTIME PRN (Reason: Insomnia) RF: 0 hydrocortisone acetate 25 mg Suppository 25 mg WA Q12H PRN (Reason: Hemorrhoids) RF: 0 lorazepam 0.5 mg Tablet 0.5 mg PO Q12H PRN (Reason: Anxiety) RF: 0 cholecalciferol (vitamin D3) [Vitamin D3] 1,000 unit Capsule 1,000 unit PO DAILY RF: 0 sevelamer carbonate 800 mg tablet 800 mg PO BID RF: 0 Lactobacillus acidophilus [Acidophilus] Capsule 1 tab PO DAILY RF: 0 acetaminophen-codeine 300-30 mg Tablet 1 tab PO Q12H PRN (Reason: pain) RF: 0 nitroglycerin [Nitrostat] 0.4 mg Tablet, Sublingual 0.4 mg SUBLINGUAL Q5-15M PRN (Reason: Chest Pain) RF: 0 Flovent HFA 44 mcg/actuation HFA aerosol inhaler 2 puff Inhalation BID RF: 0 mirtazapine 15 mg tablet 7.5 mg PO [id number] RF: 0 multivitamin Capsule 1 cap PO DAILY RF: 0 acetaminophen 325 mg Tablet 650 mg PO Q4H PRN (Reason: FEVER > 100 AND PAIN) RF: 0 levetiracetam 500 mg tablet 500 mg PO BID RF: 0 cyanocobalamin (vitamin B-12) [Vitamin B-12] 1,000 mcg Tablet 1,000 mcg PO DAILY RF: 0 aspirin 81 mg Tablet,Chewable 81 mg PO DAILY RF: 0 hydrocortisone 10 mg tablet 15 mg PO QAM RF: 0 levothyroxine 112 mcg tablet 112 mcg PO QAM RF: 0 Entresto 24-26 mg tablet 1 tab PO BID RF: 0 Nepro Liquid 240 ml PO TID RF: 0 loperamide [Imodium A-D] 2 mg Capsule 2 mg PO PRN MDD 6 CAP PRN (Reason: Diarrhea) RF: 0 magnesium hydroxide [Milk of Magnesia] 400 mg/5 mL Suspension 30 ml PO PRN PRN (Reason: Constipation) RF: 0 calcium carbonate [Calcium 500] 500 mg calcium (1,250 mg) Tablet,Chewable 500 mg PO Q2H PRN (Reason: GI UPSET) RF: 0 benzonatate [Tessalon Perles] 100 mg capsule 100 mg PO Q8H PRN (Reason: cough) RF: 0 Referrals: Germaine Jalloh MD [Primary Care Provider] -
--- NOTE | 2019-10-18 04:31 | DI.RAD.S_ITS ---
PROCEDURE: XR CHEST 1V INDICATIONS: Shortness of breath TECHNIQUE: One view of the chest was acquired. COMPARISON: [facility], , XR CHEST 1V, 10/15/2019, 11:41. FINDINGS: Surgical changes and devices: Dual lumen dialysis catheter in is stable. Status post CABG procedure. Left axillary surgical clips are stable. Lungs and pleura: Lungs are clear. No pneumothorax. Small left-sided pleural effusion. Mediastinum: Mediastinal contours appear normal. Heart size is normal. Bones and chest wall: No suspicious bony lesions. Overlying soft tissues appear unremarkable. IMPRESSION: Small left-sided pleural effusion not significantly changed compared to 10/15/2019. Dictated by: Charu Artis MD, PhD on 10/18/2019 at 8:39 Approved by: Charu Artis MD, PhD on 10/18/2019 at 8:40
[2019-10-18] MEDS: ALBUTEROL/IPRATROPIUM 3 ML AMPUL INH (04:46)
[2019-10-18 04:47] VITALS: O2SAT 93
[2019-10-18 05:05] LABS: Add Manual Diff / Slide Review NO; Basophils Absolute Auto 100 /uL (0-100); Basophils Percent Auto 1.4 % (0-2); Eosinophils Absolute Auto 100 /uL (0-450); Eosinophils Percent Auto 1.5 % (2-4); Hematocrit 34.7 % (36-46); Hemoglobin 11.5 g/dL (12.0-16.0); Lymphocytes Absolute Auto 1100 /uL (1100-4500); Lymphocytes Percent Auto 12.5 % (25-40); Mean Corpuscular HGB Conc 33.1 % (30-36); Mean Corpuscular Hemoglobin 30.7 PG (26-34); Mean Corpuscular Volume 92.8 fL (80-100); Monocytes Absolute Auto 400 /uL (0-900); Monocytes Percent Auto 4.7 % (3-14); Neutrophils Absolute Auto 7200 /uL (1500-7000); Neutrophils Percent Auto 79.9 % (50-75); Platelet Count 115 X10^3/uL (150-400); Red Blood Cell Count 3.74 X10^6/uL (4.0-5.2); Red Cell Distribution Width 17.8 % (11.6-14.8)
[2019-10-18 05:12] VITALS: BP 109/60; PULSE 90; RESP 20; O2SAT 91
[2019-10-18 05:15] LABS: BUN Creatinine Ratio 4.3 (6-22); Blood Urea Nitrogen 17 mg/dL (7-17); Carbon Dioxide 27 mmol/L (22-32); Chloride 97 mmol/L (98-107); Creatine Kinase 25 U/L (30-135); Estimated Glomerular Filt Rate 11.3 mL/min (>60); Glucose 91 mg/dL (80-110); HEMOLYSIS 16 (0-50); Potassium 4.2 mmol/L (3.4-5.1); Sodium 135 mmol/L (137-145)
[2019-10-18 05:27] LABS: Troponin I 0.019 ng/mL (0.01-0.034)
[2019-10-18 05:40] LABS: NT-proBNP (BNP-Adult 18+) 165000 pg/mL (<125)
[2019-10-18 06:10] VITALS: BP 135/65; PULSE 94; RESP 18; O2SAT 95
[2019-10-18 08:42] VITALS: BP 123/74; PULSE 86; RESP 16; O2SAT 93
[2019-10-18 08:44] VITALS: BP 123/76; RESP 16; O2SAT 93
== END 2019-10-18 08:44 | disposition home or self-care (01) ==
PROVIDERS: Emergency Provider Emergency Medicine; PCP Internal Medicine
DX: N18.6 End stage renal disease (principal); Z99.2 Dependence on renal dialysis; J18.1 Lobar pneumonia, unspecified organism; I50.23 Acute on chronic systolic (congestive) heart failure
CPT/HCPCS: 36415; 71045; 80048; 82550; 83880; 84484; 85025; 93005; 94640

== ENCOUNTER 2019-10-18 21:28 | Emergency (ER) | payer MEDICARE, MEDICAID, SELFPAY ==
--- NOTE | 2019-10-18 21:32 | ED_ITS ---
HPI - Chest Pain General Chief Complaint: Chest Pain Stated Complaint: Chest pain Time Seen by Provider: 10/18/19 21:29 Source: patient and EMS Mode of arrival: EMS Limitations: no limitations History of Present Illness HPI narrative: 64-year-old female nonsmoker with history of end-stage renal disease with dialysis Wednesday and history of coronary artery disease presents with left-sided chest pressure with radiation into her left arm which started at the end of her routinely scheduled dialysis appointment. She states that during this episode she also felt short of breath and a bit nauseated. When EMS arrived they state her pain was an 8/10, she was given 2 nitro in by her arrival she is completely pain-free. Her last episode of provocative testing and heart catheterization were many years ago, her assistant education director is at [facility]. complaint: chest pain Onset (ago): minute(s) Duration: now resolved Onset: during rest Pain location: left chest Severity: moderate Quality: tightness and aching Pain radiation: LUE Relieving factors: nitroglycerin Exacerbating factors: nothing Associated symptoms: nausea and dyspnea Treatments prior to arrival chest pain: nitroglycerin Related Data On Oral Contraceptives: No Home Medications Medication Instructions Recorded Confirmed atorvastatin 40 mg PO BEDTIME 07/04/18 06/14/19 cholecalciferol (vitamin D3) 1,000 unit PO DAILY 07/04/18 06/14/19 [Vitamin D3] hydrocortisone acetate 25 mg NE Q12H PRN 07/04/18 06/14/19 lorazepam 0.5 mg PO Q12H PRN 07/04/18 06/14/19 melatonin 3 mg PO BEDTIME PRN 07/04/18 06/14/19 Lactobacillus acidophilus 1 tab PO DAILY 07/13/18 06/14/19 [Acidophilus] acetaminophen-codeine 1 tab PO Q12H PRN 07/13/18 06/14/19 nitroglycerin [Nitrostat] 0.4 mg SUBLINGUAL Q5-15M PRN 07/13/18 06/14/19 fluticasone propionate [Flovent 2 puff INHALATION BID 10/04/18 06/14/19 HFA] mirtazapine 7.5 mg PO BEDTIMEX7 10/04/18 06/14/19 multivitamin 1 cap PO DAILY 10/04/18 06/14/19 sevelamer carbonate 800 mg PO BID 11/03/18 06/14/19 Nepro Liquid 240 ml PO TID 06/14/19 06/14/19 acetaminophen 650 mg PO Q4H PRN 06/14/19 06/14/19 aspirin 81 mg PO DAILY 06/14/19 06/14/19 benzonatate [Tessalon Perles] 100 mg PO Q8H PRN 06/14/19 06/14/19 calcium carbonate [Calcium 500] 500 mg PO Q2H PRN 06/14/19 06/14/19 cyanocobalamin (vitamin B-12) 1,000 mcg PO DAILY 06/14/19 06/14/19 [Vitamin B-12] hydrocortisone 15 mg PO QAM 06/14/19 06/14/19 levetiracetam 500 mg PO BID 06/14/19 06/14/19 levothyroxine 112 mcg PO QAM 06/14/19 06/14/19 loperamide [Imodium A-D] 2 mg PO PRN PRN MDD 6 CAP 06/14/19 06/14/19 magnesium hydroxide [Milk of 30 ml PO PRN PRN 06/14/19 06/14/19 Magnesia] sacubitril-valsartan [Entresto] 1 tab PO BID 06/14/19 06/14/19 Allergies Allergy/AdvReac Type Severity Reaction Status Date / Time No Known Drug Allergies Allergy Verified 08/18/19 17:42 Review of Systems Constitutional Constitutional: Denies chills, Denies fatigue, Denies fever(s), Denies frequent falls, Denies lethargy and Denies weakness Eyes Eyes: Denies change in vision, Denies eye discharge, Denies irritation and Denies loss of vision ENT Ears, Nose, Mouth, and Throat: Denies change in voice, Denies dizziness, Denies neck pain, Denies sore throat and Denies throat swelling Cardiovascular Cardiovascular: Reports chest pain, Denies irregular heart rhythm, Denies lightheadedness, Denies palpitations, Reports dyspnea, Denies dyspnea on exertion and Denies orthopnea Respiratory Respiratory: Denies cough, Reports dyspnea, Denies dyspnea on exertion and Denies wheezing Gastrointestinal Gastrointestinal: Denies abdominal pain, Denies change in bowel habits, Denies diarrhea, Reports nausea and Denies vomiting Genitourinary Genitourinary: Denies hematuria, Denies flank pain, Denies urinary incontinence and Denies urinary urgency Musculoskeletal Musculoskeletal: Denies back pain, Denies muscle weakness, Denies neck pain, Denies numbness and Denies tingling Integumentary/Breasts Skin/Breast: Denies pruritus, Denies erythema, Denies rash and Denies wounds Neurologic Neurologic: Denies behavioral changes, Denies confusion, Denies dizziness, Denies frequent falls, Denies loss of vision, Denies numbness, Denies tingling and Denies weakness Psychiatric Psychiatric: Denies anxiety, Denies behavioral changes, Denies confusion, Denies depression, Denies homicidal ideation and Denies suicidal ideation Endocrine Endocrine: Denies fatigue, Denies flushing and Denies palpitations Hematologic/Lymphatic Hematologic/Lymphatic: Denies easy bruising Allergic/Immunologic Allergic/Immunologic: Denies urticaria, Denies throat swelling and Denies wheezing Patient History Social History lives independently: No Smoking Status: Never smoker Smoking Status: Never smoker alcohol intake frequency: holidays/special occasions only Substance Use Type: does not use Exam Narrative Exam Narrative: GENERAL: [64] year old patient appears stated age. Well- nourished, well-developed patient, in mild distress. HEAD: Atraumatic. Normocephalic. EYES: Pupils equal round and reactive. Extraocular motions intact. No scleral icterus. No injection or drainage. ENT: Nose without bleeding, purulent drainage. Throat without erythema, tonsillar hypertrophy or exudate. Airway patent. NECK: Trachea midline. Non tender CARDIOVASCULAR: Regular rate and rhythm without murmurs, gallops, or rubs. RESPIRATORY: Clear to auscultation. Breath sounds equal bilaterally. No wheezes, rales, or rhonchi. GASTROINTESTINAL: Abdomen soft, non-tender, nondistended. EXTREMITIES: No edema or joint tenderness. BACK: Nontender without deformity or crepitance. No flank tenderness. NEURO: AOx3. SKIN: No rash or erythema of visible areas Initial Vital Signs Initial Vital Signs: Vital Signs Temperature 97.9 F 10/18/19 21:37 Pulse Rate 96 H 10/18/19 21:37 Respiratory Rate 20 10/18/19 21:37 Blood Pressure 116/62 10/18/19 21:37 Pulse Oximetry 94 10/18/19 21:37 Course Course Course Narrative: Patient continues to be pain-free after the original nitro. Her story is concerning with chest pressure that radiates into left arm that started at rest and associated with shortness of breath and nausea. Her symptoms improved, as stated with nitro. She has a known history and no provocative testing in quite some time. Troponin unremarkable and multiple EKGs are nonischemic. Her assistant education director is at [facility] and because we cannot admit patient is here with a dialysis history we called [facility]. Cardiology agrees that patient requires hospitalization and provocative testing, hospitalist at [facility] is happy to accept Orders Ordered: ED Orders 10/18/19 21:15 Complete Blood Count AUTO DIFF Stat Comprehensive Metabolic Panel Stat Lipase Stat NT-proBNP (BNP-Adult 18+) Stat Prothrombin Time INR Stat Troponin & CK Cardiac Panel Stat 10/18/19 21:30 XR chest 1V Stat EKG-12 Lead Stat Discontinued Medications Aspirin (Aspirin Chew) 324 mg PO NOW ONE Stop: 10/18/19 21:31 Last Admin: 10/18/19 21:50 Dose: 324 mg Documented by: EDISON Sodium Chloride (Normal Saline 0.9%) 1,000 mls @ 150 mls/hr IV CONT WILMAR Last Admin: 10/18/19 22:37 Dose: Not Given Documented by: EDISON Vital Signs Vital signs: Vital Signs - 8 hr 10/18/19 21:37 10/18/19 22:00 10/18/19 22:44 Temperature 97.9 F Pulse Rate 96 H 86 87 Respiratory Rate 20 20 20 Blood Pressure 116/62 Blood Pressure [Left Arm] 121/61 110/69 Pulse Oximetry 94 94 94 10/19/19 00:08 Temperature Pulse Rate 85 Respiratory Rate 22 Blood Pressure Blood Pressure [Left Arm] 110/69 Pulse Oximetry 95 MDM - Chest Pain Lab Data Result diagrams: 10/18/19 21:15 10/18/19 21:15 Labs: Lab Results 10/18/19 10/18/19 10/18/19 Range/Units 21:15 21:15 21:15 WBC 9.7 (4.5-11.0) X10^3/uL RBC 4.03 (4.0-5.2) X10^6/uL Hgb 12.4 (12.0-16.0) g/dL Hct 37.1 (36-46) % MCV 92.1 (80-100) fL MCH 30.8 (26-34) PG MCHC 33.4 (30-36) % RDW 17.9 H (11.6-14.8) % Plt Count 145 L (150-400) X10^3/uL Neut % (Auto) 83.5 H (50-75) % Lymph % (Auto) 9.6 L (25-40) % [place] % (Auto) 5.7 (3-14) % Eos % (Auto) 0.9 L (2-4) % Baso % (Auto) 0.3 (0-2) % Neut # (Auto) 8100 H (9058-3658) /uL Lymph # (Auto) 900 L (8835-2841) /uL [place] # (Auto) 600 (0-900) /uL Eos # (Auto) 100 (0-450) /uL Baso # (Auto) 0 (0-100) /uL PT 13.6 H (10.1-12.7) SECONDS INR 1.2 (0.9-1.3) APTT Cancelled Sodium 137 (137-145) mmol/L Potassium 5.0 (3.4-5.1) mmol/L Chloride 98 (98-107) mmol/L Carbon Dioxide 26 (22-32) mmol/L BUN 24 H (7-17) mg/dL Creatinine 5.90 H (0.52-1.04) mg/dL Estimated GFR 7.2 L (>60) mL/min BUN/Creatinine Ratio 4.1 L (6-22) Glucose 114 H (80-110) mg/dL Calcium 9.4 (8.4-10.2) mg/dL Total Bilirubin 0.5 (0.2-1.3) mg/dL AST 22 (14-36) IU/L ALT 18 (<35) IU/L Alkaline Phosphatase 117 (38-126) U/L Total Creatine Kinase 29 L (30-135) U/L CK-MB (CK-2) TNP CK-MB (CK-2) Rel Index TNP Troponin I 0.013 (0.01-0.034) ng/mL NT-Pro-B Natriuret Pep 567654 H (<125) pg/mL Total Protein 7.4 (6.3-8.2) g/dL Albumin 4.7 (3.5-5.0) g/dL Globulin 2.7 (1.7-4.1) g/dL Albumin/Globulin Ratio 1.7 (1.0-2.8) Lipase 223 D (23-300) U/L Imaging Data Chest x-ray: Radiologist's Impression: Aurelia Gr 64 F 1955 [place] [address] XRay Report Signed Patient: Aurelia Gr EMR#: [id number] : [id number]:[id number] Age/Sex: 64 / FDate of Service: 10/18/19 Loc: ED Accession Number: [id number] Procedure: XR chest 1V Ordering Provider: Pb Ely D.O. PROCEDURE: XR CHEST 1V INDICATIONS: chest pain TECHNIQUE: One view of the chest was acquired. COMPARISON: [facility], , XR CHEST 1V, 10/18/2019, 4:35. FINDINGS: Surgical changes and devices: Sternal wires, dialysis catheter and left hemithorax and axilla clips are noted. Lungs and pleura: Unchanged appearance of mild left effusion. Mediastinum: Mediastinal contours appear normal. Heart size is enlarged. Bones and chest wall: No suspicious bony lesions. Overlying soft tissues appear unremarkable. IMPRESSION: Mild effusion, unchanged. Underlying areas of atelectasis and/or developing pneumonia cannot be excluded. Dictated by: Liset Britton M.D. on 10/18/2019 at 22:01 Approved by: Liset Britton M.D. on 10/18/2019 at 22:02 Discharge Plan Departure Patient Disposition: [facility] Clinical Impression: Chest pain Qualifiers: Chest pain type: unspecified Qualified Code(s): R07.9 - Chest pain, unspecified Discharge Date/Time: 10/19/19 00:23 Prescriptions: No Action atorvastatin 40 mg Tablet 40 mg PO BEDTIME RF: 0 melatonin 3 mg Tablet 3 mg PO BEDTIME PRN (Reason: Insomnia) RF: 0 hydrocortisone acetate 25 mg Suppository 25 mg NE Q12H PRN (Reason: Hemorrhoids) RF: 0 lorazepam 0.5 mg Tablet 0.5 mg PO Q12H PRN (Reason: Anxiety) RF: 0 cholecalciferol (vitamin D3) [Vitamin D3] 1,000 unit Capsule 1,000 unit PO DAILY RF: 0 sevelamer carbonate 800 mg tablet 800 mg PO BID RF: 0 Lactobacillus acidophilus [Acidophilus] Capsule 1 tab PO DAILY RF: 0 acetaminophen-codeine 300-30 mg Tablet 1 tab PO Q12H PRN (Reason: pain) RF: 0 nitroglycerin [Nitrostat] 0.4 mg Tablet, Sublingual 0.4 mg SUBLINGUAL Q5-15M PRN (Reason: Chest Pain) RF: 0 Flovent HFA 44 mcg/actuation HFA aerosol inhaler 2 puff Inhalation BID RF: 0 mirtazapine 15 mg tablet 7.5 mg PO [id number] RF: 0 multivitamin Capsule 1 cap PO DAILY RF: 0 acetaminophen 325 mg Tablet 650 mg PO Q4H PRN (Reason: FEVER > 100 AND PAIN) RF: 0 levetiracetam 500 mg tablet 500 mg PO BID RF: 0 cyanocobalamin (vitamin B-12) [Vitamin B-12] 1,000 mcg Tablet 1,000 mcg PO DAILY RF: 0 aspirin 81 mg Tablet,Chewable 81 mg PO DAILY RF: 0 hydrocortisone 10 mg tablet 15 mg PO QAM RF: 0 levothyroxine 112 mcg tablet 112 mcg PO QAM RF: 0 Entresto 24-26 mg tablet 1 tab PO BID RF: 0 Nepro Liquid 240 ml PO TID RF: 0 loperamide [Imodium A-D] 2 mg Capsule 2 mg PO PRN MDD 6 CAP PRN (Reason: Diarrhea) RF: 0 magnesium hydroxide [Milk of Magnesia] 400 mg/5 mL Suspension 30 ml PO PRN PRN (Reason: Constipation) RF: 0 calcium carbonate [Calcium 500] 500 mg calcium (1,250 mg) Tablet,Chewable 500 mg PO Q2H PRN (Reason: GI UPSET) RF: 0 benzonatate [Tessalon Perles] 100 mg capsule 100 mg PO Q8H PRN (Reason: cough) RF: 0 Referrals: Germaine Jalloh MD [Primary Care Provider] -
[2019-10-18 21:37] VITALS: BP 116/62; PULSE 96; RESP 20; TEMP 36.6; O2SAT 94
[2019-10-18 21:44] LABS: Add Manual Diff / Slide Review NO; Basophils Absolute Auto 0 /uL (0-100); Basophils Percent Auto 0.3 % (0-2); Eosinophils Absolute Auto 100 /uL (0-450); Eosinophils Percent Auto 0.9 % (2-4); Hematocrit 37.1 % (36-46); Hemoglobin 12.4 g/dL (12.0-16.0); Lymphocytes Absolute Auto 900 /uL (1100-4500); Lymphocytes Percent Auto 9.6 % (25-40); Mean Corpuscular HGB Conc 33.4 % (30-36); Mean Corpuscular Hemoglobin 30.8 PG (26-34); Mean Corpuscular Volume 92.1 fL (80-100); Monocytes Absolute Auto 600 /uL (0-900); Monocytes Percent Auto 5.7 % (3-14); Neutrophils Absolute Auto 8100 /uL (1500-7000); Neutrophils Percent Auto 83.5 % (50-75); Platelet Count 145 X10^3/uL (150-400); Red Blood Cell Count 4.03 X10^6/uL (4.0-5.2); Red Cell Distribution Width 17.9 % (11.6-14.8); White Blood Cell Count 9.7 X10^3/uL (4.5-11.0)
[2019-10-18 21:49] LABS: INR 1.2 (0.9-1.3); Prothrombin Time 13.6 SECONDS (10.1-12.7)
[2019-10-18] MEDS: ASPIRIN 81 MG CHEW TAB 324 MG PO (21:50)
[2019-10-18 21:53] LABS: Alanine Aminotransferase 18 IU/L (<35); Albumin 4.7 g/dL (3.5-5.0); Albumin Globulin Ratio 1.7 (1.0-2.8); Alkaline Phosphatase 117 U/L (38-126); Aspartate Aminotransferase 22 IU/L (14-36); BUN Creatinine Ratio 4.1 (6-22); Bilirubin Total 0.5 mg/dL (0.2-1.3); Blood Urea Nitrogen 24 mg/dL (7-17); Calcium 9.4 mg/dL (8.4-10.2); Carbon Dioxide 26 mmol/L (22-32); Chloride 98 mmol/L (98-107); Creatine Kinase 29 U/L (30-135); Estimated Glomerular Filt Rate 7.2 mL/min (>60); Globulin 2.7 g/dL (1.7-4.1); Glucose 114 mg/dL (80-110); HEMOLYSIS < 15 (0-50); Lipase 223 U/L (23-300); Sodium 137 mmol/L (137-145); Total Protein 7.4 g/dL (6.3-8.2)
[2019-10-18 22:00] VITALS: BP 121/61; PULSE 86; RESP 20; O2SAT 94
[2019-10-18 22:04] LABS: Troponin I 0.013 ng/mL (0.01-0.034)
[2019-10-18 22:16] LABS: NT-proBNP (BNP-Adult 18+) 172000 pg/mL (<125)
[2019-10-18 22:44] VITALS: BP 110/69; PULSE 87; RESP 20; O2SAT 94
[2019-10-19 00:08] VITALS: BP 110/69; PULSE 85; RESP 22; O2SAT 95
== END 2019-10-19 00:23 | disposition short-term general hospital (02) ==
PROVIDERS: Emergency Provider Emergency Medicine; PCP Internal Medicine
DX: R07.9 Chest pain, unspecified (principal); I50.9 Heart failure, unspecified; Z95.1 Presence of aortocoronary bypass graft; N18.6 End stage renal disease; Z99.2 Dependence on renal dialysis; J18.1 Lobar pneumonia, unspecified organism; I50.23 Acute on chronic systolic (congestive) heart failure
CPT/HCPCS: 36415; 71045; 80048; 80053; 82550; 83690; 83880; 84484; 85025; 85610; 93005; 93010; 94640; 99284; 99285

== ENCOUNTER → 2019-10-31 07:40 | Outpatient (ROUT) | payer MEDICARE, MEDICAID, SELFPAY ==
[2019-10-31 08:55] LABS: Thyroid Stimulating Hormone 0.34 uIU/mL (0.47-4.68)
== END ==
PROVIDERS: PCP Internal Medicine; Visit Provider Internal Medicine
DX: E03.9 Hypothyroidism, unspecified (principal)
CPT/HCPCS: 36415; 84443

== ENCOUNTER 2019-11-27 07:37 | Emergency (ER) | payer MEDICARE, MEDICAID, SELFPAY ==
[2019-11-27] VITALS (13 sets, daily range): BP systolic 147–184; BP diastolic 58–95; PULSE 97–110; RESP 18–27; TEMP 37.2; O2SAT 96–100
--- NOTE | 2019-11-27 08:03 | ED.GENADULT ---
HPI - General Adult General Chief complaint: Chest Pain Stated complaint: Right Arm swelling Time Seen by Provider: 11/27/19 07:51 Source: patient and EMS Mode of arrival: EMS Limitations: no limitations History of Present Illness HPI narrative: 64-year-old female. Has a PLOST had bedside showing DNR with limited interventions signed the end of August 2019. Patient is here for evaluation of chest pain, dyspnea on exertion and right arm swelling. Patient states that the chest pain in the dyspnea on exertion is not new. She has end-stage renal disease on dialysis. Last dialysis treatment was Wednesday. Had a full treatment. She states that she does get extra treatments because of the shortness of breath occasionally. She is also here for right upper extremity swelling. She states she started noticing after her dialysis treatment on Wednesday and worsened yesterday and again was worsened this morning. No fevers. No trauma. She has had clots in her upper extremitys in the past. She has a Cuellar catheter in her right chest which is not new. She also has a fistula in her right upper extremity which she does not use for dialysis. She states that she still needs another surgery before it is usable per vascular surgery. Related Data Home Medications Medication Instructions Recorded Confirmed atorvastatin 40 mg PO BEDTIME 07/04/18 06/14/19 cholecalciferol (vitamin D3) 1,000 unit PO DAILY 07/04/18 06/14/19 [Vitamin D3] hydrocortisone acetate 25 mg NC Q12H PRN 07/04/18 06/14/19 lorazepam 0.5 mg PO Q12H PRN 07/04/18 06/14/19 melatonin 3 mg PO BEDTIME PRN 07/04/18 06/14/19 Lactobacillus acidophilus 1 tab PO DAILY 07/13/18 06/14/19 [Acidophilus] acetaminophen-codeine 1 tab PO Q12H PRN 07/13/18 06/14/19 nitroglycerin [Nitrostat] 0.4 mg SUBLINGUAL Q5-15M PRN 07/13/18 06/14/19 fluticasone propionate [Flovent 2 puff INHALATION BID 10/04/18 06/14/19 HFA] mirtazapine 7.5 mg PO BEDTIMEX7 10/04/18 06/14/19 multivitamin 1 cap PO DAILY 10/04/18 06/14/19 sevelamer carbonate 800 mg PO BID 11/03/18 06/14/19 Nepro Liquid 240 ml PO TID 06/14/19 06/14/19 acetaminophen 650 mg PO Q4H PRN 06/14/19 06/14/19 aspirin 81 mg PO DAILY 06/14/19 06/14/19 benzonatate [Tessalon Perles] 100 mg PO Q8H PRN 06/14/19 06/14/19 calcium carbonate [Calcium 500] 500 mg PO Q2H PRN 06/14/19 06/14/19 cyanocobalamin (vitamin B-12) 1,000 mcg PO DAILY 06/14/19 06/14/19 [Vitamin B-12] hydrocortisone 15 mg PO QAM 06/14/19 06/14/19 levetiracetam 500 mg PO BID 06/14/19 06/14/19 levothyroxine 112 mcg PO QAM 06/14/19 06/14/19 loperamide [Imodium A-D] 2 mg PO PRN PRN MDD 6 CAP 06/14/19 06/14/19 magnesium hydroxide [Milk of 30 ml PO PRN PRN 06/14/19 06/14/19 Magnesia] sacubitril-valsartan [Entresto] 1 tab PO BID 06/14/19 06/14/19 Allergies Allergy/AdvReac Type Severity Reaction Status Date / Time No Known Drug Allergies Allergy Verified 08/18/19 17:42 Review of Systems Constitutional Constitutional: Denies fatigue, Denies fever(s) and Denies headache(s) ENT Ears, Nose, Mouth, and Throat: Denies headache(s) Cardiovascular Cardiovascular: Reports chest pain, Denies leg edema and Reports dyspnea on exertion Respiratory Respiratory: Denies cough, Reports dyspnea on exertion and Denies wheezing Gastrointestinal Gastrointestinal: Denies abdominal pain, Denies nausea and Denies vomiting Musculoskeletal Comments: Right upper extremity swelling Integumentary/Breasts Skin/Breast: Denies lesions and Denies rash Neurologic Neurologic: Denies behavioral changes and Denies headache(s) Psychiatric Psychiatric: Denies behavioral changes Endocrine Endocrine: Denies fatigue Hematologic/Lymphatic Comments: Run Plavix Allergic/Immunologic Allergic/Immunologic: Denies wheezing Patient History Medical History Acute kidney failure (Acute) Acute renal failure on dialysis (Acute) Anemia (Acute) Anxiety (Acute) Breast cancer, left (Resolved) CHF (congestive heart failure) (Acute) Chronic kidney disease (Acute) Fibromyalgia (Acute) GI bleed (Acute) HTN (hypertension) (Acute) Hyperlipidemia (Acute) Hypothyroid (Acute) IBS (irritable bowel syndrome) (Acute) Major depressive disorder (Acute) Malnutrition (Acute) Peripheral vascular disease (Acute) Thrombocytopenia (Acute) TIA (transient ischemic attack) (Acute) Social History lives independently: No Smoking Status: Never smoker Smoking Status: Never smoker alcohol intake frequency: holidays/special occasions only Substance Use Type: does not use Exam Initial Vital Signs Initial Vital Signs: Vital Signs Temperature 98.9 F 11/27/19 07:55 Pulse Rate 109 H 11/27/19 07:55 Respiratory Rate 18 11/27/19 07:55 Blood Pressure 184/84 H 11/27/19 07:55 Pulse Oximetry 96 11/27/19 07:55 Const General: cooperative and comfortable Limitations: mental status not altered HENMT Head: normal to inspection and normocephalic Resp Effort & Inspection: normal respiratory effort Auscultation: clear to auscultation bilaterally Cardio Rate: regular rate Rhythm: regular rhythm GI Inspection: non-distended Palpation: soft Skin Lesions: no lesions Rashes: no rashes Neuro General: alert and awake Cognition: normal cognition Speech: speech normal Extrem Other: Swelling right upper extremity just proximal and just distal to the right elbow. No erythema. Psych Appearance: grossly normal and well kempt Course Orders Ordered: ED Orders 11/27/19 07:51 EKG-12 Lead Stat 11/27/19 08:05 XR chest 1V Stat 11/27/19 08:45 Complete Blood Count AUTO DIFF Stat Comprehensive Metabolic Panel Stat D Dimer Stat Lipase Stat NT-proBNP (BNP-Adult 18+) Stat Partial Thromboplastin Time Stat Prothrombin Time INR Stat Troponin I Stat 11/27/19 09:59 US periph venous up extrem rt Stat Discontinued Medications Apixaban (Eliquis) 10 mg PO NOW ONE Stop: 11/27/19 11:23 Apixaban (Eliquis) 10 mg PO NOW ONE Stop: 11/27/19 14:15 Lorazepam (Ativan) 1 mg PO NOW ONE Stop: 11/27/19 12:11 Last Admin: 11/27/19 12:35 Dose: 1 mg Documented by: JL Vital Signs Vital signs: Vital Signs - 8 hr 11/27/19 07:55 11/27/19 09:00 11/27/19 09:30 Temperature 98.9 F Pulse Rate 109 H 106 H 104 H Respiratory Rate 18 22 23 Blood Pressure 184/84 H Blood Pressure [Left Arm] 175/95 H 165/83 H Pulse Oximetry 96 97 97 11/27/19 10:00 11/27/19 10:30 11/27/19 11:00 Temperature Pulse Rate 100 H 104 H 110 H Respiratory Rate 23 26 H 24 Blood Pressure Blood Pressure [Left Arm] 147/65 H 152/58 H 154/76 H Pulse Oximetry 98 98 100 11/27/19 11:30 11/27/19 12:00 11/27/19 12:30 Temperature Pulse Rate 104 H 104 H 107 H Respiratory Rate 24 22 25 H Blood Pressure Blood Pressure [Left Arm] 179/86 H 175/84 H 152/67 H Pulse Oximetry 100 98 99 11/27/19 13:00 11/27/19 13:30 11/27/19 14:00 Temperature Pulse Rate 105 H 99 H 97 H Respiratory Rate 25 H 27 H 26 H Blood Pressure Blood Pressure [Left Arm] 167/93 H 155/72 H 157/79 H Pulse Oximetry 100 99 99 Medical Decision Making Medical Records Medical records reviewed: Yes I reviewed the patient's medical records. Lab Data Lab results reviewed: Yes I reviewed the patient's lab results. Result diagrams: 11/27/19 08:45 11/27/19 08:45 Labs: Lab Results 11/27/19 11/27/19 11/27/19 Range/Units 08:45 08:45 08:45 WBC 11.1 H (4.5-11.0) X10^3/uL RBC 3.96 L (4.0-5.2) X10^6/uL Hgb 12.2 (12.0-16.0) g/dL Hct 37.6 (36-46) % MCV 95.0 (80-100) fL MCH 30.8 (26-34) PG MCHC 32.4 (30-36) % RDW 18.7 H (11.6-14.8) % Plt Count 116 L (150-400) X10^3/uL Neut % (Auto) Not Reportable Lymph % (Auto) Not Reportable [place] % (Auto) Not Reportable Eos % (Auto) Not Reportable Baso % (Auto) Not Reportable Lymph # (Auto) Not Reportable [place] # (Auto) Not Reportable Baso # (Auto) Not Reportable Total Counted 100 Seg Neutrophils % 89.0 H (38-70) % Lymphocytes % (Manual) 4.0 L (25-45) % Atypical Lymphs % 2.0 H ( - 0) % Monocytes % (Manual) 3.0 (2-11) % Eosinophils % (Manual) 1.0 L (2-4) % Basophils % (Manual) 1.0 (0-1) % Neutrophils # (Manual) 9879 H (9674-0216) /uL RBC Morphology Normal morphology PT 13.3 H (10.1-12.7) SECONDS INR 1.2 (0.9-1.3) APTT 36 D (26.4-36.2) SECONDS D-Dimer 578 H (<230) ng/mL Sodium 132 L (137-145) mmol/L Potassium 5.1 (3.4-5.1) mmol/L Chloride 99 (98-107) mmol/L Carbon Dioxide 22 (22-32) mmol/L BUN 36 H (7-17) mg/dL Creatinine 5.91 H (0.52-1.04) mg/dL Estimated GFR 7.2 L (>60) mL/min BUN/Creatinine Ratio 6.1 (6-22) Glucose 90 (80-110) mg/dL Calcium 9.0 (8.4-10.2) mg/dL Total Bilirubin 0.8 (0.2-1.3) mg/dL AST 42 H (14-36) IU/L ALT 25 (<35) IU/L Alkaline Phosphatase 85 (38-126) U/L Troponin I (0.01-0.034) ng/mL NT-Pro-B Natriuret Pep (<125) pg/mL Total Protein 6.7 (6.3-8.2) g/dL Albumin 4.2 (3.5-5.0) g/dL Globulin 2.5 (1.7-4.1) g/dL Albumin/Globulin Ratio 1.7 (1.0-2.8) Lipase (23-300) U/L 11/27/19 Range/Units 08:45 WBC (4.5-11.0) X10^3/uL RBC (4.0-5.2) X10^6/uL Hgb (12.0-16.0) g/dL Hct (36-46) % MCV (80-100) fL MCH (26-34) PG MCHC (30-36) % RDW (11.6-14.8) % Plt Count (150-400) X10^3/uL Neut % (Auto) Lymph % (Auto) [place] % (Auto) Eos % (Auto) Baso % (Auto) Lymph # (Auto) [place] # (Auto) Baso # (Auto) Total Counted Seg Neutrophils % (38-70) % Lymphocytes % (Manual) (25-45) % Atypical Lymphs % ( - 0) % Monocytes % (Manual) (2-11) % Eosinophils % (Manual) (2-4) % Basophils % (Manual) (0-1) % Neutrophils # (Manual) (1408-2751) /uL RBC Morphology PT (10.1-12.7) SECONDS INR (0.9-1.3) APTT (26.4-36.2) SECONDS D-Dimer (<230) ng/mL Sodium (137-145) mmol/L Potassium (3.4-5.1) mmol/L Chloride (98-107) mmol/L Carbon Dioxide (22-32) mmol/L BUN (7-17) mg/dL Creatinine (0.52-1.04) mg/dL Estimated GFR (>60) mL/min BUN/Creatinine Ratio (6-22) Glucose (80-110) mg/dL Calcium (8.4-10.2) mg/dL Total Bilirubin (0.2-1.3) mg/dL AST (14-36) IU/L ALT (<35) IU/L Alkaline Phosphatase (38-126) U/L Troponin I 0.024 (0.01-0.034) ng/mL NT-Pro-B Natriuret Pep [id number] H (<125) pg/mL Total Protein (6.3-8.2) g/dL Albumin (3.5-5.0) g/dL Globulin (1.7-4.1) g/dL Albumin/Globulin Ratio (1.0-2.8) Lipase 73 (23-300) U/L Imaging Data US - DVT: Radiologist's Impression: [address] [address] Ultrasound Report Signed Patient: Aurelia Gr EMR#: [id number] : 6Acct:[id number] Age/Sex: 64 / FDate of Service: 11/27/19 Loc: ED Accession Number: [id number] Procedure: US periph venous up extrem rt Ordering Provider: Edson Friend D.O. PROCEDURE: US PERIPH VENOUS UP EXTREM RT INDICATIONS: EDEMA TECHNIQUE: Real-time imaging, as well as color and pulse Doppler interrogation, was performed of the right upper extremity deep veins from the inferior neck to the antecubital fossa. COMPARISON: None. FINDINGS: Thrombus can be seen within the right brachial vein within the distal aspect of the upper extremity. The remainder of the brachial vein is not seen. At the level of the antecubital fossa, one of the paired brachial veins is patent. No other findings of deep venous thrombosis can be seen. IMPRESSION: Positive deep venous thrombosis, with brachial vein thrombus. Dictated by: Broderick Lundy M.D. on 11/27/2019 at 10:04 Approved by: Broderick Lundy M.D. on 11/27/2019 at 10:06 Chest x-ray: Radiologist's Impression: [address] [address] XRay Report Signed Patient: Aurelia Gr EMR#: [id number] : 6Acct:[id number] Age/Sex: 64 / FDate of Service: 11/27/19 Loc: ED Accession Number: [id number] Procedure: XR chest 1V Ordering Provider: Edson Friend D.O. PROCEDURE: XR CHEST 1V INDICATIONS: SOB TECHNIQUE: One view of the chest was acquired. COMPARISON: [facility], CR, XR CHEST 2V, 09/15/2019, 9:31. [facility], CR, XR CHEST 1V, 10/18/2019, 4:35. [facility], CT, CT ANGIO CHEST PE PROTOCOL, 09/09/2019, 6:42. [facility], CR, XR CHEST 1V, 10/18/2019, 21:45. FINDINGS: Surgical changes and devices: Right IJ dual-lumen central venous line with the tip in the right atrium, unchanged. Post median sternotomy and CABG. Left axillary clips. Breast implants. Lungs and pleura: There is increased curvilinear opacity at the left lung base silhouetting the hemidiaphragm and cardiac silhouette. There is also blunting of the left costophrenic angle. No significant effusion on the right. No pneumothorax. Increased pulmonary vascular markings with a central predominance. Mediastinum: Mediastinal contours appear normal. Heart size is enlarged. Bones and chest wall: No suspicious bony lesions. Overlying soft tissues appear unremarkable. IMPRESSION: 1. Probable increased left pleural effusion accounting for left basilar opacity. 2. Cardiomegaly. Increased pulmonary vasculature markings raises the possibility of mild fluid overload/CHF. Dictated by: Dionisio Conte M.D. on 11/27/2019 at 8:28 Approved by: Dionisio Conte M.D. on 11/27/2019 at 8:34 ECG Data Attestation: I personally reviewed and interpreted this ECG as follows: Prior ECG tracings: not available for review Interpretation: Sinus tachycardia LVH Rate of [address] T wave changes MDM Narrative Medical decision making narrative: Had a long discussion with her primary doctor who stated that her chest pain and shortness of breath is not new. The patient also agreed that her chest pain shortness of breath today or is not new. This is being medically managed. She has been seen by Cardiology. Within the past 60 days has had a cardiac workup to include nuclear medicine which showed no acute changes. I feel that her chest pain today is noncardiac. She does have an ultrasound consistent with a right upper extremity DVT. Has had this in the past. There is no signs of cellulitis. I also discussed this with her primary provider. Her primary provider stated that she was going to talk with the patient's drapery hemmer automatic. We initially had the patient up for discharge however rest acute the patient here in the emergency department till the drapery hemmer automatic called us back because there was some question about whether not the vascular surgeon wanted to get involved because the patient's fistula in her right upper extremity. We waited several hours without any call back. I then contacted her primary doctor in 2 stated that it would be okay just to give the patient a dose of the anticoagulation and discharge her back to her facility so that the patient can get her dialysis that she is already scheduled for this evening. I feel we can hold on a CTA of her chest. We also considered the patient's history of GI bleeds. There is also some question with the patient having a head bleed in the past however her primary doctor had no record of this. As the patient's sister stating that she had had ?multiple head bleeds ?. Feel that 1 dose of the anticoagulation would not be unreasonable in this patient. Continue treatment be provided after her primary doctor talk with Nephrology. I discusses the patient. She expressed understanding Discharge Plan Departure Patient Disposition: Home Clinical Impression: DVT (deep venous thrombosis) Qualifiers: DVT location: upper extremity Affected thrombotic vein of extremity: brachial Chronicity: acute Laterality: right Qualified Code(s): I82.621 - Acute embolism and thrombosis of deep veins of right upper extremity Instructions: DI for Deep Vein Thrombosis Activity Restrictions/Additional Instructions: Your primary doctor is aware of the blood clot. She is going to contact your drapery hemmer automatic to discuss with him about blood thinners. You were given a dose of blood thinners here in the ER. Your next dialysis session is this evening in you can attend this as directed. Return to the emergency department for any new or worsening symptoms Prescriptions: No Action atorvastatin 40 mg Tablet 40 mg PO BEDTIME RF: 0 melatonin 3 mg Tablet 3 mg PO BEDTIME PRN (Reason: Insomnia) RF: 0 hydrocortisone acetate 25 mg Suppository 25 mg NC Q12H PRN (Reason: Hemorrhoids) RF: 0 lorazepam 0.5 mg Tablet 0.5 mg PO Q12H PRN (Reason: Anxiety) RF: 0 cholecalciferol (vitamin D3) [Vitamin D3] 1,000 unit Capsule 1,000 unit PO DAILY RF: 0 sevelamer carbonate 800 mg tablet 800 mg PO BID RF: 0 Lactobacillus acidophilus [Acidophilus] Capsule 1 tab PO DAILY RF: 0 acetaminophen-codeine 300-30 mg Tablet 1 tab PO Q12H PRN (Reason: pain) RF: 0 nitroglycerin [Nitrostat] 0.4 mg Tablet, Sublingual 0.4 mg SUBLINGUAL Q5-15M PRN (Reason: Chest Pain) RF: 0 Flovent HFA 44 mcg/actuation HFA aerosol inhaler 2 puff Inhalation BID RF: 0 mirtazapine 15 mg tablet 7.5 mg PO BEDTIMEX7 RF: 0 multivitamin Capsule 1 cap PO DAILY RF: 0 acetaminophen 325 mg Tablet 650 mg PO Q4H PRN (Reason: FEVER > 100 AND PAIN) RF: 0 levetiracetam 500 mg tablet 500 mg PO BID RF: 0 cyanocobalamin (vitamin B-12) [Vitamin B-12] 1,000 mcg Tablet 1,000 mcg PO DAILY RF: 0 aspirin 81 mg Tablet,Chewable 81 mg PO DAILY RF: 0 hydrocortisone 10 mg tablet 15 mg PO QAM RF: 0 levothyroxine 112 mcg tablet 112 mcg PO QAM RF: 0 Entresto 24-26 mg tablet 1 tab PO BID RF: 0 Nepro Liquid 240 ml PO TID RF: 0 loperamide [Imodium A-D] 2 mg Capsule 2 mg PO PRN MDD 6 CAP PRN (Reason: Diarrhea) RF: 0 magnesium hydroxide [Milk of Magnesia] 400 mg/5 mL Suspension 30 ml PO PRN PRN (Reason: Constipation) RF: 0 calcium carbonate [Calcium 500] 500 mg calcium (1,250 mg) Tablet,Chewable 500 mg PO Q2H PRN (Reason: GI UPSET) RF: 0 benzonatate [Tessalon Perles] 100 mg capsule 100 mg PO Q8H PRN (Reason: cough) RF: 0 Referrals: Germaine Jalloh MD [Primary Care Provider] -
[2019-11-27 08:53] LABS: Hematocrit 37.6 % (36-46); Hemoglobin 12.2 g/dL (12.0-16.0); Mean Corpuscular HGB Conc 32.4 % (30-36); Mean Corpuscular Hemoglobin 30.8 PG (26-34); Platelet Count 116 X10^3/uL (150-400); Red Blood Cell Count 3.96 X10^6/uL (4.0-5.2); Red Cell Distribution Width 18.7 % (11.6-14.8); White Blood Cell Count 11.1 X10^3/uL (4.5-11.0)
[2019-11-27 09:05] LABS: Add Manual Diff / Slide Review YES; Lipase 73 U/L (23-300)
[2019-11-27 09:07] LABS: Alanine Aminotransferase 25 IU/L (<35); Albumin 4.2 g/dL (3.5-5.0); Albumin Globulin Ratio 1.7 (1.0-2.8); Alkaline Phosphatase 85 U/L (38-126); Aspartate Aminotransferase 42 IU/L (14-36); BUN Creatinine Ratio 6.1 (6-22); Bilirubin Total 0.8 mg/dL (0.2-1.3); Blood Urea Nitrogen 36 mg/dL (7-17); Carbon Dioxide 22 mmol/L (22-32); Chloride 99 mmol/L (98-107); Estimated Glomerular Filt Rate 7.2 mL/min (>60); Globulin 2.5 g/dL (1.7-4.1); Glucose 90 mg/dL (80-110); HEMOLYSIS 70 (0-50); Sodium 132 mmol/L (137-145); Total Protein 6.7 g/dL (6.3-8.2)
[2019-11-27 09:08] LABS: Potassium 5.1 mmol/L (3.4-5.1)
[2019-11-27 09:12] LABS: INR 1.2 (0.9-1.3); Prothrombin Time 13.3 SECONDS (10.1-12.7)
[2019-11-27 09:15] LABS: PTT Partial Thromboplastin Tim 36 SECONDS (26.4-36.2)
[2019-11-27 09:16] LABS: D Dimer 578 ng/mL (<230)
[2019-11-27 09:17] LABS: Troponin I 0.024 ng/mL (0.01-0.034)
[2019-11-27 09:25] LABS: Neutrophils Absolute Manual 9879 /uL (3000-5900); RBC Morphology Normal Morphology; Total Cells Counted 100
[2019-11-27 09:31] LABS: NT-proBNP (BNP-Adult 18+) 170000 pg/mL (<125)
--- NOTE | 2019-11-27 09:59 | DI.US.S_ITS ---
PROCEDURE: US PERIPH VENOUS UP EXTREM RT INDICATIONS: EDEMA TECHNIQUE: Real-time imaging, as well as color and pulse Doppler interrogation, was performed of the right upper extremity deep veins from the inferior neck to the antecubital fossa. COMPARISON: None. FINDINGS: Thrombus can be seen within the right brachial vein within the distal aspect of the upper extremity. The remainder of the brachial vein is not seen. At the level of the antecubital fossa, one of the paired brachial veins is patent. No other findings of deep venous thrombosis can be seen. IMPRESSION: Positive deep venous thrombosis, with brachial vein thrombus. Dictated by: Broderick Lundy M.D. on 11/27/2019 at 10:04 Approved by: Broderick Lundy M.D. on 11/27/2019 at 10:06
[2019-11-27] MEDS: LORazepam 0.5 MG TABLET 1 MG PO (12:35)
[2019-11-27] MEDS: APIXABAN 5 MG TABLET 10 MG PO (14:30)
--- NOTE | 2019-11-27 15:03 | PC.NURSE ---
1100 at this time patient is to be given dose of eliquis and then DC'd back to [place]. Dialysis appointment tonight and primary care to decide further treatment.
--- NOTE | 2019-11-27 15:03 | PC.NURSE ---
5062 I called [facility] to come and get patient. I also called the patient's sister and POA to inform her of DC. Sister reports patient has a history of multiple brain bleeds and would like to ensure that Dr. Friend is aware of all of this. At this time Dr. Friend reports he is on the phone with the patient's PCP Shubham. Verbal order given to hold Eliquis at this time. Dr. elliott is attmepting to get a hold of Dr. Horton to decide what will be done for the patient. No DC at this time. I called informed the patient's sister of this and also called back [facility] to hold DC.
--- NOTE | 2019-11-27 15:10 | PC.NURSE ---
1430 At this time I spoke with MADISON at dialysis and informed him that we are hoping to send the patient to her dialysis appointment at 6pm but are awaiting final word from the different doctors.
--- NOTE | 2019-11-27 15:16 | PC.NURSE ---
[address] Jalloh called and said that she had not heard back from Dr. Horton and to give the patient the one time dose of Eliquis and send her back to [facility]. I again called [facility] and informed them that the patient was ready for DC. Reports given to RN. They are sending someone for pickup. I then called and spoke with the patient's sister Gallo. She reports that she just spoke with Dr. Horton and that Dr. Horton is calling the ER to talk to Dr. Friend about some concerns about the US reports being vague and not indicating if the Fistula is patent or not. Dr. Friend aware.
--- NOTE | 2019-11-27 15:17 | PC.NURSE ---
2205 Dr. Friend reports he spoke with Dr. Horton. He states he listened for the Bruit and assessed the fistula and deemed it patent and let Dr. Horton know all of that. ok to DC the patient.
--- NOTE | 2019-11-27 15:18 | PC.NURSE ---
1500 I called the patient's sister Gallo and MADISON the cabin supervisor and informed them of the patient's DC back to [place] and later to dialysis.
== END 2019-11-27 15:11 | disposition home or self-care (01) ==
PROVIDERS: Emergency Provider Emergency Medicine; PCP Internal Medicine
DX: I82.621 Acute embolism and thrombosis of deep veins of right upper extremity (principal); R07.9 Chest pain, unspecified; R06.02 Shortness of breath
CPT/HCPCS: 36415; 71045; 80053; 83690; 83880; 84484; 85025; 85379; 85610; 85730; 93005; 93971; 99284

== ENCOUNTER → 2020-01-02 09:38 | Outpatient (ROUT) | payer MEDICARE, MEDICAID, SELFPAY ==
[2020-01-02 10:53] LABS: Thyroid Stimulating Hormone 0.29 uIU/mL (0.47-4.68)
[2020-01-04 21:25] LABS: Levetiracetam Keppra 59.4 ug/mL (10.0-40.0)
== END ==
PROVIDERS: PCP Internal Medicine; Visit Provider Nurse Practitioner Gerontology
DX: E03.9 Hypothyroidism, unspecified (principal); R56.9 Unspecified convulsions
CPT/HCPCS: 36415; 80177; 84443

== ENCOUNTER → 2020-02-06 08:26 | Outpatient (ROUT) | payer MEDICARE, MEDICAID, SELFPAY | PROVIDERS: PCP Internal Medicine; Visit Provider Nurse Practitioner Family | DX: G40.909 Epilepsy, unspecified, not intractable, without status epilepticus (principal) | CPT/HCPCS: 80177 ==

== ENCOUNTER → 2020-02-20 07:46 | Outpatient (ROUT) | payer MEDICARE, MEDICAID, SELFPAY ==
[2020-02-20 09:02] LABS: Thyroid Stimulating Hormone 1.23 uIU/mL (0.47-4.68)
== END ==
PROVIDERS: PCP Internal Medicine; Visit Provider Nurse Practitioner Family
DX: E03.8 Other specified hypothyroidism (principal)
CPT/HCPCS: 36415; 84443

== ENCOUNTER 2020-03-07 02:26 | Emergency (ER) | payer MEDICARE, MEDICAID, SELFPAY ==
[2020-03-07] VITALS (12 sets, daily range): BP systolic 115–131; BP diastolic 56–70; PULSE 81–92; RESP 15–23; TEMP 36.9; O2SAT 90–100; BMI 28.3
--- NOTE | 2020-03-07 02:29 | DI.RAD.S_ITS ---
PROCEDURE: XR CHEST 1V INDICATIONS: cough, Shortness of breath, hypoxia TECHNIQUE: One view of the chest was acquired. COMPARISON: [facility], CR, XR CHEST 1V, 11/27/2019, 8:08. FINDINGS: Surgical changes and devices: Dual lumen dialysis catheter stable. Postsurgical changes compatible with prior CABG procedure. Numerous surgical clips in the left axilla. Lungs and pleura: Focal opacity noted in the left midlung. No pleural effusions or pneumothorax. Mediastinum: Mediastinal contours appear normal. Heart size is normal. Bones and chest wall: No suspicious bony lesions. Overlying soft tissues appear unremarkable. IMPRESSION: Small focal opacity left midlung possibly related to pneumonia. Recommend follow-up two view plain film radiographs of the chest in 30 days to ensure resolution and to exclude underlying neoplastic process. Dictated by: Charu Artis MD, PhD on 03/07/2020 at 8:41 Approved by: Charu Artis MD, PhD on 03/07/2020 at 8:43
--- NOTE | 2020-03-07 02:31 | ED.SOB ---
HPI - SOB/Dyspnea General Chief Complaint: Upper Respiratory Symptoms Stated Complaint: Possible Aspiration Time Seen by Provider: 03/07/20 02:26 Source: patient and EMS Mode of arrival: EMS Limitations: no limitations History of Present Illness HPI Narrative: 64-year-old female nonsmoker with history of end-stage renal disease with dialysis on Wednesday, and Wednesday (Dr. Horton / Jenna) presents by EMS with a chief complaint worsening shortness of breath with cough over the course of the day. The patient states that she had been taking some of her night medications when she choked, and spider to bit and then vomited and swallowed some of her emesis and perhaps a pill fragment. She states she has had aspiration before and she feels like she does when she has pneumonia. She denies it much in the way of cough and has no sputum. She has had no fever or chills. She feels a bit weak. She denies any chest pain. She denies nausea, vomiting or diarrhea. They have been doing extra runs of dialysis every other week for her and this would be the week she would get an extra session. MD Complaint: shortness of breath Onset (ago): hour(s) Severity: moderate Consistency/Duration: constant Relieving factors: nothing Exacerbating factors: nothing Associated symptoms: denies other symptoms Treatment prior to arrival: none Related Data Home oxygen amount: none Home Medications Medication Instructions Recorded Confirmed atorvastatin 40 mg PO BEDTIME 07/04/18 06/14/19 cholecalciferol (vitamin D3) 1,000 unit PO DAILY 07/04/18 06/14/19 [Vitamin D3] hydrocortisone acetate 25 mg SD Q12H PRN 07/04/18 06/14/19 lorazepam 0.5 mg PO Q12H PRN 07/04/18 06/14/19 melatonin 3 mg PO BEDTIME PRN 07/04/18 06/14/19 Lactobacillus acidophilus 1 tab PO DAILY 07/13/18 06/14/19 [Acidophilus] acetaminophen-codeine 1 tab PO Q12H PRN 07/13/18 06/14/19 nitroglycerin [Nitrostat] 0.4 mg SUBLINGUAL Q5-15M PRN 07/13/18 06/14/19 fluticasone propionate [Flovent 2 puff INHALATION BID 10/04/18 06/14/19 HFA] mirtazapine 7.5 mg PO BEDTIMEX7 10/04/18 06/14/19 multivitamin 1 cap PO DAILY 10/04/18 06/14/19 sevelamer carbonate 800 mg PO BID 11/03/18 06/14/19 Nepro Liquid 240 ml PO TID 06/14/19 06/14/19 acetaminophen 650 mg PO Q4H PRN 06/14/19 06/14/19 aspirin 81 mg PO DAILY 06/14/19 06/14/19 benzonatate [Tessalon Perles] 100 mg PO Q8H PRN 06/14/19 06/14/19 calcium carbonate [Calcium 500] 500 mg PO Q2H PRN 06/14/19 06/14/19 cyanocobalamin (vitamin B-12) 1,000 mcg PO DAILY 06/14/19 06/14/19 [Vitamin B-12] hydrocortisone 15 mg PO QAM 06/14/19 06/14/19 levetiracetam 500 mg PO BID 06/14/19 06/14/19 levothyroxine 112 mcg PO QAM 06/14/19 06/14/19 loperamide [Imodium A-D] 2 mg PO PRN PRN MDD 6 CAP 06/14/19 06/14/19 magnesium hydroxide [Milk of 30 ml PO PRN PRN 06/14/19 06/14/19 Magnesia] sacubitril-valsartan [Entresto] 1 tab PO BID 06/14/19 06/14/19 Allergies Allergy/AdvReac Type Severity Reaction Status Date / Time No Known Drug Allergies Allergy Verified 08/18/19 17:42 Review of Systems Constitutional Constitutional: Denies chills, Denies fatigue, Denies fever(s), Denies frequent falls, Denies lethargy and Denies weakness Eyes Eyes: Denies change in vision, Denies eye discharge, Denies irritation and Denies loss of vision ENT Ears, Nose, Mouth, and Throat: Denies change in voice, Denies dizziness, Denies neck pain, Denies sore throat and Denies throat swelling Cardiovascular Cardiovascular: Denies chest pain, Denies irregular heart rhythm, Denies lightheadedness, Denies palpitations, Reports dyspnea, Denies dyspnea on exertion and Denies orthopnea Respiratory Respiratory: Denies cough, Reports dyspnea, Denies dyspnea on exertion and Denies wheezing Gastrointestinal Gastrointestinal: Denies abdominal pain, Denies change in bowel habits, Denies diarrhea, Denies nausea and Denies vomiting Musculoskeletal Musculoskeletal: Denies neck pain and Denies numbness Integumentary/Breasts Skin/Breast: Denies pruritus, Denies erythema, Denies rash and Denies wounds Neurologic Neurologic: Denies behavioral changes, Denies confusion, Denies dizziness, Denies frequent falls, Denies loss of vision, Denies numbness and Denies weakness Psychiatric Psychiatric: Denies anxiety, Denies behavioral changes, Denies confusion, Denies depression, Denies homicidal ideation and Denies suicidal ideation Endocrine Endocrine: Denies fatigue, Denies flushing and Denies palpitations Hematologic/Lymphatic Hematologic/Lymphatic: Denies easy bruising Allergic/Immunologic Allergic/Immunologic: Denies urticaria, Denies throat swelling and Denies wheezing Patient History Medical History Acute kidney failure (Acute) Acute renal failure on dialysis (Acute) Anemia (Acute) Anxiety (Acute) Breast cancer, left (Resolved) CHF (congestive heart failure) (Acute) Chronic kidney disease (Acute) Fibromyalgia (Acute) GI bleed (Acute) HTN (hypertension) (Acute) Hyperlipidemia (Acute) Hypothyroid (Acute) IBS (irritable bowel syndrome) (Acute) Major depressive disorder (Acute) Malnutrition (Acute) Peripheral vascular disease (Acute) Thrombocytopenia (Acute) TIA (transient ischemic attack) (Acute) Social History lives independently: No Smoking Status: Never smoker Smoking Status: Never smoker alcohol intake frequency: holidays/special occasions only Substance Use Type: does not use Exam Narrative Exam Narrative: GENERAL: [64] year old patient appears stated age. Well-nourished, well-developed patient, in mild distress. No obvious or significant increased work of breathing HEAD: Atraumatic. Normocephalic. EYES: Pupils equal round and reactive. Extraocular motions intact. No scleral icterus. No injection or drainage. ENT: Nose without bleeding, purulent drainage. Throat without erythema, tonsillar hypertrophy or exudate. Airway patent. NECK: Trachea midline. Non tender CARDIOVASCULAR: Regular rate and rhythm without murmurs, gallops, or rubs. RESPIRATORY: Faint crackles in bilateral bases, good effort. No tachypnea GASTROINTESTINAL: Abdomen soft, non-tender, nondistended. EXTREMITIES: No edema or joint tenderness. BACK: Nontender without deformity or crepitance. No flank tenderness. NEURO: AOx3. SKIN: No rash or erythema of visible areas Initial Vital Signs Initial Vital Signs: Vital Signs Temperature 98.5 F 03/07/20 02:42 Pulse Rate 92 H 03/07/20 02:42 Respiratory Rate 18 03/07/20 02:42 Blood Pressure 131/69 03/07/20 02:42 Pulse Oximetry 92 03/07/20 02:42 Course Orders Ordered: ED Orders 03/07/20 02:29 XR chest 1V Stat 03/07/20 02:30 Consult to Respiratory Therapy Evaluate & Treat EKG-12 Lead Stat 03/07/20 03:00 Complete Blood Count AUTO DIFF Stat Comprehensive Metabolic Panel Stat D Dimer Stat Lactate (Lactic Acid) Stat Magnesium Stat NT-proBNP (BNP-Adult 18+) Stat Phosphorous Stat Procalcitonin Stat Prothrombin Time INR Stat Troponin & CK Cardiac Panel Stat 03/07/20 03:40 Blood Culture Stat 03/07/20 04:25 CT chest wo con Stat Consultations Consultation #1: call to nephrology at [facility]. Dr. Horton is security operations analyst. He agrees that she is best served to go to her normal dialysis this morning and will not require hospitalization or transfer Vital Signs Vital signs: Vital Signs - 8 hr 03/07/20 02:42 03/07/20 03:01 03/07/20 03:03 Temperature 98.5 F Pulse Rate 92 H 91 H 89 Respiratory Rate 18 23 20 Blood Pressure 131/69 117/56 L Pulse Oximetry 92 90 L 91 03/07/20 03:30 03/07/20 04:00 03/07/20 04:23 Temperature Pulse Rate 89 83 81 Respiratory Rate 21 17 21 Blood Pressure 115/70 115/70 Pulse Oximetry 93 98 98 MDM - SOB/Dyspnea Lab Data Result diagrams: 03/07/20 03:00 03/07/20 03:00 Labs: Lab Results 03/07/20 03/07/20 03/07/20 Range/Units 03:00 03:00 03:00 WBC 10.3 (4.5-11.0) X10^3/uL RBC 3.42 L (4.0-5.2) X10^6/uL Hgb 11.1 L (12.0-16.0) g/dL Hct 32.1 L (36-46) % MCV 94.0 (80-100) fL MCH 32.4 (26-34) PG MCHC 34.4 (30-36) % RDW 18.5 H (11.6-14.8) % Plt Count 121 L (150-400) X10^3/uL Neut % (Auto) 81.7 H (50-75) % Lymph % (Auto) 10.5 L (25-40) % [place] % (Auto) 4.9 (3-14) % Eos % (Auto) 1.7 L (2-4) % Baso % (Auto) 1.2 (0-2) % Neut # (Auto) 8400 H (1127-3793) /uL Lymph # (Auto) 1100 (3027-1513) /uL [place] # (Auto) 500 (0-900) /uL Eos # (Auto) 200 (0-450) /uL Baso # (Auto) 100 (0-100) /uL PT 17.4 H (10.1-12.7) SECONDS INR 1.5 H (0.9-1.3) D-Dimer (<230) ng/mL Sodium (137-145) mmol/L Potassium (3.4-5.1) mmol/L Chloride (98-107) mmol/L Carbon Dioxide (22-32) mmol/L BUN (7-17) mg/dL Creatinine (0.52-1.04) mg/dL Estimated GFR (>60) mL/min BUN/Creatinine Ratio (6-22) Glucose (80-110) mg/dL Lactate (0.7-2.1) mmol/L Calcium (8.4-10.2) mg/dL Phosphorus 6.1 H (2.8-4.1) mg/dL Magnesium (1.6-2.3) mg/dL Total Bilirubin (0.2-1.3) mg/dL AST (14-36) IU/L ALT (<35) IU/L Alkaline Phosphatase (38-126) U/L Total Creatine Kinase (30-135) U/L CK-MB (CK-2) CK-MB (CK-2) Rel Index Troponin I (0.01-0.034) ng/mL NT-Pro-B Natriuret Pep [id number] H (<125) pg/mL Total Protein (6.3-8.2) g/dL Albumin (3.5-5.0) g/dL Globulin (1.7-4.1) g/dL Albumin/Globulin Ratio (1.0-2.8) Procalcitonin (<0.5) ng/mL 03/07/20 03/07/20 03/07/20 Range/Units 03:00 03:00 03:00 WBC (4.5-11.0) X10^3/uL RBC (4.0-5.2) X10^6/uL Hgb (12.0-16.0) g/dL Hct (36-46) % MCV (80-100) fL MCH (26-34) PG MCHC (30-36) % RDW (11.6-14.8) % Plt Count (150-400) X10^3/uL Neut % (Auto) (50-75) % Lymph % (Auto) (25-40) % [place] % (Auto) (3-14) % Eos % (Auto) (2-4) % Baso % (Auto) (0-2) % Neut # (Auto) (6939-8687) /uL Lymph # (Auto) (3858-9256) /uL [place] # (Auto) (0-900) /uL Eos # (Auto) (0-450) /uL Baso # (Auto) (0-100) /uL PT (10.1-12.7) SECONDS INR (0.9-1.3) D-Dimer (<230) ng/mL Sodium 127 L (137-145) mmol/L Potassium 4.9 (3.4-5.1) mmol/L Chloride 91 L (98-107) mmol/L Carbon Dioxide 24 (22-32) mmol/L BUN 39 H (7-17) mg/dL Creatinine 6.46 H (0.52-1.04) mg/dL Estimated GFR 6.5 L (>60) mL/min BUN/Creatinine Ratio 6.0 (6-22) Glucose 95 (80-110) mg/dL Lactate 1.0 (0.7-2.1) mmol/L Calcium 8.9 (8.4-10.2) mg/dL Phosphorus (2.8-4.1) mg/dL Magnesium 2.0 (1.6-2.3) mg/dL Total Bilirubin 0.3 (0.2-1.3) mg/dL AST 43 H (14-36) IU/L ALT 24 (<35) IU/L Alkaline Phosphatase 93 (38-126) U/L Total Creatine Kinase 27 L (30-135) U/L CK-MB (CK-2) TNP CK-MB (CK-2) Rel Index TNP Troponin I 0.031 (0.01-0.034) ng/mL NT-Pro-B Natriuret Pep (<125) pg/mL Total Protein 6.2 L (6.3-8.2) g/dL Albumin 4.1 (3.5-5.0) g/dL Globulin 2.1 (1.7-4.1) g/dL Albumin/Globulin Ratio 2.0 (1.0-2.8) Procalcitonin 0.38 (<0.5) ng/mL 03/07/20 Range/Units 03:00 WBC (4.5-11.0) X10^3/uL RBC (4.0-5.2) X10^6/uL Hgb (12.0-16.0) g/dL Hct (36-46) % MCV (80-100) fL MCH (26-34) PG MCHC (30-36) % RDW (11.6-14.8) % Plt Count (150-400) X10^3/uL Neut % (Auto) (50-75) % Lymph % (Auto) (25-40) % [place] % (Auto) (3-14) % Eos % (Auto) (2-4) % Baso % (Auto) (0-2) % Neut # (Auto) (3847-3923) /uL Lymph # (Auto) (7014-9808) /uL [place] # (Auto) (0-900) /uL Eos # (Auto) (0-450) /uL Baso # (Auto) (0-100) /uL PT (10.1-12.7) SECONDS INR (0.9-1.3) D-Dimer 241 H (<230) ng/mL Sodium (137-145) mmol/L Potassium (3.4-5.1) mmol/L Chloride (98-107) mmol/L Carbon Dioxide (22-32) mmol/L BUN (7-17) mg/dL Creatinine (0.52-1.04) mg/dL Estimated GFR (>60) mL/min BUN/Creatinine Ratio (6-22) Glucose (80-110) mg/dL Lactate (0.7-2.1) mmol/L Calcium (8.4-10.2) mg/dL Phosphorus (2.8-4.1) mg/dL Magnesium (1.6-2.3) mg/dL Total Bilirubin (0.2-1.3) mg/dL AST (14-36) IU/L ALT (<35) IU/L Alkaline Phosphatase (38-126) U/L Total Creatine Kinase (30-135) U/L CK-MB (CK-2) CK-MB (CK-2) Rel Index Troponin I (0.01-0.034) ng/mL NT-Pro-B Natriuret Pep (<125) pg/mL Total Protein (6.3-8.2) g/dL Albumin (3.5-5.0) g/dL Globulin (1.7-4.1) g/dL Albumin/Globulin Ratio (1.0-2.8) Procalcitonin (<0.5) ng/mL Imaging Data CT scan - chest: Radiologist's Impression: Acute CHF, small left pleural effusion Discharge Plan Departure Patient Disposition: Home Clinical Impression: Acute dyspnea Fluid overload Qualifiers: Hypervolemia type: unspecified Qualified Code(s): E87.70 - Fluid overload, unspecified Instructions: DI for Shortness of Breath Activity Restrictions/Additional Instructions: *You have been diagnosed with [ acute fluid overload, dyspnea ] *What to do: *Take medications as directed *Your regular dialysis is today at 1030, Dr. Horton wants to see how you are after your dialysis *Return to ER if you should have any new, worsening or concerning symptoms Prescriptions: No Action atorvastatin 40 mg Tablet 40 mg PO BEDTIME RF: 0 melatonin 3 mg Tablet 3 mg PO BEDTIME PRN (Reason: Insomnia) RF: 0 hydrocortisone acetate 25 mg Suppository 25 mg SD Q12H PRN (Reason: Hemorrhoids) RF: 0 lorazepam 0.5 mg Tablet 0.5 mg PO Q12H PRN (Reason: Anxiety) RF: 0 cholecalciferol (vitamin D3) [Vitamin D3] 1,000 unit Capsule 1,000 unit PO DAILY RF: 0 sevelamer carbonate 800 mg tablet 800 mg PO BID RF: 0 Lactobacillus acidophilus [Acidophilus] Capsule 1 tab PO DAILY RF: 0 acetaminophen-codeine 300-30 mg Tablet 1 tab PO Q12H PRN (Reason: pain) RF: 0 nitroglycerin [Nitrostat] 0.4 mg Tablet, Sublingual 0.4 mg SUBLINGUAL Q5-15M PRN (Reason: Chest Pain) RF: 0 Flovent HFA 44 mcg/actuation HFA aerosol inhaler 2 puff Inhalation BID RF: 0 mirtazapine 15 mg tablet 7.5 mg PO BEDTIMEX7 RF: 0 multivitamin Capsule 1 cap PO DAILY RF: 0 acetaminophen 325 mg Tablet 650 mg PO Q4H PRN (Reason: FEVER > 100 AND PAIN) RF: 0 levetiracetam 500 mg tablet 500 mg PO BID RF: 0 cyanocobalamin (vitamin B-12) [Vitamin B-12] 1,000 mcg Tablet 1,000 mcg PO DAILY RF: 0 aspirin 81 mg Tablet,Chewable 81 mg PO DAILY RF: 0 hydrocortisone 10 mg tablet 15 mg PO QAM RF: 0 levothyroxine 112 mcg tablet 112 mcg PO QAM RF: 0 Entresto 24-26 mg tablet 1 tab PO BID RF: 0 Nepro Liquid 240 ml PO TID RF: 0 loperamide [Imodium A-D] 2 mg Capsule 2 mg PO PRN MDD 6 CAP PRN (Reason: Diarrhea) RF: 0 magnesium hydroxide [Milk of Magnesia] 400 mg/5 mL Suspension 30 ml PO PRN PRN (Reason: Constipation) RF: 0 calcium carbonate [Calcium 500] 500 mg calcium (1,250 mg) Tablet,Chewable 500 mg PO Q2H PRN (Reason: GI UPSET) RF: 0 benzonatate [Tessalon Perles] 100 mg capsule 100 mg PO Q8H PRN (Reason: cough) RF: 0 Referrals: Germaine Jalloh MD [Primary Care Provider] -
[2020-03-07 03:21] LABS: Add Manual Diff / Slide Review NO; Basophils Absolute Auto 100 /uL (0-100); Basophils Percent Auto 1.2 % (0-2); Eosinophils Absolute Auto 200 /uL (0-450); Eosinophils Percent Auto 1.7 % (2-4); Hematocrit 32.1 % (36-46); Hemoglobin 11.1 g/dL (12.0-16.0); Lymphocytes Absolute Auto 1100 /uL (1100-4500); Lymphocytes Percent Auto 10.5 % (25-40); Mean Corpuscular HGB Conc 34.4 % (30-36); Mean Corpuscular Hemoglobin 32.4 PG (26-34); Monocytes Absolute Auto 500 /uL (0-900); Monocytes Percent Auto 4.9 % (3-14); Neutrophils Absolute Auto 8400 /uL (1500-7000); Neutrophils Percent Auto 81.7 % (50-75); Platelet Count 121 X10^3/uL (150-400); Red Blood Cell Count 3.42 X10^6/uL (4.0-5.2); Red Cell Distribution Width 18.5 % (11.6-14.8); White Blood Cell Count 10.3 X10^3/uL (4.5-11.0)
[2020-03-07 03:33] LABS: INR 1.5 (0.9-1.3); Prothrombin Time 17.4 SECONDS (10.1-12.7)
[2020-03-07 03:35] LABS: Alanine Aminotransferase 24 IU/L (<35); Albumin 4.1 g/dL (3.5-5.0); Alkaline Phosphatase 93 U/L (38-126); Aspartate Aminotransferase 43 IU/L (14-36); Bilirubin Total 0.3 mg/dL (0.2-1.3); Blood Urea Nitrogen 39 mg/dL (7-17); Calcium 8.9 mg/dL (8.4-10.2); Carbon Dioxide 24 mmol/L (22-32); Chloride 91 mmol/L (98-107); Creatine Kinase 27 U/L (30-135); Estimated Glomerular Filt Rate 6.5 mL/min (>60); Globulin 2.1 g/dL (1.7-4.1); Glucose 95 mg/dL (80-110); HEMOLYSIS < 15 (0-50); Potassium 4.9 mmol/L (3.4-5.1); Sodium 127 mmol/L (137-145); Total Protein 6.2 g/dL (6.3-8.2)
[2020-03-07 03:44] LABS: Phosphorous 6.1 mg/dL (2.8-4.1)
[2020-03-07 03:45] LABS: Troponin I 0.031 ng/mL (0.01-0.034)
[2020-03-07 03:52] LABS: Procalcitonin 0.38 ng/mL (<0.5)
[2020-03-07 04:07] LABS: D Dimer 241 ng/mL (<230)
[2020-03-07 04:10] LABS: NT-proBNP (BNP-Adult 18+) 133000 pg/mL (<125)
--- NOTE | 2020-03-07 04:25 | DI.CT.S_ITS ---
PROCEDURE: CT CHEST WO CON INDICATIONS: Shortness of breath, cough TECHNIQUE: Noncontrast 5 mm thick sections acquired from the pulmonary apices to the posterior costophrenic angles. 1 mm lung window, 5 mm thick coronal and sagittal and 7 mm axial MIP reformats were then acquired. For radiation dose reduction, the following was used: automated exposure control, adjustment of mA and/or kV according to patient size. COMPARISON: [facility], CR, XR CHEST 1V, 03/07/2020, 14:35. [facility], CT, CT CHEST WO CON, 09/09/2018, 9:07. FINDINGS: Image quality: Excellent. Lungs and pleura: There are mild scattered areas of patchy and nodular ground-glass like opacities within the lungs bilaterally. Minimal to mild left and trace right effusions are noted. Mediastinum: Heart size is enlarged. No pericardial effusion borderline enlarged mediastinal and hilar lymph nodes are noted. Thoracic aorta and central pulmonary arteries are normal in size. Esophagus is normal in caliber. No hiatal hernia. Bones and chest wall: No suspicious bony lesions. No vertebral body compression fractures. No axillary or supraclavicular adenopathy by size criteria. Thyroid gland is unremarkable. Bilateral breast implants are noted. Right dialysis catheter is noted.. Abdomen: Visualized upper abdominal solid organs and bowel loops appear normal in the absence of contrast. IMPRESSION: 1. Mild scattered patchy nodular ground-glass like opacities within the lungs bilaterally. This is suggestive of infection or inflammation. Recommend interval follow up after appropriate therapy to document resolution. 2. Minimal to mild left and minimal right pleural effusions. Dictated by: Liset Britton M.D. on 03/07/2020 at 9:49 Approved by: Liset Britton M.D. on 03/07/2020 at 9:56
== END 2020-03-07 07:52 | disposition home or self-care (01) ==
PROVIDERS: Emergency Provider Emergency Medicine; PCP Internal Medicine
DX: R06.00 Dyspnea, unspecified (principal); E87.70 Fluid overload, unspecified; R05 Cough; R09.02 Hypoxemia
CPT/HCPCS: 36415; 71045; 71250; 80053; 82550; 83605; 83735; 83880; 84100; 84145; 84484; 85025; 85379; 85610; 87040; 93005; 99284

== ENCOUNTER 2020-03-12 13:41 | Emergency (ER) | payer MEDICARE, MEDICAID, SELFPAY ==
[2020-03-12 13:44] VITALS: BP 136/91; PULSE 91; RESP 22; TEMP 36.5; O2SAT 99
--- NOTE | 2020-03-12 13:54 | ED_ITS ---
HPI - Abdominal Pain <SHAHZAD Littlejohn - Last Filed: 03/12/20 16:04> General Chief Complaint: Abdominal Pain Stated Complaint: Abd pain Time Seen by Provider: 03/12/20 13:42 Source: patient and EMS Mode of arrival: EMS Limitations: no limitations History of Present Illness HPI narrative: This is a 64-year-old female, non smoker, who has chronic history as ESRD with dialysis on /, right arm DVT and on Eliquis, fibromyalgia, hypertension, IBS, GI bleed, CVA presents to ED with [facility] with chief complain of right upper quadrant severe cramping and right lower arm cramping discomfort when she was in to about 1 hour of dialysis treatment. Patient reports resolved abdominal cramping pain at this time. Right hand/fingers still feels some cramping discomfort upon arrival. Patient denies chest pain. Reports mild dyspnea when pain was severe. Patient denies nausea, vomiting, diarrhea, fever or chills. Last bowel movement was yesterday and reports good appetite. Related Data Home Medications Medication Instructions Recorded Confirmed cholecalciferol (vitamin D3) 1,000 unit PO DAILY 07/04/18 06/14/19 [Vitamin D3] hydrocortisone acetate 25 mg WV Q12H PRN 07/04/18 06/14/19 lorazepam 0.5 mg PO Q12H PRN 07/04/18 06/14/19 melatonin 3 mg PO BEDTIME PRN 07/04/18 06/14/19 Lactobacillus acidophilus 1 tab PO DAILY 07/13/18 03/12/20 [Acidophilus] acetaminophen-codeine 1 tab PO Q12H PRN 07/13/18 03/12/20 nitroglycerin [Nitrostat] 0.4 mg SUBLINGUAL Q5-15M PRN 07/13/18 03/12/20 fluticasone propionate [Flovent 2 puff INHALATION BID 10/04/18 06/14/19 HFA] mirtazapine 7.5 mg PO BEDTIMEX7 10/04/18 06/14/19 multivitamin 1 cap PO DAILY 10/04/18 06/14/19 sevelamer carbonate 800 mg PO BID 11/03/18 06/14/19 Nepro Liquid 240 ml PO TID 06/14/19 06/14/19 acetaminophen 650 mg PO Q4H PRN 06/14/19 03/12/20 benzonatate [Tessalon Perles] 100 mg PO Q8H PRN 06/14/19 06/14/19 calcium carbonate [Calcium 500] 500 mg PO Q2H PRN 06/14/19 06/14/19 cyanocobalamin (vitamin B-12) 1,000 mcg PO DAILY 06/14/19 03/12/20 [Vitamin B-12] hydrocortisone 15 mg PO QAM 06/14/19 06/14/19 levothyroxine 112 mcg PO QAM 06/14/19 06/14/19 loperamide [Imodium A-D] 2 mg PO PRN PRN MDD 6 CAP 06/14/19 06/14/19 magnesium hydroxide [Milk of 30 ml PO PRN PRN 06/14/19 06/14/19 Magnesia] apixaban [Eliquis] mg 03/12/20 atorvastatin 03/12/20 bisacodyl 03/12/20 clopidogrel 03/12/20 isosorbide mononitrate mg PO 03/12/20 levetiracetam PO 03/12/20 metoprolol succinate PO 03/12/20 omeprazole 03/12/20 ondansetron HCl 03/12/20 Allergies Allergy/AdvReac Type Severity Reaction Status Date / Time No Known Drug Allergies Allergy Verified 03/12/20 13:46 Review of Systems <SHAHZAD Littlejohn - Last Filed: 03/12/20 16:04> Review of Systems Narrative: General: Denies fever, chills, fatigue, malaise, sweats. HEENT: Denies sinus pain, ear pain, sore throat, difficulty swallowing, dizziness. Respiratory: Denies dyspnea, cough, wheezing, hemoptysis, sputum. Cardiovascular: Denies chest pain, palpitations, orthopnea, edema. Gastrointestinal: Denies nausea, vomiting, (+) resolved severe abdominal cramping pain, diarrhea, constipation, melena. : Denies dysuria, frequency, incontinence, hematuria, urinary retention. Musculoskeletal: See HPI Skin: Denies rash, skin lesions, or other. Neurologic: Denies weakness, headache, numbness, change in speech, confusion, seizures, incoordination. Psychiatric: No concerning psychosocial issues. 12-point review of systems is negative except for those stated above. Patient History <SHAHZAD Littlejohn - Last Filed: 03/12/20 16:04> Medical History Acute kidney failure (Acute) Acute renal failure on dialysis (Acute) Anemia (Acute) Anxiety (Acute) Breast cancer, left (Resolved) CHF (congestive heart failure) (Acute) Chronic kidney disease (Acute) Fibromyalgia (Acute) GI bleed (Acute) HTN (hypertension) (Acute) Hyperlipidemia (Acute) Hypothyroid (Acute) IBS (irritable bowel syndrome) (Acute) Major depressive disorder (Acute) Malnutrition (Acute) Peripheral vascular disease (Acute) Thrombocytopenia (Acute) TIA (transient ischemic attack) (Acute) Social History lives independently: No Smoking Status: Never smoker Smoking Status: Never smoker alcohol intake frequency: holidays/special occasions only Substance Use Type: does not use Exam <SHAHZAD Littlejohn - Last Filed: 03/12/20 16:04> Narrative Exam Narrative: GEN: Alert, oriented x 3, well appearing and nourished, and in no acute distress. Head: Normal cephalic, atraumatic. No scalp or temporal tenderness, palpable mass or rash. EYES: Pupils are equal, round, and reactive to light and accommodation. Extraocular muscles are intact bilaterally. There is no subconjunctival hemorrhage, exudate and sclera non-icteric. ENT: Hearing grossly intact. Nose without bleeding, purulent discharge or deviation. Mucous membrane moist, no mucosal lesion. Throat without erythema, tonsillar hypertrophy or exudate. Uvula in midline, airway patent. Neck: Trachea in midline. No JVD, non-tender without lymphadenopathy. No masses or thyroid megaly. Supple, non-tender and no meningeal signs. CARDIAC: Normal regular rate and rhythm without murmurs, gallops, or rubs. No chest wall tenderness. No peripheral edema, cyanosis or pallor. Capillary refill is less than 2 seconds. RESPIRATORY: Lungs are clear to auscultate bilaterally. No cough, wheezes, rale s, or rhonchi. No stridor, respiratory distress, increase work of breathing, or accessary muscle used. ABD: Abdomen soft, nontender and non-distended. No guarding or rebound tenderness to palpate. Bowel sounds are normal in all 4 quadrants. There is no palpable masses or organomegaly. EXT: Full ROM of all extremities with no loss of sensation, strength, effusion or edema. No carpal spasm. SKIN: Warm, dry, normal color for patient. No erythema, lesions or rash over visible areas. BACK: Nontender without deformity or crepitance. No flank tenderness. NEUROLOGICAL: Alert and oriented to place, time and person. Sensation and motor function intact bilaterally. No facial droops, dysphasia. PSYCHIATRIC: Good judgement and reason, without hallucinations, abnormal affect or abnormal behaviors during the examination. Patient is not suicidal. Initial Vital Signs Initial Vital Signs: Vital Signs Temperature 97.7 F 03/12/20 13:44 Pulse Rate 91 H 03/12/20 13:44 Respiratory Rate 22 03/12/20 13:44 Blood Pressure 136/91 H 03/12/20 13:44 Pulse Oximetry 99 03/12/20 13:44 <Erica Hopkins DO - Last Filed: 03/15/20 07:03> Initial Vital Signs Initial Vital Signs: Vital Signs Temperature 97.7 F 03/12/20 13:44 Pulse Rate 91 H 03/12/20 13:44 Respiratory Rate 22 03/12/20 13:44 Blood Pressure 136/91 H 03/12/20 13:44 Pulse Oximetry 99 03/12/20 13:44 Scores <SHAHZAD Littlejohn - Last Filed: 03/12/20 16:04> GCS Wolsey coma scale eye opening: Spontaneous Trey coma scale verbal response: Orientated Wolsey coma scale motor response: Obey commands Wolsey coma scale total score: 15 Course <SHAHZAD Littlejohn - Last Filed: 03/12/20 16:04> Orders Ordered: Discontinued Medications Diazepam (Valium) 2 mg IV NOW ONE Stop: 03/12/20 13:54 Last Admin: 03/12/20 13:58 Dose: 2 mg Documented by: JAYNE Vital Signs Vital signs: Vital Signs - 8 hr 03/12/20 13:44 03/12/20 14:30 Temperature 97.7 F Pulse Rate 91 H 78 Respiratory Rate 22 16 Blood Pressure 136/91 H 110/58 L Pulse Oximetry 99 97 <Erica Hopkins DO - Last Filed: 03/15/20 07:03> Orders Ordered: Discontinued Medications Diazepam (Valium) 2 mg IV NOW ONE Stop: 03/12/20 13:54 Last Admin: 03/12/20 13:58 Dose: 2 mg Documented by: JAYNE Vital Signs Vital signs: Vital Signs - 8 hr 03/12/20 13:44 03/12/20 14:30 Temperature 97.7 F Pulse Rate 91 H 78 Respiratory Rate 22 16 Blood Pressure 136/91 H 110/58 L Pulse Oximetry 99 97 MDM - Abdominal Pain <Timbo UlissesSHAHZAD - Last Filed: 03/12/20 16:04> Differential Diagnosis Differential diagnosis: Likely abdominal pain, constipation and other (electrolyte imbalance, STEMI) Medical Records Attestation: I reviewed the patient's medical records. Lab Data Attestation: I reviewed the patient's lab results. Result diagrams: 03/12/20 13:48 03/12/20 13:48 Labs: Lab Results 03/12/20 03/12/20 03/12/20 Range/Units 13:48 13:48 13:48 WBC 12.2 H (4.5-11.0) X10^3/uL RBC 4.17 (4.0-5.2) X10^6/uL Hgb 13.0 (12.0-16.0) g/dL Hct 39.2 (36-46) % MCV 94.1 (80-100) fL MCH 31.3 (26-34) PG MCHC 33.3 (30-36) % RDW 19.4 H (11.6-14.8) % Plt Count 211 (150-400) X10^3/uL Neut % (Auto) 88.7 H (50-75) % Lymph % (Auto) 5.8 L (25-40) % [place] % (Auto) 3.3 (3-14) % Eos % (Auto) 1.2 L (2-4) % Baso % (Auto) 1.0 (0-2) % Neut # (Auto) 73400 H (7082-6780) /uL Lymph # (Auto) 700 L (1142-8670) /uL [place] # (Auto) 400 (0-900) /uL Eos # (Auto) 100 (0-450) /uL Baso # (Auto) 100 (0-100) /uL PT 19.9 H (10.1-12.7) SECONDS INR 1.7 H (0.9-1.3) APTT TNP Sodium 134 L (137-145) mmol/L Potassium 4.8 (3.4-5.1) mmol/L Chloride 92 L (98-107) mmol/L Carbon Dioxide 29 (22-32) mmol/L BUN 24 H (7-17) mg/dL Creatinine 4.02 H (0.52-1.04) mg/dL Estimated GFR 11.2 L (>60) mL/min BUN/Creatinine Ratio 6.0 (6-22) Glucose 133 H (80-110) mg/dL Calcium 9.3 (8.4-10.2) mg/dL Phosphorus (2.8-4.1) mg/dL Magnesium (1.6-2.3) mg/dL Total Bilirubin 0.7 (0.2-1.3) mg/dL AST 34 (14-36) IU/L ALT 20 (<35) IU/L Alkaline Phosphatase 118 (38-126) U/L Total Creatine Kinase (30-135) U/L CK-MB (CK-2) CK-MB (CK-2) Rel Index Troponin I (0.01-0.034) ng/mL Total Protein 7.9 (6.3-8.2) g/dL Albumin 5.1 H (3.5-5.0) g/dL Globulin 2.8 (1.7-4.1) g/dL Albumin/Globulin Ratio 1.8 (1.0-2.8) Lipase (23-300) U/L 03/12/20 03/12/20 Range/Units 13:48 13:48 WBC (4.5-11.0) X10^3/uL RBC (4.0-5.2) X10^6/uL Hgb (12.0-16.0) g/dL Hct (36-46) % MCV (80-100) fL MCH (26-34) PG MCHC (30-36) % RDW (11.6-14.8) % Plt Count (150-400) X10^3/uL Neut % (Auto) (50-75) % Lymph % (Auto) (25-40) % [place] % (Auto) (3-14) % Eos % (Auto) (2-4) % Baso % (Auto) (0-2) % Neut # (Auto) (9044-1469) /uL Lymph # (Auto) (1973-2855) /uL [place] # (Auto) (0-900) /uL Eos # (Auto) (0-450) /uL Baso # (Auto) (0-100) /uL PT (10.1-12.7) SECONDS INR (0.9-1.3) APTT Sodium (137-145) mmol/L Potassium (3.4-5.1) mmol/L Chloride (98-107) mmol/L Carbon Dioxide (22-32) mmol/L BUN (7-17) mg/dL Creatinine (0.52-1.04) mg/dL Estimated GFR (>60) mL/min BUN/Creatinine Ratio (6-22) Glucose (80-110) mg/dL Calcium (8.4-10.2) mg/dL Phosphorus 3.2 D (2.8-4.1) mg/dL Magnesium 1.9 (1.6-2.3) mg/dL Total Bilirubin (0.2-1.3) mg/dL AST (14-36) IU/L ALT (<35) IU/L Alkaline Phosphatase (38-126) U/L Total Creatine Kinase 26 L (30-135) U/L CK-MB (CK-2) TNP CK-MB (CK-2) Rel Index TNP Troponin I 0.032 (0.01-0.034) ng/mL Total Protein (6.3-8.2) g/dL Albumin (3.5-5.0) g/dL Globulin (1.7-4.1) g/dL Albumin/Globulin Ratio (1.0-2.8) Lipase 267 (23-300) U/L Imaging Data Abdominal x-ray: Radiologist's Impression: [address] [address] XRay Report Signed Patient: Aurelia Gr EMR#: [id number] : 6Acct:[id number] Age/Sex: 64 / FDate of Service: 03/12/20 Loc: ED Accession Number: [id number] Procedure: XR acute abdomen series Ordering Provider: Timbo Gtz PROCEDURE: XR ACUTE ABDOMEN SERIES INDICATIONS: intermittent abd cramping, hx of ESRD TECHNIQUE: One view chest and two views of the abdomen were acquired. COMPARISON: [facility], CR, XR CHEST 1V, 03/07/2020, 14:35. FINDINGS: Surgical changes and devices: Stable appearance. Chest: Lungs are clear. Heart size is normal. No pleural effusions. No pneumoperitoneum. Abdomen: Bowel gas pattern is nonobstructive. Moderate stool is present.. No suspicious calcifications. Visualized solid organ contours appear normal. Bones: No suspicious bony lesions. IMPRESSION: No interval change or acute consolidation. No bowel obstruction. Moderate stool Dictated by: Gilson Moore M.D. on 03/12/2020 at 15:46 Approved by: Gilson Moore M.D. on 03/12/2020 at 15:50 ECG Data Attestation: I personally reviewed and interpreted this ECG as follows: Prior ECG tracings: available for review Interpretation: Normal SR rate at 88 Left dominant axis T inversion in lead aVL, ST &T wave abnormality Baseline artifact and wander No significant changes from the previous ECG tracing MDM Narrative Medical decision making narrative: This is a 64-year-old female with complicated medical history and end-stage renal disease presents to ED with medics from local dialysis facility with severe abdominal cramping discomfort and cramping in her right hand. When patient was arrived to ED her cramping in abdomen was resolved. Patient denies recent fever, nausea, vomiting, illness. Patient reports her potassium was running slightly low previous dialysis appointment. According to medical record she presented to ED her potassium level was within normal limits. EKG was sinus rhythm with T inversion and ST abnormality in lateral leads which is no significant changes from previous ECG tracings. Cardiac enzymes were w ithin normal limits. Mildly elevated WBC to 12.2 with neutrophil of 88.7%. Stable H&H of 13.0/39.2. Patient is afebrile with within normal tensive and heart rate. Elevated coag results given patient is currently taking Eliquis and Plavix. Also she is using heparin flushes for dialysis port. Normal potassium of 4.8. Slightly decreased sodium and chloride of 134 and 92. Today's estimated GFR is 11.2 and creatinine of 4.02 which is better than the previous visits. Abdomen/chest x-ray shows no acute findings except moderate stool. Abdomen physical exam was unremarkable. Abdomen was soft to palpate without any tenderness. Bowel sounds active in 4 quadrant. Given patient did not have any pain, fever, nausea, or vomiting further imaging test has deferred. It is likely her abdominal pain is due to moderate stool. Small dose of Valium 2 mg IV has administered upon arrival for right hand cramping pain. Patient was able to rest comfortably with improvement in her symptoms. Advised patient to use Ativan that she uses out patiently as needed if her symptoms recur. Return precautions were discussed with patient and patient verbalized understanding and agreement with the treatment plan. <Erica Hopkins, - Last Filed: 03/15/20 07:03> Lab Data Labs: Lab Results 03/12/20 03/12/20 03/12/20 Range/Units 13:48 13:48 13:48 WBC 12.2 H (4.5-11.0) X10^3/uL RBC 4.17 (4.0-5.2) X10^6/uL Hgb 13.0 (12.0-16.0) g/dL Hct 39.2 (36-46) % MCV 94.1 (80-100) fL MCH 31.3 (26-34) PG MCHC 33.3 (30-36) % RDW 19.4 H (11.6-14.8) % Plt Count 211 (150-400) X10^3/uL Neut % (Auto) 88.7 H (50-75) % Lymph % (Auto) 5.8 L (25-40) % [place] % (Auto) 3.3 (3-14) % Eos % (Auto) 1.2 L (2-4) % Baso % (Auto) 1.0 (0-2) % Neut # (Auto) 06891 H (2861-5869) /uL Lymph # (Auto) 700 L (5556-7518) /uL [place] # (Auto) 400 (0-900) /uL Eos # (Auto) 100 (0-450) /uL Baso # (Auto) 100 (0-100) /uL PT 19.9 H (10.1-12.7) SECONDS INR 1.7 H (0.9-1.3) APTT TNP Sodium 134 L (137-145) mmol/L Potassium 4.8 (3.4-5.1) mmol/L Chloride 92 L (98-107) mmol/L Carbon Dioxide 29 (22-32) mmol/L BUN 24 H (7-17) mg/dL Creatinine 4.02 H (0.52-1.04) mg/dL Estimated GFR 11.2 L (>60) mL/min BUN/Creatinine Ratio 6.0 (6-22) Glucose 133 H (80-110) mg/dL Calcium 9.3 (8.4-10.2) mg/dL Phosphorus (2.8-4.1) mg/dL Magnesium (1.6-2.3) mg/dL Total Bilirubin 0.7 (0.2-1.3) mg/dL AST 34 (14-36) IU/L ALT 20 (<35) IU/L Alkaline Phosphatase 118 (38-126) U/L Total Creatine Kinase (30-135) U/L CK-MB (CK-2) CK-MB (CK-2) Rel Index Troponin I (0.01-0.034) ng/mL Total Protein 7.9 (6.3-8.2) g/dL Albumin 5.1 H (3.5-5.0) g/dL Globulin 2.8 (1.7-4.1) g/dL Albumin/Globulin Ratio 1.8 (1.0-2.8) Lipase (23-300) U/L 03/12/20 03/12/20 Range/Units 13:48 13:48 WBC (4.5-11.0) X10^3/uL RBC (4.0-5.2) X10^6/uL Hgb (12.0-16.0) g/dL Hct (36-46) % MCV (80-100) fL MCH (26-34) PG MCHC (30-36) % RDW (11.6-14.8) % Plt Count (150-400) X10^3/uL Neut % (Auto) (50-75) % Lymph % (Auto) (25-40) % [place] % (Auto) (3-14) % Eos % (Auto) (2-4) % Baso % (Auto) (0-2) % Neut # (Auto) (1514-6188) /uL Lymph # (Auto) (9632-2822) /uL [place] # (Auto) (0-900) /uL Eos # (Auto) (0-450) /uL Baso # (Auto) (0-100) /uL PT (10.1-12.7) SECONDS INR (0.9-1.3) APTT Sodium (137-145) mmol/L Potassium (3.4-5.1) mmol/L Chloride (98-107) mmol/L Carbon Dioxide (22-32) mmol/L BUN (7-17) mg/dL Creatinine (0.52-1.04) mg/dL Estimated GFR (>60) mL/min BUN/Creatinine Ratio (6-22) Glucose (80-110) mg/dL Calcium (8.4-10.2) mg/dL Phosphorus 3.2 D (2.8-4.1) mg/dL Magnesium 1.9 (1.6-2.3) mg/dL Total Bilirubin (0.2-1.3) mg/dL AST (14-36) IU/L ALT (<35) IU/L Alkaline Phosphatase (38-126) U/L Total Creatine Kinase 26 L (30-135) U/L CK-MB (CK-2) TNP CK-MB (CK-2) Rel Index TNP Troponin I 0.032 (0.01-0.034) ng/mL Total Protein (6.3-8.2) g/dL Albumin (3.5-5.0) g/dL Globulin (1.7-4.1) g/dL Albumin/Globulin Ratio (1.0-2.8) Lipase 267 (23-300) U/L Discharge Plan Departure Patient Disposition: Home Clinical Impression: Crampy pain Discharge Date/Time: 03/12/20 16:34 Instructions: DI for Acute Abdominal Pain Activity Restrictions/Additional Instructions: You have been diagnosed with [resolved abdominal cramping pain in right upper quadrant and hand cramps. CBC, electrolytes, cardiac enzymes were unremarkable. EKG without acute changes today. X-ray test on chest and abdomen indicates no obstruction but moderate stools seen. Your feeling much improved in your arrived to ED and after receiving small dose of Valium. Please follow-up with dialysis for next appointment since you were not able to finish today.]. What to do: *Take your medications as directed. Please use as needed bowel regimen medication. *Follow up with your primary care provider in 2-3 days, call for an appointment. Let them know you were seen in the ED and that we asked you to be seen in follow up. *Return to ED if you have any new, worsening, or concerning symptoms, such as [worsening pain, breathing difficulty, chest pain, fever, nausea or vomiting, or any acute concerns]. Prescriptions: No Action melatonin 3 mg Tablet 3 mg PO BEDTIME PRN (Reason: Insomnia) RF: 0 hydrocortisone acetate 25 mg Suppository 25 mg WV Q12H PRN (Reason: Hemorrhoids) RF: 0 lorazepam 0.5 mg Tablet 0.5 mg PO Q12H PRN (Reason: Anxiety) RF: 0 cholecalciferol (vitamin D3) [Vitamin D3] 1,000 unit Capsule 1,000 unit PO DAILY RF: 0 sevelamer carbonate 800 mg tablet 800 mg PO BID RF: 0 Eliquis 2.5 mg tablet RF: 0 metoprolol succinate 25 mg tablet extended release 24 hr PO RF: 0 omeprazole 20 mg capsule,delayed release(DR/EC) RF: 0 isosorbide mononitrate 30 mg tablet extended release 24 hr PO RF: 0 levetiracetam 250 mg tablet PO RF: 0 ondansetron HCl 4 mg tablet RF: 0 atorvastatin 40 mg tablet RF: 0 bisacodyl RF: 0 clopidogrel 75 mg tablet RF: 0 Lactobacillus acidophilus [Acidophilus] Capsule 1 tab PO DAILY RF: 0 acetaminophen-codeine 300-30 mg Tablet 1 tab PO Q12H PRN (Reason: pain) RF: 0 nitroglycerin [Nitrostat] 0.4 mg Tablet, Sublingual 0.4 mg SUBLINGUAL Q5-15M PRN (Reason: Chest Pain) RF: 0 Flovent HFA 44 mcg/actuation HFA aerosol inhaler 2 puff Inhalation BID RF: 0 mirtazapine 15 mg tablet 7.5 mg PO [id number] RF: 0 multivitamin Capsule 1 cap PO DAILY RF: 0 acetaminophen 325 mg Tablet 650 mg PO Q4H PRN (Reason: FEVER > 100 AND PAIN) RF: 0 cyanocobalamin (vitamin B-12) [Vitamin B-12] 1,000 mcg Tablet 1,000 mcg PO DAILY RF: 0 hydrocortisone 10 mg tablet 15 mg PO QAM RF: 0 levothyroxine 112 mcg tablet 112 mcg PO QAM RF: 0 Nepro Liquid 240 ml PO TID RF: 0 loperamide [Imodium A-D] 2 mg Capsule 2 mg PO PRN MDD 6 CAP PRN (Reason: Diarrhea) RF: 0 magnesium hydroxide [Milk of Magnesia] 400 mg/5 mL Suspension 30 ml PO PRN PRN (Reason: Constipation) RF: 0 calcium carbonate [Calcium 500] 500 mg calcium (1,250 mg) Tablet,Chewable 500 mg PO Q2H PRN (Reason: GI UPSET) RF: 0 benzonatate [Tessalon Perles] 100 mg capsule 100 mg PO Q8H PRN (Reason: cough) RF: 0 Referrals: Germaine Jalloh MD [Primary Care Provider] - Des Horton MD [Non-Staff] - <Erica Hopkins DO - Last Filed: 03/15/20 07:03> Cosign ED Attending Coszionature Attestation: I was immediately available in the dep artment for consultation. Documentation has been reviewed. I agree with assessment and plan.
[2020-03-12 13:58] LABS: Add Manual Diff / Slide Review NO; Basophils Absolute Auto 100 /uL (0-100); Eosinophils Absolute Auto 100 /uL (0-450); Eosinophils Percent Auto 1.2 % (2-4); Hematocrit 39.2 % (36-46); Lymphocytes Absolute Auto 700 /uL (1100-4500); Lymphocytes Percent Auto 5.8 % (25-40); Mean Corpuscular HGB Conc 33.3 % (30-36); Mean Corpuscular Hemoglobin 31.3 PG (26-34); Mean Corpuscular Volume 94.1 fL (80-100); Monocytes Absolute Auto 400 /uL (0-900); Monocytes Percent Auto 3.3 % (3-14); Neutrophils Absolute Auto 10900 /uL (1500-7000); Neutrophils Percent Auto 88.7 % (50-75); Platelet Count 211 X10^3/uL (150-400); Red Blood Cell Count 4.17 X10^6/uL (4.0-5.2); Red Cell Distribution Width 19.4 % (11.6-14.8); White Blood Cell Count 12.2 X10^3/uL (4.5-11.0)
[2020-03-12] MEDS: diazePAM 10 MG/2 ML SYRINGE 2 MG IV (13:58)
[2020-03-12 14:03] LABS: INR 1.7 (0.9-1.3); Prothrombin Time 19.9 SECONDS (10.1-12.7)
--- NOTE | 2020-03-12 14:07 | DI.RAD.S_ITS ---
PROCEDURE: XR ACUTE ABDOMEN SERIES INDICATIONS: intermittent abd cramping, hx of ESRD TECHNIQUE: One view chest and two views of the abdomen were acquired. COMPARISON: [facility], CR, XR CHEST 1V, 03/07/2020, 14:35. FINDINGS: Surgical changes and devices: Stable appearance. Chest: Lungs are clear. Heart size is normal. No pleural effusions. No pneumoperitoneum. Abdomen: Bowel gas pattern is nonobstructive. Moderate stool is present.. No suspicious calcifications. Visualized solid organ contours appear normal. Bones: No suspicious bony lesions. IMPRESSION: No interval change or acute consolidation. No bowel obstruction. Moderate stool Dictated by: Gilson Moore M.D. on 03/12/2020 at 15:46 Approved by: Gilson Moore M.D. on 03/12/2020 at 15:50
[2020-03-12 14:10] LABS: Alanine Aminotransferase 20 IU/L (<35); Albumin 5.1 g/dL (3.5-5.0); Albumin Globulin Ratio 1.8 (1.0-2.8); Alkaline Phosphatase 118 U/L (38-126); Aspartate Aminotransferase 34 IU/L (14-36); Bilirubin Total 0.7 mg/dL (0.2-1.3); Blood Urea Nitrogen 24 mg/dL (7-17); Calcium 9.3 mg/dL (8.4-10.2); Carbon Dioxide 29 mmol/L (22-32); Chloride 92 mmol/L (98-107); Creatine Kinase 26 U/L (30-135); Estimated Glomerular Filt Rate 11.2 mL/min (>60); Globulin 2.8 g/dL (1.7-4.1); Glucose 133 mg/dL (80-110); HEMOLYSIS < 15 (0-50); Lipase 267 U/L (23-300); Potassium 4.8 mmol/L (3.4-5.1); Sodium 134 mmol/L (137-145); Total Protein 7.9 g/dL (6.3-8.2)
[2020-03-12 14:11] LABS: Magnesium 1.9 mg/dL (1.6-2.3); Phosphorous 3.2 mg/dL (2.8-4.1)
[2020-03-12 14:21] LABS: Troponin I 0.032 ng/mL (0.01-0.034)
[2020-03-12 14:30] VITALS: BP 110/58; PULSE 78; RESP 16; O2SAT 97
[2020-03-12 15:30] VITALS: BP 113/63; PULSE 81; RESP 17; O2SAT 97
--- NOTE | 2020-03-12 16:16 | PC.NURSE ---
Report called to NIRALI López at [facility]. 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
[2020-03-12 16:20] VITALS: BP 105/79; PULSE 80; RESP 16; O2SAT 97
== END 2020-03-12 16:34 | disposition home or self-care (01) ==
PROVIDERS: Emergency Provider Nurse Practitioner Family; PCP Internal Medicine
DX: R10.11 Right upper quadrant pain (principal); M79.641 Pain in right hand; R06.00 Dyspnea, unspecified; R79.89 Other specified abnormal findings of blood chemistry; D72.829 Elevated white blood cell count, unspecified
CPT/HCPCS: 36415; 74022; 80053; 82550; 83690; 83735; 84100; 84484; 85025; 85610; 93005; 96374; 99284; J3360

== ENCOUNTER → 2020-03-22 11:22 | Outpatient (CLI) | payer MEDICARE, MEDICAID, SELFPAY ==
--- NOTE | 2020-03-22 | DI.US.S_ITS ---
PROCEDURE: US [facility] VENOUS UP EXTREM RT INDICATIONS: LOCALIZED SWELLING AND REDNESS/ LUMP TECHNIQUE: Real-time imaging, as well as color and pulse Doppler interrogation, was performed of the right upper extremity deep veins from the inferior neck to the antecubital fossa. COMPARISON: [facility], , US [facility] VENOUS UP EXTREM RT, 11/27/2019, 10:34. FINDINGS: The internal jugular vein, visualized portions of the subclavian vein, axillary, and brachial veins are free of intraluminal thrombus. Where physically possible, the veins are normally compressible. Color and pulse Doppler demonstrate normal intraluminal flow, with expected phasicity and pulsatility. Additional scanning of the cephalic and basilic veins of the superficial system demonstrate normal compressibility, without thrombus except at the mid brachial vein which is duplex, and a single thrombus is seen, partially occlusive, chronicity uncertain.. IMPRESSION: Partially occlusive thrombus is seen within the normal anatomic variant duplex right brachial vein, in this patient with prior documented DVT in that area in November of this year. A definite new DVT is therefore not identified. The clinical history indicates new symptomatology, which would argue toward its a new DVT but this cannot be established by sonographic criteria. Dictated by: Ash Damon M.D. on 03/22/2020 at 12:30 Approved by: Ash Damon M.D. on 03/22/2020 at 12:34
== END ==
PROVIDERS: PCP Internal Medicine; Referring Provider Internal Medicine; Visit Provider Internal Medicine
DX: R22.31 Localized swelling, mass and lump, right upper limb (principal); I82.721 Chronic embolism and thrombosis of deep veins of right upper extremity
CPT/HCPCS: 93971

== ENCOUNTER → 2021-01-21 10:07 | Outpatient (CLI) | payer MEDICARE, MEDICAID, SELFPAY ==
--- NOTE | 2021-01-21 10:13 | DI.RAD.S_ITS ---
PROCEDURE: XR CHEST 2V INDICATIONS: COUGH/HX COPD/ABN LUNG SOUNDS LT DECREASE TECHNIQUE: 2 views of the chest were acquired. COMPARISON: [facility], CR, XR CHEST 1V, 03/07/2020, 14:35. [facility], CR, XR CHEST 1V, 11/27/2019, 8:08. FINDINGS: Surgical changes and devices: Double lumen central venous catheter, presumed dialysis catheter, stable over time. Prior sternotomy wires, presumed prior CABG. Lungs and pleura: Lungs are mildly edematous. No right-sided pleural effusions or pneumothorax. Slight subpulmonic left pleural effusion. Mediastinum: Mediastinal contours are normal. Heart size is normal. Bones and chest wall: No suspicious bony abnormalities. Soft tissues appear unremarkable. IMPRESSION: Dialysis catheter in place, mild volume overload with a slight left sub pulmonic pleural effusion. Prior presumed CABG. Dictated by: Ash Damon M.D. on 01/21/2021 at 10:59 Approved by: Ash Damon M.D. on 01/21/2021 at 11:01
== END ==
PROVIDERS: PCP Internal Medicine; Referring Provider Internal Medicine; Visit Provider Internal Medicine
DX: R05 Cough (principal); J90 Pleural effusion, not elsewhere classified; J44.9 Chronic obstructive pulmonary disease, unspecified; R09.89 Other specified symptoms and signs involving the circulatory and respiratory systems; R06.89 Other abnormalities of breathing
CPT/HCPCS: 71046

== ENCOUNTER 2021-02-06 03:01 | Emergency (ER) | payer MEDICARE, MEDICAID, SELFPAY ==
[2021-02-06] VITALS (26 sets, daily range): BP systolic 115–207; BP diastolic 57–122; PULSE 80–99; RESP 8–28; TEMP 36.4; O2SAT 93–99; BMI 30.5
--- NOTE | 2021-02-06 03:21 | DI.RAD.S_ITS ---
PROCEDURE: XR CHEST 1V INDICATIONS: dyspnea TECHNIQUE: One view of the chest was acquired. COMPARISON: [facility], CR, XR CHEST 2V, 01/21/2021, 10:33. FINDINGS: Surgical changes and devices: Sternal wires and else's catheter are unchanged. Lungs and pleura: There is no overall appearance of increased pulmonary vascularity. There is trace blunting of the costophrenic angles, left greater than right, slightly improved. An overall appearance of increased vascularity is present. Mediastinum: Mediastinal contours appear normal. Heart size is enlarged. Bones and chest wall: No suspicious bony lesions. Overlying soft tissues appear unremarkable. IMPRESSION: Increased vascularity cardiomegaly suggestive of edema, as well as trace effusions. Dictated by: Liset Britton M.D. on 02/06/2021 at 8:33 Approved by: Liset Britton M.D. on 02/06/2021 at 8:34
[2021-02-06] MEDS: ASPIRIN 81 MG CHEW TAB 324 MG PO (03:29)
[2021-02-06] MEDS: NITROGLYCERIN 0.4 MG SL TAB SL ×3 (03:31→03:45)
[2021-02-06 03:43] LABS: Add Manual Diff / Slide Review NO; Basophils Absolute Auto 100 /uL (0-100); Basophils Percent Auto 1.4 % (0-2); Eosinophils Absolute Auto 200 /uL (0-450); Eosinophils Percent Auto 1.6 % (2-4); Hematocrit 34.4 % (36-46); Hemoglobin 11.4 g/dL (12.0-16.0); Lymphocytes Absolute Auto 1300 /uL (1100-4500); Lymphocytes Percent Auto 13.5 % (25-40); Mean Corpuscular HGB Conc 33.2 % (30-36); Mean Corpuscular Hemoglobin 30.6 PG (26-34); Mean Corpuscular Volume 92.1 fL (80-100); Monocytes Absolute Auto 400 /uL (0-900); Monocytes Percent Auto 4.4 % (3-14); Neutrophils Absolute Auto 7500 /uL (1500-7000); Neutrophils Percent Auto 79.1 % (50-75); Platelet Count 114 X10^3/uL (150-400); Red Blood Cell Count 3.73 X10^6/uL (4.0-5.2); Red Cell Distribution Width 18.1 % (11.6-14.8); White Blood Cell Count 9.4 X10^3/uL (4.5-11.0)
[2021-02-06 03:51] LABS: Lactate (Lactic Acid) 0.7 mmol/L (0.7-2.1)
[2021-02-06 03:53] LABS: Alanine Aminotransferase 11 IU/L (<35); Albumin Globulin Ratio 1.8 (1.0-2.8); Alkaline Phosphatase 65 U/L (38-126); Aspartate Aminotransferase 24 IU/L (14-36); Bilirubin Total 0.6 mg/dL (0.2-1.3); Blood Urea Nitrogen 34 mg/dL (7-17); Calcium 9.7 mg/dL (8.4-10.2); Carbon Dioxide 27 mmol/L (22-32); Chloride 94 mmol/L (98-107); Estimated Glomerular Filt Rate 6.1 mL/min (>60); Globulin 2.2 g/dL (1.7-4.1); Glucose 101 mg/dL (80-110); HEMOLYSIS < 15 (0-50); Magnesium 1.8 mg/dL (1.6-2.3); Potassium 3.5 mmol/L (3.4-5.1); Sodium 130 mmol/L (137-145); Total Protein 6.2 g/dL (6.3-8.2)
[2021-02-06] MEDS: ONDANSETRON 4 MG/2 ML INJ IV (04:11)
--- NOTE | 2021-02-06 04:26 | ED.GENADULT ---
HPI - General Adult <Vanita Prescott MD - Last Filed: 02/07/21 05:18> General Chief complaint: Shortness of Breath/Dyspnea Stated complaint: SOB Time Seen by Provider: 02/06/21 03:05 Source: patient and EMS Mode of arrival: EMS Limitations: no limitations History of Present Illness HPI narrative: 65-year-old woman, dialysis patient with usual dialysis Wednesday, hypertension, prior stroke and a history of fibromyalgia presents to the ER complaining of worsening dyspnea. She is due for dialysis later today and is concerned that she is fluid overloaded over the last number of days. She complains of increased swelling in thighs bilaterally. She notes that she has significant orthopnea and exertional dyspnea. She states that she has been having severe cough however in the emergency department she is able to speak in full sentences, no obvious respiratory distress, no retractions and no cough is initially appreciated. She denies chest pain, palpitations, headaches, any new numbness or weakness. Related Data Home Medications Medication Instructions Recorded Confirmed cholecalciferol (vitamin D3) 1,000 unit PO DAILY 07/04/18 06/14/19 [Vitamin D3] hydrocortisone acetate 25 mg [place] Q12H PRN 07/04/18 06/14/19 lorazepam 0.5 mg PO Q12H PRN 07/04/18 06/14/19 melatonin 3 mg PO BEDTIME PRN 07/04/18 06/14/19 Lactobacillus acidophilus 1 tab PO DAILY 07/13/18 03/12/20 [Acidophilus] acetaminophen-codeine 1 tab PO Q12H PRN 07/13/18 03/12/20 nitroglycerin [Nitrostat] 0.4 mg SUBLINGUAL Q5-15M PRN 07/13/18 03/12/20 fluticasone propionate [Flovent 2 puff INHALATION BID 10/04/18 06/14/19 HFA] mirtazapine 7.5 mg PO [id number] 10/04/18 06/14/19 multivitamin 1 cap PO DAILY 10/04/18 06/14/19 sevelamer carbonate 800 mg PO BID 11/03/18 06/14/19 Nepro Liquid 240 ml PO TID 06/14/19 06/14/19 acetaminophen 650 mg PO Q4H PRN 06/14/19 03/12/20 benzonatate [Tessalon Perles] 100 mg PO Q8H PRN 06/14/19 06/14/19 calcium carbonate [Calcium 500] 500 mg PO Q2H PRN 06/14/19 06/14/19 cyanocobalamin (vitamin B-12) 1,000 mcg PO DAILY 06/14/19 03/12/20 [Vitamin B-12] hydrocortisone 15 mg PO QAM 06/14/19 06/14/19 levothyroxine 112 mcg PO QAM 06/14/19 06/14/19 loperamide [Imodium A-D] 2 mg PO PRN PRN MDD 6 CAP 06/14/19 06/14/19 magnesium hydroxide [Milk of 30 ml PO PRN PRN 06/14/19 06/14/19 Magnesia] apixaban [Eliquis] mg 03/12/20 atorvastatin 03/12/20 bisacodyl 03/12/20 clopidogrel 03/12/20 isosorbide mononitrate mg PO 03/12/20 levetiracetam PO 03/12/20 metoprolol succinate PO 03/12/20 omeprazole 03/12/20 ondansetron HCl 03/12/20 Allergies Allergy/AdvReac Type Severity Reaction Status Date / Time No Known Drug Allergies Allergy Verified 03/12/20 13:46 Review of Systems <Vanita Prescott MD - Last Filed: 02/07/21 05:18> Review of Systems Narrative: Remainder of complete review of systems is otherwise unremarkable except for that included in the HPI. Patient History <Vanita Prescott MD - Last Filed: 02/07/21 05:18> Medical History Acute renal failure on dialysis Anemia Anxiety Breast cancer, left CHF (congestive heart failure) Fibromyalgia GI bleed HTN (hypertension) Hyperlipidemia Hypothyroid IBS (irritable bowel syndrome) Major depressive disorder Malnutrition Peripheral vascular disease Thrombocytopenia TIA (transient ischemic attack) Social History lives independently: No Smoking Status: Never smoker Smoking Status: Never smoker alcohol intake frequency: holidays/special occasions only Substance Use Type: does not use Exam <Vanita Prescott MD - Last Filed: 02/07/21 05:18> Narrative Exam Narrative: General: Chronically ill appearing, in no acute distress. Able to give a complete and coherent history. Well-nourished well-developed. Most comfortable sitting upright but no respiratory accessory muscles used HEENT: Moist mucous membranes, normal sclera with reactive pupils, Neck: + JVD, supple Respiratory: Lungs are clear to auscultation, no wheezing no rales no rhonchi. Full and symmetrical air movement Cardiac: Regular rate and rhythm no murmurs no bruits Abdomen: Soft, nontender, good bowel tones, no flank pain Skin: Warm and dry, radiation changes to the skin of the upper chest Neurologic: Grossly neurologically intact with no obvious asymmetries or abnormalities Extremities: Right upper extremity fistula with no thrill palpable and a tunneled dialysis port in place. Psych: Cooperative, appropriate insight and affect Initial Vital Signs Initial Vital Signs: Vital Signs Temperature 97.5 F L 02/06/21 03:11 Pulse Rate 91 H 02/06/21 03:11 Respiratory Rate 02/06/21 03:11 Blood Pressure 115/72 02/06/21 03:11 Pulse Oximetry 99 02/06/21 03:11 <Erica Hopkins DO - Last Filed: 02/06/21 18:42> Initial Vital Signs Initial Vital Signs: Vital Signs Temperature 97.5 F L 02/06/21 03:11 Pulse Rate 91 H 02/06/21 03:11 Respiratory Rate 02/06/21 03:11 Blood Pressure 115/72 02/06/21 03:11 Pulse Oximetry 99 02/06/21 03:11 Course <Vanita Prescott MD - Last Filed: 02/07/21 05:18> Orders Ordered: Discontinued Medications Aspirin (Aspirin 81 Mg Chew Tab) 324 mg PO NOW ONE Stop: 02/06/21 03:20 Last Admin: 02/06/21 03:29 Dose: 324 mg Documented by: MAYA Nitroglycerin (Nitroglycerin 0.4 Mg Sl Tab) 0.4 mg SL [id number] PRN PRN Reason: Chest Pain Last Admin: 02/06/21 03:45 Dose: 0.4 mg Documented by: Admin: 02/06/21 03:37 Dose: 0.4 mg Documented by: Admin: 02/06/21 03:31 Dose: 0.4 mg Documented by: MAYA Ondansetron HCl (Ondansetron 4 Mg/2 Ml Inj) 4 mg IV NOW ONE Stop: 02/06/21 03:20 Last Admin: 02/06/21 04:11 Dose: 4 mg Documented by: MAYA Vital Signs Vital signs: Vital Signs - 8 hr 02/06/21 03:11 02/06/21 03:31 02/06/21 03:37 Temperature 97.5 F L Pulse Rate 91 H 99 H 97 H Respiratory Rate 24 Blood Pressure 115/72 115/72 145/95 H Pulse Oximetry 99 02/06/21 03:45 Temperature Pulse Rate 94 H Respiratory Rate Blood Pressure 160/92 H Pulse Oximetry <Erica Hopkins DO - Last Filed: 02/06/21 18:42> Orders Ordered: Discontinued Medications Aspirin (Aspirin 81 Mg Chew Tab) 324 mg PO NOW ONE Stop: 02/06/21 03:20 Last Admin: 02/06/21 03:29 Dose: 324 mg Documented by: MAYA Nitroglycerin (Nitroglycerin 0.4 Mg Sl Tab) 0.4 mg SL [id number] PRN PRN Reason: Chest Pain Last Admin: 02/06/21 03:45 Dose: 0.4 mg Documented by: Admin: 02/06/21 03:37 Dose: 0.4 mg Documented by: Admin: 02/06/21 03:31 Dose: 0.4 mg Documented by: MAYA Ondansetron HCl (Ondansetron 4 Mg/2 Ml Inj) 4 mg IV NOW ONE Stop: 02/06/21 03:20 Last Admin: 02/06/21 04:11 Dose: 4 mg Documented by: MAYA Vital Signs Vital signs: Vital Signs - 8 hr 02/06/21 03:11 02/06/21 03:31 02/06/21 03:37 Temperature 97.5 F L Pulse Rate 91 H 99 H 97 H Respiratory Rate 24 Blood Pressure 115/72 115/72 145/95 H Pulse Oximetry 99 02/06/21 03:45 Temperature Pulse Rate 94 H Respiratory Rate Blood Pressure 160/92 H Pulse Oximetry Medical Decision Making <Vanita Prescott MD - Last Filed: 02/07/21 05:18> Medical Records Medical records reviewed: Yes I reviewed the patient's medical records. Lab Data Lab results reviewed: Yes I reviewed the patient's lab results. Result diagrams: 02/06/21 03:27 02/06/21 03:27 Labs: Lab Results 02/06/21 02/06/21 02/06/21 Range/Units 03:27 03:27 03:27 WBC 9.4 (4.5-11.0) X10^3/uL RBC 3.73 L (4.0-5.2) X10^6/uL Hgb 11.4 L (12.0-16.0) g/dL Hct 34.4 L (36-46) % MCV 92.1 (80-100) fL MCH 30.6 (26-34) PG MCHC 33.2 (30-36) % RDW 18.1 H (11.6-14.8) % Plt Count 114 L (150-400) X10^3/uL Neut % (Auto) 79.1 H (50-75) % Lymph % (Auto) 13.5 L (25-40) % [place] % (Auto) 4.4 (3-14) % Eos % (Auto) 1.6 L (2-4) % Baso % (Auto) 1.4 (0-2) % Neut # (Auto) 7500 H (7649-2533) /uL Lymph # (Auto) 1300 (9030-4208) /uL [place] # (Auto) 400 (0-900) /uL Eos # (Auto) 200 (0-450) /uL Baso # (Auto) 100 (0-100) /uL Sodium 130 L (137-145) mmol/L Potassium 3.5 (3.4-5.1) mmol/L Chloride 94 L (98-107) mmol/L Carbon Dioxide 27 (22-32) mmol/L BUN 34 H (7-17) mg/dL Creatinine 6.80 H (0.52-1.04) mg/dL Estimated GFR 6.1 L (>60) mL/min BUN/Creatinine Ratio 5.0 L (6-22) Glucose 101 (80-110) mg/dL Lactate 0.7 (0.7-2.1) mmol/L Calcium 9.7 (8.4-10.2) mg/dL Magnesium 1.8 (1.6-2.3) mg/dL Total Bilirubin 0.6 (0.2-1.3) mg/dL AST 24 (14-36) IU/L ALT 11 (<35) IU/L Alkaline Phosphatase 65 (38-126) U/L Troponin I 0.050 H (0.01-0.034) ng/mL Total Protein 6.2 L (6.3-8.2) g/dL Albumin 4.0 (3.5-5.0) g/dL Globulin 2.2 (1.7-4.1) g/dL Albumin/Globulin Ratio 1.8 (1.0-2.8) 02/06/21 Range/Units 05:51 WBC (4.5-11.0) X10^3/uL RBC (4.0-5.2) X10^6/uL Hgb (12.0-16.0) g/dL Hct (36-46) % MCV (80-100) fL MCH (26-34) PG MCHC (30-36) % RDW (11.6-14.8) % Plt Count (150-400) X10^3/uL Neut % (Auto) (50-75) % Lymph % (Auto) (25-40) % [place] % (Auto) (3-14) % Eos % (Auto) (2-4) % Baso % (Auto) (0-2) % Neut # (Auto) (9974-1537) /uL Lymph # (Auto) (9984-5889) /uL [place] # (Auto) (0-900) /uL Eos # (Auto) (0-450) /uL Baso # (Auto) (0-100) /uL Sodium (137-145) mmol/L Potassium (3.4-5.1) mmol/L Chloride (98-107) mmol/L Carbon Dioxide (22-32) mmol/L BUN (7-17) mg/dL Creatinine (0.52-1.04) mg/dL Estimated GFR (>60) mL/min BUN/Creatinine Ratio (6-22) Glucose (80-110) mg/dL Lactate (0.7-2.1) mmol/L Calcium (8.4-10.2) mg/dL Magnesium (1.6-2.3) mg/dL Total Bilirubin (0.2-1.3) mg/dL AST (14-36) IU/L ALT (<35) IU/L Alkaline Phosphatase (38-126) U/L Troponin I 0.057 H (0.01-0.034) ng/mL Total Protein (6.3-8.2) g/dL Albumin (3.5-5.0) g/dL Globulin (1.7-4.1) g/dL Albumin/Globulin Ratio (1.0-2.8) Imaging Data Chest x-ray: Attestation: I personally reviewed and interpreted this imaging study as follows: Radiologist's Impression: Cardiomegaly with hazy interstitial densities suggestive of edema ECG Data Attestation: I personally reviewed and interpreted this ECG as follows: Interpretation: Sinus rhythm at a rate of 92 Left ventricular hypertrophy Normal axis J point elevation and ST T wave changes. MDM Narrative Medical decision making narrative: 65-year-old dialysis patient with increasing dyspnea and a sense that she is fluid overloaded that is been worsening over the last couple of days. Troponin is slightly elevated at 0.05 prior troponins have been in the 0.02-0.03 range. She was given aspirin on arrival with concerns for acute coronary syndrome. She has been given 3 nitroglycerin with no immediate relief of symptoms however checking back approximately hour later she is feeling better than on arrival. Will repeat troponin 2 hours after initial (530 will be next draw) <Erica Hopkins, - Last Filed: 02/06/21 18:42> Lab Data Lab results reviewed: Yes I reviewed the patient's lab results. Labs: Lab Results 02/06/21 02/06/21 02/06/21 Range/Units 03:27 03:27 03:27 WBC 9.4 (4.5-11.0) X10^3/uL RBC 3.73 L (4.0-5.2) X10^6/uL Hgb 11.4 L (12.0-16.0) g/dL Hct 34.4 L (36-46) % MCV 92.1 (80-100) fL MCH 30.6 (26-34) PG MCHC 33.2 (30-36) % RDW 18.1 H (11.6-14.8) % Plt Count 114 L (150-400) X10^3/uL Neut % (Auto) 79.1 H (50-75) % Lymph % (Auto) 13.5 L (25-40) % [place] % (Auto) 4.4 (3-14) % Eos % (Auto) 1.6 L (2-4) % Baso % (Auto) 1.4 (0-2) % Neut # (Auto) 7500 H (0278-1773) /uL Lymph # (Auto) 1300 (5267-1379) /uL [place] # (Auto) 400 (0-900) /uL Eos # (Auto) 200 (0-450) /uL Baso # (Auto) 100 (0-100) /uL Sodium 130 L (137-145) mmol/L Potassium 3.5 (3.4-5.1) mmol/L Chloride 94 L (98-107) mmol/L Carbon Dioxide 27 (22-32) mmol/L BUN 34 H (7-17) mg/dL Creatinine 6.80 H (0.52-1.04) mg/dL Estimated GFR 6.1 L (>60) mL/min BUN/Creatinine Ratio 5.0 L (6-22) Glucose 101 (80-110) mg/dL Lactate 0.7 (0.7-2.1) mmol/L Calcium 9.7 (8.4-10.2) mg/dL Magnesium 1.8 (1.6-2.3) mg/dL Total Bilirubin 0.6 (0.2-1.3) mg/dL AST 24 (14-36) IU/L ALT 11 (<35) IU/L Alkaline Phosphatase 65 (38-126) U/L Troponin I 0.050 H (0.01-0.034) ng/mL Total Protein 6.2 L (6.3-8.2) g/dL Albumin 4.0 (3.5-5.0) g/dL Globulin 2.2 (1.7-4.1) g/dL Albumin/Globulin Ratio 1.8 (1.0-2.8) 02/06/21 Range/Units 05:51 WBC (4.5-11.0) X10^3/uL RBC (4.0-5.2) X10^6/uL Hgb (12.0-16.0) g/dL Hct (36-46) % MCV (80-100) fL MCH (26-34) PG MCHC (30-36) % RDW (11.6-14.8) % Plt Count (150-400) X10^3/uL Neut % (Auto) (50-75) % Lymph % (Auto) (25-40) % [place] % (Auto) (3-14) % Eos % (Auto) (2-4) % Baso % (Auto) (0-2) % Neut # (Auto) (0471-6466) /uL Lymph # (Auto) (0351-9877) /uL [place] # (Auto) (0-900) /uL Eos # (Auto) (0-450) /uL Baso # (Auto) (0-100) /uL Sodium (137-145) mmol/L Potassium (3.4-5.1) mmol/L Chloride (98-107) mmol/L Carbon Dioxide (22-32) mmol/L BUN (7-17) mg/dL Creatinine (0.52-1.04) mg/dL Estimated GFR (>60) mL/min BUN/Creatinine Ratio (6-22) Glucose (80-110) mg/dL Lactate (0.7-2.1) mmol/L Calcium (8.4-10.2) mg/dL Magnesium (1.6-2.3) mg/dL Total Bilirubin (0.2-1.3) mg/dL AST (14-36) IU/L ALT (<35) IU/L Alkaline Phosphatase (38-126) U/L Troponin I 0.057 H (0.01-0.034) ng/mL Total Protein (6.3-8.2) g/dL Albumin (3.5-5.0) g/dL Globulin (1.7-4.1) g/dL Albumin/Globulin Ratio (1.0-2.8) MDM Narrative Medical decision making narrative: Patient signed out to me by Dr. Prescott and seen evaluated patient myself. She does not appear to be in any acute respiratory distress and has no conversational dyspnea. She appears to be fluid overloaded she is scheduled for dialysis today at 10:30 a[address] And spoken [address] horton her strawhat sizer who agrees to take off more fluid today or schedule her for an extra session tomorrow. She can be taken off oxygen at rest and O2 remains at 95%. It is not tested with exertion her vital for dialysis is here and she is going straight there. I have instructed her if she continues to have symptoms after dialysis then she needs to return to the emergency department Discharge Plan Departure Patient Disposition: Home Clinical Impression: Pulmonary edema Qualifiers: Chronicity: acute Qualified Code(s): J81.0 - Acute pulmonary edema Instructions: Hemodialysis Activity Restrictions/Additional Instructions: *You have been diagnosed with pulmonary edema *What to do: At this time you are having difficulty breathing because your fluid overloaded. I have spoken with Dr. Horton who will take extra fluid off today or arranged for extra dialysis tomorrow. Please continue your oxygen as needed *Continue to take medications as directed *Follow up with your primary care provider in 2-3 days *Return to ER if you should have increasing shortness of breath, chest pain, persistent symptoms after dialysis or any new, worsening or concerning symptoms Prescriptions: No Action melatonin 3 mg Tablet 3 mg PO BEDTIME PRN (Reason: Insomnia) RF: 0 hydrocortisone acetate 25 mg Suppository 25 mg [place] Q12H PRN (Reason: Hemorrhoids) RF: 0 lorazepam 0.5 mg Tablet 0.5 mg PO Q12H PRN (Reason: Anxiety) RF: 0 cholecalciferol (vitamin D3) [Vitamin D3] 1,000 unit Capsule 1,000 unit PO DAILY RF: 0 sevelamer carbonate 800 mg tablet 800 mg PO BID RF: 0 Eliquis 2.5 mg tablet RF: 0 metoprolol succinate 25 mg tablet extended release 24 hr PO RF: 0 omeprazole 20 mg capsule,delayed release(DR/EC) RF: 0 isosorbide mononitrate 30 mg tablet extended release 24 hr PO RF: 0 levetiracetam 250 mg tablet PO RF: 0 ondansetron HCl 4 mg tablet RF: 0 atorvastatin 40 mg tablet RF: 0 bisacodyl RF: 0 clopidogrel 75 mg tablet RF: 0 Lactobacillus acidophilus [Acidophilus] Capsule 1 tab PO DAILY RF: 0 acetaminophen-codeine 300-30 mg Tablet 1 tab PO Q12H PRN (Reason: pain) RF: 0 nitroglycerin [Nitrostat] 0.4 mg Tablet, Sublingual 0.4 mg SUBLINGUAL Q5-15M PRN (Reason: Chest Pain) RF: 0 Flovent HFA 44 mcg/actuation HFA aerosol inhaler 2 puff Inhalation BID RF: 0 mirtazapine 15 mg tablet 7.5 mg PO [id number] RF: 0 multivitamin Capsule 1 cap PO DAILY RF: 0 acetaminophen 325 mg Tablet 650 mg PO Q4H PRN (Reason: FEVER > 100 AND PAIN) RF: 0 cyanocobalamin (vitamin B-12) [Vitamin B-12] 1,000 mcg Tablet 1,000 mcg PO DAILY RF: 0 hydrocortisone 10 mg tablet 15 mg PO QAM RF: 0 levothyroxine 112 mcg tablet 112 mcg PO QAM RF: 0 Nepro Liquid 240 ml PO TID RF: 0 loperamide [Imodium A-D] 2 mg Capsule 2 mg PO PRN MDD 6 CAP PRN (Reason: Diarrhea) RF: 0 magnesium hydroxide [Milk of Magnesia] 400 mg/5 mL Suspension 30 ml PO PRN PRN (Reason: Constipation) RF: 0 calcium carbonate [Calcium 500] 500 mg calcium (1,250 mg) Tablet,Chewable 500 mg PO Q2H PRN (Reason: GI UPSET) RF: 0 benzonatate [Tessalon Perles] 100 mg capsule 100 mg PO Q8H PRN (Reason: cough) RF: 0 Referrals: Germaine Jalloh MD [Primary Care Provider] - Des Horton MD [Non-Staff] -
[2021-02-06 06:25] LABS: Troponin I 0.057 ng/mL (0.01-0.034)
--- NOTE | 2021-02-06 07:53 | PC.NURSE ---
denies pain. states her SOB is much improved from yesterday.
== END 2021-02-06 10:39 | disposition home or self-care (01) ==
PROVIDERS: Emergency Medicine; Emergency Provider Emergency Medicine; PCP Internal Medicine
DX: J81.0 Acute pulmonary edema (principal); M79.89 Other specified soft tissue disorders
CPT/HCPCS: 36415; 71045; 80053; 83605; 83735; 84484; 85025; 93005; 93010; 96374; 99285; J2405

== ENCOUNTER 2021-04-21 09:01 | Emergency (ER) | payer MEDICARE, MEDICAID, SELFPAY ==
[2021-04-21] VITALS (13 sets, daily range): BP systolic 148–186; BP diastolic 64–87; PULSE 86–102; RESP 11–23; TEMP 36.1–37.3; O2SAT 85–100
--- NOTE | 2021-04-21 09:09 | DI.RAD.S_ITS ---
PROCEDURE: XR CHEST 1V INDICATIONS: short of breath TECHNIQUE: One view of the chest was acquired. COMPARISON: [facility], CT, CT CHEST WO CON, 03/07/2020, 4:38. [facility], CR, XR CHEST 1V, 03/07/2020, 14:35. [facility], CR, XR CHEST 2V, 01/21/2021, 10:33. [facility], CR, XR CHEST 1V, 02/06/2021, 3:23. FINDINGS: Surgical changes and devices: Post CABG changes are seen. Left axillary clips are seen. There is a stable dialysis catheter, with the tip overlying the right atrium. Lungs and pleura: Minimal generalized interstitial prominence can be seen. No pleural effusions or pneumothorax. Mediastinum: Mediastinal contours appear normal. Heart size is normal. Bones and chest wall: No suspicious bony lesions. Age-appropriate bony degenerative changes are seen. Overlying soft tissues appear unremarkable. IMPRESSION: Minimal generalized interstitial prominence can be seen, which is likely to fluid overload. Postoperative and degenerative changes are seen. Dictated by: Broderick Lundy M.D. on 04/21/2021 at 8:22 Approved by: Broderick Lundy M.D. on 04/21/2021 at 8:24
--- NOTE | 2021-04-21 09:14 | ED.SOB ---
HPI - SOB/Dyspnea General Chief Complaint: Shortness of Breath/Dyspnea Stated Complaint: SOB Dialysis Time Seen by Provider: 04/21/21 09:08 History of Present Illness HPI Narrative: Patient is a 66-year-old female on hemodialysis she gets dialysis Wednesday she has not missed any sessions. Last night she started experiencing increasing shortness of breath with exertion and difficulty lying flat. She frequently does get pulmonary edema and requires an extra session of dialysis or for more to be taken off. She is followed with Dr. Horton. She denies any chest pain no fever she does have a slightly productive cough. She is COVID vaccinated. She is on oxygen at home she says not continuously for off and on is available to her. She is on Eliquis as well. Related Data Home Medications Medication Instructions Recorded Confirmed cholecalciferol (vitamin D3) 25 1,000 unit PO DAILY 07/04/18 06/14/19 mcg (1,000 unit) capsule (Vitamin D3) hydrocortisone acetate 25 mg 25 mg AR Q12H PRN 07/04/18 06/14/19 rectal suppository lorazepam 0.5 mg tablet 0.5 mg PO Q12H PRN 07/04/18 06/14/19 melatonin 3 mg tablet 3 mg PO BEDTIME PRN 07/04/18 06/14/19 Lactobacillus acidophilus 1 tab PO DAILY 07/13/18 03/12/20 (Acidophilus) acetaminophen 300 mg-codeine 30 mg 1 tab PO Q12H PRN 07/13/18 03/12/20 tablet nitroglycerin 0.4 mg sublingual 0.4 mg SUBLINGUAL Q5-15M PRN 07/13/18 03/12/20 tablet (Nitrostat) fluticasone propionate 44 2 puff INHALATION BID 10/04/18 06/14/19 mcg/actuation HFA aerosol inhaler mirtazapine 15 mg tablet 7.5 mg PO BEDTIMEX7 10/04/18 06/14/19 multivitamin 1 cap PO DAILY 10/04/18 06/14/19 sevelamer carbonate 800 mg tablet 800 mg PO BID 11/03/18 06/14/19 Nepro Liquid 240 ml PO TID 06/14/19 06/14/19 acetaminophen 325 mg tablet 650 mg PO Q4H PRN 06/14/19 03/12/20 benzonatate 100 mg capsule 100 mg PO Q8H PRN 06/14/19 06/14/19 (Tessalon Perles) calcium carbonate 500 mg calcium 500 mg PO Q2H PRN 06/14/19 06/14/19 (1,250 mg) chewable tablet (Calcium 500) cyanocobalamin (vitamin B-12) 1,000 mcg PO DAILY 06/14/19 03/12/20 1,000 mcg tablet (Vitamin B-12) hydrocortisone 10 mg tablet 15 mg PO QAM 06/14/19 06/14/19 levothyroxine 112 mcg tablet 112 mcg PO QAM 06/14/19 06/14/19 loperamide 2 mg capsule (Imodium 2 mg PO PRN PRN MDD 6 CAP 06/14/19 06/14/19 A-D) magnesium hydroxide 400 mg/5 mL 30 ml PO PRN PRN 06/14/19 06/14/19 oral suspension (Milk of [email or web address]) apixaban 2.5 mg tablet (Eliquis) mg 03/12/20 atorvastatin 40 mg tablet 03/12/20 bisacodyl 03/12/20 clopidogrel 75 mg tablet 03/12/20 isosorbide mononitrate 30 mg mg PO 03/12/20 tablet,extended release 24 hr levetiracetam 250 mg tablet PO 03/12/20 metoprolol succinate 25 mg PO 03/12/20 tablet,extended release 24 hr omeprazole 20 mg capsule,delayed 03/12/20 release ondansetron HCl 4 mg tablet 03/12/20 Allergies Allergy/AdvReac Type Severity Reaction Status Date / Time No Known Drug Allergies Allergy Verified 03/12/20 13:46 Review of Systems Review of Systems Narrative: GENERAL: Denies chills, fatigue, malaise, fever, sweats, travel HEENT: Denies sinus pain, ear pain, sore throat, difficulty swallowing, neck pain RESPIRATORY: See HPI CARDIOVASCULAR: Denies chest pain, palpitations, orthopnea, edema GASTROINTESTINAL: Denies nausea, vomiting, abdominal pain, diarrhea, constipation, melena. : Denies dysuria, frequency, incontinence, hematuria, urinary retention, flank pain. MUSCULOSKELETAL: Denies weakness, joint pain, or bony pain SKIN: No rash, no erythema, no pruritus NEUROLOGIC: Denies weakness, dizziness, headache, numbness, change in speech, confusion PSYCHIATRIC: No concerning psychosocial issues. 12 point review of systems is negative except for those stated above and HPI Patient History Medical History Acute renal failure on dialysis Anemia Anxiety Breast cancer, left CHF (congestive heart failure) Fibromyalgia GI bleed HTN (hypertension) Hyperlipidemia Hypothyroid IBS (irritable bowel syndrome) Major depressive disorder Malnutrition Peripheral vascular disease Thrombocytopenia TIA (transient ischemic attack) Social History lives independently: No Smoking Status: Never smoker Smoking Status: Never smoker alcohol intake frequency: holidays/special occasions only Substance Use Type: does not use Exam Initial Vital Signs Initial Vital Signs: Vital Signs Temperature 99.0 F 04/21/21 09:15 Pulse Rate 102 H 04/21/21 09:15 Respiratory Rate 18 04/21/21 09:15 Blood Pressure 179/80 H 04/21/21 09:15 Pulse Oximetry 91 04/21/21 09:15 GENERAL: Alert 66-year-old female in [no acute] distress. HEENT: Head atraumatic,EOMI, pupils reactive, face symmetric, [moist] mucous membranes CARDIOVASCULAR: Regular rate and rhythm without murmurs, rubs or gallops. RESPIRATORY: Slightly decreased at bases no tachypnea or respiratory distress ABDOMEN: Soft, nontender. Normoactive bowel sounds all 4 quadrants. No guarding or rebound. EXTREMITIES: Normal range of motion, no clubbing or edema. Neurovascularly intact NEUROLOGICAL: Alert and oriented x4.Normal gait and speech. SKIN: Warm, dry, no laceration, no petechiae, no rashes or lesions. Course Orders Ordered: ED Orders 04/21/21 09:05 COVID19 -Nasal swab/Pre-Proc Stat 04/21/21 09:09 XR chest 1V Stat EKG-12 Lead Stat 04/21/21 09:25 Complete Blood Count AUTO DIFF Stat Comprehensive Metabolic Panel Stat Lipase Stat Troponin & CK Cardiac Panel Stat Vital Signs Vital signs: Vital Signs - 8 hr 04/21/21 11:00 04/21/21 11:30 04/21/21 12:00 Temperature Pulse Rate 86 94 H 93 H Respiratory Rate 20 11 L Blood Pressure 164/70 H Pulse Oximetry 97 100 100 04/21/21 12:30 04/21/21 12:33 04/21/21 12:45 Temperature 96.9 F L Pulse Rate 86 96 H 91 H Respiratory Rate 14 23 20 Blood Pressure 186/87 H 186/87 H Pulse Oximetry 98 99 98 MDM - SOB/Dyspnea Lab Data Result diagrams: 04/21/21 09:25 04/21/21 09:25 Labs: Lab Results 04/21/21 04/21/21 04/21/21 Range/Units 09:05 09:25 09:25 WBC 9.3 (4.5-11.0) X10^3/uL RBC 3.16 L (4.0-5.2) X10^6/uL Hgb 10.0 L (12.0-16.0) g/dL Hct 29.8 L (36-46) % MCV 94.2 (80-100) fL MCH 31.7 (26-34) PG MCHC 33.7 (30-36) % RDW 17.1 H (11.6-14.8) % Plt Count 171 (150-400) X10^3/uL Neut % (Auto) 81.5 H (50-75) % Lymph % (Auto) 11.7 L (25-40) % [place] % (Auto) 4.4 (3-14) % Eos % (Auto) 1.9 L (2-4) % Baso % (Auto) 0.5 (0-2) % Neut # (Auto) 7600 H (0984-0078) /uL Lymph # (Auto) 1100 (4431-7311) /uL [place] # (Auto) 400 (0-900) /uL Eos # (Auto) 200 (0-450) /uL Baso # (Auto) 0 (0-100) /uL Sodium 129 L (137-145) mmol/L Potassium 4.0 (3.4-5.1) mmol/L Chloride 93 L (98-107) mmol/L Carbon Dioxide 24 (22-32) mmol/L BUN 31 H (7-17) mg/dL Creatinine 7.09 H (0.52-1.04) mg/dL Estimated GFR 5.8 L (>60) mL/min BUN/Creatinine Ratio 4.4 L (6-22) Glucose 111 H (80-110) mg/dL Calcium 9.7 (8.4-10.2) mg/dL Total Bilirubin 0.5 (0.2-1.3) mg/dL AST 21 (14-36) IU/L ALT 11 (<35) IU/L Alkaline Phosphatase 77 (38-126) U/L Total Creatine Kinase 28 L (30-135) U/L CK-MB (CK-2) TNP CK-MB (CK-2) Rel Index TNP Troponin I 0.038 H (0.01-0.034) ng/mL Total Protein 6.5 (6.3-8.2) g/dL Albumin 4.4 (3.5-5.0) g/dL Globulin 2.1 (1.7-4.1) g/dL Albumin/Globulin Ratio 2.1 (1.0-2.8) Lipase 98 (23-300) U/L SARS-CoV-2 (PCR) Negative (Negative) Imaging Data Chest x-ray: Radiologist's Impression: PROCEDURE:? XR CHEST 1V ? INDICATIONS:? short of breath ? TECHNIQUE:? One view of the chest was acquired.? ? COMPARISON:? [facility], CT, CT CHEST WO CON, 03/07/2020, 4:38.? [facility], CR, XR CHEST 1V, 03/07/2020, 14:35.? [facility], CR, XR CHEST 2V, 01/21/2021, 10:33.? [facility], CR, XR CHEST 1V, 02/06/2021, 3:23. ? FINDINGS:? ? Surgical changes and devices:? Post CABG changes are seen.? Left axillary clips are seen. ?There is a stable dialysis catheter, with the tip overlying the right atrium. ? Lungs and pleura:? Minimal generalized interstitial prominence can be seen.? No pleural effusions or pneumothorax.? ? Mediastinum:? Mediastinal contours appear normal.? Heart size is normal.? ? Bones and chest wall:? No suspicious bony lesions.? Age-appropriate bony degenerative changes are seen.? ? Overlying soft tissues appear unremarkable.? ? ? IMPRESSION:? Minimal generalized interstitial prominence can be seen, which is likely to fluid overload.? ? Postoperative and degenerative changes are seen.? ? ? Dictated by: Broderick Lundy M.D. on 04/21/2021 at 8:22 ? ? Approved by: Broderick uLndy M.D. on 04/21/2021 at 8:24 ? ECG Data Interpretation: Normal sinus rhythm rate 102 AR 136 QRS 76 to see [address] changes to inversions, similar to prior MDM Narrative Medical decision making narrative: Patient does have pulmonary edema she is requiring 2 L of oxygen while at rest. This is not unusual for her she frequently has episodes of pulmonary edema requiring extra dialysis arm more fluid taken off during her dialysis sessions. We have been trying for 2 hours to get a hold of her employment evaluator/case manager Dr. horton or 1 of his partners but have been unsuccessful. Multiple surrounding hospital such as [facility], [facility] in [place] do not have any dialysis beds available. Patient is not in any severe respiratory distress. She has oxygen at home. At this time recommend she return home sleep in a recliner and keep her oxygen on at all times until dialysis 1213-I have spoken with Nazia PIKE updated her on patient's symptoms and test results, she does need dialysis but not emergently indicated at this time. Recommend oxygen at home recliner and return if breathing gets worse. Discharge Plan Departure Patient Disposition: Home Clinical Impression: Pulmonary edema Qualifiers: Chronicity: acute Qualified Code(s): J81.0 - Acute pulmonary edema Instructions: Hemodialysis, DI for Heart Failure Activity Restrictions/Additional Instructions: You do need dialysis help your breathing Unfortunately we have tried everything we could today to get dialysis but were unsuccessful. At this time you do not need emergent dialysis. Please wear oxygen at all times. You may need to sleep in a recliner to help you breathe Please follow-up with your primary care provider in 2-3 days Please follow-up with her employment evaluator/case manager If you should have any worsening symptoms increasing shortness of breath, chest pain or any other symptoms return to emergency department Prescriptions: No Action melatonin 3 mg Tablet 3 mg PO BEDTIME PRN (Reason: Insomnia) RF: 0 hydrocortisone acetate 25 mg Suppository 25 mg AR Q12H PRN (Reason: Hemorrhoids) RF: 0 lorazepam 0.5 mg Tablet 0.5 mg PO Q12H PRN (Reason: Anxiety) RF: 0 cholecalciferol (vitamin D3) [Vitamin D3] 1,000 unit Capsule 1,000 unit PO DAILY RF: 0 sevelamer carbonate 800 mg tablet 800 mg PO BID RF: 0 Eliquis 2.5 mg tablet RF: 0 metoprolol succinate 25 mg tablet extended release 24 hr PO RF: 0 omeprazole 20 mg capsule,delayed release(DR/EC) RF: 0 isosorbide mononitrate 30 mg tablet extended release 24 hr PO RF: 0 levetiracetam 250 mg tablet PO RF: 0 ondansetron HCl 4 mg tablet RF: 0 atorvastatin 40 mg tablet RF: 0 bisacodyl RF: 0 clopidogrel 75 mg tablet RF: 0 Lactobacillus acidophilus [Acidophilus] Capsule 1 tab PO DAILY RF: 0 acetaminophen-codeine 300-30 mg Tablet 1 tab PO Q12H PRN (Reason: pain) RF: 0 nitroglycerin [Nitrostat] 0.4 mg Tablet, Sublingual 0.4 mg SUBLINGUAL Q5-15M PRN (Reason: Chest Pain) RF: 0 Flovent HFA 44 mcg/actuation HFA aerosol inhaler 2 puff Inhalation BID RF: 0 mirtazapine 15 mg tablet 7.5 mg PO BEDTIMEX7 RF: 0 multivitamin Capsule 1 cap PO DAILY RF: 0 acetaminophen 325 mg Tablet 650 mg PO Q4H PRN (Reason: FEVER > 100 AND PAIN) RF: 0 cyanocobalamin (vitamin B-12) [Vitamin B-12] 1,000 mcg Tablet 1,000 mcg PO DAILY RF: 0 hydrocortisone 10 mg tablet 15 mg PO QAM RF: 0 levothyroxine 112 mcg tablet 112 mcg PO QAM RF: 0 Nepro Liquid 240 ml PO TID RF: 0 loperamide [Imodium A-D] 2 mg Capsule 2 mg PO PRN MDD 6 CAP PRN (Reason: Diarrhea) RF: 0 magnesium hydroxide [Milk of Magnesia] 400 mg/5 mL Suspension 30 ml PO PRN PRN (Reason: Constipation) RF: 0 calcium carbonate [Calcium 500] 500 mg calcium (1,250 mg) Tablet,Chewable 500 mg PO Q2H PRN (Reason: GI UPSET) RF: 0 benzonatate [Tessalon Perles] 100 mg capsule 100 mg PO Q8H PRN (Reason: cough) RF: 0 Referrals: Germaine Jalloh MD [Primary Care Provider] - Des Horton MD [Non-Staff] -
--- NOTE | 2021-04-21 09:37 | PC.NURSE ---
pt states SOB due to fluid over load began last night and is not scheduled for HD untill tomorrow. Pt also complaints of nausea, and general weakness. pt with lung sounds clear and no increased WOB at this time. SATS RA 90-92% HD port to RCW caps and dressing CDI
[2021-04-21 09:41] LABS: COVID19 -Nasal RAPID Negative (Negative)
[2021-04-21 09:44] LABS: Add Manual Diff / Slide Review NO; Basophils Absolute Auto 0 /uL (0-100); Basophils Percent Auto 0.5 % (0-2); Eosinophils Absolute Auto 200 /uL (0-450); Eosinophils Percent Auto 1.9 % (2-4); Hematocrit 29.8 % (36-46); Lymphocytes Absolute Auto 1100 /uL (1100-4500); Lymphocytes Percent Auto 11.7 % (25-40); Mean Corpuscular HGB Conc 33.7 % (30-36); Mean Corpuscular Hemoglobin 31.7 PG (26-34); Mean Corpuscular Volume 94.2 fL (80-100); Monocytes Absolute Auto 400 /uL (0-900); Monocytes Percent Auto 4.4 % (3-14); Neutrophils Absolute Auto 7600 /uL (1500-7000); Neutrophils Percent Auto 81.5 % (50-75); Platelet Count 171 X10^3/uL (150-400); Red Blood Cell Count 3.16 X10^6/uL (4.0-5.2); Red Cell Distribution Width 17.1 % (11.6-14.8); White Blood Cell Count 9.3 X10^3/uL (4.5-11.0)
[2021-04-21 09:48] LABS: Alanine Aminotransferase 11 IU/L (<35); Albumin 4.4 g/dL (3.5-5.0); Albumin Globulin Ratio 2.1 (1.0-2.8); Alkaline Phosphatase 77 U/L (38-126); Aspartate Aminotransferase 21 IU/L (14-36); BUN Creatinine Ratio 4.4 (6-22); Bilirubin Total 0.5 mg/dL (0.2-1.3); Blood Urea Nitrogen 31 mg/dL (7-17); Calcium 9.7 mg/dL (8.4-10.2); Carbon Dioxide 24 mmol/L (22-32); Chloride 93 mmol/L (98-107); Creatine Kinase 28 U/L (30-135); Estimated Glomerular Filt Rate 5.8 mL/min (>60); Globulin 2.1 g/dL (1.7-4.1); Glucose 111 mg/dL (80-110); HEMOLYSIS < 15 (0-50); Lipase 98 U/L (23-300); Sodium 129 mmol/L (137-145); Total Protein 6.5 g/dL (6.3-8.2)
[2021-04-21 10:00] LABS: Troponin I 0.038 ng/mL (0.01-0.034)
== END 2021-04-21 12:53 | disposition home or self-care (01) ==
PROVIDERS: Emergency Provider Emergency Medicine; PCP Internal Medicine
DX: J81.0 Acute pulmonary edema (principal); Z20.822 Contact with and (suspected) exposure to COVID-19
CPT/HCPCS: 36415; 71045; 80053; 82550; 83690; 84484; 85025; 87635; 93005; 99283; 99285; C9803

== ENCOUNTER 2021-04-30 13:29 | Emergency (ER) | payer MEDICARE, MEDICAID, SELFPAY ==
[2021-04-30 13:30] VITALS: BP 116/71; PULSE 102; RESP 14; TEMP 36.9; O2SAT 97; BMI 25.4
--- NOTE | 2021-04-30 13:34 | ED_ITS ---
HPI - General Adult General Stated complaint: dialysis complaint Time Seen by Provider: 04/30/21 13:34 Source: patient Mode of arrival: EMS History of Present Illness HPI narrative: Patient is a 66-year-old female. Is a dialysis patient. R eceives dialysis on Wednesday and Saturdays. Did have dialysis yesterday. Yesterday started noticing redness around the dialysis catheter. It is a tunnel catheter in her right upper chest and has been placed approximately 1 year ago. Since yesterday she has been noticing more discomfort and redness over the area. Related Data Home Medications Medication Instructions Recorded Confirmed cholecalciferol (vitamin D3) 25 1,000 unit PO DAILY 07/04/18 06/14/19 mcg (1,000 unit) capsule (Vitamin D3) hydrocortisone acetate 25 mg 25 mg NM Q12H PRN 07/04/18 06/14/19 rectal suppository lorazepam 0.5 mg tablet 0.5 mg PO Q12H PRN 07/04/18 06/14/19 melatonin 3 mg tablet 3 mg PO BEDTIME PRN 07/04/18 06/14/19 Lactobacillus acidophilus 1 tab PO DAILY 07/13/18 03/12/20 (Acidophilus) acetaminophen 300 mg-codeine 30 mg 1 tab PO Q12H PRN 07/13/18 03/12/20 tablet nitroglycerin 0.4 mg sublingual 0.4 mg SUBLINGUAL Q5-15M PRN 07/13/18 03/12/20 tablet (Nitrostat) fluticasone propionate 44 2 puff INHALATION BID 10/04/18 06/14/19 mcg/actuation HFA aerosol inhaler mirtazapine 15 mg tablet 7.5 mg PO BEDTIMEX7 10/04/18 06/14/19 multivitamin 1 cap PO DAILY 10/04/18 06/14/19 sevelamer carbonate 800 mg tablet 800 mg PO BID 11/03/18 06/14/19 Nepro Liquid 240 ml PO TID 06/14/19 06/14/19 acetaminophen 325 mg tablet 650 mg PO Q4H PRN 06/14/19 03/12/20 benzonatate 100 mg capsule 100 mg PO Q8H PRN 06/14/19 06/14/19 (Tesleslie Blanchard) calcium carbonate 500 mg calcium 500 mg PO Q2H PRN 06/14/19 06/14/19 (1,250 mg) chewable tablet (Calcium 500) cyanocobalamin (vitamin B-12) 1,000 mcg PO DAILY 06/14/19 03/12/20 1,000 mcg tablet (Vitamin B-12) hydrocortisone 10 mg tablet 15 mg PO QAM 06/14/19 06/14/19 levothyroxine 112 mcg tablet 112 mcg PO QAM 06/14/19 06/14/19 loperamide 2 mg capsule (Imodium 2 mg PO PRN PRN MDD 6 CAP 06/14/19 06/14/19 A-D) magnesium hydroxide 400 mg/5 mL 30 ml PO PRN PRN 06/14/19 06/14/19 oral suspension (Milk of Magnesia) apixaban 2.5 mg tablet (Eliquis) mg 03/12/20 atorvastatin 40 mg tablet 03/12/20 bisacodyl 03/12/20 clopidogrel 75 mg tablet 03/12/20 isosorbide mononitrate 30 mg mg PO 03/12/20 tablet,extended release 24 hr levetiracetam 250 mg tablet PO 03/12/20 metoprolol succinate 25 mg PO 03/12/20 tablet,extended release 24 hr omeprazole 20 mg capsule,delayed 03/12/20 release ondansetron HCl 4 mg tablet 03/12/20 Previous Rx's Medication Instructions Recorded doxycycline hyclate 100 mg tablet 100 mg PO BID 7 Days #14 tab 04/30/21 Allergies Allergy/AdvReac Type Severity Reaction Status Date / Time No Known Drug Allergies Allergy Verified 04/30/21 13:34 Review of Systems Constitutional Comments: No fevers Cardiovascular Cardiovascular: Reports system reviewed and no additional complaints, except as documented Respiratory Respiratory: Reports system reviewed and no additional complaints, except as documented Integumentary/Breasts Comments: Redness around her dialysis port site Patient History Medical History Acute renal failure on dialysis Anemia Anxiety Breast cancer, left CHF (congestive heart failure) Fibromyalgia GI bleed HTN (hypertension) Hyperlipidemia Hypothyroid IBS (irritable bowel syndrome) Major depressive disorder Malnutrition Peripheral vascular disease Thrombocytopenia TIA (transient ischemic attack) Social History lives independently: No Smoking Status: Never smoker Smoking Status: Never smoker alcohol intake frequency: holidays/special occasions only Substance Use Type: does not use Exam Const General: cooperative and comfortable HENMT Head: normal to inspection and normocephalic Chest Other: Dialysis catheter in right upper chest. No drainage. Resp Effort & Inspection: normal respiratory effort Auscultation: clear to auscultation bilaterally Cardio Rate: regular rate Rhythm: regular rhythm Skin Other: Patient with a 8 cm round area of redness and slight warmth around the area where the dialysis catheter is entering the skin. There is no drainage. There are no abscesses. Neuro General: patient alert, patient awake and moves all extremities Extrem General: normal to inspection and capillary refill normal Medical Decision Making MDM Narrative Medical decision making narrative: Do a concern that the catheter could potentially have an area of cellulitis around it. It is not draining. It is very slightly warm to touch. It is tender to touch. The catheter itself appears well. I have low suspicion for any abscesses. The plan will be is to start her on antibiotics. She was given a prescription for antibiotics. She was given return precautions and follow-up instructions. She expressed understanding and agreement. Discharge Plan Departure Patient Disposition: Home Clinical Impression: Cellulitis Instructions: Cellulitis Activity Restrictions/Additional Instructions: It does look like the area around the catheter could potentially have a skin infection. We call this cellulitis. Because you do need the catheter in order to receive dialysis and the fact that these are a fairly involved procedure to place them we do need to start you on antibiotics to see if this does not improve the cellulitis first before there is any talk of replacing the catheter. Start taking the antibiotics as directed. Continue to attend your dialysis treatments as directed. Contact your primary doctor and also your acute care physical therapist for follow-up. Prescriptions: New doxycycline hyclate 100 mg tablet 100 mg PO BID 7 Days Qty: 14 RF: 0 No Action melatonin 3 mg Tablet 3 mg PO BEDTIME PRN (Reason: Insomnia) RF: 0 hydrocortisone acetate 25 mg Suppository 25 mg NM Q12H PRN (Reason: Hemorrhoids) RF: 0 lorazepam 0.5 mg Tablet 0.5 mg PO Q12H PRN (Reason: Anxiety) RF: 0 cholecalciferol (vitamin D3) [Vitamin D3] 1,000 unit Capsule 1,000 unit PO DAILY RF: 0 sevelamer carbonate 800 mg tablet 800 mg PO BID RF: 0 Eliquis 2.5 mg tablet RF: 0 metoprolol succinate 25 mg tablet extended release 24 hr PO RF: 0 omeprazole 20 mg capsule,delayed release(DR/EC) RF: 0 isosorbide mononitrate 30 mg tablet extended release 24 hr PO RF: 0 levetiracetam 250 mg tablet PO RF: 0 ondansetron HCl 4 mg tablet RF: 0 atorvastatin 40 mg tablet RF: 0 bisacodyl RF: 0 clopidogrel 75 mg tablet RF: 0 Lactobacillus acidophilus [Acidophilus] Capsule 1 tab PO DAILY RF: 0 acetaminophen-codeine 300-30 mg Tablet 1 tab PO Q12H PRN (Reason: pain) RF: 0 nitroglycerin [Nitrostat] 0.4 mg Tablet, Sublingual 0.4 mg SUBLINGUAL Q5-15M PRN (Reason: Chest Pain) RF: 0 Flovent HFA 44 mcg/actuation HFA aerosol inhaler 2 puff Inhalation BID RF: 0 mirtazapine 15 mg tablet 7.5 mg PO BEDTIMEX7 RF: 0 multivitamin Capsule 1 cap PO DAILY RF: 0 acetaminophen 325 mg Tablet 650 mg PO Q4H PRN (Reason: FEVER > 100 AND PAIN) RF: 0 cyanocobalamin (vitamin B-12) [Vitamin B-12] 1,000 mcg Tablet 1,000 mcg PO DAILY RF: 0 hydrocortisone 10 mg tablet 15 mg PO QAM RF: 0 levothyroxine 112 mcg tablet 112 mcg PO QAM RF: 0 Nepro Liquid 240 ml PO TID RF: 0 loperamide [Imodium A-D] 2 mg Capsule 2 mg PO PRN MDD 6 CAP PRN (Reason: Diarrhea) RF: 0 magnesium hydroxide [Milk of Magnesia] 400 mg/5 mL Suspension 30 ml PO PRN PRN (Reason: Constipation) RF: 0 calcium carbonate [Calcium 500] 500 mg calcium (1,250 mg) Tablet,Chewable 500 mg PO Q2H PRN (Reason: GI UPSET) RF: 0 benzonatate [Tessalon Perles] 100 mg capsule 100 mg PO Q8H PRN (Reason: cough) RF: 0 Referrals: Germaine Jalloh MD [Primary Care Provider] -
== END 2021-04-30 14:25 | disposition home or self-care (01) ==
LOC: ED 13:50
PROVIDERS: Emergency Provider Emergency Medicine; PCP Internal Medicine
DX: T82.7XXA Infection and inflammatory reaction due to other cardiac and vascular devices, implants and grafts, initial encounter (principal); L03.313 Cellulitis of chest wall
CPT/HCPCS: 99281

== ENCOUNTER → 2021-06-14 22:17 | Outpatient (ROUT) | payer MEDICARE, SELFPAY ==
[2021-06-14 23:17] LABS: COVID19 - ADMIT (NP swab/PCR) Negative (Negative)
== END ==
PROVIDERS: PCP Internal Medicine; Visit Provider Physician Assistant Medical
DX: Z20.822 Contact with and (suspected) exposure to COVID-19 (principal)
CPT/HCPCS: U0003

== ENCOUNTER → 2021-10-21 07:47 | Outpatient (ROUT) | payer MEDICARE, MEDICAID, SELFPAY ==
[2021-10-25 08:59] LABS: Levetiracetam Keppra 19.7 ug/mL (10.0-40.0)
== END ==
PROVIDERS: PCP Internal Medicine; Visit Provider Internal Medicine
DX: Z79.899 Other long term (current) drug therapy (principal)
CPT/HCPCS: 36415; 80177

== ENCOUNTER 2021-12-03 19:49 | Emergency (ER) | payer MEDICARE, MEDICAID, SELFPAY ==
[2021-12-03] VITALS (16 sets, daily range): BP systolic 98–172; BP diastolic 59–104; PULSE 79–98; RESP 11–19; TEMP 36.9; O2SAT 91–97; BMI 26.4
--- NOTE | 2021-12-03 19:57 | DI.CT.S_ITS ---
PROCEDURE: CT STROKE INDICATIONS: code stroke L visual field hemianopsia TECHNIQUE: Noncontrast 4.5 mm thick angled axial sections acquired from the foramen magnum to the vertex, with coronal reformats. For radiation dose reduction, the following was used: automated exposure control, adjustment of mA and/or kV according to patient size. COMPARISON: [facility], MR, MR BRAIN WITHOUT CONTRAST, 02/23/2019, 18:51. [facility], CT, CT ANGIO HEAD AND NECK, 12/03/2021, 20:04. FINDINGS: Image quality: Excellent. CSF spaces: Basal cisterns are patent. No extra-axial fluid collections. Ventricles are normal in size and shape. Brain: No midline shift. No intracranial masses or hemorrhage. Area of hypodensity in the right parietal occipital lobe overall appears similar to 02/22/2019. This is in keeping with a prior infarction. No new area of hypodensity in a vascular distribution. There is periventricular hypodensity consistent with chronic microvascular ischemic disease. There is age-related parenchymal loss. Skull and face: Calvarium and visualized facial bones are intact, without suspicious lesions. Sinuses: Visualized sinuses and mastoids are clear. IMPRESSION: 1. No acute intracranial abnormality. 2. Remote right parietal occipital infarct appears unchanged. Comment: Findings were discussed with Edson Friend at the time of dictation. This study fulfills neurological imaging criteria for inclusion or exclusion of acute stroke therapies based on available published neurological imaging guidelines. Dictated by: Dionisio Conte M.D. on 12/03/2021 at 20:26 Approved by: Dionisio Conte M.D. on 12/03/2021 at 20:32
--- NOTE | 2021-12-03 19:57 | ED_ITS ---
HPI - General Adult General Chief complaint: Neuro Symptoms/Deficit Stated complaint: Weakness Time Seen by Provider: 12/03/21 19:51 Source: patient and EMS Mode of arrival: EMS Limitations: no limitations History of Present Illness HPI narrative: Patient is a 66-year-old female. Arrives the emergency department for evaluation of weakness and left-sided visual field deficit. Patient was initially called as a code stroke given her presenting symptoms. Patient unsure exactly how long the symptoms have been going on but she did think that she was having some visual problems earlier today but maybe did notice it and now feels like it is more pronounced. She has had a stroke in the past but that was many years ago. She states that it presented very similar to the symptoms today. No interventions prior to arrival. Patient is a dialysis patient. Next dialysis treatment is tomorrow. Related Data Home Medications Medication Instructions Recorded Confirmed cholecalciferol (vitamin D3) 25 1,000 unit PO DAILY 07/04/18 06/14/19 mcg (1,000 unit) capsule (Vitamin D3) hydrocortisone acetate 25 mg 25 mg AK Q12H PRN 07/04/18 06/14/19 rectal suppository lorazepam 0.5 mg tablet 0.5 mg PO Q12H PRN 07/04/18 06/14/19 melatonin 3 mg tablet 3 mg PO BEDTIME PRN 07/04/18 06/14/19 Lactobacillus acidophilus 1 tab PO DAILY 07/13/18 03/12/20 (Acidophilus) acetaminophen 300 mg-codeine 30 mg 1 tab PO Q12H PRN 07/13/18 03/12/20 tablet nitroglycerin 0.4 mg sublingual 0.4 mg SUBLINGUAL Q5-15M PRN 07/13/18 03/12/20 tablet (Nitrostat) fluticasone propionate 44 2 puff INHALATION BID 10/04/18 06/14/19 mcg/actuation HFA aerosol inhaler mirtazapine 15 mg tablet 7.5 mg PO BEDTIMEX7 10/04/18 06/14/19 multivitamin 1 cap PO DAILY 10/04/18 06/14/19 sevelamer carbonate 800 mg tablet 800 mg PO BID 11/03/18 06/14/19 Nepro Liquid 240 ml PO TID 06/14/19 06/14/19 acetaminophen 325 mg tablet 650 mg PO Q4H PRN 06/14/19 03/12/20 benzonatate 100 mg capsule 100 mg PO Q8H PRN 06/14/19 06/14/19 (Tessalon Perles) calcium carbonate 500 mg calcium 500 mg PO Q2H PRN 06/14/19 06/14/19 (1,250 mg) chewable tablet (Calcium 500) cyanocobalamin (vitamin B-12) 1,000 mcg PO DAILY 06/14/19 03/12/20 1,000 mcg tablet (Vitamin B-12) hydrocortisone 10 mg tablet 15 mg PO QAM 06/14/19 06/14/19 levothyroxine 112 mcg tablet 112 mcg PO QAM 06/14/19 06/14/19 loperamide 2 mg capsule (Imodium 2 mg PO PRN PRN MDD 6 CAP 06/14/19 06/14/19 A-D) magnesium hydroxide 400 mg/5 mL 30 ml PO PRN PRN 06/14/19 06/14/19 oral suspension (Milk of getupp) apixaban 2.5 mg tablet (Eliquis) mg 03/12/20 atorvastatin 40 mg tablet 03/12/20 bisacodyl 03/12/20 clopidogrel 75 mg tablet 03/12/20 isosorbide mononitrate 30 mg mg PO 03/12/20 tablet,extended release 24 hr levetiracetam 250 mg tablet PO 03/12/20 metoprolol succinate 25 mg PO 03/12/20 tablet,extended release 24 hr omeprazole 20 mg capsule,delayed 03/12/20 release ondansetron HCl 4 mg tablet 03/12/20 Allergies Allergy/AdvReac Type Severity Reaction Status Date / Time No Known Drug Allergies Allergy Verified 05/01/21 07:16 Review of Systems Constitutional Constitutional: Denies fever(s) and Denies headache(s) Eyes Eyes: Reports as per HPI and Reports system reviewed and no additional complaints, except as documented ENT Ears, Nose, Mouth, and Throat: Denies vertigo, Denies dizziness, Denies headache(s) and Denies sore throat Cardiovascular Cardiovascular: Denies chest pain and Denies dyspnea Respiratory Respiratory: Denies dyspnea Gastrointestinal Gastrointestinal: Denies abdominal pain Genitourinary Genitourinary: Denies dysuria Musculoskeletal Musculoskeletal: Reports system reviewed and no additional complaints, except as documented Integumentary/Breasts Skin/Breast: Denies rash Neurologic Neurologic: Denies abnormal speech, Denies vertigo, Denies dizziness, Denies headache(s) and Denies localized weakness Hematologic/Lymphatic On Anticoagulants: Yes Allergic/Immunologic Allergic/Immunologic: Reports system reviewed and no additional complaints, except as documented Patient History Medical History Acute renal failure on dialysis Anemia Anxiety Breast cancer, left CHF (congestive heart failure) Fibromyalgia GI bleed HTN (hypertension) Hyperlipidemia Hypothyroid IBS (irritable bowel syndrome) Major depressive disorder Malnutrition Peripheral vascular disease Thrombocytopenia TIA (transient ischemic attack) Social History lives independently: No Smoking Status: Never smoker Smoking Status: Never smoker alcohol intake frequency: holidays/special occasions only Substance Use Type: does not use Exam Initial Vital Signs Initial Vital Signs: Vital Signs Pulse Rate 97 H 12/03/21 19:58 Respiratory Rate 16 12/03/21 19:58 Pulse Oximetry 97 12/03/21 19:58 Const General: cooperative and comfortable HENMT Head: normal to inspection and normocephalic Eyes General: appearance normal, both eyes and all related structures Visual White: abnormal by confrontation peripheral vision loss (Left visual field); Negative for no central vision loss Pupils: PERRL EOM: EOM intact bilaterally Neck Neck: normal visual inspection Resp Effort & Inspection: normal respiratory effort Auscultation: clear to auscultation bilaterally Cardio Rate: regular rate Rhythm: regular rhythm GI Inspection: non-distended Palpation: soft Back/Spine/Pelvis Back: normal to inspection Skin General: no rashes or lesions noted Neuro General: patient alert, patient awake, moves all extremities, no meningeal signs and patient confused Cranial Nerves: PERRL and hearing normal Cognition: abnormal cognition (Oriented to person and place but not year normal month) Speech: speech normal Motor: muscle tone normal throughout Sensory Exam: no sensory deficits noted Extrem General: normal to inspection and capillary refill normal Psych Appearance: grossly normal and well kempt Scores GCS Nicollet coma scale eye opening: Spontaneous Nicollet coma scale verbal response: Confused Nicollet coma scale motor response: Obey commands Nicollet coma scale total score: 14 NIH Stroke Scale Level of Conciousness: Alert, keenly responsive Ask month/age: Answers one question correctly, intubated follow commands Open/close eyes, close hand: Performs both tasks correctly Best gaze horizontal: Normal Visual white: Complete hemianopia Facial palsy: Normal symetrical movement Left arm drift: No drift for full 10 sec Right arm drift: No drift for full 10 sec Left leg drift: No drift for full 5 sec Right leg drift: No drift for full 5 sec Limb ataxia: Absent Sensory on face/arms/legs: Normal, no sensory loss Best language: No aphasia, normal Dysarthria: Normal Extinction or inattention: No abnormality Total NIH Stroke scale score: 3 Course Orders Ordered: ED Orders 12/03/21 19:57 CT Stroke Stat 12/03/21 19:59 CT angio head and neck Stat 12/03/21 20:00 Basic Metabolic Panel Stat Complete Blood Count AUTO DIFF Stat Lipase Stat Partial Thromboplastin Time Stat Prothrombin Time INR Stat EKG-12 Lead Stat 12/03/21 20:23 COVID19 -Nasal RAPID/Pre-Proc Stat Discontinued Medications Sodium Chloride (Normal Saline 0.9%) 1,000 mls @ 125 mls/hr IV CONT WILMAR Last Infusion: 12/03/21 23:50 Dose: 125 mls/hr Documented by: Admin: 12/03/21 20:31 Dose: 125 mls/hr Documented by: MAYA Vital Signs Vital signs: Vital Signs - 8 hr 12/03/21 20:30 12/03/21 21:00 12/03/21 21:30 Pulse Rate 87 86 89 Respiratory Rate 11 L 17 12 Blood Pressure 105/73 123/59 L Pulse Oximetry 91 95 96 12/03/21 21:31 12/03/21 22:00 12/03/21 22:01 Pulse Rate 91 H 87 90 Respiratory Rate 14 17 19 Blood Pressure 112/90 112/61 Pulse Oximetry 93 95 94 12/03/21 22:30 12/03/21 22:31 12/03/21 23:00 Pulse Rate 86 84 82 Respiratory Rate 13 13 12 Blood Pressure 128/79 Pulse Oximetry 92 91 94 12/03/21 23:01 12/03/21 23:30 12/03/21 23:31 Pulse Rate 83 79 79 Respiratory Rate 13 13 13 Blood Pressure 113/59 L 98/77 Pulse Oximetry 91 92 92 Medical Decision Making Lab Data Lab results reviewed: Yes I reviewed the patient's lab results. Result diagrams: 12/03/21 20:00 12/03/21 20:00 Labs: Lab Results 12/03/21 12/03/21 12/03/21 Range/Units 20:00 20:00 20:00 WBC 10.4 (4.5-11.0) X10^3/uL RBC 3.99 L (4.0-5.2) X10^6/uL Hgb 13.1 (12.0-16.0) g/dL Hct 39.1 (36-46) % MCV 98.0 (80-100) fL MCH 32.9 (26-34) PG MCHC 33.6 (30-36) % RDW 18.4 H (11.6-14.8) % Plt Count 147 L (150-400) X10^3/uL Neut % (Auto) 80.5 H (50-75) % Lymph % (Auto) 12.4 L (25-40) % Archer % (Auto) 5.7 (3-14) % Eos % (Auto) 1.0 L (2-4) % Baso % (Auto) 0.4 (0-2) % Neut # (Auto) 8400 H (3555-0542) /uL Lymph # (Auto) 1300 (4108-1650) /uL Archer # (Auto) 600 (0-900) /uL Eos # (Auto) 100 (0-450) /uL Baso # (Auto) 0 (0-100) /uL PT 16.8 H (10.1-12.7) SECONDS INR 1.5 H (0.9-1.3) APTT 41 H (26.4-36.2) SECONDS Sodium 136 L (137-145) mmol/L Potassium 4.7 (3.4-5.1) mmol/L Chloride 95 L (98-107) mmol/L Carbon Dioxide 27 (22-32) mmol/L BUN 35 H (7-17) mg/dL Creatinine 7.11 H (0.52-1.04) mg/dL Estimated GFR 6 L (>60) mL/min BUN/Creatinine Ratio 4.9 L (6-22) Glucose 94 (80-110) mg/dL Calcium 8.4 (8.4-10.2) mg/dL Lipase 142 (23-300) U/L SARS-CoV-2 (PCR) (Negative) 12/03/21 Range/Units 20:23 WBC (4.5-11.0) X10^3/uL RBC (4.0-5.2) X10^6/uL Hgb (12.0-16.0) g/dL Hct (36-46) % MCV (80-100) fL MCH (26-34) PG MCHC (30-36) % RDW (11.6-14.8) % Plt Count (150-400) X10^3/uL Neut % (Auto) (50-75) % Lymph % (Auto) (25-40) % Archer % (Auto) (3-14) % Eos % (Auto) (2-4) % Baso % (Auto) (0-2) % Neut # (Auto) (3695-3752) /uL Lymph # (Auto) (4235-8873) /uL Archer # (Auto) (0-900) /uL Eos # (Auto) (0-450) /uL Baso # (Auto) (0-100) /uL PT (10.1-12.7) SECONDS INR (0.9-1.3) APTT (26.4-36.2) SECONDS Sodium (137-145) mmol/L Potassium (3.4-5.1) mmol/L Chloride (98-107) mmol/L Carbon Dioxide (22-32) mmol/L BUN (7-17) mg/dL Creatinine (0.52-1.04) mg/dL Estimated GFR (>60) mL/min BUN/Creatinine Ratio (6-22) Glucose (80-110) mg/dL Calcium (8.4-10.2) mg/dL Lipase (23-300) U/L SARS-CoV-2 (PCR) Negative (Negative) Point of Care Testing Glucose POC 91 Point of care testing: Point of Care Testing Glucose POC [address] scan - head: Radiologist's Impression: [address] [address] [address] Scan Report Signed Patient: Aurelia Gr MR#: [id number] : 1955 Acct:[id number] Age/Sex: 66 / F Date of Service: 12/03/21 Loc: ED Accession Number: [id number] ?? Procedure: CT Stroke Ordering Provider: Edson Friend D.O. PROCEDURE:? CT STROKE ? INDICATIONS:? code stroke L visual field hemianopsia ? TECHNIQUE:? Noncontrast 4.5 mm thick angled axial sections acquired from the foramen magnum to the vertex, with coronal reformats.? For radiation dose reduction, the following was used:? automated exposure control, adjustment of mA and/or kV according to patient size.? ? COMPARISON:? [facility], MR, MR BRAIN WITHOUT CONTRAST, 02/23/2019, 18:51.? [facility], CT, CT ANGIO HEAD AND NECK, 12/03/2021, 20:04. ? FINDINGS:? Image quality:? Excellent.? ? CSF spaces:? Basal cisterns are patent.? No extra-axial fluid collections.? Ventricles are normal in size and shape.? ? Brain:? No midline shift.? No intracranial masses or hemorrhage.? Area of hypodensity in the right parietal occipital lobe overall appears similar to 02/22/2019.? This is in keeping with a prior infarction.? No new area of hypodensity in a vascular distribution.? There is periventricular hypodensity consistent with chronic microvascular is chemic disease.? There is age-related parenchymal loss. ? Skull and face:? Calvarium and visualized facial bones are intact, without suspicious lesions.? ? Sinuses:? Visualized sinuses and mastoids are clear.? ? IMPRESSION:? 1. No acute intracranial abnormality. ? 2. Remote right parietal occipital infarct appears unchanged. ? Comment: Findings were discussed with Edson Friend at the time of dictation. ? This study fulfills neurological imaging criteria for inclusion or exclusion of acute stroke therapies based on available published neurological imaging guidelines.? ? ? Dictated by: Dionisio Conte M.D. on 12/03/2021 at 20:26 ? ? Approved by: Dionisio Conte M.D. on 12/03/2021 at 20:32?? CTA - brain/neck: Radiologist's Impression: [address] [address] [address] Scan Report Signed Patient: Aurelia Gr MR#: [id number] : 1955 Acct:[id number] Age/Sex: 66 / F Date of Service: 12/03/21 Loc: ED Accession Number: [id number] ?? Procedure: CT angio head and neck Ordering Provider: Edson Friend D.O. PROCEDURE:? CT ANGIO HEAD AND NECK ? INDICATIONS:? Code stroke, left visual field hemianopsia ? TECHNIQUE:? Pre-contrast 4.5 mm thick sections acquired from the foramen magnum to the vertex.? After the administration of intravenous contrast, 1 mm thick sections acquired from the aortic arch through the [place] of [place].? Post-contrast 4.5 mm thick sections then re- acquired from the foramen magnum to the vertex.? 3-dimensional wjzphon-dwnlkmphe-zcurbsrlsp (MIP) and/or volume rendering reformats were acquired of the central intracranial vasculature and neck separately. For radiation dose reduction, the following was used:? automated exposure control, adjustment of mA and/or kV according to patient size.? ? COMPARISON:? CT, CT CHEST WO CON, 03/07/2020, 4:38.? [facility], CT, CT HEAD/BRAIN WO CON, 02/22/2019, 21:15.? [facility], CT, CT STROKE, 12/03/2021, 20:04. ? FINDINGS:? Image quality:? Fair.? ? BRAIN:? CSF spaces:? Ventricles are normal in size and shape.? Basal cisterns are horta nt.? No extra-axial fluid collections.? ? Brain:? No midline shift.? No intracranial bleeds or masses.? Similar prior encephalomalacia in the right parietal occipital lobe.? Chronic microvascular ischemic disease. ? Skull and face:? Calvarium and facial bones appear intact, without suspicious lesions.? Orbits appear normal.? ? Sinuses:? Sinuses and mastoids are clear.? ? HEAD CT ANGIOGRAPHY:? Anterior circulation:? Intracranial internal carotid arteries are normal in size and flow.? The flow within the paired anterior cerebral arteries is normal and symmetric.? The flow within the middle cerebral arteries is normal and symmetric.? The anterior communicating artery is seen.? No aneurysms are seen.? ? Posterior circulation:? The right left vertebral artery is dominant.? The distal V4 segment of the right vertebral artery is attenuated and mostly terminates as PICA.? Flow within the posterior cerebral arteries is normal and symmetric.? No aneurysms are seen.? ? NECK CT ANGIOGRAPHY:? Carotid system:? There is moderate plaque at the carotid bulb.? The left CCA originates from the brachiocephalic artery, variant.? There is 50% stenosis at the origin of the right and left CCA.? There is approximately 50% stenosis in the left CCA.? There is 50-69% range category stenosis in the left proximal ICA.? This area is somewhat suboptimally evaluated due to beam hardening artifact.? There is less than 50% stenosis in the right proximal ICA.? There is extensive calcified plaque at the carotid bulbs bilaterally. ? Posterior circulation:? The origins of the vertebral arteries both appear widely patent.? The more superior extracranial portions of both vertebral arteries also demonstrate normal courses and calibers.? They join to form a normal appearing basilar artery.? ? Soft tissues:? Visualized neck soft tissues demonstrate no suspicious abnormalities.? Moderate emphysematous change.? Left pleural apical scarring is unchanged compared to 03/07/2020. ? Bones:? No suspicious bony lesions.? Visualized cervical spine appears normally aligned.? Moderate degenerative change in the cervical spine.? Post median sternotomy.? ? ? IMPRESSION:? 1. No large vessel occlusion. ? 2. There is 50-69% stenosis at the left carotid bulb. There is approximately 50% stenosis in the right ICA.? There is moderate calcified plaque in the carotid bulbs bilaterally. ? 3. There is 50% stenosis at the origins of the right and left CCA. ? Comment: Findings were discussed with Edson Friend at the time of dictation. ? Any quantitative measurements of stenosis were performed using NASCET criteria.? ? ? Dictated by: Dionisio Conte M.D. on 12/03/2021 at 20:33 ? ? Approved by: Dionisio Conte M.D. on 12/03/2021 at 20:49? ECG Data Attestation: I personally reviewed and interpreted this ECG as follows: Interpretation: Sinus rhythm Ventricular rate 87 Normal axis LVH Normal QRS Normal QTC Nonspecific ST T wave changes MDM Narrative Medical decision making narrative: Patient arrived as a code stroke. Has a NIH score of 3. Has left visual field hemianopsia. Patient outside the window of tPA given the fact that her symptoms potentially started greater than 4-1/2 hours ago in the fact that she is on anticoagulation. Head CT shows no acute pathology. CTA shows no large vessel occlusion. There is a old right-sided occipital stroke that would give her presentation today. I did discuss the case with the patient's sister over the phone who is her [id number]. She states that the patient does have a history of ?vascular dementia. She stated that she has had a stroke in the past and that the visual field deficits that she is currently having are not new. Patient does not require emergent dialysis. Is not requiring oxygen here in the ER. I did discuss the case with the patient's primary provider as well. Given the fact that her symptoms are not new will discharge home and her primary doctor is okay with this and will follow up with her. She can receive dialysis tomorrow. I did inform patient will be discharging her back to her facility. She expressed understanding and agreement to this. Discharge Plan Departure Patient Disposition: Home Clinical Impression: Hemianopia of left eye Activity Restrictions/Additional Instructions: I do recommend that came continue to take all of her medications as directed and that she keeps her scheduled dialysis appointment on 12/04/21. Also recommend that her primary doctor be notified of her visit today. She can return to the emergency department at any point for new or worsening symptoms. Prescriptions: No Action melatonin 3 mg Tablet 3 mg PO BEDTIME PRN (Reason: Insomnia) 0RF hydrocortisone acetate 25 mg Suppository 25 mg AK Q12H PRN (Reason: Hemorrhoids) 0RF lorazepam 0.5 mg Tablet 0.5 mg PO Q12H PRN (Reason: Anxiety) 0RF cholecalciferol (vitamin D3) [Vitamin D3] 1,000 unit Capsule 1,000 unit PO DAILY 0RF sevelamer carbonate 800 mg tablet 800 mg PO BID 0RF Eliquis 2.5 mg tablet 0RF metoprolol succinate 25 mg tablet extended release 24 hr PO 0RF omeprazole 20 mg capsule,delayed release(DR/EC) 0RF isosorbide mononitrate 30 mg tablet extended release 24 hr PO 0RF levetiracetam 250 mg tablet PO 0RF ondansetron HCl 4 mg tablet 0RF atorvastatin 40 mg tablet 0RF bisacodyl 0RF clopidogrel 75 mg tablet 0RF Lactobacillus acidophilus [Acidophilus] Capsule 1 tab PO DAILY 0RF acetaminophen-codeine 300-30 mg Tablet 1 tab PO Q12H PRN (Reason: pain) 0RF nitroglycerin [Nitrostat] 0.4 mg Tablet, Sublingual 0.4 mg SUBLINGUAL Q5-15M PRN (Reason: Chest Pain) 0RF Flovent HFA 44 mcg/actuation HFA aerosol inhaler 2 puff Inhalation BID 0RF mirtazapine 15 mg tablet 7.5 mg PO BEDTIMEX7 0RF multivitamin Capsule 1 cap PO DAILY 0RF acetaminophen 325 mg Tablet 650 mg PO Q4H PRN (Reason: FEVER > 100 AND PAIN) 0RF cyanocobalamin (vitamin B-12) [Vitamin B-12] 1,000 mcg Tablet 1,000 mcg PO DAILY 0RF hydrocortisone 10 mg tablet 15 mg PO QAM 0RF levothyroxine 112 mcg tablet 112 mcg PO QAM 0RF Nepro Liquid 240 ml PO TID 0RF Rx Instructions: [facility] loperamide [Imodium A-D] 2 mg Capsule 2 mg PO PRN MDD 6 CAP PRN (Reason: Diarrhea) 0RF magnesium hydroxide [Milk of Magnesia] 400 mg/5 mL Suspension 30 ml PO PRN PRN (Reason: Constipation) 0RF calcium carbonate [Calcium 500] 500 mg calcium (1,250 mg) Tablet,Chewable 500 mg PO Q2H PRN (Reason: GI UPSET) 0RF benzonatate [Tessalon Perles] 100 mg capsule 100 mg PO Q8H PRN (Reason: cough) 0RF Referrals: Germaine Jalloh MD [Primary Care Provider] -
--- NOTE | 2021-12-03 19:59 | DI.CT.S_ITS ---
PROCEDURE: CT ANGIO HEAD AND NECK INDICATIONS: Code stroke, left visual field hemianopsia TECHNIQUE: Pre-contrast 4.5 mm thick sections acquired from the foramen magnum to the vertex. After the administration of intravenous contrast, 1 mm thick sections acquired from the aortic arch through the [place] of [place]. Post-contrast 4.5 mm thick sections then re-acquired from the foramen magnum to the vertex. 3-dimensional lmaoowg-kqrphwzua-fhvyjgvuin (MIP) and/or volume rendering reformats were acquired of the central intracranial vasculature and neck separately. For radiation dose reduction, the following was used: automated exposure control, adjustment of mA and/or kV according to patient size. COMPARISON: CT, CT CHEST WO CON, 03/07/2020, 4:38. [facility], CT, CT HEAD/BRAIN WO CON, 02/22/2019, 21:15. [facility], CT, CT STROKE, 12/03/2021, 20:04. FINDINGS: Image quality: Fair. BRAIN: CSF spaces: Ventricles are normal in size and shape. Basal cisterns are patent. No extra-axial fluid collections. Brain: No midline shift. No intracranial bleeds or masses. Similar prior encephalomalacia in the right parietal occipital lobe. Chronic microvascular ischemic disease. Skull and face: Calvarium and facial bones appear intact, without suspicious lesions. Orbits appear normal. Sinuses: Sinuses and mastoids are clear. HEAD CT ANGIOGRAPHY: Anterior circulation: Intracranial internal carotid arteries are normal in size and flow. The flow within the paired anterior cerebral arteries is normal and symmetric. The flow within the middle cerebral arteries is normal and symmetric. The anterior communicating artery is seen. No aneurysms are seen. Posterior circulation: The right left vertebral artery is dominant. The distal V4 segment of the right vertebral artery is attenuated and mostly terminates as PICA. Flow within the posterior cerebral arteries is normal and symmetric. No aneurysms are seen. NECK CT ANGIOGRAPHY: Carotid system: There is moderate plaque at the carotid bulb. The left CCA originates from the brachiocephalic artery, variant. There is 50% stenosis at the origin of the right and left CCA. There is approximately 50% stenosis in the left CCA. There is 50-69% range category stenosis in the left proximal ICA. This area is somewhat suboptimally evaluated due to beam hardening artifact. There is less than 50% stenosis in the right proximal ICA. There is extensive calcified plaque at the carotid bulbs bilaterally. Posterior circulation: The origins of the vertebral arteries both appear widely patent. The more superior extracranial portions of both vertebral arteries also demonstrate normal courses and calibers. They join to form a normal appearing basilar artery. Soft tissues: Visualized neck soft tissues demonstrate no suspicious abnormalities. Moderate emphysematous change. Left pleural apical scarring is unchanged compared to 03/07/2020. Bones: No suspicious bony lesions. Visualized cervical spine appears normally aligned. Moderate degenerative change in the cervical spine. Post median sternotomy. IMPRESSION: 1. No large vessel occlusion. 2. There is 50-69% stenosis at the left carotid bulb. There is approximately 50% stenosis in the right ICA. There is moderate calcified plaque in the carotid bulbs bilaterally. 3. There is 50% stenosis at the origins of the right and left CCA. Comment: Findings were discussed with Edson Friend at the time of dictation. Any quantitative measurements of stenosis were performed using NASCET criteria. Dictated by: Dionisio Conte M.D. on 12/03/2021 at 20:33 Approved by: Dionisio Conte M.D. on 12/03/2021 at 20:49
[2021-12-03 20:14] LABS: Add Manual Diff / Slide Review NO; Basophils Absolute Auto 0 /uL (0-100); Basophils Percent Auto 0.4 % (0-2); Eosinophils Absolute Auto 100 /uL (0-450); Hematocrit 39.1 % (36-46); Hemoglobin 13.1 g/dL (12.0-16.0); Lymphocytes Absolute Auto 1300 /uL (1100-4500); Lymphocytes Percent Auto 12.4 % (25-40); Mean Corpuscular HGB Conc 33.6 % (30-36); Mean Corpuscular Hemoglobin 32.9 PG (26-34); Monocytes Absolute Auto 600 /uL (0-900); Monocytes Percent Auto 5.7 % (3-14); Neutrophils Absolute Auto 8400 /uL (1500-7000); Neutrophils Percent Auto 80.5 % (50-75); Platelet Count 147 X10^3/uL (150-400); Red Blood Cell Count 3.99 X10^6/uL (4.0-5.2); Red Cell Distribution Width 18.4 % (11.6-14.8); White Blood Cell Count 10.4 X10^3/uL (4.5-11.0)
[2021-12-03] MEDS: SODIUM CHLORIDE 0.9% 1,000 ML 125 ML IV (20:31)
[2021-12-03 20:33] LABS: BUN Creatinine Ratio 4.9 (6-22); Blood Urea Nitrogen 35 mg/dL (7-17); Calcium 8.4 mg/dL (8.4-10.2); Carbon Dioxide 27 mmol/L (22-32); Chloride 95 mmol/L (98-107); Estimated Glomerular Filt Rate 6 mL/min (>60); Glucose 94 mg/dL (80-110); HEMOLYSIS 48 (0-50); Lipase 142 U/L (23-300); Potassium 4.7 mmol/L (3.4-5.1); Sodium 136 mmol/L (137-145)
[2021-12-03 20:51] LABS: INR 1.5 (0.9-1.3); Prothrombin Time 16.8 SECONDS (10.1-12.7)
[2021-12-03 20:54] LABS: PTT Partial Thromboplastin Tim 41 SECONDS (26.4-36.2)
[2021-12-03 21:03] LABS: COVID19 -Nasal RAPID Negative (Negative)
== END 2021-12-04 00:06 | disposition home or self-care (01) ==
PROVIDERS: Emergency Provider Emergency Medicine; PCP Internal Medicine
DX: H53.462 Homonymous bilateral field defects, left side (principal); Z79.01 Long term (current) use of anticoagulants; Z20.822 Contact with and (suspected) exposure to COVID-19
CPT/HCPCS: 36415; 70450; 70496; 70498; 80048; 82962; 83690; 85025; 85610; 85730; 87635; 93005; 96360; 96361; 99284; C9803; Q9967

== ENCOUNTER 2021-12-12 07:10 | Emergency (ER) | payer MEDICARE, MEDICAID, SELFPAY ==
[2021-12-12] VITALS (14 sets, daily range): BP systolic 117–143; BP diastolic 58–82; PULSE 84–96; RESP 10–18; TEMP 36.9; O2SAT 94–100; BMI 25.4
--- NOTE | 2021-12-12 07:25 | DI.RAD.S_ITS ---
PROCEDURE: XR CHEST 1V INDICATIONS: cough TECHNIQUE: One view of the chest was acquired. COMPARISON: [facility], CR, XR CHEST 1V, 02/06/2021, 3:23. [facility], CR, XR CHEST 2V, 01/21/2021, 10:33. [facility], CR, XR CHEST 1 VIEW, 11/29/2021, 17:26. [facility], CR, XR CHEST 1V, 04/21/2021, 9:13. FINDINGS: Surgical changes and devices: There is a stable dialysis catheter. Post CABG changes are seen. Axillary clips are seen. Lungs and pleura: Lungs are clear. No pleural effusions or pneumothorax. Mediastinum: Mediastinal contours appear normal. Heart size is normal. Bones and chest wall: No suspicious bony lesions. Age-appropriate bony degenerative changes are seen. Overlying soft tissues appear unremarkable. IMPRESSION: Clear lungs. Extensive postoperative changes. Dictated by: Broderick Lundy M.D. on 12/12/2021 at 8:04 Approved by: Broderick Lundy M.D. on 12/12/2021 at 8:06
--- NOTE | 2021-12-12 07:26 | ED_ITS ---
HPI - URI/Sore Throat General Chief Complaint: Upper Respiratory Symptoms Time Seen by Provider: 12/12/21 07:16 History of Present Illness HPI Narrative: Patient brought in by ambulance from skilled nursing for complaints cough cold congestion body aches and chills for the past 1 day. Patient is COVID vaccinated. Patient denies any contacts. No dyspnea. Has reproducible sternal chest pain with coughing. Patient did have dialysis yesterday. No nausea vomiting or diarrhea. Related Data Home Medications Medication Instructions Recorded Confirmed cholecalciferol (vitamin D3) 25 1,000 unit PO DAILY 07/04/18 06/14/19 mcg (1,000 unit) capsule (Vitamin D3) hydrocortisone acetate 25 mg 25 mg TX Q12H PRN 07/04/18 06/14/19 rectal suppository lorazepam 0.5 mg tablet 0.5 mg PO Q12H PRN 07/04/18 06/14/19 melatonin 3 mg tablet 3 mg PO BEDTIME PRN 07/04/18 06/14/19 Lactobacillus acidophilus 1 tab PO DAILY 07/13/18 03/12/20 (Acidophilus) acetaminophen 300 mg-codeine 30 mg 1 tab PO Q12H PRN 07/13/18 03/12/20 tablet nitroglycerin 0.4 mg sublingual 0.4 mg SUBLINGUAL Q5-15M PRN 07/13/18 03/12/20 tablet (Nitrostat) fluticasone propionate 44 2 puff INHALATION BID 10/04/18 06/14/19 mcg/actuation HFA aerosol inhaler mirtazapine 15 mg tablet 7.5 mg PO BEDTIMEX7 10/04/18 06/14/19 multivitamin 1 cap PO DAILY 10/04/18 06/14/19 sevelamer carbonate 800 mg tablet 800 mg PO BID 11/03/18 06/14/19 Nepro Liquid 240 ml PO TID 06/14/19 06/14/19 acetaminophen 325 mg tablet 650 mg PO Q4H PRN 06/14/19 03/12/20 benzonatate 100 mg capsule 100 mg PO Q8H PRN 06/14/19 06/14/19 (Tessalon Perles) calcium carbonate 500 mg calcium 500 mg PO Q2H PRN 06/14/19 06/14/19 (1,250 mg) chewable tablet (Calcium 500) cyanocobalamin (vitamin B-12) 1,000 mcg PO DAILY 06/14/19 03/12/20 1,000 mcg tablet (Vitamin B-12) hydrocortisone 10 mg tablet 15 mg PO QAM 06/14/19 06/14/19 levothyroxine 112 mcg tablet 112 mcg PO QAM 06/14/19 06/14/19 loperamide 2 mg capsule (Imodium 2 mg PO PRN PRN MDD 6 CAP 06/14/19 06/14/19 A-D) magnesium hydroxide 400 mg/5 mL 30 ml PO PRN PRN 06/14/19 06/14/19 oral suspension (Milk of Magnesia) apixaban 2.5 mg tablet (Eliquis) mg 03/12/20 atorvastatin 40 mg tablet 03/12/20 bisacodyl 03/12/20 clopidogrel 75 mg tablet 03/12/20 isosorbide mononitrate 30 mg mg PO 03/12/20 tablet,extended release 24 hr levetiracetam 250 mg tablet PO 03/12/20 metoprolol succinate 25 mg PO 03/12/20 tablet,extended release 24 hr omeprazole 20 mg capsule,delayed 03/12/20 release ondansetron HCl 4 mg tablet 03/12/20 Previous Rx's Medication Instructions Recorded albuterol sulfate 90 mcg/actuation 2 inhalation INHALATION QID PRN 12/12/21 aerosol inhaler (Ventolin HFA) #6.7 gram Allergies Allergy/AdvReac Type Severity Reaction Status Date / Time No Known Drug Allergies Allergy Verified 05/01/21 07:16 Review of Systems Review of Systems Narrative: GENERAL: Positive for chills, fatigue, malaise, fever, sweats. HEENT: Denies sinus pain, ear pain, sore throat RESPIRATORY: Denies dyspnea, positive for cough CARDIOVASCULAR: Denies chest pain, palpitations GASTROINTESTINAL: Denies nausea, vomiting, abdominal pain : Denies dysuria, frequency, hematuria MUSCULOSKELETAL: Positive for muscle or bony pain SKIN: Denies rash, skin lesions NEUROLOGIC: Denies weakness, numbness ROS Unobtainable: All systems reviewed & are unremarkable except as noted in HPI and below Patient History Medical History Acute renal failure on dialysis Anemia Anxiety Breast cancer, left CHF (congestive heart failure) Fibromyalgia GI bleed HTN (hypertension) Hyperlipidemia Hypothyroid IBS (irritable bowel syndrome) Major depressive disorder Malnutrition Peripheral vascular disease Thrombocytopenia TIA (transient ischemic attack) Social History lives independently: No Smoking Status: Never smoker Smoking Status: Never smoker alcohol intake frequency: holidays/special occasions only Substance Use Type: does not use Exam Narrative Exam Narrative: GENERAL: in no distress, not toxic not dyspneic HEAD: Normocephalic. EYES: Pupils equal round No scleral icterus. ENT: Mucous membranes moist. Congested edematous nasal mucosa bilaterally NECK: Trachea midline. CARDIOVASCULAR: Regular rate and rhythm without murmurs RESPIRATORY: Breath sounds equal bilaterally. No wheezes, rales. Speaks full sentences, there is bibasilar coarse lung sounds. Reproducible sternal chest tenderness and increased pain with coughing. GASTROINTESTINAL: Abdomen soft, non-tender EXTREMITIES: No gross deformities. BACK: No flank tenderness. NEURO: AOx4. SKIN: Warm and dry PSYCH: Not anxious, is cooperative Initial Vital Signs Initial Vital Signs: Vital Signs Temperature 98.5 F 12/12/21 07:10 Pulse Rate 86 12/12/21 07:10 Respiratory Rate 18 12/12/21 07:10 Blood Pressure 124/58 L 12/12/21 07:10 Pulse Oximetry 96 12/12/21 07:10 Course Course Course Narrative: No new issues during course of stay Orders Ordered: Discontinued Medications Albuterol (Albuterol Hfa Mdi 60 Puff/8 Gm Inhaler) 2 puff INH NOW ONE Stop: 12/12/21 07:26 Last Admin: 12/12/21 08:44 Dose: Not Given Documented by: [email or web address] Albuterol (Albuterol 2.5 Mg/3 Ml Neb (Adult)) 2.5 mg INH NOW ONE Stop: 12/12/21 08:46 Last Admin: 12/12/21 08:50 Dose: 2.5 mg Documented by: [email or web address] Apixaban (Apixaban 5 Mg Tablet) 2.5 mg PO NOW ONE Stop: 12/12/21 07:40 Last Admin: 12/12/21 08:08 Dose: 2.5 mg Documented by: [email or web address] Levetiracetam (Levetiracetam 250 Mg Tablet) 250 mg PO NOW ONE Stop: 12/12/21 07:41 Last Admin: 12/12/21 08:06 Dose: 250 mg Documented by: [email or web address] Metoprolol Succinate (Metoprolol Er 25 Mg Tablet) 12.5 mg PO NOW ONE Stop: 12/12/21 07:39 Last Admin: 12/12/21 08:06 Dose: 12.5 mg Documented by: ALFONSO Reevaluation(s) Reevaluation #1: Patient feeling better after breathing treatment. I did review results with patient. She does not recall having inhalers at home. Labs and imaging and exam are reassuring. Improved lung sounds after breathing treatment. Return precautions reviewed with her. She states she does have cough medication at home. Time: 09:35 Vital Signs Vital signs: Vital Signs - 8 hr 12/12/21 07:10 12/12/21 07:14 12/12/21 07:30 Temperature 98.5 F Pulse Rate 86 90 91 H Respiratory Rate 18 18 Blood Pressure 124/58 L 124/58 L Pulse Oximetry 96 96 98 12/12/21 08:00 12/12/21 08:06 12/12/21 08:30 Temperature Pulse Rate 84 86 84 Respiratory Rate 15 13 Blood Pressure 124/58 L Pulse Oximetry 95 94 12/12/21 08:52 12/12/21 08:55 Temperature Pulse Rate 92 H Respiratory Rate Blood Pressure 133/82 Pulse Oximetry 98 MDM - URI/Sore Throat Differential Diagnosis Differential diagnosis: Likely upper respiratory infection, viral infection, bronchitis and other (Pneumonia) Lab Data Result diagrams: 12/12/21 08:39 12/12/21 08:39 Labs: Lab Results 12/12/21 12/12/21 12/12/21 Range/Units 07:38 08:39 08:39 WBC 7.9 (4.5-11.0) X10^3/uL RBC 4.09 (4.0-5.2) X10^6/uL Hgb 13.4 (12.0-16.0) g/dL Hct 40.3 (36-46) % MCV 98.5 (80-100) fL MCH 32.8 (26-34) PG MCHC 33.3 (30-36) % RDW 17.6 H (11.6-14.8) % Plt Count 120 L (150-400) X10^3/uL Neut % (Auto) 79.0 H (50-75) % Lymph % (Auto) 10.0 L (25-40) % Woodson % (Auto) 7.7 (3-14) % Eos % (Auto) 2.1 (2-4) % Baso % (Auto) 1.2 (0-2) % Neut # (Auto) 6200 (9196-5710) /uL Lymph # (Auto) 800 L (1968-5681) /uL Woodson # (Auto) 600 (0-900) /uL Eos # (Auto) 200 (0-450) /uL Baso # (Auto) 100 (0-100) /uL Sodium 136 L (137-145) mmol/L Potassium 3.9 (3.4-5.1) mmol/L Chloride 96 L (98-107) mmol/L Carbon Dioxide 30 (22-32) mmol/L BUN 18 H (7-17) mg/dL Creatinine 5.51 H (0.52-1.04) mg/dL Estimated GFR 8 L (>60) mL/min BUN/Creatinine Ratio 3.3 L (6-22) Glucose 91 (80-110) mg/dL Calcium 9.0 (8.4-10.2) mg/dL Total Bilirubin 0.5 (0.2-1.3) mg/dL AST 29 (14-36) IU/L ALT 14 (<35) IU/L Alkaline Phosphatase 109 (38-126) U/L Total Protein 7.0 (6.3-8.2) g/dL Albumin 4.5 (3.5-5.0) g/dL Globulin 2.5 (1.7-4.1) g/dL Albumin/Globulin Ratio 1.8 (1.0-2.8) Chlamy pneumoniae PCR Not detected (Not Detect) Adenovirus (PCR) Not detected (Not Detect) B. pertussis DNA (PCR) Not detected (Not Detecte) B.parapertussis DNA PCR Not detected (Not Detecte) Coronavirus OC43 (PCR) Not detected (Not Detect) Coronavirus HKU1 (PCR) Not detected (Not Detect) Coronavirus 229E (PCR) Not detected (Not Detect) SARS-CoV-2 (PCR) Not detected (Not Detecte) Coronavirus NL63 (PCR) Not detected (Not Detect) Human Metapneumovir PCR Not detected (Not Detect) Influenza Type A (PCR) Not detected (Not Detect) Influenza Type B (PCR) Not detected (Not Detect) M. pneumoniae (PCR) Not detected (Not Detect) Parainfluenza 1 (PCR) Not detected (Not Detect) Parainfluenza 2 (PCR) Not detected (Not Detect) Parainfluenza 3 (PCR) Not detected (Not Detect) Parainfluenza 4 (PCR) Detected H (Not Detect) RSV (PCR) Not detected (Not Detect) Entero/Rhino (PCR) Not detected (Not Detect) Imaging Data Chest x-ray: Radiologist's Impression: [address] [address] XRay Report Signed Patient: Aurelia Gr MR#: [id number] : 1955 Acct:[id number] Age/Sex: 66 / F Date of Service: 12/12/21 Loc: ED Accession Number: [id number] ?? Procedure: XR chest 1V Ordering Provider: Jerald Carrero MD PROCEDURE:? XR CHEST 1V ? INDICATIONS:? cough ? TECHNIQUE:? One view of the chest was acquired.? ? COMPARISON:? [facility], , XR CHEST 1V, 02/06/2021, 3:23.? [facility], XR CHEST 2V, 01/21/2021, 10:33.? [facility], CR, XR CHEST 1 VIEW, 11/29/2021, 17:26.? [facility], CR, XR CHEST 1V, 04/21/2021, 9:13. ? FINDINGS:? ? Surgical changes and devices:? There is a stable dialysis catheter. Post CABG changes are seen.? Axillary clips are seen. ? Lungs and pleura:? Lungs are clear.? No pleural effusions or pneumothorax.? ? Mediastinum:? Mediastinal contours appear normal.? Heart size is normal.? ? Bones and chest wall:? No suspicious bony lesions.? Age-appropriate bony degenerative changes are seen.? Overlying soft tissues appear unremarkable.? IMPRESSION:? ? Clear lungs. ? Extensive postoperative changes.? ? ? Dictated by: Broderick Lundy M.D. on 12/12/2021 at 8:04 ? ? Approved by: Broderick Lundy M.D. on 12/12/2021 at 8:06 ? ECG Data Interpretation: Normal sinus rhythm, rate 88, no ST elevation MDM Narrative Medical decision making narrative: Appropriate for discharge home. Exam and laboratory studies and imaging are reassuring. Patient improved with breathing treatment. Patient according to her medical records brought from facility she is on inhaler at home as well as cough medication. Return precautions reviewed with her. Nurses tried contacting facility prior to discharge. No call back from the facility. Not toxic at discharge. Cough much better after breathing treatment. Likely pleurisy/costochondritis chest wall pain due to recurrent coughing. Low suspicion at this time for cardiac. No troponin indicated. Pain is reproducible and results show parainfluenza infection, differential diagnosis includes but not limited to viral bronchitis. Discharge Plan Departure Patient Disposition: Home Clinical Impression: Bronchitis due to parainfluenza virus Activity Restrictions/Additional Instructions: Continue home medications. Please continue home cough medication. Use inhaler 2 puffs every 4-6 hours as needed for cough. See your family doctor next week for re-evaluation. Laboratory studies and imaging/chest x-ray today are reassuring for viral upper respiratory infection/bronchitis. No antibiotics are indicated this time. Return if worse if any questions or concerns or for any trouble breathing Prescriptions: New albuterol sulfate [Ventolin HFA] 90 mcg/actuation HFA aerosol inhaler 2 inhalation INHALATION QID PRN (Reason: shortness of breath or wheezing) Qty: 6.7 0RF No Action melatonin 3 mg Tablet 3 mg PO BEDTIME PRN (Reason: Insomnia) 0RF hydrocortisone acetate 25 mg Suppository 25 mg TX Q12H PRN (Reason: Hemorrhoids) 0RF lorazepam 0.5 mg Tablet 0.5 mg PO Q12H PRN (Reason: Anxiety) 0RF cholecalciferol (vitamin D3) [Vitamin D3] 1,000 unit Capsule 1,000 unit PO DAILY 0RF sevelamer carbonate 800 mg tablet 800 mg PO BID 0RF Eliquis 2.5 mg tablet 0RF metoprolol succinate 25 mg tablet extended release 24 hr PO 0RF omeprazole 20 mg capsule,delayed release(DR/EC) 0RF isosorbide mononitrate 30 mg tablet extended release 24 hr PO 0RF levetiracetam 250 mg tablet PO 0RF ondansetron HCl 4 mg tablet 0RF atorvastatin 40 mg tablet 0RF bisacodyl 0RF clopidogrel 75 mg tablet 0RF Lactobacillus acidophilus [Acidophilus] Capsule 1 tab PO DAILY 0RF acetaminophen-codeine 300-30 mg Tablet 1 tab PO Q12H PRN (Reason: pain) 0RF nitroglycerin [Nitrostat] 0.4 mg Tablet, Sublingual 0.4 mg SUBLINGUAL Q5-15M PRN (Reason: Chest Pain) 0RF Flovent HFA 44 mcg/actuation HFA aerosol inhaler 2 puff Inhalation BID 0RF mirtazapine 15 mg tablet 7.5 mg PO BEDTIMEX7 0RF multivitamin Capsule 1 cap PO DAILY 0RF acetaminophen 325 mg Tablet 650 mg PO Q4H PRN (Reason: FEVER > 100 AND PAIN) 0RF cyanocobalamin (vitamin B-12) [Vitamin B-12] 1,000 mcg Tablet 1,000 mcg PO DAILY 0RF hydrocortisone 10 mg tablet 15 mg PO QAM 0RF levothyroxine 112 mcg tablet 112 mcg PO QAM 0RF Nepro Liquid 240 ml PO TID 0RF Rx Instructions: [facility] loperamide [Imodium A-D] 2 mg Capsule 2 mg PO PRN MDD 6 CAP PRN (Reason: Diarrhea) 0RF magnesium hydroxide [Milk of Magnesia] 400 mg/5 mL Suspension 30 ml PO PRN PRN (Reason: Constipation) 0RF calcium carbonate [Calcium 500] 500 mg calcium (1,250 mg) Tablet,Chewable 500 mg PO Q2H PRN (Reason: GI UPSET) 0RF benzonatate [Tessalon Perles] 100 mg capsule 100 mg PO Q8H PRN (Reason: cough) 0RF Referrals: Germaine Jalloh MD [Primary Care Provider] -
[2021-12-12] MEDS: METOPROLOL ER 25 MG TABLET 12.5 MG PO (08:06)
[2021-12-12] MEDS: levETIRAcetam 250 MG TABLET PO (08:06)
[2021-12-12] MEDS: APIXABAN 5 MG TABLET 2.5 MG PO (08:08)
[2021-12-12 08:32] LABS: Adenovirus Not Detected (Not Detect); B. parapertussis Not Detected (Not Detecte); Bordetella pertussis Not Detected (Not Detecte); Chlamydophila pneumoniae Not Detected (Not Detect); Coronavirus 229E Not Detected (Not Detect); Coronavirus HKU1 Not Detected (Not Detect); Coronavirus NL 63 Not Detected (Not Detect); Coronavirus OC43 Not Detected (Not Detect); Human Metapneumovirus Not Detected (Not Detect); Human Rhinovirus/Enterovirus Not Detected (Not Detect); Influenza A Not Detected (Not Detect); Influenza B Not Detected (Not Detect); Mycoplasma pneumoniae Not Detected (Not Detect); Parainfluenza Virus 1 Not Detected (Not Detect); Parainfluenza Virus 2 Not Detected (Not Detect); Parainfluenza Virus 3 Not Detected (Not Detect); Parainfluenza Virus 4 Detected (Not Detect); Respiratory Syncytial Virus Not Detected (Not Detect); SARS- CoV-2 Not Detected (Not Detecte)
[2021-12-12 08:48] LABS: Add Manual Diff / Slide Review NO; Basophils Absolute Auto 100 /uL (0-100); Basophils Percent Auto 1.2 % (0-2); Eosinophils Absolute Auto 200 /uL (0-450); Eosinophils Percent Auto 2.1 % (2-4); Hematocrit 40.3 % (36-46); Hemoglobin 13.4 g/dL (12.0-16.0); Lymphocytes Absolute Auto 800 /uL (1100-4500); Mean Corpuscular HGB Conc 33.3 % (30-36); Mean Corpuscular Hemoglobin 32.8 PG (26-34); Mean Corpuscular Volume 98.5 fL (80-100); Monocytes Absolute Auto 600 /uL (0-900); Monocytes Percent Auto 7.7 % (3-14); Neutrophils Absolute Auto 6200 /uL (1500-7000); Platelet Count 120 X10^3/uL (150-400); Red Blood Cell Count 4.09 X10^6/uL (4.0-5.2); Red Cell Distribution Width 17.6 % (11.6-14.8); White Blood Cell Count 7.9 X10^3/uL (4.5-11.0)
[2021-12-12] MEDS: ALBUTEROL 2.5 MG/3 ML NEB (ADULT) INH (08:50)
[2021-12-12 08:58] LABS: Alanine Aminotransferase 14 IU/L (<35); Albumin 4.5 g/dL (3.5-5.0); Albumin Globulin Ratio 1.8 (1.0-2.8); Alkaline Phosphatase 109 U/L (38-126); Aspartate Aminotransferase 29 IU/L (14-36); BUN Creatinine Ratio 3.3 (6-22); Bilirubin Total 0.5 mg/dL (0.2-1.3); Blood Urea Nitrogen 18 mg/dL (7-17); Carbon Dioxide 30 mmol/L (22-32); Chloride 96 mmol/L (98-107); Estimated Glomerular Filt Rate 8 mL/min (>60); Globulin 2.5 g/dL (1.7-4.1); Glucose 91 mg/dL (80-110); HEMOLYSIS < 15 (0-50); Potassium 3.9 mmol/L (3.4-5.1); Sodium 136 mmol/L (137-145)
--- NOTE | 2021-12-12 09:43 | PC.NURSE ---
left message at [facility] [phone] to get call back to give report
--- NOTE | 2021-12-12 09:54 | PC.NURSE ---
Report given to Yuli at the patients facility
== END 2021-12-12 11:39 | disposition home or self-care (01) ==
PROVIDERS: Emergency Provider Emergency Medicine; PCP Internal Medicine
DX: J20.4 Acute bronchitis due to parainfluenza virus (principal); R07.9 Chest pain, unspecified
CPT/HCPCS: 36415; 71045; 80053; 85025; 87633; 93005; 94640; 99284; A9270; J7613

== ENCOUNTER → 2022-03-20 14:58 | Outpatient (CLI) | payer MEDICARE, MEDICAID, SELFPAY ==
--- NOTE | 2022-03-20 | DI.ECHO.S_ITS ---
[facility]---------+ [facility] +---------+ : : [address] [place] [address] : : : : [id number] : : : : Phone: [phone] Echocardiogram Report + + :Name: TONE ASIF Study Date: 03/20/2022 Height: 60 in : :[facility] ReadingLocation: Weight: 146 lb : : Gender: Female BSA: 1.6 m2 : :: 1955 Age: 66 yrs BP: 108/93 mmHg: :[facility] :Ordering Physician: TYRONE, : :SHIRAZ Performed By: Nando Hoyt : :Referring: SHIRAZ MOYA : + + Interpretation Summary The left ventricle is normal in size and wall thickness. Left ventricular systolic function is moderately reduced. The ejection fraction is estimated to be 35-40%. There has been no significant change since the previous exam. There is mild to moderate global hypokinesis of the left ventricle. There is more pronounced hypokinesis along the apical septum and apical anterior segments. The right ventricle is normal size. Right ventricular systolic function is mildly reduced. The right ventricular systolic pressure is estimated to be at least 29 mmHg based on an estimated right atrial pressure of 3 mm Hg. The aortic valve is mildly calcified. There is discrete nodular thickening of the non- coronary cusp. There is trace aortic regurgitation. There is no other significant valvular heart disease. The aortic root is normal size. Procedure: A two-dimensional transthoracic echocardiogram with color flow and Doppler was performed. The study quality was technically difficult. Pt. uncooperative. Comparison is made with the echocardiogram of 06/22/2018. Left Ventricle: The left ventricle is normal in size and wall thickness. Left ventricular systolic function is moderately reduced. The ejection fraction is estimated to be 35-40%. There has been no significant change since the previous exam. There is mild to moderate global hypokinesis of the left ventricle. There is more pronounced hypokinesis along the apical septum and apical anterior segments. Diastolic function could not be accurately assessed due to contradictory data. Right Ventricle: The right ventricle is normal size. Right ventricular systolic function is mildly reduced. Atria: The left atrium is not well visualized. Right atrium not well visualized. The interatrial septum grossly appears intact with no obvious evidence for an atrial septal defect. Mitral Valve: The mitral valve leaflets appear mildly thickened, but open well. There is trace mitral regurgitation. Aortic Valve: The aortic valve is mildly calcified. The aortic valve opens well. There is discrete nodular thickening of the non- coronary cusp. There is trace aortic regurgitation. Tricuspid Valve: The tricuspid valve is normal in structure and function. There is mild tricuspid regurgitation. The right ventricular systolic pressure is estimated to be at least 29 mmHg based on an estimated right atrial pressure of 3 mm Hg. Pulmonic Valve: The pulmonic valve is not well seen, but is grossly normal. There is no pulmonic valvular regurgitation. There is no other significant valvular heart disease. Great Vessels: The aortic root is normal size. The dimensions of the ascending aorta are normal. The IVC is of normal diameter and collapses greater than 50% with a sniff. This suggests a low right atrial pressure of 3 mm Hg. Pericardium/ Pleura There is no pericardial effusion. There is no pleural effusion. MMode/2D Measurements & Calculations LVIDd: 4.8 cm LVOT diam: 1.9 cm LVIDs: 4.0 cm Ao root diam: 2.5 cm FS: 16.7 % asc Aorta Diam: 2.4 cm IVSd: 0.86 cm LVPWd: 0.97 cm LV morales. diameter/BSA (cm/m^2): 2.9 LV sys. diameter/BSA (cm/m^2): 2.4 LA A4 area: 15.6 cm2 RA long axis: 3.9 cm LA length (vol): 5.4 cm RA area: 8.6 cm2 RA vol: 16.1 ml RA : 9.9 ml/m2 TAPSE: 1.5 cm Doppler Measurements & Calculations Ao V2 max: 167.5 cm/sec LVOT Max Manuel: 68.9 cm/sec Ao V2 mean: 118.4 cm/sec LV V1 max P.9 mmHg Ao max P.2 mmHg LV V1 VTI: 12.9 cm Ao mean P.3 mmHg YOAN(I,D): 1.1 cm2 Ao V2 VTI: 31.1 cm YOAN(V,D): 1.1 cm2 sev ratio: 0.42 YOAN indexed to BSA (cm^2/m^2): 0.70 MV E max manuel: 79.6 cm/sec TR max manuel: 255.6 cm/sec MV A max manuel: 97.1 cm/sec TR max P.1 mmHg MV E/A: 0.82 Med Peak E' Manuel: 4.2 cm/sec E/E' med: 19.1 Lat Peak E' Manuel: 4.3 cm/sec E/E' lat: 18.4 E/e' average: 18.7 MV dec time: 0.20 sec SV(OT): 35.7 ml Reading Physician:05:50 PM
== END ==
PROVIDERS: PCP Internal Medicine; Referring Provider Internal Medicine Cardiovascular Disease; Visit Provider Internal Medicine Cardiovascular Disease
DX: I25.5 Ischemic cardiomyopathy (principal); I07.1 Rheumatic tricuspid insufficiency
CPT/HCPCS: 93306

== ENCOUNTER 2022-03-26 09:34 | Emergency (ER) | payer MEDICARE, MEDICAID, SELFPAY ==
[2022-03-26] VITALS (8 sets, daily range): BP systolic 107–134; BP diastolic 58–73; PULSE 73–80; RESP 12–23; TEMP 36.9; O2SAT 97–99; BMI 25.4
--- NOTE | 2022-03-26 09:53 | ED_ITS ---
HPI - General Adult General Chief complaint: Hypertension Stated complaint: dialysis pt with htn Time Seen by Provider: 03/26/22 09:51 Source: patient Mode of arrival: EMS History of Present Illness HPI narrative: This is a 66-year-old female on dialysis with Wednesday, Wednesday dialysis, prior MS, CABG with renal failure acutely after her heart attack. Patient states it may have been related to medication she received. Patient was sent today for hypertension. She normally does not take her blood pressure medications in the morning predialysis. This is part of her order set. Patient was found to be in the 200 systolic after several checks at her facility, EMS found she was elevated as well. She presents here she is had some mild peripheral blurred vision. Patient denies any headache, no loss of vision, no pain in her eyes, she denies any chest pain, she is some very mild shortness of breath which she states is intermittent and not atypical for her. No nausea, no vomiting, no diarrhea constipation. No black or bloody stools. She makes very small amount of urine denies any urinary symptoms. No new swelling in her extremities. No issues with speech, numbness tingling weakness or other neurologic changes. Patient possibly on Plavix for anticoagulation. She has dialysis catheter, prior hysterectomy, prior surgery for breast cancer. No known drug allergies. Related Data Home Medications Medication Instructions Recorded Confirmed cholecalciferol (vitamin D3) 25 1,000 unit PO DAILY 07/04/18 06/14/19 mcg (1,000 unit) capsule (Vitamin D3) hydrocortisone acetate 25 mg 25 mg OH Q12H PRN Hemorrhoids 07/04/18 06/14/19 rectal suppository lorazepam 0.5 mg tablet 0.5 mg PO Q12H PRN Anxiety 07/04/18 06/14/19 melatonin 3 mg tablet 3 mg PO BEDTIME PRN Insomnia 07/04/18 06/14/19 Lactobacillus acidophilus 1 tab PO DAILY 07/13/18 03/12/20 (Acidophilus capsule) acetaminophen 300 mg-codeine 30 mg 1 tab PO Q12H PRN pain 07/13/18 03/12/20 tablet nitroglycerin 0.4 mg sublingual 0.4 mg sublingual Q5-15M PRN Chest 07/13/18 03/12/20 tablet (Nitrostat) Pain fluticasone propionate 44 2 puff inhalation BID 10/04/18 06/14/19 mcg/actuation HFA aerosol inhaler mirtazapine 15 mg tablet 7.5 mg PO BEDTIMEX7 10/04/18 06/14/19 multivitamin 1 cap PO DAILY 10/04/18 06/14/19 sevelamer carbonate 800 mg tablet 800 mg PO BID 11/03/18 06/14/19 Nepro Liquid 240 ml PO TID 06/14/19 06/14/19 acetaminophen 325 mg tablet 650 mg PO Q4H PRN FEVER > 100 AND 06/14/19 03/12/20 PAIN benzonatate 100 mg capsule 100 mg PO Q8H PRN cough 06/14/19 06/14/19 (Tesleslie Blanchard) calcium carbonate 500 mg calcium 500 mg PO Q2H PRN GI UPSET 06/14/19 06/14/19 (1,250 mg) chewable tablet (Calcium 500) cyanocobalamin (vitamin B-12) 1,000 mcg PO DAILY 06/14/19 03/12/20 1,000 mcg tablet (Vitamin B-12) hydrocortisone 10 mg tablet 15 mg PO QAM 06/14/19 06/14/19 levothyroxine 112 mcg tablet 112 mcg PO QAM 06/14/19 06/14/19 loperamide 2 mg capsule (Imodium 2 mg PO PRN PRN Diarrhea 06/14/19 06/14/19 A-D) magnesium hydroxide 400 mg/5 mL 30 ml PO PRN PRN Constipation 06/14/19 06/14/19 oral suspension (Milk of Magnesia) apixaban 2.5 mg tablet (Eliquis) mg 03/12/20 atorvastatin 40 mg tablet 03/12/20 bisacodyl 03/12/20 clopidogrel 75 mg tablet 03/12/20 isosorbide mononitrate 30 mg mg PO 03/12/20 tablet,extended release 24 hr levetiracetam 250 mg tablet PO 03/12/20 metoprolol succinate 25 mg PO 03/12/20 tablet,extended release 24 hr omeprazole 20 mg capsule,delayed 03/12/20 release ondansetron HCl 4 mg tablet 03/12/20 Previous Rx's Medication Instructions Recorded albuterol sulfate 90 mcg/actuation 2 inhalation inhalation QID PRN 04/29/22 aerosol inhaler (Ventolin HFA) shortness of breath or wheezing #6.7 grams Allergies Allergy/AdvReac Type Severity Reaction Status Date / Time No Known Drug Allergies Allergy Verified 03/26/22 09:43 Review of Systems Review of Systems ROS Unobtainable: All systems reviewed & are unremarkable except as noted in HPI and below Patient History Medical History Acute renal failure on dialysis Anemia Anxiety Breast cancer, left CHF (congestive heart failure) Fibromyalgia GI bleed HTN (hypertension) Hyperlipidemia Hypothyroid IBS (irritable bowel syndrome) Major depressive disorder Malnutrition Peripheral vascular disease Thrombocytopenia TIA (transient ischemic attack) Social History lives independently: No Smoking Status: Never smoker Smoking Status: Never smoker alcohol intake frequency: holidays/special occasions only Substance Use Type: does not use Exam Narrative Exam Narrative: GEN: well nourished, well appearing female, alert and oriented x 3, patient appears to be in mild distress. HEENT: Atraumatic, pupils are equal round reactive to light, extraocular movements are intact, nares are clear, TMs are clear with no fluid, there is no conjunctival pallor. Throat is clear without any exudates, erythema, tonsillar enlargement or uvular de, no facial droop viation HEART: Regular rate and rhythm without murmur, clicks, rubs. No carotid bruits, pulses are equal in upper and lower extremities LUNGS:Lungs clear to auscultation, no wheezes, rales, crackles, chest moves symmetrically ABD:bowel sounds normal, soft, non-tender, no guarding, rebound, rigidity, no masses noted, no hepatosplenomegaly :No CVA tenderness MSCL: Non-tender, no muscle atrophy, muscles strength 5/5 upper and lower extremities, full range of motion, normal gait NEURO:CN 2-12 intact, sensation normal SKIN: No rash, erythema or other skin changes Initial Vital Signs Initial Vital Signs: Vital Signs Temperature 98.4 F 03/26/22 09:38 Pulse Rate 77 03/26/22 09:38 Respiratory Rate 15 03/26/22 09:38 Blood Pressure 134/73 03/26/22 09:38 Pulse Oximetry 98 03/26/22 09:38 Oxygen Delivery Method 03/26/22 09:38 Course Orders Ordered: ED Orders 03/26/22 09:53 Chest [XR chest 1V] Stat 03/26/22 09:54 CT head/brain wo con Stat 03/26/22 09:57 EKG-12 Lead Stat 03/26/22 10:18 CBC Auto Diff [Complete Blood Count AUTO DIFF] Stat CMP [Comprehensive Metabolic Panel] Stat Troponin & CK Cardiac Panel Stat Vital Signs Vital signs: Vital Signs - 8 hr 03/26/22 09:38 03/26/22 09:39 03/26/22 09:40 Temperature 98.4 F Pulse Rate 77 80 80 Respiratory Rate 15 Blood Pressure 134/73 Pulse Oximetry 98 99 99 Oxygen Delivery Method Room Air 03/26/22 09:40 03/26/22 09:48 03/26/22 09:48 Temperature Pulse Rate 78 Respiratory Rate 13 Blood Pressure 134/73 131/60 Pulse Oximetry 99 Oxygen Delivery Method 03/26/22 10:00 03/26/22 10:30 03/26/22 10:48 Temperature Pulse Rate 75 73 77 Respiratory Rate 23 13 14 Blood Pressure Pulse Oximetry 97 98 98 Oxygen Delivery Method 03/26/22 10:48 03/26/22 11:00 03/26/22 11:00 Temperature Pulse Rate 76 Respiratory Rate 12 Blood Pressure 107/58 L 107/65 Pulse Oximetry 99 Oxygen Delivery Method Medical Decision Making Lab Data Result diagrams: 03/26/22 10:18 03/26/22 10:18 Labs: Lab Results 03/26/22 03/26/22 Range/Units 10:18 10:18 WBC 8.1 (4.5-11.0) X10^3/uL RBC 3.72 L (4.0-5.2) X10^6/uL Hgb 11.8 L (12.0-16.0) g/dL Hct 34.8 L (36-46) % MCV 93.5 (80-100) fL MCH 31.7 (26-34) PG MCHC 33.9 (30-36) % RDW 18.2 H (11.6-14.8) % Plt Count 121 L (150-400) X10^3/uL Neut % (Auto) 74.9 (50-75) % Lymph % (Auto) 17.3 L (25-40) % [place] % (Auto) 4.0 (3-14) % Eos % (Auto) 3.2 (2-4) % Baso % (Auto) 0.6 (0-2) % Neut # (Auto) 6100 (1152-0013) /uL Lymph # (Auto) 1400 (6118-9160) /uL [place] # (Auto) 300 (0-900) /uL Eos # (Auto) 300 (0-450) /uL Baso # (Auto) 100 (0-100) /uL Sodium 136 L (137-145) mmol/L Potassium 3.3 L (3.4-5.1) mmol/L Chloride 97 L (98-107) mmol/L Carbon Dioxide 27 (22-32) mmol/L BUN 48 H (7-17) mg/dL Creatinine 7.92 H* (0.52-1.04) mg/dL Estimated GFR 5 L (>60) mL/min BUN/Creatinine Ratio 6.1 (6-22) Glucose 147 H (80-110) mg/dL Calcium 8.6 (8.4-10.2) mg/dL Total Bilirubin 0.3 (0.2-1.3) mg/dL AST 25 (14-36) IU/L ALT 13 (<35) IU/L Alkaline Phosphatase 72 (38-126) U/L Total Creatine Kinase 23 L (30-135) U/L CK-MB (CK-2) TNP CK-MB (CK-2) Rel Index TNP Troponin I 0.033 (0.01-0.034) ng/mL Total Protein 6.5 (6.3-8.2) g/dL Albumin 4.2 (3.5-5.0) g/dL Globulin 2.3 (1.7-4.1) g/dL Albumin/Globulin Ratio 1.8 (1.0-2.8) Imaging Data CT scan - head: Radiologist's Impression: Aurelia Gr??66??F??1955 ? Allergy/Adv: No Known Drug Allergies Close Head CT (Signed) Broderick Lundy - 03/26/22 Chest X-Ray (Signed) Darin Tidwell - 03/26/22 Echocardiogram Ultrasound (Signed) Shiraz Moya - 03/20/22 Chest X-Ray (Signed) Seagraves,Broderick - 12/12/21 Head/Neck CTA (Signed) Call,Dionisio - 12/03/[address] (Signed) Call,Dionisio - 12/03/21 Chest X-Ray (Signed) Seagraves,Broderick - 04/21/21 Chest X-Ray (Signed) Liset Britton - 02/06/21 Chest X-Ray (Signed) Ash Damon - 01/21/21 Peripheral Vascular Ultrasound (Signed) Ash Damon - 03/22/20 Chest/Abdomen X-ray (Signed) Gilson Moore - 03/12/[address] (Signed) BrittonLiset - 03/07/20 Chest X-Ray (Signed) Charu Artis - 03/07/20 Peripheral Vascular Ultrasound (Signed) SeagravesBroderick fitzgerald - 11/27/19 Chest X-Ray (Signed) Call,Dionisio - 11/27/19 Chest X-Ray (Signed) Liset Britton - 10/18/19 Chest X-Ray (Signed) Charu Artis - 10/18/19 Telemetry Strips 10/18/19 Chest X-Ray (Signed) Vasiliy Marcelino - 10/15/19 Chest X-Ray (Signed) Ramo Adams - 09/20/19 Chest X-Ray (Signed) Ash Damon - 09/15/19 Outside EKG 09/09/19 Chest CTA (Signed) Doug Atkinson - 09/09/19 Chest X-Ray (Signed) Doug Atkinson - 09/09/19 Chest X-Ray (Signed) Gilson Moore - 08/18/19 Chest X-Ray (Signed) Milad Reilly - 06/14/[address] (Signed) Vasiliy Marcelino - 02/22/19 Telemetry Strips 02/22/19 Myocardial Perfusion Scan Nuc Med (Signed) Aston Goldman - 01/27/19 Chest X-Ray (Signed) Raymond Flores - 11/03/18 PET, Tumor Imaging Skull-Mid Thigh (Signed) Kenn Briscoe - 10/05/18 Chest X-Ray (Signed) Gilson Moore - 02/19/[address] (Signed) Suzi Payne - 09/09/18 Chest X-Ray (Signed) OscarGilson - 07/28/18 Chest X-Ray (Signed) Ash Damon - 07/14/18 Chest X-Ray (Signed) ChinaDoug - 07/04/18 Thoracentesis Ultrasound (Signed) Gilson Moore - 07/04/18 Chest X-Ray (Signed) Liset Britton - 07/04/18 Chest X-Ray (Signed) Liset Britton - 07/04/18 Echocardiogram Ultrasound (Signed) Shiraz Moya - 06/22/18 Launch?Image [address] [address] [address] Scan Report Signed Patient: Aurelia Gr MR#: [id number] : 1955 Acct:[id number] Age/Sex: 66 / F Date of Service: 03/26/22 Loc: ED Accession Number: [id number] ?? Procedure: CT head/brain wo con Ordering Provider: Hazel Jo D.O. PROCEDURE:? CT HEAD/BRAIN WO CON ? INDICATIONS:? htn ? TECHNIQUE:? Noncontrast 4.5 mm thick angled axial sections acquired from the foramen magnum to the vertex, with coronal and sagittal reformats.? For radiation dose reduction, the following was used:? automated exposure control, adjustment of mA and/or kV according to patient size.? ? COMPARISON:? [facility], CT, CT ANGIO HEAD AND NECK, 12/03/2021, 20:04.? [facility], CT, CT STROKE, 12/03/2021, 20:04.? [facility], CT, CT HEAD/BRAIN WO CON, 02/22/2019, 21:15. ? FINDINGS:? Image quality:? Excellent.? ? CSF spaces:? Basal cisterns are patent.? No extra-axial fluid collections.? The ventricles are stable, with ex vacuo dilatation seen involving the posterior aspect of the right lateral ventricle..? ? Brain:? No intracranial bleeds or masses.? There is cerebral volume loss for age, with resultant ventricular and sulcal prominence.? There are periventricular and deep white matter chronic small vessel ischemic changes.? There is a remote right [employer] territory infarction seen, with volume loss and encephalomalacia.? There is intracranial internal carotid artery atherosclerosis.? ? Skull and face:? Calvarium and visualized facial bones appear intact, without suspicious lesions.? ? Sinuses:? Visualized sinuses and mastoids are clear.? ? IMPRESSION:? No acute intracranial hemorrhage is seen.? ? No acute intracranial process is seen.? ? Remote right [employer] territory infarction seen, with associated ex vacuo dilatation of the posterior horn of the right lateral ventricle. ? ? Dictated by: Broderick Lundy M.D. on 03/26/2022 at 9:18 ? ? Approved by: Broderick Lundy M.D. on 03/26/2022 at 9:20?? Chest x-ray: Radiologist's Impression: [address] [address] XRay Report Signed Patient: Aurelia Gr MR#: [id number] : 1955 Acct:[id number] Age/Sex: 66 / F Date of Service: 03/26/22 Loc: ED Accession Number: [id number] ?? Procedure: XR chest 1V Ordering Provider: Hazel Jo D.O. PROCEDURE:? XR CHEST 1V ? INDICATIONS:? elevated bp, dialysis ? TECHNIQUE:? One view of the chest was acquired.? ? COMPARISON:? [facility], SAMIR, XR CHEST 1V, 12/12/2021, 8:36. ? FINDINGS:? ? Surgical changes and devices:? Median sternotomy wires and right-sided dialysis catheter positions are unchanged.? Surgical clips are again seen in left axilla. ? Lungs and pleura:? Lungs are clear.? No pleural effusions or pneumothorax.? ? Mediastinum:? Mediastinal contours appear normal.? Heart size is normal.? ? Bones and chest wall:? No suspicious bony lesions.? Overlying soft tissues appear unremarkable.? ? IMPRESSION:? No acute cardiopulmonary pathology. ? ? Dictated by: Darin Tidwell M.D. on 03/26/2022 at 10:08 ? ? Approved by: Darin Tidwell M.D. on 03/26/2022 at 10:08?? ECG Data Attestation: I personally reviewed and interpreted this ECG as follows: Prior ECG tracings: available for review Interpretation: Sinus rhythm rate of 75 OH 148 QRS of [address] QTC [address] No acute [address] changes. Patient has priors that appears similar. MDM Narrative Medical decision making narrative: This is a 66-year-old female sent for hypertension she is dialysis dependent, she is due for her dialysis today. Upon arrival she has not been hypertensive. Patient EKG, head CT and chest x-ray showed no acute changes. She had some blurring of her peripheral vision but no other changes. Lab work shows elevated creatinine not atypical for someone due for dialysis today. Potassium slightly low at 3.3. No other major electrolyte changes, troponin is not elevated, patient is not anemic. Head CT and chest x-ray do not show major changes. Patient's blood pressure has been continued to be appropriate. At this time patient is felt safe to be discharged so she can return and have her dialysis today which is due for this afternoon. Discharge Plan Departure Patient Disposition: Home Clinical Impression: Dialysis patient Activity Restrictions/Additional Instructions: Please follow-up with your dialysis today. Your blood pressure here in the department has not been elevated here maximum systolic has been 130. We did do a head CT, chest x-ray, EKG and lab work no acute or concerning changes. Your potassium is very slightly low today at 3.3 please share this with your dialysis team. If he continued to have some mild changes in your peripheral vision please follow-up with ophthalmology for recheck. Please return for severe headaches, altered mental status, chest pain, new shortness of breath or persistent vomiting, new swelling in your extremities, difficulty with speech, movement or sudden new vision changes. Prescriptions: No Action melatonin 3 mg Tablet 3 mg PO BEDTIME PRN (Reason: Insomnia) hydrocortisone acetate 25 mg Suppository 25 mg OH Q12H PRN (Reason: Hemorrhoids) lorazepam 0.5 mg Tablet 0.5 mg PO Q12H PRN (Reason: Anxiety) cholecalciferol (vitamin D3) [Vitamin D3] 1,000 unit Capsule 1,000 unit PO DAILY sevelamer carbonate 800 mg tablet 800 mg PO BID Eliquis 2.5 mg tablet metoprolol succinate 25 mg tablet extended release 24 hr PO omeprazole 20 mg capsule,delayed release(DR/EC) isosorbide mononitrate 30 mg tablet extended release 24 hr PO levetiracetam 250 mg tablet PO ondansetron HCl 4 mg tablet atorvastatin 40 mg tablet bisacodyl clopidogrel 75 mg tablet albuterol sulfate [Ventolin HFA] 90 mcg/actuation HFA aerosol inhaler 2 inhalation INHALATION QID PRN (Reason: shortness of breath or wheezing) Qty: 6.7 0RF Lactobacillus acidophilus [Acidophilus] Capsule 1 tab PO DAILY acetaminophen-codeine 300-30 mg Tablet 1 tab PO Q12H PRN (Reason: pain) nitroglycerin [Nitrostat] 0.4 mg Tablet, Sublingual 0.4 mg SUBLINGUAL Q5-15M PRN (Reason: Chest Pain) Flovent HFA 44 mcg/actuation HFA aerosol inhaler 2 puff Inhalation BID mirtazapine 15 mg tablet 7.5 mg PO BEDTIMEX7 multivitamin Capsule 1 cap PO DAILY acetaminophen 325 mg Tablet 650 mg PO Q4H PRN (Reason: FEVER > 100 AND PAIN) cyanocobalamin (vitamin B-12) [Vitamin B-12] 1,000 mcg Tablet 1,000 mcg PO DAILY hydrocortisone 10 mg tablet 15 mg PO QAM levothyroxine 112 mcg tablet 112 mcg PO QAM Nepro Liquid 240 ml PO TID Rx Instructions: OR [employer] SHAKE loperamide [Imodium A-D] 2 mg Capsule 2 mg PO PRN MDD 6 CAP PRN (Reason: Diarrhea) magnesium hydroxide [Milk of Magnesia] 400 mg/5 mL Suspension 30 ml PO PRN PRN (Reason: Constipation) calcium carbonate [Calcium 500] 500 mg calcium (1,250 mg) Tablet,Chewable 500 mg PO Q2H PRN (Reason: GI UPSET) benzonatate [Tessalon Perles] 100 mg capsule 100 mg PO Q8H PRN (Reason: cough) Referrals: Germaine Jalloh MD [Primary Care Provider] - Visit Report Forms: Patient Portal/API
--- NOTE | 2022-03-26 09:53 | DI.RAD.S_ITS ---
PROCEDURE: XR CHEST 1V INDICATIONS: elevated bp, dialysis TECHNIQUE: One view of the chest was acquired. COMPARISON: [facility], , XR CHEST 1V, 12/12/2021, 8:36. FINDINGS: Surgical changes and devices: Median sternotomy wires and right-sided dialysis catheter positions are unchanged. Surgical clips are again seen in left axilla. Lungs and pleura: Lungs are clear. No pleural effusions or pneumothorax. Mediastinum: Mediastinal contours appear normal. Heart size is normal. Bones and chest wall: No suspicious bony lesions. Overlying soft tissues appear unremarkable. IMPRESSION: No acute cardiopulmonary pathology. Dictated by: Darin Tidwell M.D. on 03/26/2022 at 10:08 Approved by: Darin Tidwell M.D. on 03/26/2022 at 10:08
--- NOTE | 2022-03-26 09:54 | DI.CT.S_ITS ---
PROCEDURE: CT HEAD/BRAIN WO CON INDICATIONS: htn TECHNIQUE: Noncontrast 4.5 mm thick angled axial sections acquired from the foramen magnum to the vertex, with coronal and sagittal reformats. For radiation dose reduction, the following was used: automated exposure control, adjustment of mA and/or kV according to patient size. COMPARISON: [facility], CT, CT ANGIO HEAD AND NECK, 12/03/2021, 20:04. [facility], CT, CT STROKE, 12/03/2021, 20:04. [facility], CT, CT HEAD/BRAIN WO CON, 02/22/2019, 21:15. FINDINGS: Image quality: Excellent. CSF spaces: Basal cisterns are patent. No extra-axial fluid collections. The ventricles are stable, with ex vacuo dilatation seen involving the posterior aspect of the right lateral ventricle.. Brain: No intracranial bleeds or masses. There is cerebral volume loss for age, with resultant ventricular and sulcal prominence. There are periventricular and deep white matter chronic small vessel ischemic changes. There is a remote right BRIDGE WELDER territory infarction seen, with volume loss and encephalomalacia. There is intracranial internal carotid artery atherosclerosis. Skull and face: Calvarium and visualized facial bones appear intact, without suspicious lesions. Sinuses: Visualized sinuses and mastoids are clear. IMPRESSION: No acute intracranial hemorrhage is seen. No acute intracranial process is seen. Remote right BRIDGE WELDER territory infarction seen, with associated ex vacuo dilatation of the posterior horn of the right lateral ventricle. Dictated by: Broderick Lundy M.D. on 03/26/2022 at 9:18 Approved by: Broderick Lundy M.D. on 03/26/2022 at 9:20
[2022-03-26 10:36] LABS: Add Manual Diff / Slide Review NO; Basophils Absolute Auto 100 /uL (0-100); Basophils Percent Auto 0.6 % (0-2); Eosinophils Absolute Auto 300 /uL (0-450); Eosinophils Percent Auto 3.2 % (2-4); Hematocrit 34.8 % (36-46); Hemoglobin 11.8 g/dL (12.0-16.0); Lymphocytes Absolute Auto 1400 /uL (1100-4500); Lymphocytes Percent Auto 17.3 % (25-40); Mean Corpuscular HGB Conc 33.9 % (30-36); Mean Corpuscular Hemoglobin 31.7 PG (26-34); Mean Corpuscular Volume 93.5 fL (80-100); Monocytes Absolute Auto 300 /uL (0-900); Neutrophils Absolute Auto 6100 /uL (1500-7000); Neutrophils Percent Auto 74.9 % (50-75); Platelet Count 121 X10^3/uL (150-400); Red Blood Cell Count 3.72 X10^6/uL (4.0-5.2); Red Cell Distribution Width 18.2 % (11.6-14.8); White Blood Cell Count 8.1 X10^3/uL (4.5-11.0)
[2022-03-26 10:54] LABS: Alanine Aminotransferase 13 IU/L (<35); Albumin 4.2 g/dL (3.5-5.0); Albumin Globulin Ratio 1.8 (1.0-2.8); Alkaline Phosphatase 72 U/L (38-126); Aspartate Aminotransferase 25 IU/L (14-36); Bilirubin Total 0.3 mg/dL (0.2-1.3); Blood Urea Nitrogen 48 mg/dL (7-17); Calcium 8.6 mg/dL (8.4-10.2); Carbon Dioxide 27 mmol/L (22-32); Chloride 97 mmol/L (98-107); Creatine Kinase 23 U/L (30-135); Globulin 2.3 g/dL (1.7-4.1); Glucose 147 mg/dL (80-110); HEMOLYSIS < 15 (0-50); Potassium 3.3 mmol/L (3.4-5.1); Sodium 136 mmol/L (137-145); Total Protein 6.5 g/dL (6.3-8.2)
[2022-03-26 11:02] LABS: BUN Creatinine Ratio 6.1 (6-22); Estimated Glomerular Filt Rate 5 mL/min (>60)
[2022-03-26 11:04] LABS: Troponin I 0.033 ng/mL (0.01-0.034)
== END 2022-03-26 11:50 | disposition home or self-care (01) ==
PROVIDERS: Emergency Provider Emergency Medicine; PCP Internal Medicine
DX: N19 Unspecified kidney failure (principal); Z99.2 Dependence on renal dialysis; R79.89 Other specified abnormal findings of blood chemistry; I10 Essential (primary) hypertension; H53.8 Other visual disturbances
CPT/HCPCS: 70450; 71045; 80053; 82550; 84484; 85025; 93005; 93010; 99283; 99284

== ENCOUNTER → 2022-04-07 07:43 | Outpatient (ROUT) | payer MEDICARE, MEDICAID, SELFPAY ==
[2022-04-07 08:41] LABS: Hemoglobin A1C% w Est Avg Glu 4.6 % (4.0-6.0)
== END ==
PROVIDERS: PCP Internal Medicine; Visit Provider Nurse Practitioner Gerontology
DX: R73.9 Hyperglycemia, unspecified (principal)
CPT/HCPCS: 36415; 83036

== ENCOUNTER → 2022-11-18 22:14 | Outpatient (ROUT) | payer MEDICARE, MEDICAID, SELFPAY ==
[2022-11-18 22:35] LABS: Occult Blood 1 Negative (Negative); Sample 1 Time 2000
== END ==
PROVIDERS: PCP Internal Medicine; Visit Provider Internal Medicine
DX: K92.2 Gastrointestinal hemorrhage, unspecified (principal)
CPT/HCPCS: 82270

== ENCOUNTER 2023-02-16 09:08 | Emergency (ER) | payer MEDICARE, MEDICAID, SELFPAY ==
[2023-02-16] VITALS (8 sets, daily range): BP systolic 101–182; BP diastolic 54–115; PULSE 85–92; RESP 14–18; TEMP 36.6; O2SAT 92–98
--- NOTE | 2023-02-16 09:18 | DI.RAD.S_ITS ---
PROCEDURE: XR CHEST 1V INDICATIONS: chest pain TECHNIQUE: One view of the chest was acquired. COMPARISON: [facility], CR, XR CHEST 1V, 03/26/2022, 10:04. FINDINGS: Surgical changes and devices: Right IJ catheter appears well position. Status post median sternotomy. Lungs and pleura: Lungs are clear. No pleural effusions or pneumothorax. Mediastinum: Mediastinal contours appear normal. Heart size is normal. Bones and chest wall: No suspicious bony lesions. Overlying soft tissues appear unremarkable. IMPRESSION: No acute cardiopulmonary abnormality. Dictated by: Gurjit Chandler M.D. on 02/16/2023 at 9:30 Approved by: Gurjit Chandler M.D. on 02/16/2023 at 9:31
--- NOTE | 2023-02-16 09:19 | ED.CHESTPAIN ---
HPI - Chest Pain General Chief Complaint: Chest Pain Stated Complaint: pain in chest since last night Time Seen by Provider: 02/16/23 09:18 Source: patient Mode of arrival: Family Vehicle Limitations: no limitations History of Present Illness HPI narrative: 67-year-old female nonsmoker with history of coronary artery disease, status post bypass, end-stage renal on dialysis Wednesday, , Wednesday presents with her sister and a chief complaint of chest pressure that started last evening and persisted until about 30 minutes ago. She denies provocation, palliation or radiation. She denies any increased shortness of breath. She denies any medication change, recent injury. She is had no fever or chills. Patient routinely complains of similar discomfort that is thought to be related to GERD. Related Data Home Medications Medication Instructions Recorded Confirmed cholecalciferol (vitamin D3) 25 1,000 unit PO DAILY 07/04/18 06/14/19 mcg (1,000 unit) capsule (Vitamin D3) hydrocortisone acetate 25 mg 25 mg [place] Q12H PRN Hemorrhoids 07/04/18 06/14/19 rectal suppository lorazepam 0.5 mg tablet 0.5 mg PO Q12H PRN Anxiety 07/04/18 06/14/19 melatonin 3 mg tablet 3 mg PO BEDTIME PRN Insomnia 07/04/18 06/14/19 Lactobacillus acidophilus 1 tab PO DAILY 07/13/18 03/12/20 (Acidophilus capsule) acetaminophen 300 mg-codeine 30 mg 1 tab PO Q12H PRN pain 07/13/18 03/12/20 tablet nitroglycerin 0.4 mg sublingual 0.4 mg sublingual Q5-15M PRN Chest 07/13/18 03/12/20 tablet (Nitrostat) Pain fluticasone propionate 44 2 puff inhalation BID 10/04/18 06/14/19 mcg/actuation HFA aerosol inhaler mirtazapine 15 mg tablet 7.5 mg PO BEDTIMEX7 10/04/18 06/14/19 multivitamin 1 cap PO DAILY 10/04/18 06/14/19 sevelamer carbonate 800 mg tablet 800 mg PO BID 11/03/18 06/14/19 Nepro Liquid 240 ml PO TID 06/14/19 06/14/19 acetaminophen 325 mg tablet 650 mg PO Q4H PRN FEVER > 100 AND 06/14/19 03/12/20 PAIN benzonatate 100 mg capsule 100 mg PO Q8H PRN cough 06/14/19 06/14/19 (Emeli Blanchard) calcium carbonate 500 mg calcium 500 mg PO Q2H PRN GI UPSET 06/14/19 06/14/19 (1,250 mg) chewable tablet (Calcium 500) cyanocobalamin (vitamin B-12) 1,000 mcg PO DAILY 06/14/19 03/12/20 1,000 mcg tablet (Vitamin B-12) hydrocortisone 10 mg tablet 15 mg PO QAM 06/14/19 06/14/19 levothyroxine 112 mcg tablet 112 mcg PO QAM 06/14/19 06/14/19 loperamide 2 mg capsule (Imodium 2 mg PO PRN PRN Diarrhea 06/14/19 06/14/19 A-D) magnesium hydroxide 400 mg/5 mL 30 ml PO PRN PRN Constipation 06/14/19 06/14/19 oral suspension (Milk of GeoLearning) apixaban 2.5 mg tablet (Eliquis) mg 03/12/20 atorvastatin 40 mg tablet 03/12/20 bisacodyl 03/12/20 clopidogrel 75 mg tablet 03/12/20 isosorbide mononitrate 30 mg mg PO 03/12/20 tablet,extended release 24 hr levetiracetam 250 mg tablet PO 03/12/20 metoprolol succinate 25 mg PO 03/12/20 tablet,extended release 24 hr omeprazole 20 mg capsule,delayed 03/12/20 release ondansetron HCl 4 mg tablet 03/12/20 Previous Rx's Medication Instructions Recorded albuterol sulfate 90 mcg/actuation 2 inhalation inhalation QID PRN 12/12/21 aerosol inhaler (Ventolin HFA) shortness of breath or wheezing #6.7 grams Allergies Allergy/AdvReac Type Severity Reaction Status Date / Time No Known Drug Allergies Allergy Verified 02/16/23 09:18 Review of Systems Review of Systems Narrative: GENERAL: Denies chills, fatigue, malaise, fever, sweats. HEENT: Denies sinus pain, ear pain, sore throat, difficulty swallowing, dizziness. RESPIRATORY: See HPI CARDIOVASCULAR: See HPI GASTROINTESTINAL: Denies nausea, vomiting, abdominal pain, diarrhea, constipation, melena. : Denies dysuria, frequency, incontinence, hematuria, urinary retention. MUSCULOSKELETAL: denies weakness, joint pain, or bony pain SKIN: Denies rash, skin lesions, or other NEUROLOGIC: Denies weakness, headache, numbness, change in speech, confusion, seizures, incoordination. PSYCHIATRIC: No concerning psychosocial issues. 12 point review of systems is negative except for those stated above Patient History Medical History Acute renal failure on dialysis Anemia Anxiety Breast cancer, left CHF (congestive heart failure) Fibromyalgia GI bleed HTN (hypertension) Hyperlipidemia Hypothyroid IBS (irritable bowel syndrome) Major depressive disorder Malnutrition Peripheral vascular disease Thrombocytopenia TIA (transient ischemic attack) Social History lives independently: No Smoking Status: Never smoker Smoking Status: Never smoker alcohol intake frequency: holidays/special occasions only Substance Use Type: does not use Exam Narrative Exam Narrative: GENERAL: 67] year old patient appears older than stated age. Well-developed patient, in mild distress. Resting comfortably, obviously chronically ill HEAD: Atraumatic. Normocephalic. EYES: Pupils equal round and reactive. Extraocular motions intact. No scleral icterus. No injection or drainage. ENT: Nose without bleeding, purulent drainage. Throat without erythema, tonsillar hypertrophy or exudate. Airway patent. NECK: Trachea midline. Non tender CARDIOVASCULAR: Regular rate and rhythm without murmurs, gallops, or rubs. RESPIRATORY: Clear to auscultation. Breath sounds equal bilaterally. No wheezes, rales, or rhonchi. GASTROINTESTINAL: Abdomen soft, non-tender, nondistended. EXTREMITIES: No edema or joint tenderness. BACK: Nontender without deformity or crepitance. No flank tenderness. NEURO: AOx3. SKIN: No rash or erythema of visible areas Initial Vital Signs Initial Vital Signs: Vital Signs Temperature 97.8 F 02/16/23 09:12 Pulse Rate 92 H 02/16/23 09:12 Respiratory Rate 18 02/16/23 09:12 Blood Pressure 182/115 H 02/16/23 09:12 Pulse Oximetry 98 02/16/23 09:12 Oxygen Delivery Method Room Air 02/16/23 09:12 Course Orders Ordered: ED Orders 07/04/23 09:18 XR chest 1V Stat EKG-12 Lead Stat 02/16/23 09:53 Complete Blood Count AUTO DIFF Stat Comprehensive Metabolic Panel Stat Lipase Stat NT-proBNP (BNP-Adult 18+) Stat Troponin & CK Cardiac Panel Stat Discontinued Medications Aspirin (Aspirin 81 Mg Chew Tab) 324 mg PO NOW ONE Stop: 02/16/23 09:19 Last Admin: 02/16/23 10:23 Dose: 243 mg Documented By: DINA Sodium Chloride (Normal Saline 0.9%) 1,000 mls @ 150 mls/hr IV CONT WILMAR Last Admin: 02/16/23 10:22 Dose: Not Given Documented By: DINA Vital Signs Vital signs: Vital Signs - 8 hr 02/16/23 09:12 02/16/23 09:24 02/16/23 09:25 Temperature 97.8 F Pulse Rate 92 H 92 H 92 H Respiratory Rate 18 Blood Pressure 182/115 H Pulse Oximetry 98 94 92 Oxygen Delivery Method Room Air Nasal Cannula Oxygen Flow Rate 2 02/16/23 09:25 02/16/23 09:30 02/16/23 09:30 Temperature Pulse Rate 85 Respiratory Rate Blood Pressure 108/64 108/59 L Pulse Oximetry 93 Oxygen Delivery Method Oxygen Flow Rate 02/16/23 10:00 02/16/23 10:30 02/16/23 10:30 Temperature Pulse Rate 87 86 Respiratory Rate 18 14 Blood Pressure 103/63 Pulse Oximetry 94 93 Oxygen Delivery Method Oxygen Flow Rate 02/16/23 11:00 02/16/23 11:03 02/16/23 11:03 Temperature Pulse Rate 87 86 Respiratory Rate 15 16 Blood Pressure 101/54 L Pulse Oximetry 93 92 Oxygen Delivery Method Oxygen Flow Rate MDM - Chest Pain Lab Data 02/16/23 09:53 02/16/23 09:53 Labs: Lab Results 02/16/23 02/16/23 Range/Units 09:53 09:53 WBC 13.1 H (4.5-11.0) X10^3/uL RBC 3.73 L (4.0-5.2) X10^6/uL Hgb 11.9 L (12.0-16.0) g/dL Hct 35.2 L (36-46) % MCV 94.2 (80-100) fL MCH 31.8 (26-34) PG MCHC 33.8 (30-36) % RDW 17.0 H (11.6-14.8) % Plt Count 129 L (150-400) X10^3/uL Neut % (Auto) 84.7 H (50-75) % Lymph % (Auto) 7.2 L (25-40) % Kings % (Auto) 5.1 (3-14) % Eos % (Auto) 2.2 (2-4) % Baso % (Auto) 0.8 (0-2) % Neut # (Auto) 18474 H (6567-2992) /uL Lymph # (Auto) 900 L (3253-5519) /uL Kings # (Auto) 700 (0-900) /uL Eos # (Auto) 300 (0-450) /uL Baso # (Auto) 100 (0-100) /uL Sodium 134 L (137-145) mmol/L Potassium 4.0 (3.4-5.1) mmol/L Chloride 92 L (98-107) mmol/L Carbon Dioxide 28 (22-32) mmol/L BUN 52 H (7-17) mg/dL Creatinine 10.1 H* (0.52-1.04) mg/dL Estimated GFR 4 L (>60) mL/min BUN/Creatinine Ratio 5.1 L (6-22) Glucose 88 (80-110) mg/dL Calcium 9.3 (8.4-10.2) mg/dL Total Bilirubin 0.5 (0.2-1.3) mg/dL AST 19 (14-36) IU/L ALT 13 (<35) IU/L Alkaline Phosphatase 71 (38-126) U/L Total Creatine Kinase < 20 L (30-135) U/L Troponin I 0.019 (0.01-0.034) ng/mL NT-Pro-B Natriuret Pep 61090 H (<125) pg/mL Total Protein 6.8 (6.3-8.2) g/dL Albumin 4.3 (3.5-5.0) g/dL Globulin 2.5 (1.7-4.1) g/dL Albumin/Globulin Ratio 1.7 (1.0-2.8) Lipase 189 (23-300) U/L MDM Narrative Medical decision making narrative: CC: 67-year-old female with chest pain Complicating co-morbidities: Coronary artery disease, prior bypass, dialysis Data collected from: Patient Medical records reviewed: Prior notes reviewed in our EMR Differential considered, but not limited to: Cardiac ischemia versus fluid overload versus pneumonia versus pulmonary embolism versus other Exam documented above, pertinent findings include: Heart rate regular, lungs clear, nonlabored breathing, abdomen soft Lab Test results independently reviewed as above. Pertinent findings: Independently reviewed EKG as above Imaging studies independently reviewed: NAP Discussion: Patient reported multiple hours of central chest discomfort that started last night and was persistent until prior to her arrival. She is asymptomatic for the duration of her visit. EKGs nonischemic and labs are reassuring. She has no ongoing symptoms. Given the duration of symptoms, lack of associated symptoms, lack of EKG change and normal troponin is seems extremely unlikely that this is of cardiac etiology. Multiple other diagnoses considered as noted above, however thought largely unlikely given her lack of symptoms here. The lack of ongoing symptoms without acute intervention is reassuring. We discussed at length possible further workups and etiologies. Patient would very much prefer to go directly to dialysis stating the symptoms she had are similar to those that she has frequently. She understands the risk this and assumes the risk. She has been given return precautions and assures me she will return for any recurrence Disposition: see below, along with detailed discharge instructions that have been reviewed with patient as well as indications for ED re-evaluation and additional outpatient follow up Discharge Plan Departure Patient Disposition: Home Clinical Impression: Chest pain Instructions: DI for Chest Pain Activity Restrictions/Additional Instructions: *You have been diagnosed with [atypical chest pain. As we discussed your history and physical exam are reassuring labs today are unremarkable and it seems very unlikely that this is heart attack, blood clot, pneumonia.] *What to do: *Please continue to take your regular medications as directed. [ ] New medication prescriptions sent to your pharmacy: [ ] [ ] New medication written as a paper prescription [ ] No new medications given *Please follow up with your primary care provider in 2-3 days, call for an appointment. Let them know you were seen in the Emergency Department and that we ask that you be seen in follow up. We will electronically transmit a record of today's note if your PCP is in our system *If you do not have a primary care provider please contact the [facility] Resource line at [phone]. They will ask some questions about your medical history and help get you set up with a doctor in the community. *Return to Emergency Department if you should have any new, worsening or concerning symptoms, such as [fever greater than 101 F, shaking chills, worsening pain, persistent vomiting or other bothersome symptoms] Prescriptions: No Action melatonin 3 mg Tablet 3 mg PO BEDTIME PRN (Reason: Insomnia) hydrocortisone acetate 25 mg Suppository 25 mg [place] Q12H PRN (Reason: Hemorrhoids) lorazepam 0.5 mg Tablet 0.5 mg PO Q12H PRN (Reason: Anxiety) cholecalciferol (vitamin D3) [Vitamin D3] 1,000 unit Capsule 1,000 unit PO DAILY sevelamer carbonate 800 mg tablet 800 mg PO BID Eliquis 2.5 mg tablet metoprolol succinate 25 mg tablet extended release 24 hr PO omeprazole 20 mg capsule,delayed release(DR/EC) isosorbide mononitrate 30 mg tablet extended release 24 hr PO levetiracetam 250 mg tablet PO ondansetron HCl 4 mg tablet atorvastatin 40 mg tablet bisacodyl clopidogrel 75 mg tablet albuterol sulfate [Ventolin HFA] 90 mcg/actuation HFA aerosol inhaler 2 inhalation INHALATION QID PRN (Reason: shortness of breath or wheezing) Qty: 6.7 0RF Lactobacillus acidophilus [Acidophilus] Capsule 1 tab PO DAILY acetaminophen-codeine 300-30 mg Tablet 1 tab PO Q12H PRN (Reason: pain) nitroglycerin [Nitrostat] 0.4 mg Tablet, Sublingual 0.4 mg SUBLINGUAL Q5-15M PRN (Reason: Chest Pain) Flovent HFA 44 mcg/actuation HFA aerosol inhaler 2 puff Inhalation BID mirtazapine 15 mg tablet 7.5 mg PO BEDTIMEX7 multivitamin Capsule 1 cap PO DAILY acetaminophen 325 mg Tablet 650 mg PO Q4H PRN (Reason: FEVER > 100 AND PAIN) cyanocobalamin (vitamin B-12) [Vitamin B-12] 1,000 mcg Tablet 1,000 mcg PO DAILY hydrocortisone 10 mg tablet 15 mg PO QAM levothyroxine 112 mcg tablet 112 mcg PO QAM Nepro Liquid 240 ml PO TID Rx Instructions: [facility] loperamide [Imodium A-D] 2 mg Capsule 2 mg PO PRN MDD 6 CAP PRN (Reason: Diarrhea) magnesium hydroxide [Milk of Magnesia] 400 mg/5 mL Suspension 30 ml PO PRN PRN (Reason: Constipation) calcium carbonate [Calcium 500] 500 mg calcium (1,250 mg) Tablet,Chewable 500 mg PO Q2H PRN (Reason: GI UPSET) benzonatate [Tessalon Perles] 100 mg capsule 100 mg PO Q8H PRN (Reason: cough) Referrals: Germaine Jalloh MD [Primary Care Provider] - Stand Alone Forms: Patient Portal/API
[2023-02-16 10:05] LABS: Add Manual Diff / Slide Review NO; Basophils Absolute Auto 100 /uL (0-100); Basophils Percent Auto 0.8 % (0-2); Eosinophils Absolute Auto 300 /uL (0-450); Eosinophils Percent Auto 2.2 % (2-4); Hematocrit 35.2 % (36-46); Hemoglobin 11.9 g/dL (12.0-16.0); Lymphocytes Absolute Auto 900 /uL (1100-4500); Lymphocytes Percent Auto 7.2 % (25-40); Mean Corpuscular HGB Conc 33.8 % (30-36); Mean Corpuscular Hemoglobin 31.8 PG (26-34); Mean Corpuscular Volume 94.2 fL (80-100); Monocytes Absolute Auto 700 /uL (0-900); Monocytes Percent Auto 5.1 % (3-14); Neutrophils Absolute Auto 11100 /uL (1500-7000); Neutrophils Percent Auto 84.7 % (50-75); Platelet Count 129 X10^3/uL (150-400); Red Blood Cell Count 3.73 X10^6/uL (4.0-5.2); White Blood Cell Count 13.1 X10^3/uL (4.5-11.0)
[2023-02-16 10:19] LABS: Alanine Aminotransferase 13 IU/L (<35); Albumin 4.3 g/dL (3.5-5.0); Albumin Globulin Ratio 1.7 (1.0-2.8); Alkaline Phosphatase 71 U/L (38-126); Aspartate Aminotransferase 19 IU/L (14-36); Bilirubin Total 0.5 mg/dL (0.2-1.3); Blood Urea Nitrogen 52 mg/dL (7-17); Calcium 9.3 mg/dL (8.4-10.2); Carbon Dioxide 28 mmol/L (22-32); Chloride 92 mmol/L (98-107); Creatine Kinase < 20 U/L (30-135); Globulin 2.5 g/dL (1.7-4.1); Glucose 88 mg/dL (80-110); HEMOLYSIS < 15 (0-50); Lipase 189 U/L (23-300); Sodium 134 mmol/L (137-145); Total Protein 6.8 g/dL (6.3-8.2)
[2023-02-16] MEDS: ASPIRIN 81 MG CHEW TAB 324 MG PO (10:23)
[2023-02-16 10:29] LABS: BUN Creatinine Ratio 5.1 (6-22); Estimated Glomerular Filt Rate 4 mL/min (>60)
[2023-02-16 10:31] LABS: NT-proBNP (BNP-Adult 18+) 16100 pg/mL (<125); Troponin I 0.019 ng/mL (0.01-0.034)
== END 2023-02-16 11:31 | disposition home or self-care (01) ==
PROVIDERS: Emergency Provider Emergency Medicine; PCP Internal Medicine
DX: R07.9 Chest pain, unspecified (principal); Z79.899 Other long term (current) drug therapy
CPT/HCPCS: 36415; 71045; 80053; 82550; 83690; 83880; 84484; 85025; 93005; 93010; 99284

== ENCOUNTER 2023-05-11 00:40 | Emergency (ER) | payer MEDICARE, MEDICAID, SELFPAY ==
[2023-05-11] VITALS (18 sets, daily range): BP systolic 103–117; BP diastolic 53–80; PULSE 84–109; RESP 24; TEMP 37.2; O2SAT 91–96; BMI 27.3
--- NOTE | 2023-05-11 00:55 | PC.NURSE ---
Sister was updated via the phone per patient's request. Diane notified RN that she has dialysis T,TH, Sat.
--- NOTE | 2023-05-11 01:40 | DI.RAD.S_ITS ---
PROCEDURE: XR CHEST 1V INDICATIONS: cough TECHNIQUE: One view of the chest was acquired. COMPARISON: [facility], CR, XR CHEST 1V, 02/16/2023, 9:24. FINDINGS: Surgical changes and devices: Right internal jugular central venous extending into the right atrium redemonstrated. Postsurgical changes in the mediastinum and left axilla also noted. Lungs and pleura: Lungs are clear. No pleural effusions or pneumothorax. Mediastinum: Mediastinal contours appear normal. Heart size is normal. Bones and chest wall: No suspicious bony lesions. Overlying soft tissues appear unremarkable. IMPRESSION: 1. No acute cardiopulmonary disease. Dictated by: Vasiliy Marcelino M.D. on 05/11/2023 at 1:59 Approved by: Vasiliy Marcelino M.D. on 05/11/2023 at 2:00
[2023-05-11 01:45] LABS: COVID-19 CEPHEID 4-PLEX PCR Negative (Negative); Influenza A - CEPHEID Flu A NEGATIVE (NEGATIVE); Influenza B - CEPHEID Flu B NEGATIVE (NEGATIVE)
[2023-05-11] MEDS: LORazepam 0.5 MG TABLET PO (01:46)
--- NOTE | 2023-05-11 03:27 | ED_ITS ---
HPI - URI/Sore Throat General Chief Complaint: Shortness of Breath/Dyspnea Stated Complaint: Flu like sx x2days Time Seen by Provider: 05/11/23 01:40 Source: patient and EMS Mode of arrival: EMS Limitations: no limitations History of Present Illness HPI Narrative: 68-year-old female with history of coronary disease, status post bypass, end- stage renal disease on dialysis Wednesday, , Wednesday who presents with complaint of recent fever, nasal and chest congestion and cough. Patient states she had 101 F temperature at home with EMS. EMS states they are temporal was elevated although upon arrival was not. Patient has had a cough for for 2 days with nasal congestion, chest congestion, patient states cough is nonproductive. She denies any chest pain except when she is coughing. She states no increased shortness of breath. States she has nausea with the that is typical for. Denies any vomiting. Denies any constipation, she is had some loose stools today. No black or blood in her stools. She does make a small amount of urine and states no burning or dysuria. She denies any swelling in her extremities. Patient states she had asked her physician at [place] if she could have a prescription for codeine. She did not hear anything and was very uncomfortable this evening so presented to the emergency department. Patient states she has not missed any dialysis, she states no other new major changes. She very politely defers additional workup with lab work, we reviewed her swab and chest x-ray this evening. Related Data Home Medications Medication Instructions Recorded Confirmed cholecalciferol (vitamin D3) 25 1,000 unit PO DAILY 07/04/18 06/14/19 mcg (1,000 unit) capsule (Vitamin D3) hydrocortisone acetate 25 mg 25 mg OR Q12H PRN Hemorrhoids 07/04/18 06/14/19 rectal suppository lorazepam 0.5 mg tablet 0.5 mg PO Q12H PRN Anxiety 07/04/18 06/14/19 melatonin 3 mg tablet 3 mg PO BEDTIME PRN Insomnia 07/04/18 06/14/19 Lactobacillus acidophilus 1 tab PO DAILY 07/13/18 03/12/20 (Acidophilus capsule) acetaminophen 300 mg-codeine 30 mg 1 tab PO Q12H PRN pain 07/13/18 03/12/20 tablet nitroglycerin 0.4 mg sublingual 0.4 mg sublingual Q5-15M PRN Chest 07/13/18 03/12/20 tablet (Nitrostat) Pain fluticasone propionate 44 2 puff inhalation BID 10/04/18 06/14/19 mcg/actuation HFA aerosol inhaler mirtazapine 15 mg tablet 7.5 mg PO BEDTIMEX7 10/04/18 06/14/19 multivitamin 1 cap PO DAILY 10/04/18 06/14/19 sevelamer carbonate 800 mg tablet 800 mg PO BID 11/03/18 06/14/19 Nepro Liquid 240 ml PO TID 06/14/19 06/14/19 acetaminophen 325 mg tablet 650 mg PO Q4H PRN FEVER > 100 AND 06/14/19 03/12/20 PAIN benzonatate 100 mg capsule 100 mg PO Q8H PRN cough 06/14/19 06/14/19 (Tescasion Lo) calcium carbonate 500 mg calcium 500 mg PO Q2H PRN GI UPSET 06/14/19 06/14/19 (1,250 mg) chewable tablet (Calcium 500) cyanocobalamin (vitamin B-12) 1,000 mcg PO DAILY 06/14/19 03/12/20 1,000 mcg tablet (Vitamin B-12) hydrocortisone 10 mg tablet 15 mg PO QAM 06/14/19 06/14/19 levothyroxine 112 mcg tablet 112 mcg PO QAM 06/14/19 06/14/19 loperamide 2 mg capsule (Imodium 2 mg PO PRN PRN Diarrhea 06/14/19 06/14/19 A-D) magnesium hydroxide 400 mg/5 mL 30 ml PO PRN PRN Constipation 06/14/19 06/14/19 oral suspension (Milk of Magnesia) apixaban 2.5 mg tablet (Eliquis) mg 03/12/20 atorvastatin 40 mg tablet 03/12/20 bisacodyl 03/12/20 clopidogrel 75 mg tablet 03/12/20 isosorbide mononitrate 30 mg mg PO 03/12/20 tablet,extended release 24 hr levetiracetam 250 mg tablet PO 03/12/20 metoprolol succinate 25 mg PO 03/12/20 tablet,extended release 24 hr omeprazole 20 mg capsule,delayed 03/12/20 release ondansetron HCl 4 mg tablet 03/12/20 Previous Rx's Medication Instructions Recorded albuterol sulfate 90 mcg/actuation 2 inhalation inhalation QID PRN 12/12/21 aerosol inhaler (Ventolin HFA) shortness of breath or wheezing #6.7 grams acetaminophen 300 mg-codeine 15 mg 1 tab PO TID PRN pain #10 tabs 05/11/23 tablet Allergies Allergy/AdvReac Type Severity Reaction Status Date / Time No Known Drug Allergies Allergy Verified 02/16/23 09:18 Review of Systems Review of Systems ROS Unobtainable: All systems reviewed & are unremarkable except as noted in HPI and below Patient History Medical History Acute renal failure on dialysis Anemia Anxiety Breast cancer, left CHF (congestive heart failure) Fibromyalgia GI bleed HTN (hypertension) Hyperlipidemia Hypothyroid IBS (irritable bowel syndrome) Major depressive disorder Malnutrition Peripheral vascular disease Thrombocytopenia TIA (transient ischemic attack) Social History lives independently: No Smoking Status: Former smoker Smoking Status: Former smoker alcohol intake frequency: holidays/special occasions only Substance Use Type: does not use Exam Narrative Exam Narrative: GEN: Elderly appearing female, alert and oriented x 3, patient appears to be in mild distress. HEENT: Atraumatic, pupils are equal round reactive to light, extraocular movements are intact, nares have mild bilateral rhinorrhea, there is no c onjunctival pallor. Throat is clear without any exudates, erythema, tonsillar enlargement or uvular deviation, patient is slightly hoarse. HEART: Regular rate and rhythm without murmur, clicks, rubs. LUNGS:Lungs clear to auscultation, no wheezes, rales, crackles, chest moves symmetrically, patient has a harsh cough. Nonproductive. Tachypnea or accessory muscle use. Patient's speaks in full sentences. ABD:bowel sounds normal, soft, non-tender, no guarding, rebound, rigidity, no masses noted, no hepatosplenomegaly :No CVA tenderness MSCL: Non-tender, no muscle atrophy, muscles strength 5/5 upper and lower extremities, full range of motion, normal gait NEURO:CN 2-12 intact, sensation normal. SKIN: Redness darker discoloration on her anterior chest, she states this is her normal baseline. Initial Vital Signs Initial Vital Signs: Vital Signs Pulse Rate 109 H 05/11/23 00:45 Pulse Oximetry 94 05/11/23 00:45 Course Orders Ordered: ED Orders 05/11/23 00:44 Covid-19 + FLU A/B by PCR Stat 05/11/23 01:40 Chest [XR chest 1V] Stat Discontinued Medications Acetaminophen/Codeine Phosphate (Codeine/Acetaminophen 30/300 Tablet) 1 tab PO NOW ONE Stop: 05/11/23 03:40 Last Admin: 05/11/23 03:55 Dose: 1 tab Documented By: CANDELARIO Lorazepam (Lorazepam 0.5 Mg Tablet) 0.5 mg PO NOW ONE Stop: 05/11/23 01:41 Last Admin: 05/11/23 01:46 Dose: 0.5 mg Documented By: CANDELARIO Vital Signs Vital signs: Vital Signs - 8 hr 05/11/23 00:48 05/11/23 00:45 05/11/23 01:00 Temperature 98.9 F Pulse Rate 107 H 109 H 106 H Respiratory Rate 24 Blood Pressure 116/80 Pulse Oximetry 94 94 94 Oxygen Delivery Method Room Air 05/11/23 01:01 05/11/23 01:01 05/11/23 01:30 Temperature Pulse Rate 107 H 106 H Respiratory Rate Blood Pressure 116/66 Pulse Oximetry 95 92 Oxygen Delivery Method 05/11/23 01:31 05/11/23 01:31 05/11/23 02:00 Temperature Pulse Rate 106 H Respiratory Rate Blood Pressure 117/56 L 106/79 Pulse Oximetry 92 Oxygen Delivery Method 05/11/23 02:00 05/11/23 02:30 05/11/23 02:30 Temperature Pulse Rate 98 H 93 H Respiratory Rate Blood Pressure 103/53 L Pulse Oximetry 93 94 Oxygen Delivery Method 05/11/23 03:00 05/11/23 03:00 05/11/23 03:30 Temperature Pulse Rate 91 H 98 H Respiratory Rate Blood Pressure 106/73 Pulse Oximetry 93 95 Oxygen Delivery Method 05/11/23 03:31 05/11/23 03:31 05/11/23 03:55 Temperature Pulse Rate 97 H 95 H Respiratory Rate Blood Pressure 108/71 Pulse Oximetry 96 91 Oxygen Delivery Method 05/11/23 03:55 05/11/23 04:05 05/11/23 04:30 Temperature Pulse Rate 96 H 92 H Respiratory Rate Blood Pressure 114/53 L Pulse Oximetry 94 94 Oxygen Delivery Method Room Air 05/11/23 05:00 05/11/23 05:30 05/11/23 06:00 Temperature Pulse Rate 89 88 84 Respiratory Rate Blood Pressure Pulse Oximetry 93 92 93 Oxygen Delivery Method 05/11/23 06:30 Temperature Pulse Rate 84 Respiratory Rate Blood Pressure Pulse Oximetry 95 Oxygen Delivery Method MDM - URI/Sore Throat Lab Data Labs: Lab Results 05/11/23 Range/Units 00:44 SARS-CoV-2 (PCR) Negative (Negative) Influenza A (RT-PCR) Flu a negative (NEGATIVE) Influenza B (RT-PCR) Flu b negative (NEGATIVE) Imaging Data Chest x-ray: Radiologist's Impression: [address] [address] XRay Report Signed Patient: Aurelia Gr MR#: [id number] : 1955 Acct:[id number] Age/Sex: 68 / F Date of Service: 05/11/23 Loc: ED Accession Number: [id number] ?? Procedure: XR chest 1V Ordering Provider: Hazel Jo D.O. PROCEDURE:? XR CHEST 1V ? INDICATIONS:? cough ? TECHNIQUE:? One view of the chest was acquired.? ? COMPARISON:? [facility], , XR CHEST 1V, 02/16/2023, 9:24. ? FINDINGS:? ? Surgical changes and devices:? Right internal jugular central venous extending into the right atrium redemonstrated.? Postsurgical changes in the mediastinum and left axilla also noted. ? Lungs and pleura:? Lungs are clear.? No pleural effusions or pneumothorax.? ? Mediastinum:? Mediastinal contours appear normal.? Heart size is normal.? ? Bones and chest wall:? No suspicious bony lesions.? Overlying soft tissues appear unremarkable.? ? ? IMPRESSION:? ? 1.? No acute cardiopulmonary disease. ? ? ? Dictated by: Vasiliy Marcelino M.D. on 05/11/2023 at 1:59 ? ? Approved by: Vasiliy Marcelino M.D. on 05/11/2023 at 2:00 [facility] Narrative Medical decision making narrative: Patient does have a harsh cough here in the emergency department, she is not been hypoxic, HR in the 70s while in the room. BP is 100-115 range. Chest x- ray was negative, COVID/influenza swab was negative. Patient is requesting prescription for codeine. She did have a dose of Ativan which she takes at home and then additional dose of this later. Discussed additional workup but patient politely defers. She states she does not really see the point. She is requesting discharge home so that she does not miss her dialysis later today. We discussed obtaining additional blood work and workup and patient continues to politely declined. Did review her goals of care, she states she is DNR/DNI but open to some medical interventions. She has copy of [employer] that also reflects this. Nursing did call patients sister and updated her. Patient lives at [place] and does not have a way to return. While hold until cabs are running again this am. Given dose of codeine with tylenol in department. Discharge Plan Departure Patient Disposition: Home Clinical Impression: Cough Instructions: DI for Cough -- Adult Activity Restrictions/Additional Instructions: You have declined additional work up today. Your chest xray does not show any obvious infection or extra fluid. Covid/Influenza swab is negative. You may take Tylenol with codeine 1 tablet every 6-8 hours as needed. Prescription printed. Please return for new or worsening symptoms, new chest pain, shortness of breath, vomiting, difficulty with breathing, black or bloody stools, new swelling in her extremities or other new or concerning changes. Prescriptions: New acetaminophen-codeine 300-15 mg tablet 1 tab PO TID PRN (Reason: pain) Qty: 10 0RF No Action melatonin 3 mg Tablet 3 mg PO BEDTIME PRN (Reason: Insomnia) hydrocortisone acetate 25 mg Suppository 25 mg OR Q12H PRN (Reason: Hemorrhoids) lorazepam 0.5 mg Tablet 0.5 mg PO Q12H PRN (Reason: Anxiety) cholecalciferol (vitamin D3) [Vitamin D3] 1,000 unit Capsule 1,000 unit PO DAILY sevelamer carbonate 800 mg tablet 800 mg PO BID Eliquis 2.5 mg tablet metoprolol succinate 25 mg tablet extended release 24 hr PO omeprazole 20 mg capsule,delayed release(DR/EC) isosorbide mononitrate 30 mg tablet extended release 24 hr PO levetiracetam 250 mg tablet PO ondansetron HCl 4 mg tablet atorvastatin 40 mg tablet bisacodyl clopidogrel 75 mg tablet albuterol sulfate [Ventolin HFA] 90 mcg/actuation HFA aerosol inhaler 2 inhalation INHALATION QID PRN (Reason: shortness of breath or wheezing) Qty: 6.7 0RF Lactobacillus acidophilus [Acidophilus] Capsule 1 tab PO DAILY acetaminophen-codeine 300-30 mg Tablet 1 tab PO Q12H PRN (Reason: pain) nitroglycerin [Nitrostat] 0.4 mg Tablet, Sublingual 0.4 mg SUBLINGUAL Q5-15M PRN (Reason: Chest Pain) Flovent HFA 44 mcg/actuation HFA aerosol inhaler 2 puff Inhalation BID mirtazapine 15 mg tablet 7.5 mg PO BEDTIMEX7 multivitamin Capsule 1 cap PO DAILY acetaminophen 325 mg Tablet 650 mg PO Q4H PRN (Reason: FEVER > 100 AND PAIN) cyanocobalamin (vitamin B-12) [Vitamin B-12] 1,000 mcg Tablet 1,000 mcg PO DAILY hydrocortisone 10 mg tablet 15 mg PO QAM levothyroxine 112 mcg tablet 112 mcg PO QAM Nepro Liquid 240 ml PO TID Rx Instructions: [facility] loperamide [Imodium A-D] 2 mg Capsule 2 mg PO PRN MDD 6 CAP PRN (Reason: Diarrhea) magnesium hydroxide [Milk of Magnesia] 400 mg/5 mL Suspension 30 ml PO PRN PRN (Reason: Constipation) calcium carbonate [Calcium 500] 500 mg calcium (1,250 mg) Tablet,Chewable 500 mg PO Q2H PRN (Reason: GI UPSET) benzonatate [Tessalon Perles] 100 mg capsule 100 mg PO Q8H PRN (Reason: cough) Referrals: Germaine Jalloh MD [Primary Care Provider] - Stand Alone Forms: Patient Portal/API
[2023-05-11] MEDS: CODEINE/ACETAMINOPHEN 30/300 TABLET 1 TAB PO (03:55)
== END 2023-05-11 06:51 | disposition home or self-care (01) ==
PROVIDERS: Emergency Provider Emergency Medicine; PCP Internal Medicine
DX: R05.9 Cough, unspecified (principal); Z79.899 Other long term (current) drug therapy; Z20.822 Contact with and (suspected) exposure to COVID-19
CPT/HCPCS: 71045; 87635; 99283; C9803

== ENCOUNTER 2023-11-04 00:14 | Emergency (ER) | payer MEDICARE, MEDICAID, SELFPAY ==
[2023-11-04 00:20] VITALS: BP 177/77; PULSE 87; PULSE 94; RESP 20; TEMP 36.6; O2SAT 98; O2SAT 99; BMI 27.3
[2023-11-04 00:21] VITALS: BP 177/77; PULSE 91; O2SAT 98
[2023-11-04 00:30] VITALS: PULSE 89; O2SAT 97
--- NOTE | 2023-11-04 00:31 | ED_ITS ---
HPI - Extremity Problem General Chief complaint: Extremity Problem,Nontraumatic Stated complaint: bilateral arm swelling Time Seen by Provider: 11/04/23 00:22 Source: patient and EMS Mode of arrival: EMS History of Present Illness HPI Narrative: Patient is a 68-year-old female. Is in danger read on disease on dialysis. Is scheduled to get dialysis later today she states that earlier in the evening she would noticed that the upper portions of her arms were becoming swollen. It is bilateral. She denies chest pain, shortness of breath her arms are somewhat uncomfortable. No fevers. No specific trauma. She did receive her last round of dialysis without issue. She still produces a small amount of urine. Related Data Home Medications Medication Instructions Recorded Confirmed cholecalciferol (vitamin D3) 25 1,000 unit PO DAILY 07/04/18 06/14/19 mcg (1,000 unit) capsule (Vitamin D3) hydrocortisone acetate 25 mg 25 mg OR Q12H PRN Hemorrhoids 07/04/18 06/14/19 rectal suppository lorazepam 0.5 mg tablet 0.5 mg PO Q12H PRN Anxiety 07/04/18 06/14/19 melatonin 3 mg tablet 3 mg PO BEDTIME PRN Insomnia 07/04/18 06/14/19 Lactobacillus acidophilus 1 tab PO DAILY 07/13/18 03/12/20 (Acidophilus capsule) acetaminophen 300 mg-codeine 30 mg 1 tab PO Q12H PRN pain 07/13/18 03/12/20 tablet nitroglycerin 0.4 mg sublingual 0.4 mg sublingual Q5-15M PRN Chest 07/13/18 03/12/20 tablet (Nitrostat) Pain fluticasone propionate 44 2 puff inhalation BID 10/04/18 06/14/19 mcg/actuation HFA aerosol inhaler mirtazapine 15 mg tablet 7.5 mg PO BEDTIMEX7 10/04/18 06/14/19 multivitamin 1 cap PO DAILY 10/04/18 06/14/19 sevelamer carbonate 800 mg tablet 800 mg PO BID 11/03/18 06/14/19 Nepro Liquid 240 ml PO TID 06/14/19 06/14/19 acetaminophen 325 mg tablet 650 mg PO Q4H PRN FEVER > 100 AND 06/14/19 03/12/20 PAIN benzonatate 100 mg capsule 100 mg PO Q8H PRN cough 06/14/19 06/14/19 (Tessalon Perles) calcium carbonate 500 mg calcium 500 mg PO Q2H PRN GI UPSET 06/14/19 06/14/19 (1,250 mg) chewable tablet (Calcium 500) cyanocobalamin (vitamin B-12) 1,000 mcg PO DAILY 06/14/19 03/12/20 1,000 mcg tablet (Vitamin B-12) hydrocortisone 10 mg tablet 15 mg PO QAM 06/14/19 06/14/19 levothyroxine 112 mcg tablet 112 mcg PO QAM 06/14/19 06/14/19 loperamide 2 mg capsule (Imodium 2 mg PO PRN PRN Diarrhea 06/14/19 06/14/19 A-D) magnesium hydroxide 400 mg/5 mL 30 ml PO PRN PRN Constipation 06/14/19 06/14/19 oral suspension (Milk of MagnAthleteTrax) apixaban 2.5 mg tablet (Eliquis) mg 03/12/20 atorvastatin 40 mg tablet 03/12/20 bisacodyl 03/12/20 clopidogrel 75 mg tablet 03/12/20 isosorbide mononitrate 30 mg mg PO 03/12/20 tablet,extended release 24 hr levetiracetam 250 mg tablet PO 03/12/20 metoprolol succinate 25 mg PO 03/12/20 tablet,extended release 24 hr omeprazole 20 mg capsule,delayed 03/12/20 release ondansetron HCl 4 mg tablet 03/12/20 Previous Rx's Medication Instructions Recorded albuterol sulfate 90 mcg/actuation 2 inhalation inhalation QID PRN 12/12/21 aerosol inhaler (Ventolin HFA) shortness of breath or wheezing #6.7 grams acetaminophen 300 mg-codeine 15 mg 1 tab PO TID PRN pain #10 tabs 05/11/23 tablet Allergies Allergy/AdvReac Type Severity Reaction Status Date / Time No Known Drug Allergies Allergy Verified 11/04/23 00:27 Review of Systems Constitutional Constitutional: Reports system reviewed and no additional complaints, except as documented Cardiovascular Cardiovascular: Reports system reviewed and no additional complaints, except as documented Respiratory Respiratory: Reports system reviewed and no additional complaints, except as documented Musculoskeletal Musculoskeletal: Reports system reviewed and no additional complaints, except as documented Integumentary/Breasts Skin/Breast: Reports system reviewed and no additional complaints, except as documented Neurologic Neurologic: Reports system reviewed and no additional complaints, except as documented Hematologic/Lymphatic On Anticoagulants: No Patient History Medical History Breast cancer, left Thrombocytopenia Peripheral vascular disease Major depressive disorder Hypothyroid Hyperlipidemia Fibromyalgia CHF (congestive heart failure) Anemia Malnutrition TIA (transient ischemic attack) IBS (irritable bowel syndrome) HTN (hypertension) GI bleed Acute renal failure on dialysis Anxiety Social History lives independently: No Smoking Status: Former smoker Smoking Status: Former smoker alcohol intake frequency: holidays/special occasions only Substance Use Type: does not use Exam Initial Vital Signs Initial Vital Signs: Vital Signs Temperature 97.9 F 11/04/23 00:20 Pulse Rate 87 11/04/23 00:20 Respiratory Rate 20 11/04/23 00:20 Blood Pressure 177/77 H 11/04/23 00:20 Pulse Oximetry 98 11/04/23 00:20 Oxygen Delivery Method Room Air 11/04/23 00:20 HENMT Head: normal to inspection and normocephalic Chest Other: Dialysis catheter right upper chest Resp Effort & Inspection: normal respiratory effort Auscultation: clear to auscultation bilaterally Cardio Rate: regular rate Skin General: no rashes or lesions noted Neuro General: patient alert and patient awake Extrem Other: Patient does have pitting edema located from the mid biceps down to her elbows bilaterally. Right somewhat greater than the left. Course Orders Ordered: ED Orders 11/04/23 00:32 XR chest 1V Stat EKG-12 Lead Stat 11/04/23 00:50 Complete Blood Count AUTO DIFF Stat Comprehensive Metabolic Panel Stat Lipase Stat NT-proBNP (BNP-Adult 18+) Stat Troponin & CK Cardiac Panel Stat Vital Signs Vital signs: Vital Signs - 8 hr 11/04/23 00:20 11/04/23 00:20 11/04/23 00:21 Temperature 97.9 F Pulse Rate 87 94 H 91 H Respiratory Rate 20 Blood Pressure 177/77 H Pulse Oximetry 98 99 98 Oxygen Delivery Method Room Air Room Air Room Air 11/04/23 00:21 11/04/23 00:30 11/04/23 01:00 Temperature Pulse Rate 89 88 Respiratory Rate Blood Pressure 177/77 H Pulse Oximetry 97 95 Oxygen Delivery Method Room Air 11/04/23 01:30 11/04/23 03:25 Temperature Pulse Rate 87 83 Respiratory Rate 18 Blood Pressure 155/90 H Pulse Oximetry 92 96 Oxygen Delivery Method MDM - Extremity (Nontraumatic) Lab Data 11/04/23 00:50 11/04/23 00:50 Labs: Lab Results 11/04/23 Range/Units 00:50 WBC 8.6 (4.5-11.0) X10^3/uL RBC 3.81 L (4.0-5.2) X10^6/uL Hgb 12.9 (12.0-16.0) g/dL Hct 38.2 (36-46) % MCV 100.2 H (80-100) fL MCH 33.9 (26-34) PG MCHC 33.9 (30-36) % RDW 19.6 H (11.6-14.8) % Plt Count 116 L (150-400) X10^3/uL Neut % (Auto) 79.4 H (50-75) % Lymph % (Auto) 12.0 L (25-40) % [place] % (Auto) 5.4 (3-14) % Eos % (Auto) 1.9 L (2-4) % Baso % (Auto) 1.3 (0-2) % Neut # (Auto) 6900 (9180-0348) /uL Lymph # (Auto) 1000 L (4622-6495) /uL [place] # (Auto) 500 (0-900) /uL Eos # (Auto) 200 (0-450) /uL Baso # (Auto) 100 (0-100) /uL Sodium 136 L (137-145) mmol/L Potassium 4.6 (3.4-5.1) mmol/L Chloride 102 (98-107) mmol/L Carbon Dioxide 28 (22-32) mmol/L BUN 26 H (7-17) mg/dL Creatinine 7.18 H (0.52-1.04) mg/dL Estimated GFR 6 L (>60) mL/min BUN/Creatinine Ratio 3.6 L (6-22) Glucose 90 (80-110) mg/dL Calcium 9.7 (8.4-10.2) mg/dL Total Bilirubin 0.9 (0.2-1.3) mg/dL AST 22 (14-36) IU/L ALT 11 (<35) IU/L Alkaline Phosphatase 70 (38-126) U/L Total Creatine Kinase 24 L (30-135) U/L Troponin I < 0.012 (0.01-0.034) ng/mL NT-Pro-B Natriuret Pep 03267 H (<125) pg/mL Total Protein 7.0 (6.3-8.2) g/dL Albumin 4.3 (3.5-5.0) g/dL Globulin 2.7 (1.7-4.1) g/dL Albumin/Globulin Ratio 1.6 (1.0-2.8) Lipase 261 (23-300) U/L Imaging Data Chest x-ray: Radiologist's Impression: PROCEDURE: XR CHEST 1V INDICATIONS: eval for pulm edema TECHNIQUE: One view of the chest was acquired. COMPARISON: [facility], , XR CHEST 1V, 05/11/2023, 1:37. FINDINGS: Surgical changes and devices: Right IJ dialysis catheter. Median sternotomy and CABG changes. Left axillary dissection clips present. Lungs and pleura: Minor biapical calcific pleural plaquing. Left lateral lung base subpleural scar formation. No dense consolidations. No significant interstitial thickening or infrahilar opacities to suggest acute edema. Mediastinum: Mediastinal contours appear normal. Heart size is normal. Bones and chest wall: No suspicious bony lesions. Overlying soft tissues appear unremarkable. IMPRESSION: No acute cardiopulmonary abnormality is seen. Chronic findings as described. ECG Data Interpretation: Sinus rhythm Ventricular rate 87 Left axis deviation Normal QRS No ST T wave changes MDM Narrative Medical decision making narrative: No shortness of breath. No chest pain. Her BNP is elevated but it is only slightly elevated above what appears to be baseline with a view of her medical record. She has not hypoxic. Not short of breath. Lungs are clear. EKGs unremarkable. Potassium is unremarkable. Denies trauma. She does have bilateral upper extremity swelling. She was scheduled to get dialysis in approximately 10 hours from now. I do feel that waiting until her dialysis is the best course for her presentation today. Her swelling may improve after she receives dialysis. She only produces a small amount of urine. Considered doing a course of diuretics however I am not convinced that it is going to be helpful in this situation. Will discharge patient home to keep her appointment with dialysis later today. She was given specific return precautions. She expressed understanding and agreement. Discharge Plan Departure Patient Disposition: Home Clinical Impression: Peripheral edema Instructions: DI for Peripheral Edema -- Bilateral Activity Restrictions/Additional Instructions: Continue to take all of your medications as directed. I do think that your dialysis later today is the best option to help with the swelling that you are having an your arms. If you start to have worsening swelling or shortness of breath you do need to be re-evaluated more urgently. Return to the emergency department for worsening symptoms like we discussed Prescriptions: No Action melatonin 3 mg Tablet 3 mg PO BEDTIME PRN (Reason: Insomnia) hydrocortisone acetate 25 mg Suppository 25 mg OR Q12H PRN (Reason: Hemorrhoids) lorazepam 0.5 mg Tablet 0.5 mg PO Q12H PRN (Reason: Anxiety) cholecalciferol (vitamin D3) [Vitamin D3] 1,000 unit Capsule 1,000 unit PO DAILY sevelamer carbonate 800 mg tablet 800 mg PO BID Eliquis 2.5 mg tablet metoprolol succinate 25 mg tablet extended release 24 hr PO omeprazole 20 mg capsule,delayed release(DR/EC) isosorbide mononitrate 30 mg tablet extended release 24 hr PO levetiracetam 250 mg tablet PO ondansetron HCl 4 mg tablet atorvastatin 40 mg tablet bisacodyl clopidogrel 75 mg tablet albuterol sulfate [Ventolin HFA] 90 mcg/actuation HFA aerosol inhaler 2 inhalation INHALATION QID PRN (Reason: shortness of breath or wheezing) Qty: 6.7 0RF acetaminophen-codeine 300-15 mg tablet 1 tab PO TID PRN (Reason: pain) Qty: 10 0RF Lactobacillus acidophilus [Acidophilus] Capsule 1 tab PO DAILY acetaminophen-codeine 300-30 mg Tablet 1 tab PO Q12H PRN (Reason: pain) nitroglycerin [Nitrostat] 0.4 mg Tablet, Sublingual 0.4 mg SUBLINGUAL Q5-15M PRN (Reason: Chest Pain) Flovent HFA 44 mcg/actuation HFA aerosol inhaler 2 puff Inhalation BID mirtazapine 15 mg tablet 7.5 mg PO BEDTIMEX7 multivitamin Capsule 1 cap PO DAILY acetaminophen 325 mg Tablet 650 mg PO Q4H PRN (Reason: FEVER > 100 AND PAIN) cyanocobalamin (vitamin B-12) [Vitamin B-12] 1,000 mcg Tablet 1,000 mcg PO DAILY hydrocortisone 10 mg tablet 15 mg PO QAM levothyroxine 112 mcg tablet 112 mcg PO QAM Nepro Liquid 240 ml PO TID Rx Instructions: [facility] loperamide [Imodium A-D] 2 mg Capsule 2 mg PO PRN MDD 6 CAP PRN (Reason: Diarrhea) magnesium hydroxide [Milk of Magnesia] 400 mg/5 mL Suspension 30 ml PO PRN PRN (Reason: Constipation) calcium carbonate [Calcium 500] 500 mg calcium (1,250 mg) Tablet,Chewable 500 mg PO Q2H PRN (Reason: GI UPSET) benzonatate [Tessalon Perles] 100 mg capsule 100 mg PO Q8H PRN (Reason: cough) Referrals: Germaine Jalloh MD [Primary Care Provider] - Stand Alone Forms: Patient Portal/API
--- NOTE | 2023-11-04 00:32 | DI.RAD.S_ITS ---
PROCEDURE: XR CHEST 1V INDICATIONS: eval for pulm edema TECHNIQUE: One view of the chest was acquired. COMPARISON: [facility], CR, XR CHEST 1V, 05/11/2023, 1:37. FINDINGS: Surgical changes and devices: Right IJ dialysis catheter. Median sternotomy and CABG changes. Left axillary dissection clips present. Lungs and pleura: Minor biapical calcific pleural plaquing. Left lateral lung base subpleural scar formation. No dense consolidations. No significant interstitial thickening or infrahilar opacities to suggest acute edema. Mediastinum: Mediastinal contours appear normal. Heart size is normal. Bones and chest wall: No suspicious bony lesions. Overlying soft tissues appear unremarkable. IMPRESSION: No acute cardiopulmonary abnormality is seen. Chronic findings as described. Dictated by: Elizabeth Leslie M.D. on 11/04/2023 at 0:56 Approved by: Elizabeth Lselie M.D. on 11/04/2023 at 0:57
[2023-11-04 01:00] VITALS: PULSE 88; O2SAT 95
[2023-11-04 01:08] LABS: Alanine Aminotransferase 11 IU/L (<35); Albumin 4.3 g/dL (3.5-5.0); Albumin Globulin Ratio 1.6 (1.0-2.8); Alkaline Phosphatase 70 U/L (38-126); Aspartate Aminotransferase 22 IU/L (14-36); BUN Creatinine Ratio 3.6 (6-22); Bilirubin Total 0.9 mg/dL (0.2-1.3); Blood Urea Nitrogen 26 mg/dL (7-17); Calcium 9.7 mg/dL (8.4-10.2); Carbon Dioxide 28 mmol/L (22-32); Chloride 102 mmol/L (98-107); Creatine Kinase 24 U/L (30-135); Estimated Glomerular Filt Rate 6 mL/min (>60); Globulin 2.7 g/dL (1.7-4.1); Glucose 90 mg/dL (80-110); HEMOLYSIS < 15 (0-50); Lipase 261 U/L (23-300); Potassium 4.6 mmol/L (3.4-5.1); Sodium 136 mmol/L (137-145)
[2023-11-04 01:12] LABS: Add Manual Diff / Slide Review NO; Basophils Absolute Auto 100 /uL (0-100); Basophils Percent Auto 1.3 % (0-2); Eosinophils Absolute Auto 200 /uL (0-450); Eosinophils Percent Auto 1.9 % (2-4); Hematocrit 38.2 % (36-46); Hemoglobin 12.9 g/dL (12.0-16.0); Lymphocytes Absolute Auto 1000 /uL (1100-4500); Mean Corpuscular HGB Conc 33.9 % (30-36); Mean Corpuscular Hemoglobin 33.9 PG (26-34); Mean Corpuscular Volume 100.2 fL (80-100); Monocytes Absolute Auto 500 /uL (0-900); Monocytes Percent Auto 5.4 % (3-14); Neutrophils Absolute Auto 6900 /uL (1500-7000); Neutrophils Percent Auto 79.4 % (50-75); Platelet Count 116 X10^3/uL (150-400); Red Blood Cell Count 3.81 X10^6/uL (4.0-5.2); Red Cell Distribution Width 19.6 % (11.6-14.8); White Blood Cell Count 8.6 X10^3/uL (4.5-11.0)
[2023-11-04 01:18] LABS: NT-proBNP (BNP-Adult 18+) 19900 pg/mL (<125)
[2023-11-04 01:20] LABS: Troponin I < 0.012 ng/mL (0.01-0.034)
[2023-11-04 01:30] VITALS: PULSE 87; RESP 18; O2SAT 92
--- NOTE | 2023-11-04 01:57 | PC.NURSE ---
Pt able to be discharged. called Facility to find a ride home, did not have any one available, Called sister and left a voice message to call back
--- NOTE | 2023-11-04 02:50 | PC.NURSE ---
Called Pt POA/Sister Diane at [phone]. She will be on her way. She was a little confused that her sister was here. The facility she lives at had not notified her.
[2023-11-04 03:25] VITALS: BP 155/90; PULSE 83; O2SAT 96
--- NOTE | 2023-11-04 03:41 | PC.NURSE ---
Called made to [facility] to advise them that pt is returning via Sister.
== END 2023-11-04 03:39 | disposition home or self-care (01) ==
PROVIDERS: Emergency Provider Emergency Medicine; PCP Internal Medicine
DX: R60.0 Localized edema (principal); R07.9 Chest pain, unspecified; Z79.01 Long term (current) use of anticoagulants; Z79.899 Other long term (current) drug therapy; Z99.2 Dependence on renal dialysis
CPT/HCPCS: 36415; 71045; 80053; 82550; 83690; 83880; 84484; 85025; 93005; 99284

== ENCOUNTER 2023-12-18 00:34 | Emergency (ER) | payer MEDICARE, MEDICAID, SELFPAY ==
[2023-12-18 00:40] VITALS: BP 122/77; PULSE 90; RESP 20; TEMP 36.8; O2SAT 100; BMI 25.4
--- NOTE | 2023-12-18 00:47 | DI.RAD.S_ITS ---
PROCEDURE: XR CHEST 1V INDICATIONS: upper extremity swelling TECHNIQUE: One view of the chest was acquired. COMPARISON: [facility], CR, XR CHEST 1 VIEW, 12/04/2023, 19:22. [facility], CR, XR CHEST 1V, 11/04/2023, 0:35. FINDINGS: Surgical changes and devices: There is a double-lumen dialysis catheter with the tip in the area of the right atrium. Sternotomy and CABG. Lungs and pleura: Lungs are clear. No pleural effusions or pneumothorax. Mediastinum: Mediastinal contours appear normal. Heart size is normal. Bones and chest wall: No suspicious bony lesions. Overlying soft tissues appear unremarkable. IMPRESSION: 1. No acute cardiopulmonary abnormality is seen. 2. Dialysis catheter tip in the area of the right atrium. Dictated by: Rupali Briscoe M.D. on 12/18/2023 at 7:53 Approved by: Rupali Briscoe M.D. on 12/18/2023 at 7:54
--- NOTE | 2023-12-18 00:52 | ED.SOB ---
HPI - SOB/Dyspnea General Chief Complaint: Shortness of Breath/Dyspnea Stated Complaint: SOB Time Seen by Provider: 12/18/23 00:35 Source: patient and EMS Mode of arrival: EMS Limitations: no limitations History of Present Illness HPI Narrative: 68-year-old female with history of HI status post CABG, ESRD on Wednesday dialysis [place] for shortness of breath. Patient has been dealing with ongoing upper body edema, particularly in her bilateral upper extremities. Patient states that for weeks now it has progressively worsened. She was evaluated at [facility] in October for this issue and no cause was found. Per EMS she was evaluated at [facility] 1 week ago for same condition and discharged with no real answers. Patient states that nothing seems to improve her edema and she feels like it was extending up into her neck and face now. This caused her to feel short of breath and so she called 911 for evaluation. Patient uses 3L as needed home O2. She was saturating 100% on her normal nasal cannula. Related Data Home Medications Medication Instructions Recorded Confirmed cholecalciferol (vitamin D3) 25 1,000 unit PO DAILY 07/04/18 06/14/19 mcg (1,000 unit) capsule (Vitamin D3) hydrocortisone acetate 25 mg 25 mg OK Q12H PRN Hemorrhoids 07/04/18 06/14/19 rectal suppository lorazepam 0.5 mg tablet 0.5 mg PO Q12H PRN Anxiety 07/04/18 06/14/19 melatonin 3 mg tablet 3 mg PO BEDTIME PRN Insomnia 07/04/18 06/14/19 Lactobacillus acidophilus 1 tab PO DAILY 07/13/18 03/12/20 (Acidophilus capsule) acetaminophen 300 mg-codeine 30 mg 1 tab PO Q12H PRN pain 07/13/18 03/12/20 tablet nitroglycerin 0.4 mg sublingual 0.4 mg sublingual Q5-15M PRN Chest 07/13/18 03/12/20 tablet (Nitrostat) Pain fluticasone propionate 44 2 puff inhalation BID 10/04/18 06/14/19 mcg/actuation HFA aerosol inhaler mirtazapine 15 mg tablet 7.5 mg PO BEDTIMEX7 10/04/18 06/14/19 multivitamin 1 cap PO DAILY 10/04/18 06/14/19 sevelamer carbonate 800 mg tablet 800 mg PO BID 11/03/18 06/14/19 Nepro Liquid 240 ml PO TID 06/14/19 06/14/19 acetaminophen 325 mg tablet 650 mg PO Q4H PRN FEVER > 100 AND 06/14/19 03/12/20 PAIN benzonatate 100 mg capsule 100 mg PO Q8H PRN cough 06/14/19 06/14/19 (Emeli Blanchard) calcium carbonate 500 mg calcium 500 mg PO Q2H PRN GI UPSET 06/14/19 06/14/19 (1,250 mg) chewable tablet (Calcium 500) cyanocobalamin (vitamin B-12) 1,000 mcg PO DAILY 06/14/19 03/12/20 1,000 mcg tablet (Vitamin B-12) hydrocortisone 10 mg tablet 15 mg PO QAM 06/14/19 06/14/19 levothyroxine 112 mcg tablet 112 mcg PO QAM 06/14/19 06/14/19 loperamide 2 mg capsule (Imodium 2 mg PO PRN PRN Diarrhea 06/14/19 06/14/19 A-D) magnesium hydroxide 400 mg/5 mL 30 ml PO PRN PRN Constipation 06/14/19 06/14/19 oral suspension (Milk of Magnesia) apixaban 2.5 mg tablet (Eliquis) mg 03/12/20 atorvastatin 40 mg tablet 03/12/20 bisacodyl 03/12/20 clopidogrel 75 mg tablet 03/12/20 isosorbide mononitrate 30 mg mg PO 03/12/20 tablet,extended release 24 hr levetiracetam 250 mg tablet PO 03/12/20 metoprolol succinate 25 mg PO 03/12/20 tablet,extended release 24 hr omeprazole 20 mg capsule,delayed 03/12/20 release ondansetron HCl 4 mg tablet 03/12/20 Previous Rx's Medication Instructions Recorded albuterol sulfate 90 mcg/actuation 2 inhalation inhalation QID PRN 12/12/21 aerosol inhaler (Ventolin HFA) shortness of breath or wheezing #6.7 grams acetaminophen 300 mg-codeine 15 mg 1 tab PO TID PRN pain #10 tabs 05/11/23 tablet Allergies Allergy/AdvReac Type Severity Reaction Status Date / Time No Known Drug Allergies Allergy Verified 11/04/23 00:27 Patient History Medical History Breast cancer, left Thrombocytopenia Peripheral vascular disease Major depressive disorder Hypothyroid Hyperlipidemia Fibromyalgia CHF (congestive heart failure) Anemia Malnutrition TIA (transient ischemic attack) IBS (irritable bowel syndrome) HTN (hypertension) GI bleed Acute renal failure on dialysis Anxiety Social History lives independently: No Smoking Status: Former smoker Smoking Status: Former smoker alcohol intake frequency: holidays/special occasions only Substance Use Type: does not use Exam Initial Vital Signs Initial Vital Signs: Vital Signs Temperature 98.3 F 12/18/23 00:40 Pulse Rate 90 12/18/23 00:40 Respiratory Rate 20 12/18/23 00:40 Blood Pressure 122/77 12/18/23 00:40 Pulse Oximetry 100 12/18/23 00:40 Oxygen Delivery Method Nasal Cannula 12/18/23 00:40 Oxygen Flow Rate 2 12/18/23 00:40 Course Orders Ordered: ED Orders 12/18/23 00:47 Chest [XR chest 1V] Stat 12/18/23 01:15 CBC Auto Diff [Complete Blood Count AUTO DIFF] Stat CMP [Comprehensive Metabolic Panel] Stat 12/18/23 01:40 CT chest w con Stat Vital Signs Vital signs: Vital Signs - 8 hr 12/18/23 00:40 Temperature 98.3 F Pulse Rate 90 Respiratory Rate 20 Blood Pressure 122/77 Pulse Oximetry 100 Oxygen Delivery Method Nasal Cannula Oxygen Flow Rate 2 MDM - SOB/Dyspnea Lab Data 12/18/23 01:15 12/18/23 01:15 Labs: Lab Results 12/18/23 Range/Units 01:15 WBC 5.2 (4.5-11.0) X10^3/uL RBC 3.30 L (4.0-5.2) X10^6/uL Hgb 10.9 L (12.0-16.0) g/dL Hct 32.5 L (36-46) % MCV 98.5 (80-100) fL MCH 33.0 (26-34) PG MCHC 33.5 (30-36) % RDW 16.4 H (11.6-14.8) % Plt Count 121 L (150-400) X10^3/uL Neut % (Auto) 68.8 (50-75) % Lymph % (Auto) 18.8 L (25-40) % Webster % (Auto) 7.7 (3-14) % Eos % (Auto) 3.9 (2-4) % Baso % (Auto) 0.8 (0-2) % Neut # (Auto) 3600 (6876-7996) /uL Lymph # (Auto) 1000 L (9497-0056) /uL Webster # (Auto) 400 (0-900) /uL Eos # (Auto) 200 (0-450) /uL Baso # (Auto) 0 (0-100) /uL Sodium 135 L (137-145) mmol/L Potassium 5.0 (3.4-5.1) mmol/L Chloride 100 (98-107) mmol/L Carbon Dioxide 31 (22-32) mmol/L BUN 15 (7-17) mg/dL Creatinine 5.18 H (0.52-1.04) mg/dL Estimated GFR 9 L (>60) mL/min BUN/Creatinine Ratio 2.9 L (6-22) Glucose 92 (80-110) mg/dL Calcium 9.6 (8.4-10.2) mg/dL Total Bilirubin 0.8 (0.2-1.3) mg/dL AST 30 (14-36) IU/L ALT 13 (<35) IU/L Alkaline Phosphatase 62 (38-126) U/L Total Protein 6.5 (6.3-8.2) g/dL Albumin 4.2 (3.5-5.0) g/dL Globulin 2.3 (1.7-4.1) g/dL Albumin/Globulin Ratio 1.8 (1.0-2.8) MDM Narrative Medical decision making narrative: Persistent and gradual upper body swelling. Patient does have marked edema of her bilateral upper extremities and chest wall compared to her abdomen and lower extremities. Record review shows that this has been ongoing since at least October. Reports shortness of breath, however she was saturating well on her usual nasal cannula, she was speaking in complete sentences without difficulty, respirations even and unlabored. Records obtained from [facility] showed that patient had upper extremity ultrasounds that did not reveal any thrombosis or disease burden. Patient is on daily Eliquis, reportedly for DVT prophylaxis. Uncertain etiology patient's edema, uncertain what other tests remain from an ED standpoint for evaluation. There does appear to be a CT chest venous protocol, we will order this CT to see if there is any other vascular congestion or obstruction. Laboratory work is consistent with the patient's baseline. She was ESRD, which is known. Patient was due for dialysis later today. Potassium normal. CT shows extensive vascular collaterals in the chest and extremities but no obvious obstruction. Still no definite etiology of patient's symptoms. Patient informed of lab and imaging results. I recommended ongoing discussion with her remediation consultant and primary care physician to get to the bottom of why patient was having this progressive edema. Recommended that patient go to dialysis later today as intended. Discharge Plan Departure Patient Disposition: Home Clinical Impression: Edema of both upper arms Instructions: DI for Peripheral Edema -- Bilateral Activity Restrictions/Additional Instructions: Your laboratory work is similar to your previous. I reviewed the imaging from [facility] as well as the CT today. You do have extensive upper extremity edema, but no blood vessel blockages that would explain why you continue to swell. I recommend ongoing discussion with your remediation consultant and primary care physician for further investigation of these findings. Please go to dialysis later today. Prescriptions: No Action melatonin 3 mg Tablet 3 mg PO BEDTIME PRN (Reason: Insomnia) hydrocortisone acetate 25 mg Suppository 25 mg OK Q12H PRN (Reason: Hemorrhoids) lorazepam 0.5 mg Tablet 0.5 mg PO Q12H PRN (Reason: Anxiety) cholecalciferol (vitamin D3) [Vitamin D3] 1,000 unit Capsule 1,000 unit PO DAILY sevelamer carbonate 800 mg tablet 800 mg PO BID Eliquis 2.5 mg tablet metoprolol succinate 25 mg tablet extended release 24 hr PO omeprazole 20 mg capsule,delayed release(DR/EC) isosorbide mononitrate 30 mg tablet extended release 24 hr PO levetiracetam 250 mg tablet PO ondansetron HCl 4 mg tablet atorvastatin 40 mg tablet bisacodyl clopidogrel 75 mg tablet albuterol sulfate [Ventolin HFA] 90 mcg/actuation HFA aerosol inhaler 2 inhalation INHALATION QID PRN (Reason: shortness of breath or wheezing) Qty: 6.7 0RF acetaminophen-codeine 300-15 mg tablet 1 tab PO TID PRN (Reason: pain) Qty: 10 0RF Lactobacillus acidophilus [Acidophilus] Capsule 1 tab PO DAILY acetaminophen-codeine 300-30 mg Tablet 1 tab PO Q12H PRN (Reason: pain) nitroglycerin [Nitrostat] 0.4 mg Tablet, Sublingual 0.4 mg SUBLINGUAL Q5-15M PRN (Reason: Chest Pain) Flovent HFA 44 mcg/actuation HFA aerosol inhaler 2 puff Inhalation BID mirtazapine 15 mg tablet 7.5 mg PO BEDTIMEX7 multivitamin Capsule 1 cap PO DAILY acetaminophen 325 mg Tablet 650 mg PO Q4H PRN (Reason: FEVER > 100 AND PAIN) cyanocobalamin (vitamin B-12) [Vitamin B-12] 1,000 mcg Tablet 1,000 mcg PO DAILY hydrocortisone 10 mg tablet 15 mg PO QAM levothyroxine 112 mcg tablet 112 mcg PO QAM Nepro Liquid 240 ml PO TID Rx Instructions: [facility] loperamide [Imodium A-D] 2 mg Capsule 2 mg PO PRN MDD 6 CAP PRN (Reason: Diarrhea) magnesium hydroxide [Milk of Magnesia] 400 mg/5 mL Suspension 30 ml PO PRN PRN (Reason: Constipation) calcium carbonate [Calcium 500] 500 mg calcium (1,250 mg) Tablet,Chewable 500 mg PO Q2H PRN (Reason: GI UPSET) benzonatate [Tessalon Perles] 100 mg capsule 100 mg PO Q8H PRN (Reason: cough) Referrals: Germaine Jalloh MD [Primary Care Provider] - Stand Alone Forms: Patient Portal/API
[2023-12-18 01:29] LABS: Add Manual Diff / Slide Review NO; Basophils Absolute Auto 0 /uL (0-100); Basophils Percent Auto 0.8 % (0-2); Eosinophils Absolute Auto 200 /uL (0-450); Eosinophils Percent Auto 3.9 % (2-4); Hematocrit 32.5 % (36-46); Hemoglobin 10.9 g/dL (12.0-16.0); Lymphocytes Absolute Auto 1000 /uL (1100-4500); Lymphocytes Percent Auto 18.8 % (25-40); Mean Corpuscular HGB Conc 33.5 % (30-36); Mean Corpuscular Volume 98.5 fL (80-100); Monocytes Absolute Auto 400 /uL (0-900); Monocytes Percent Auto 7.7 % (3-14); Neutrophils Absolute Auto 3600 /uL (1500-7000); Neutrophils Percent Auto 68.8 % (50-75); Platelet Count 121 X10^3/uL (150-400); Red Cell Distribution Width 16.4 % (11.6-14.8); White Blood Cell Count 5.2 X10^3/uL (4.5-11.0)
[2023-12-18 01:36] LABS: Alanine Aminotransferase 13 IU/L (<35); Albumin 4.2 g/dL (3.5-5.0); Albumin Globulin Ratio 1.8 (1.0-2.8); Alkaline Phosphatase 62 U/L (38-126); Aspartate Aminotransferase 30 IU/L (14-36); BUN Creatinine Ratio 2.9 (6-22); Bilirubin Total 0.8 mg/dL (0.2-1.3); Blood Urea Nitrogen 15 mg/dL (7-17); Calcium 9.6 mg/dL (8.4-10.2); Carbon Dioxide 31 mmol/L (22-32); Chloride 100 mmol/L (98-107); Estimated Glomerular Filt Rate 9 mL/min (>60); Globulin 2.3 g/dL (1.7-4.1); Glucose 92 mg/dL (80-110); HEMOLYSIS 70 (0-50); Sodium 135 mmol/L (137-145); Total Protein 6.5 g/dL (6.3-8.2)
--- NOTE | 2023-12-18 01:40 | DI.CT.S_ITS ---
PROCEDURE: CT CHEST W CON INDICATIONS: WORSENING UPPER CHEST/EXTREMITY EDEMA TECHNIQUE: After the administration of intravenous contrast, 5 mm thick sections acquired from the pulmonary apices to the posterior costophrenic angles. 1 mm axial lung, 5 mm thick coronal and sagittal reformats and 7 mm axial MIP were acquired. For radiation dose reduction, the following was used: automated exposure control, adjustment of mA and/or kV according to patient size. COMPARISON: [facility], CT, CT CHEST WO CON, 03/07/2020, 4:38. [facility], CR, XR CHEST 1V, 12/18/2023, 0:48. FINDINGS: Image quality: Diagnostic. Lower Neck: No enlarged lymph nodes. Thyroid: Not wall visualized. Axillae: No enlarged lymph nodes. Small axillary lymph nodes are noted bilaterally. Chest Wall: There are bilateral breast implants. Diffuse body wall edema. There are numerous superficial venous collaterals in chest wall, right greater than left. Bones: Unremarkable. Lungs and Pleura: Subpleural septal thickening in left hemithorax. Left basilar atelectasis. There are several calcified nodules in right lung, most likely sequelae of remote granulomatous infections. Small left pleural effusion. No pneumothorax. No consolidation or suspicious nodules. Heart: Heart size is normal. No pericardial effusion. Thoracic Vessels: The aorta and pulmonary arteries demonstrate normal size. Mediastinum and Dayana: No enlarged lymph nodes. Small mediastinal lymph nodes are noted measuring up to 0.8 cm. Esophagus: No wall thickening. No hiatal hernia. Upper Abdomen: Small low-density nodules in spleen are present. IMPRESSION: 1. Small left pleural effusion. There is subpleural scars and atelectasis in left hemithorax. 2. A central venous catheter is seen with the tip in the right atrium. 3. Diffuse body wall edema. 4. Subcentimeter mediastinal and bilateral axillary lymph nodes are noted, nonspecific. 5. Multiple small hypodensities in spleen. Differential diagnoses are sarcoidosis and metastatic disease. 6. Numerous superficial venous collaterals in chest wall, right greater than left. The findings suggest impedance of venous return. Dictated by: Rupali Briscoe M.D. on 12/18/2023 at 7:54 Approved by: Rupali Briscoe M.D. on 12/18/2023 at 8:57
[2023-12-18 03:30] VITALS: BP 132/70; PULSE 89; RESP 18; O2SAT 98
== END 2023-12-18 03:30 | disposition home or self-care (01) ==
PROVIDERS: Emergency Provider Emergency Medicine; PCP Internal Medicine
DX: R60.0 Localized edema (principal); R06.02 Shortness of breath
CPT/HCPCS: 36415; 71045; 71260; 80053; 85025; 99284; Q9967

== ENCOUNTER 2023-12-22 15:08 | Emergency (ER) | payer MEDICARE, MEDICAID, SELFPAY ==
[2023-12-22] VITALS (12 sets, daily range): BP systolic 107–153; BP diastolic 46–74; PULSE 79–89; RESP 11–23; TEMP 36.8; O2SAT 95–100; BMI 25.4
--- NOTE | 2023-12-22 15:48 | DI.RAD.S_ITS ---
PROCEDURE: XR CHEST 1V INDICATIONS: Shortness of breath TECHNIQUE: One view of the chest was acquired. COMPARISON: [facility], CR, XR CHEST 1V, 12/18/2023, 0:48. FINDINGS: Surgical changes and devices: Stable CABG postsurgical changes, left axillary surgical clips and right-sided tunneled dialysis catheter. Lungs and pleura: Lungs are clear. No pleural effusions or pneumothorax. Mediastinum: Mediastinal contours appear normal. Heart size is normal. Bones and chest wall: No suspicious bony lesions. Overlying soft tissues appear unremarkable. IMPRESSION: No acute cardiopulmonary abnormality is seen. Dictated by: Charu Artis MD, PhD on 12/22/2023 at 16:48 Approved by: Charu Artis MD, PhD on 12/22/2023 at 16:53
[2023-12-22 16:00] LABS: INR 1.2 (0.9-1.3); Prothrombin Time 13.2 SECONDS (9.4-12.5)
[2023-12-22 16:04] LABS: Lactate (Lactic Acid) 1.1 mmol/L (0.7-2.1)
[2023-12-22 16:06] LABS: Alanine Aminotransferase 13 IU/L (<35); Albumin 4.3 g/dL (3.5-5.0); Alkaline Phosphatase 79 U/L (38-126); Aspartate Aminotransferase 24 IU/L (14-36); BUN Creatinine Ratio 2.7 (6-22); Bilirubin Total 0.6 mg/dL (0.2-1.3); Blood Urea Nitrogen 13 mg/dL (7-17); Calcium 9.2 mg/dL (8.4-10.2); Carbon Dioxide 30 mmol/L (22-32); Chloride 100 mmol/L (98-107); Estimated Glomerular Filt Rate 9 mL/min (>60); Globulin 2.2 g/dL (1.7-4.1); Glucose 91 mg/dL (80-110); HEMOLYSIS < 15 (0-50); Potassium 4.4 mmol/L (3.4-5.1); Sodium 136 mmol/L (137-145); Total Protein 6.5 g/dL (6.3-8.2)
[2023-12-22 16:10] LABS: Add Manual Diff / Slide Review NO; Basophils Absolute Auto 100 /uL (0-100); Basophils Percent Auto 1.8 % (0-2); Eosinophils Absolute Auto 200 /uL (0-450); Eosinophils Percent Auto 3.9 % (2-4); Hematocrit 36.2 % (36-46); Hemoglobin 12.2 g/dL (12.0-16.0); Lymphocytes Absolute Auto 1000 /uL (1100-4500); Mean Corpuscular HGB Conc 33.7 % (30-36); Mean Corpuscular Hemoglobin 32.6 PG (26-34); Mean Corpuscular Volume 96.7 fL (80-100); Monocytes Absolute Auto 300 /uL (0-900); Monocytes Percent Auto 5.7 % (3-14); Neutrophils Absolute Auto 4000 /uL (1500-7000); Neutrophils Percent Auto 70.6 % (50-75); Platelet Count 131 X10^3/uL (150-400); Red Blood Cell Count 3.74 X10^6/uL (4.0-5.2); Red Cell Distribution Width 15.4 % (11.6-14.8); White Blood Cell Count 5.6 X10^3/uL (4.5-11.0)
[2023-12-22 16:16] LABS: NT-proBNP (BNP-Adult 18+) 20400 pg/mL (<125); Troponin I 0.015 ng/mL (0.01-0.034)
--- NOTE | 2023-12-22 16:20 | DI.CT.S_ITS ---
PROCEDURE: CT CHEST WO CON INDICATIONS: swelling chest, hx swelling chest/neck, acute on chronic TECHNIQUE: Noncontrast 5 mm thick sections acquired from the pulmonary apices to the posterior costophrenic angles. 1 mm lung window, 5 mm thick coronal and sagittal and 7 mm axial MIP reformats were then acquired. For radiation dose reduction, the following was used: automated exposure control, adjustment of mA and/or kV according to patient size. COMPARISON: [facility], CT, CT CHEST WO CON, 03/07/2020, 4:38. FINDINGS: Image quality: Diagnostic. Lower Neck: No enlarged lymph nodes. Thyroid: No thyroid nodules which require sonographic follow up, per consensus guidelines. Axillae: Shotty right axillary adenopathy. Remote left axillary node resection. Chest Wall: There is anasarca involving the anterior subcutaneous tissues of the chest. Bilateral breast implants. Remote left lumpectomy. Right IJ dialysis catheter. Bones: Unremarkable. Lungs and Pleura: Chronic asymmetrical left vague focal pleural parenchymal scarring. Small left pleural effusion and minimal left basilar atelectasis. No acute focal infiltrates. Calcified granuloma in the right lung as well as calcified right hilar lymph nodes consistent with chronic granulomatous disease. Heart: Heart size is normal. No pericardial effusion. Remote CABG. Thoracic Vessels: The aorta and pulmonary arteries demonstrate normal size. A right IJ dialysis catheter is in place, extending to the SVC right atrial junction. There is atherosclerotic calcifications involving the right vessels and carotids. Mediastinum and Dayana: No enlarged lymph nodes. Esophagus: No wall thickening. No hiatal hernia. Upper Abdomen: Visualized upper abdomen solid organs and bowel loops appear normal. IMPRESSION: 1. Patient with indwelling tunneled dialysis catheter and anterior chest anasarca. Findings may potentially indicate central venous occlusion, potentially secondary to longstanding dialysis catheter placement. 2. ASCVD. 3. Small left pleural effusion and minimal left basilar atelectasis. Comment: Consider repeat chest CT with contrast via a right arm vein to evaluate the status of the central venous structures. Dictated by: Ramo Adams M.D. on 12/22/2023 at 17:11 Approved by: Ramo Adams M.D. on 12/22/2023 at 17:23
--- NOTE | 2023-12-22 16:25 | ED.SOB ---
HPI - SOB/Dyspnea General Chief Complaint: Shortness of Breath/Dyspnea Stated Complaint: SOB Time Seen by Provider: 12/22/23 15:11 Source: patient Mode of arrival: Ambulatory Limitations: no limitations History of Present Illness HPI Narrative: 68-year-old female history of MS status post CABG, end-stage renal disease on Wednesday dialysis presents with shortness of breath feeling like swelling in her throat increased upper body edema in bilateral upper extremities neck and chest. Patient states it has been slowly progressing. Was seen in October no clear cause was found. She states she has had regular dialysis with no shortened assessment and or missed sessions. She states she has been taking her medications regularly. Patient denies fevers. No chest pain, she does not feel short of breath at rest. She has not had any change to her voice. She has not sure if there has been any skin color changes. She states her arms or little bit better than when she was here last. She denies any nausea or vomiting. No back pain. No abdominal pain. Denies any issues with bowel movements. States she is still does make urine although small amounts. Patient reportedly uses 3 L home O2. 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 Related Data Home Medications Medication Instructions Recorded Confirmed cholecalciferol (vitamin D3) 25 1,000 unit PO DAILY 07/04/18 06/14/19 mcg (1,000 unit) capsule (Vitamin D3) hydrocortisone acetate 25 mg 25 mg NM Q12H PRN Hemorrhoids 07/04/18 06/14/19 rectal suppository lorazepam 0.5 mg tablet 0.5 mg PO Q12H PRN Anxiety 07/04/18 06/14/19 melatonin 3 mg tablet 3 mg PO BEDTIME PRN Insomnia 07/04/18 06/14/19 Lactobacillus acidophilus 1 tab PO DAILY 07/13/18 03/12/20 (Acidophilus capsule) acetaminophen 300 mg-codeine 30 mg 1 tab PO Q12H PRN pain 07/13/18 03/12/20 tablet nitroglycerin 0.4 mg sublingual 0.4 mg sublingual Q5-15M PRN Chest 07/13/18 03/12/20 tablet (Nitrostat) Pain fluticasone propionate 44 2 puff inhalation BID 10/04/18 06/14/19 mcg/actuation HFA aerosol inhaler mirtazapine 15 mg tablet 7.5 mg PO BEDTIMEX7 10/04/18 06/14/19 multivitamin 1 cap PO DAILY 10/04/18 06/14/19 sevelamer carbonate 800 mg tablet 800 mg PO BID 11/03/18 06/14/19 Nepro Liquid 240 ml PO TID 06/14/19 06/14/19 acetaminophen 325 mg tablet 650 mg PO Q4H PRN FEVER > 100 AND 06/14/19 03/12/20 PAIN benzonatate 100 mg capsule 100 mg PO Q8H PRN cough 06/14/19 06/14/19 (Emeli Blanchard) calcium carbonate 500 mg calcium 500 mg PO Q2H PRN GI UPSET 06/14/19 06/14/19 (1,250 mg) chewable tablet (Calcium 500) cyanocobalamin (vitamin B-12) 1,000 mcg PO DAILY 06/14/19 03/12/20 1,000 mcg tablet (Vitamin B-12) hydrocortisone 10 mg tablet 5 mg PO QAM 06/14/19 06/14/19 levothyroxine 112 mcg tablet 125 mcg PO QAM 06/14/19 06/14/19 loperamide 2 mg capsule (Imodium 2 mg PO PRN PRN Diarrhea 06/14/19 06/14/19 A-D) magnesium hydroxide 400 mg/5 mL 30 ml PO PRN PRN Constipation 06/14/19 06/14/19 oral suspension (Milk of Magnesia) apixaban 2.5 mg tablet (Eliquis) mg 03/12/20 atorvastatin 40 mg tablet 03/12/20 bisacodyl 03/12/20 isosorbide mononitrate 30 mg mg PO 03/12/20 tablet,extended release 24 hr levetiracetam 250 mg tablet PO 03/12/20 metoprolol succinate 25 mg PO 03/12/20 tablet,extended release 24 hr omeprazole 20 mg capsule,delayed 03/12/20 release ondansetron HCl 4 mg tablet 03/12/20 sacubitril 24 mg-valsartan 26 mg 1 tab PO BID 12/22/23 12/22/23 tablet (Entresto) Previous Rx's Medication Instructions Recorded albuterol sulfate 90 mcg/actuation 2 inhalation inhalation QID PRN 04/29/22 aerosol inhaler (Ventolin HFA) shortness of breath or wheezing #6.7 grams acetaminophen 300 mg-codeine 15 mg 1 tab PO TID PRN pain #10 tabs 05/11/23 tablet clindamycin HCl 300 mg capsule 300 mg PO Q6H #40 caps 12/22/23 Allergies Allergy/AdvReac Type Severity Reaction Status Date / Time No Known Drug Allergies Allergy Verified 11/04/23 00:27 Review of Systems Review of Systems ROS Unobtainable: All systems reviewed & are unremarkable except as noted in HPI and below Patient History Medical History Breast cancer, left Thrombocytopenia Peripheral vascular disease Major depressive disorder Hypothyroid Hyperlipidemia Fibromyalgia CHF (congestive heart failure) Anemia Malnutrition TIA (transient ischemic attack) IBS (irritable bowel syndrome) HTN (hypertension) GI bleed Acute renal failure on dialysis Anxiety Social History lives independently: No Smoking Status: Former smoker Smoking Status: Former smoker alcohol intake frequency: holidays/special occasions only Substance Use Type: does not use Exam Narrative Exam Narrative: GEN: Obese female, alert and oriented x 3, patient appears to be in mild distress. HEENT: Atraumatic, pupils are equal round reactive to light, extraocular movements are intact, nares are clear, TMs are clear with no fluid, there is no conjunctival pallor. Throat is clear without any exudates, erythema, tonsillar enlargement or uvular deviation, patient has some generalized swelling of the neck with some slight induration of the lower crease, no stridor, no difficulty with breathing patient is lying back in the bed at a 30 degree angle without any issue. No muffled voice or hoarseness. HEART: Regular rate and rhythm without murmur, clicks, rubs. Pulses are equal in upper and lower extremities, patient is appear to have swelling of her upper chest and upper extremities. Nonpitting. No subcutaneous emphysema. Patient has appears to be dialysis catheter in place. There is a slight reddish tinge to her skin, nontender to touch. LUNGS:Lungs clear to auscultation, no wheezes, rales, crackles, chest moves symmetrically ABD:bowel sounds normal, soft, non-tender, no guarding, rebound, rigidity, no masses noted, no hepatosplenomegaly :No CVA tenderness MSCL: Non-tender, no muscle atrophy, muscles strength 5/5 upper and lower extremities, full range of motion, normal gait NEURO:CN 2-12 intact, sensation normal. Initial Vital Signs Initial Vital Signs: Vital Signs Pulse Rate 89 12/22/23 15:11 Pulse Oximetry 99 12/22/23 15:11 Course Orders Ordered: Discontinued Medications Clindamycin Phosphate (Cleocin) 900 mg in 50 mls @ 50 mls/hr IV NOW ONE Stop: 12/22/23 18:03 Last Infusion: 12/22/23 18:35 Dose: Infused Documented By: Admin: 12/22/23 17:24 Dose: 50 mls/hr Documented By: AYAH Vital Signs Vital signs: Vital Signs - 8 hr 12/22/23 15:11 12/22/23 15:12 12/22/23 15:12 Temperature Pulse Rate 89 89 Respiratory Rate Blood Pressure 153/70 H Pulse Oximetry 99 100 Oxygen Delivery Method Oxygen Flow Rate 12/22/23 15:15 12/22/23 15:30 12/22/23 15:30 Temperature 98.3 F Pulse Rate 89 86 Respiratory Rate 14 Blood Pressure 153/70 H 125/74 Pulse Oximetry 100 100 Oxygen Delivery Method Nasal Cannula Oxygen Flow Rate 3 12/22/23 16:00 12/22/23 16:00 12/22/23 16:30 Temperature Pulse Rate 88 Respiratory Rate Blood Pressure 137/59 L 149/60 H Pulse Oximetry 99 Oxygen Delivery Method Oxygen Flow Rate 12/22/23 16:30 12/22/23 17:00 12/22/23 17:24 Temperature Pulse Rate 86 87 Respiratory Rate 15 14 Blood Pressure 120/55 L Pulse Oximetry 98 99 Oxygen Delivery Method Oxygen Flow Rate 12/22/23 17:24 12/22/23 17:30 12/22/23 17:30 Temperature Pulse Rate 83 79 Respiratory Rate 15 12 Blood Pressure 120/59 L Pulse Oximetry 97 95 Oxygen Delivery Method Oxygen Flow Rate 12/22/23 17:55 12/22/23 17:55 12/22/23 18:00 Temperature Pulse Rate 81 79 Respiratory Rate 23 11 L Blood Pressure 141/65 H Pulse Oximetry 100 100 Oxygen Delivery Method Oxygen Flow Rate 12/22/23 18:00 12/22/23 18:30 12/22/23 18:30 Temperature Pulse Rate 79 Respiratory Rate 12 Blood Pressure 113/55 L 107/46 L Pulse Oximetry 98 Oxygen Delivery Method Oxygen Flow Rate MDM - SOB/Dyspnea Lab Data 12/22/23 15:42 12/22/23 15:42 Labs: Lab Results 12/22/23 Range/Units 15:42 WBC 5.6 (4.5-11.0) X10^3/uL RBC 3.74 L (4.0-5.2) X10^6/uL Hgb 12.2 (12.0-16.0) g/dL Hct 36.2 (36-46) % MCV 96.7 (80-100) fL MCH 32.6 (26-34) PG MCHC 33.7 (30-36) % RDW 15.4 H (11.6-14.8) % Plt Count 131 L (150-400) X10^3/uL Neut % (Auto) 70.6 (50-75) % Lymph % (Auto) 18.0 L (25-40) % Larue % (Auto) 5.7 (3-14) % Eos % (Auto) 3.9 (2-4) % Baso % (Auto) 1.8 (0-2) % Neut # (Auto) 4000 (6245-7794) /uL Lymph # (Auto) 1000 L (8447-9114) /uL Larue # (Auto) 300 (0-900) /uL Eos # (Auto) 200 (0-450) /uL Baso # (Auto) 100 (0-100) /uL PT 13.2 H (9.4-12.5) SECONDS INR 1.2 (0.9-1.3) Sodium 136 L (137-145) mmol/L Potassium 4.4 (3.4-5.1) mmol/L Chloride 100 (98-107) mmol/L Carbon Dioxide 30 (22-32) mmol/L BUN 13 (7-17) mg/dL Creatinine 4.81 H (0.52-1.04) mg/dL Estimated GFR 9 L (>60) mL/min BUN/Creatinine Ratio 2.7 L (6-22) Glucose 91 (80-110) mg/dL Lactate 1.1 (0.7-2.1) mmol/L Calcium 9.2 (8.4-10.2) mg/dL Total Bilirubin 0.6 (0.2-1.3) mg/dL AST 24 (14-36) IU/L ALT 13 (<35) IU/L Alkaline Phosphatase 79 (38-126) U/L Troponin I 0.015 (0.01-0.034) ng/mL NT-Pro-B Natriuret Pep 06233 H (<125) pg/mL Total Protein 6.5 (6.3-8.2) g/dL Albumin 4.3 (3.5-5.0) g/dL Globulin 2.2 (1.7-4.1) g/dL Albumin/Globulin Ratio 2.0 (1.0-2.8) Procalcitonin 1.09 H (<0.5) ng/mL Imaging Data Chest x-ray: Radiologist's Impression: Aurelia Gr??68??F??1955 ? Allergy/Adv: No Known Drug Allergies Close Chest CT 12/22/[address] (Signed) Ramo Adams - 12/22/23 Chest X-Ray (Signed) Charu Artis - 12/22/[address] (Signed) Rupali Briscoe - 12/18/23 Chest X-Ray (Signed) Rupali Briscoe - 12/18/23 Chest X-Ray (Signed) Elizabeth Leslie - 11/04/23 Chest X-Ray (Signed) Vasiliy Marcelino - 05/11/23 Chest X-Ray (Signed) Gurjit Chandler - 02/16/[address] (Signed) Broderick Lundy - 03/26/22 Chest X-Ray (Signed) Darin Tidwell - 03/26/22 Echocardiogram Ultrasound (Signed) Shiraz Moya - 03/20/22 Chest X-Ray (Signed) Broderick Lundy - 12/12/21 Head/Neck CTA (Signed) Dionisio Conte - 12/03/[address] (Signed) Call,Dionisio - 12/03/21 Chest X-Ray (Signed) Broderick Lundy - 04/21/21 Chest X-Ray (Signed) Liset Britton - 02/06/21 Chest X-Ray (Signed) Ash Damon - 01/21/21 Peripheral Vascular Ultrasound (Signed) Ash Damon - 03/22/20 Chest/Abdomen X-ray (Signed) Gilson Moore - 03/12/[address] (Signed) Liset Britton - 03/07/20 Chest X-Ray (Signed) Charu Artis - 03/07/20 Peripheral Vascular Ultrasound (Signed) Broderick Lundy - 11/27/19 Chest X-Ray (Signed) Dionisio Conte - 11/27/19 Chest X-Ray (Signed) BrittonLiset hay - 10/18/19 Chest X-Ray (Signed) Charu Artis - 10/18/19 Telemetry Strips 10/18/19 Chest X-Ray (Signed) Vasiliy Marcelino - 10/15/19 Chest X-Ray (Signed) Ramo Adams - 09/20/19 Chest X-Ray (Signed) Ash Damon - 09/15/19 Chest CTA (Signed) Doug Atkinson - 09/09/19 Chest X-Ray (Signed) Doug Atkinson - 09/09/19 Chest X-Ray (Signed) Gilson Moore - 08/18/19 Chest X-Ray (Signed) Milad Reilly - 06/14/[address] (Signed) Vasiliy Marcelino - 02/22/19 Telemetry Strips 02/22/19 Myocardial Perfusion Scan Nuc Med (Signed) Aston Goldman - 01/27/19 Chest X-Ray (Signed) Raymond Flores - 11/03/18 PET, Tumor Imaging Skull-Mid Thigh (Signed) Kenn Briscoe - 10/05/18 Chest X-Ray (Signed) Gilosn Moore - 10/04/[address] (Signed) Suzi Payne - 09/09/18 Chest X-Ray (Signed) Gilson Moore - 07/28/18 Chest X-Ray (Signed) Ash Damon - 07/14/18 Chest X-Ray (Signed) Doug Atkinson - 07/04/18 Thoracentesis Ultrasound (Signed) Gilson Moore - 07/04/18 Chest X-Ray (Signed) Liset Britton - 07/04/18 Chest X-Ray (Signed) Liset Britton - 07/04/18 Echocardiogram Ultrasound (Signed) Shiraz Moya - 06/22/18 Launch?[place] [address] XRay Report Signed Patient: Aurelia Gr MR#: [id number] : 1955 Acct:[id number] Age/Sex: 68 / F Date of Service: 12/22/23 Loc: ED Accession Number: [id number] Procedure: XR chest 1V Ordering Provider: Hazel Jo D.O. PROCEDURE: XR CHEST 1V INDICATIONS: Shortness of breath TECHNIQUE: One view of the chest was acquired. COMPARISON: [facility], SAMIR, XR CHEST 1V, 12/18/2023, 0:48. FINDINGS: Surgical changes and devices: Stable CABG postsurgical changes, left axillary surgical clips and right-sided tunneled dialysis catheter. Lungs and pleura: Lungs are clear. No pleural effusions or pneumothorax. Mediastinum: Mediastinal contours appear normal. Heart size is normal. Bones and chest wall: No suspicious bony lesions. Overlying soft tissues appear unremarkable. IMPRESSION: No acute cardiopulmonary abnormality is seen. Dictated by: Charu Artis MD, PhD on 12/22/2023 at 16:48 Approved by: Charu Artis MD, PhD on 12/22/2023 at 16:53 CT scan - chest: Radiologist's Impression: [place] [address] CT Scan Report Signed Patient: Aurelia Gr MR#: [id number] : 1955 Acct:[id number] Age/Sex: 68 / F Date of Service: 12/22/23 Loc: ED Accession Number: [id number] Procedure: CT chest wo con Ordering Provider: Hazel Jo D.O. PROCEDURE: CT CHEST WO CON INDICATIONS: swelling chest, hx swelling chest/neck, acute on chronic TECHNIQUE: Noncontrast 5 mm thick sections acquired from the pulmonary apices to the posterior costophrenic angles. 1 mm lung window, 5 mm thick coronal and sagittal and 7 mm axial MIP reformats were then acquired. For radiation dose reduction, the following was used: automated exposure control, adjustment of mA and/or kV according to patient size. COMPARISON: [facility], CT, CT CHEST WO CON, 03/07/2020, 4:38. FINDINGS: Image quality: Diagnostic. Lower Neck: No enlarged lymph nodes. Thyroid: No thyroid nodules which require sonographic follow up, per consensus guidelines. Axillae: Shotty right axillary adenopathy. Remote left axillary node resection. Chest Wall: There is anasarca involving the anterior subcutaneous tissues of the chest. Bilateral breast implants. Remote left lumpectomy. Right IJ dialysis catheter. Bones: Unremarkable. Lungs and Pleura: Chronic asymmetrical left vague focal pleural parenchymal scarring. Small left pleural effusion and minimal left basilar atelectasis. No acute focal infiltrates. Calcified granuloma in the right lung as well as calcified right hilar lymph nodes consistent with chronic granulomatous disease. Heart: Heart size is normal. No pericardial effusion. Remote CABG. Thoracic Vessels: The aorta and pulmonary arteries demonstrate normal size. A right IJ dialysis catheter is in place, extending to the SVC right atrial junction. There is atherosclerotic calcifications involving the right vessels and carotids. Mediastinum and Dayana: No enlarged lymph nodes. Esophagus: No wall thickening. No hiatal hernia. Upper Abdomen: Visualized upper abdomen solid organs and bowel loops appear normal. IMPRESSION: 1. Patient with indwelling tunneled dialysis catheter and anterior chest anasarca. Findings may potentially indicate central venous occlusion, potentially secondary to longstanding dialysis catheter placement. 2. ASCVD. 3. Small left pleural effusion and minimal left basilar atelectasis. Comment: Consider repeat chest CT with contrast via a right arm vein to evaluate the status of the central venous structures. Dictated by: Ramo Adams M.D. on 12/22/2023 at 17:11 Approved by: Ramo Adams M.D. on 12/22/2023 at 17:23 Ct chst w/ contrast: Radiologist's Impression: Close Chest CT (Signed) Raymond Flores - 12/22/[address] (Signed) Ramo dAams - 12/22/23 Chest X-Ray (Signed) Charu Artis - 12/22/23 Launch?Image [address] [address] [address] Scan Report Signed Patient: Aurelia Gr MR#: [id number] : 1955 Acct:[id number] Age/Sex: 68 / F Date of Service: 12/22/23 Loc: ED Accession Number: [id number] Procedure: CT chest w con Ordering Provider: Hazel Jo D.O. PROCEDURE: CT CHEST W CON INDICATIONS: concern for clot, has HD catheter TECHNIQUE: After the administration of intravenous contrast, 5 mm thick sections acquired from the pulmonary apices to the posterior costophrenic angles. 1 mm axial lung, 5 mm thick coronal and sagittal reformats and 7 mm axial MIP were acquired. For radiation dose reduction, the following was used: automated exposure control, adjustment of mA and/or kV according to patient size. COMPARISON: [facility], CT, CT CHEST WO CON, 12/22/2023, 16:50. [facility], CT, CT CHEST W CON, 12/18/2023, 1:46. FINDINGS: Image quality: Diagnostic. Lower Neck: No enlarged lymph nodes. Thyroid: No thyroid nodules which require sonographic follow up, per consensus guidelines. Axillae: No enlarged lymph nodes. Chest Wall: Diffuse anasarca as before. Bilateral breast implants are in place. Median sternotomy wires appear intact. No substernal fluid collection. Bones: Visualized osseous structures appear intact without acute fracture or focal destructive lesion. No acute compression fractures of the imaged spine. Lungs and Pleura: Redemonstration of small left pleural effusion with associated compressive atelectasis. No septal thickening or nodularity. Upper lobe predominant pulmonary emphysematous changes. Redemonstration of chronic appearing pleural parenchymal scarring of the left apex. No pneumothorax. Calcified granuloma in the right lung. Heart: Heart size is normal. No pericardial effusion. Thoracic Vessels: The aorta and pulmonary arteries demonstrate normal size. Tunneled dialysis catheter remains in place. No evidence for abnormal thrombus surrounding the catheter. Mild heterogeneous appearance of contrast likely related to flow artifact and admixture of contrast. Mediastinum and Dayana: No enlarged lymph nodes. Esophagus: No wall thickening. No hiatal hernia. Upper Abdomen: Visualized upper abdomen solid organs and bowel loops appear normal. IMPRESSION: 1. No central pulmonary embolus. No evidence for acute right-sided heart strain. 2. Right tunneled dialysis catheter remains in place with no evidence for adjacent thrombus formation. Visualized vascular structures of the imaged right subclavian vein and upper chest appear opacified. Consider upper extremity deep venous Doppler evaluation if clinical concern for thrombosis persists. 3. Stable appearance of small left pleural effusion and associated compressive atelectasis. 4. Other chronic findings as above. Dictated by: Raymond Flores M.D. on 12/22/2023 at 18:35 Approved by: Raymond Flores M.D. on 12/22/2023 at 18:42 ECG Data Attestation: I personally reviewed and interpreted this ECG as follows: Prior ECG tracings: available for review Interpretation: Sinus rhythm rate 88 NM 172 QRS 84 QTC of 438. No acute ST changes. No acute changes from prior on 11/04/2023. MDM Narrative Medical decision making narrative: 68-year-old female appears to have upper body and extremity and neck edema. Patient's labs overall are appropriate BNP is quite elevated but has been significantly higher in the past. Troponin is negative, patient's creatinine is elevated but looks to be within baseline electrolytes are overall normal. White count is normal, hemoglobin is 12.2. Platelets are 131 patient has been low in the past. Lactate is negative at 1.1, cultures were sent. Procalcitonin is 1.[address] of chest was obtained to evaluate for mass or other changes although certainly complications possibility. Patient's CT shows indwelling catheter small left pleural effusion minimal left basilar atelectasis. Shotty adenopathy anasarca involving anterior subcutaneous tissue the chest lower neck no enlarged nodes. Spoke with Dr. Adams who would like CT with contrast patient is scheduled for dialysis tomorrow to evaluate for any clot notes that we can just do a CT chest with contrast in right does not require angio. Spoke with sister, who is also her DPOA. She notes patient has a known issue her fistula on the right has cause some narrowing of the vessels no known clot and she is scheduled to have a procedure to ligate it in January. They note patient is not a candidate for angioplasty or other interventions. She states the sister has a vascular dementia so has short term memory loss and is not atypical for her to forget this. She is on aspirin and Eliquis daily. She is DNR/DNI. Sister is happy to come get her as needed. She saw her about 10 days ago before she went on a trip she was not aware of any redness and states there was swelling in the chest and arm. CT chest w/ contrast, shows no central PE no evidence of acute right heart strain visualized structures of the right subclavian upper chest appear to opacify considered DVT if clinical concern for thrombosis persist stable small left pleural effusion associated compressive atelectasis. Patient is on Eliquis and aspirin daily. In light of patient's history from her sister after patient was sent to CT we will hold off on further imaging did ask for them to reach out to her vascular team. Her sister states she has not a candidate for other interventions, has been told that she is high-risk. She is DNR/DNI. Sister was called updated and plan for discharge home she appears stable currently but I did discuss if she is increasing swelling could potentially require intubation sister states she is not to be intubated or have CPR. Discharge Plan Departure Patient Disposition: Home Clinical Impression: Anasarca associated with disorder of kidney Activity Restrictions/Additional Instructions: Follow up with your vascular team at [facility], they may need to intervene at a sooner date. There was some opacification of the right subclavian and upper chest it maybe helpful to follow up with the DVT ultrasound if persistent swelling of just that side. Continue your anticoagulants as prescribed as well as your other medications. There is a question of related infection, please take oral antibiotic until completed. Prescription was printed. Please return for fevers increasing swelling, difficulty with breathing, stridor or muffled voice, new chest pain, vomiting or other new or concerning changes. Prescriptions: New clindamycin HCl 300 mg capsule 300 mg PO Q6H Qty: 40 0RF No Action melatonin 3 mg Tablet 3 mg PO BEDTIME PRN (Reason: Insomnia) hydrocortisone acetate 25 mg Suppository 25 mg NM Q12H PRN (Reason: Hemorrhoids) lorazepam 0.5 mg Tablet 0.5 mg PO Q12H PRN (Reason: Anxiety) cholecalciferol (vitamin D3) [Vitamin D3] 1,000 unit Capsule 1,000 unit PO DAILY sevelamer carbonate 800 mg tablet 800 mg PO BID Eliquis 2.5 mg tablet metoprolol succinate 25 mg tablet extended release 24 hr PO omeprazole 20 mg capsule,delayed release(DR/EC) isosorbide mononitrate 30 mg tablet extended release 24 hr PO levetiracetam 250 mg tablet PO ondansetron HCl 4 mg tablet atorvastatin 40 mg tablet bisacodyl albuterol sulfate [Ventolin HFA] 90 mcg/actuation HFA aerosol inhaler 2 inhalation INHALATION QID PRN (Reason: shortness of breath or wheezing) Qty: 6.7 0RF acetaminophen-codeine 300-15 mg tablet 1 tab PO TID PRN (Reason: pain) Qty: 10 0RF Entresto 24-26 mg tablet 1 tab PO BID Rx Instructions: not to be taken on dialysis days Lactobacillus acidophilus [Acidophilus] Capsule 1 tab PO DAILY acetaminophen-codeine 300-30 mg Tablet 1 tab PO Q12H PRN (Reason: pain) nitroglycerin [Nitrostat] 0.4 mg Tablet, Sublingual 0.4 mg SUBLINGUAL Q5-15M PRN (Reason: Chest Pain) Flovent HFA 44 mcg/actuation HFA aerosol inhaler 2 puff Inhalation BID mirtazapine 15 mg tablet 7.5 mg PO BEDTIMEX7 multivitamin Capsule 1 cap PO DAILY acetaminophen 325 mg Tablet 650 mg PO Q4H PRN (Reason: FEVER > 100 AND PAIN) cyanocobalamin (vitamin B-12) [Vitamin B-12] 1,000 mcg Tablet 1,000 mcg PO DAILY hydrocortisone 10 mg tablet 5 mg PO QAM levothyroxine 112 mcg tablet 125 mcg PO QAM Nepro Liquid 240 ml PO TID Rx Instructions: [facility] loperamide [Imodium A-D] 2 mg Capsule 2 mg PO PRN MDD 6 CAP PRN (Reason: Diarrhea) magnesium hydroxide [Milk of Magnesia] 400 mg/5 mL Suspension 30 ml PO PRN PRN (Reason: Constipation) calcium carbonate [Calcium 500] 500 mg calcium (1,250 mg) Tablet,Chewable 500 mg PO Q2H PRN (Reason: GI UPSET) benzonatate [Tessalon Perles] 100 mg capsule 100 mg PO Q8H PRN (Reason: cough) Referrals: Germaine Jalloh MD [Primary Care Provider] - Des Horton MD [Non-Staff] - Stand Alone Forms: Patient Portal/API
--- NOTE | 2023-12-22 16:48 | PC.NURSE ---
sister called. pt gave okay to speak with sister regarding care. Pt has vascular dementia. lives at [facility]. sister informs me that pt was here on the with same issue. she is actually being seen for this by her vascular surgeon and has surgery scheduled on January 18 to close the fistula on her right arm due to leakage, causing arm swelling. sister states the swelling is getting worse but is relieved with dialysis which is scheduled for tomorrow at noon here in [place]. she has been placed on oxygen since her last visit here 3L NC at home. pt history is 7 years of dialysis and breast CA with chemo and radiation that has also scarred her veins throughout her arms. she has poor circulation due to history on bilateral upper arms. BP should be taken on ankles only. dialysis is scheduled //saturdays. medication list gone over roughly with sister. updated in system.
[2023-12-22 16:55] LABS: Procalcitonin 1.09 ng/mL (<0.5)
[2023-12-22] MEDS: CLINDAMYCIN 900 MG/50 ML PIGGYBACK 50 MG IV (17:24)
--- NOTE | 2023-12-22 17:27 | DI.CT.S_ITS ---
PROCEDURE: CT CHEST W CON INDICATIONS: concern for clot, has HD catheter TECHNIQUE: After the administration of intravenous contrast, 5 mm thick sections acquired from the pulmonary apices to the posterior costophrenic angles. 1 mm axial lung, 5 mm thick coronal and sagittal reformats and 7 mm axial MIP were acquired. For radiation dose reduction, the following was used: automated exposure control, adjustment of mA and/or kV according to patient size. COMPARISON: [facility], CT, CT CHEST WO CON, 12/22/2023, 16:50. [facility], CT, CT CHEST W CON, 12/18/2023, 1:46. FINDINGS: Image quality: Diagnostic. Lower Neck: No enlarged lymph nodes. Thyroid: No thyroid nodules which require sonographic follow up, per consensus guidelines. Axillae: No enlarged lymph nodes. Chest Wall: Diffuse anasarca as before. Bilateral breast implants are in place. Median sternotomy wires appear intact. No substernal fluid collection. Bones: Visualized osseous structures appear intact without acute fracture or focal destructive lesion. No acute compression fractures of the imaged spine. Lungs and Pleura: Redemonstration of small left pleural effusion with associated compressive atelectasis. No septal thickening or nodularity. Upper lobe predominant pulmonary emphysematous changes. Redemonstration of chronic appearing pleural parenchymal scarring of the left apex. No pneumothorax. Calcified granuloma in the right lung. Heart: Heart size is normal. No pericardial effusion. Thoracic Vessels: The aorta and pulmonary arteries demonstrate normal size. Tunneled dialysis catheter remains in place. No evidence for abnormal thrombus surrounding the catheter. Mild heterogeneous appearance of contrast likely related to flow artifact and admixture of contrast. Mediastinum and [place]: No enlarged lymph nodes. Esophagus: No wall thickening. No hiatal hernia. Upper Abdomen: Visualized upper abdomen solid organs and bowel loops appear normal. IMPRESSION: 1. No central pulmonary embolus. No evidence for acute right-sided heart strain. 2. Right tunneled dialysis catheter remains in place with no evidence for adjacent thrombus formation. Visualized vascular structures of the imaged right subclavian vein and upper chest appear opacified. Consider upper extremity deep venous Doppler evaluation if clinical concern for thrombosis persists. 3. Stable appearance of small left pleural effusion and associated compressive atelectasis. 4. Other chronic findings as above. Dictated by: Raymond Flores M.D. on 12/22/2023 at 18:35 Approved by: Raymond Flores M.D. on 12/22/2023 at 18:42
== END 2023-12-22 19:42 | disposition home or self-care (01) ==
PROVIDERS: Emergency Provider Emergency Medicine; PCP Internal Medicine
DX: N04.9 Nephrotic syndrome with unspecified morphologic changes (principal); I25.2 Old myocardial infarction; N18.6 End stage renal disease; Z99.2 Dependence on renal dialysis; R06.02 Shortness of breath; R60.0 Localized edema; Z79.01 Long term (current) use of anticoagulants
CPT/HCPCS: 36415; 71045; 71250; 71260; 80053; 83605; 83880; 84145; 84484; 85025; 85610; 87040; 87077; 93005; 93010; 96365; 99285; Q9967

== ENCOUNTER 2024-02-15 09:22 | Emergency (ER) | payer MEDICARE, MEDICAID, SELFPAY ==
[2024-02-15] VITALS (13 sets, daily range): BP systolic 136–191; BP diastolic 68–105; PULSE 89–104; RESP 19–24; TEMP 36.9–37.2; O2SAT 86–99
[2024-02-15] MEDS: TRANEXAMIC ACID 1,000 MG VIAL 1000 MG TOP (10:54)
--- NOTE | 2024-02-15 13:23 | ED_ITS ---
HPI - General Adult General Chief complaint: Nasal Problem Stated complaint: nose bleed Time Seen by Provider: 02/15/24 11:12 Source: patient and EMS Mode of arrival: EMS History of Present Illness HPI narrative: 68-year-old woman from senior living facility, dialysis patient, typically dialyzes Wednesday, COPD with intermittent nasal cannula oxygen at the [facility], post NC and post CABG presents with the acute nosebleed from the right Bradley. She does not typically have nosebleeds it has not causing pain or headache. She tried clamping at at the [facility] but bleeding did not stop. She is anticoagulated on apixaban and blood pressure is slightly elevated as she is due for dialysis today. Afrin was tried with the medics and she is still bleeding as she arrives. She does not describe significant trauma although the dry nasal cannula air likely is contributing and exacerbated by her blood pressure and her Eliquis currently. Related Data Home Medications Medication Instructions Recorded Confirmed cholecalciferol (vitamin D3) 25 1,000 unit PO DAILY 07/04/18 06/14/19 mcg (1,000 unit) capsule (Vitamin D3) hydrocortisone acetate 25 mg 25 mg PA Q12H PRN Hemorrhoids 07/04/18 06/14/19 rectal suppository lorazepam 0.5 mg tablet 0.5 mg PO Q12H PRN Anxiety 07/04/18 06/14/19 melatonin 3 mg tablet 3 mg PO BEDTIME PRN Insomnia 07/04/18 06/14/19 Lactobacillus acidophilus 1 tab PO DAILY 07/13/18 03/12/20 (Acidophilus capsule) acetaminophen 300 mg-codeine 30 mg 1 tab PO Q12H PRN pain 07/13/18 03/12/20 tablet nitroglycerin 0.4 mg sublingual 0.4 mg sublingual Q5-15M PRN Chest 07/13/18 03/12/20 tablet (Nitrostat) Pain fluticasone propionate 44 2 puff inhalation BID 10/04/18 06/14/19 mcg/actuation HFA aerosol inhaler mirtazapine 15 mg tablet 7.5 mg PO BEDTIMEX7 10/04/18 06/14/19 multivitamin 1 cap PO DAILY 10/04/18 06/14/19 sevelamer carbonate 800 mg tablet 800 mg PO BID 11/03/18 06/14/19 Nepro Liquid 240 ml PO TID 06/14/19 06/14/19 acetaminophen 325 mg tablet 650 mg PO Q4H PRN FEVER > 100 AND 06/14/19 03/12/20 PAIN benzonatate 100 mg capsule 100 mg PO Q8H PRN cough 06/14/19 06/14/19 (Emeli Blanchard) calcium carbonate (Calcium 500) 500 mg PO Q2H PRN GI UPSET 06/14/19 06/14/19 cyanocobalamin (vitamin B-12) 1,000 mcg PO DAILY 06/14/19 03/12/20 1,000 mcg tablet (Vitamin B-12) hydrocortisone 10 mg tablet 5 mg PO QAM 06/14/19 06/14/19 levothyroxine 112 mcg tablet 125 mcg PO QAM 06/14/19 06/14/19 loperamide 2 mg capsule (Imodium 2 mg PO PRN PRN Diarrhea 06/14/19 06/14/19 A-D) magnesium hydroxide 400 mg/5 mL 30 ml PO PRN PRN Constipation 06/14/19 06/14/19 oral suspension (Milk of [email or web address]) apixaban 2.5 mg tablet (Eliquis) mg 03/12/20 atorvastatin 40 mg tablet 03/12/20 bisacodyl 03/12/20 isosorbide mononitrate 30 mg mg PO 03/12/20 tablet,extended release 24 hr levetiracetam 250 mg tablet PO 03/12/20 metoprolol succinate 25 mg PO 03/12/20 tablet,extended release 24 hr omeprazole 20 mg capsule,delayed 03/12/20 release ondansetron HCl 4 mg tablet 03/12/20 sacubitril 24 mg-valsartan 26 mg 1 tab PO BID 12/22/23 12/22/23 tablet (Entresto) Previous Rx's Medication Instructions Recorded albuterol sulfate 90 mcg/actuation 2 inhalation inhalation QID PRN 12/12/21 aerosol inhaler (Ventolin HFA) shortness of breath or wheezing #6.7 grams acetaminophen 300 mg-codeine 15 mg 1 tab PO TID PRN pain #10 tabs 05/11/23 tablet clindamycin HCl 300 mg capsule 300 mg PO Q6H #40 caps 12/22/23 Allergies Allergy/AdvReac Type Severity Reaction Status Date / Time No Known Drug Allergies Allergy Verified 02/15/24 09:39 Review of Systems Review of Systems Narrative: Pertinent positive and negative findings as per HPI Patient History Medical History Breast cancer, left Thrombocytopenia Peripheral vascular disease Major depressive disorder Hypothyroid Hyperlipidemia Fibromyalgia CHF (congestive heart failure) Anemia Malnutrition TIA (transient ischemic attack) IBS (irritable bowel syndrome) HTN (hypertension) GI bleed Acute renal failure on dialysis Anxiety Social History lives independently: No Smoking Status: Former smoker Smoking Status: Former smoker tobacco type: cigarettes alcohol intake frequency: holidays/special occasions only Substance Use Type: does not use Exam Initial Vital Signs Initial Vital Signs: Vital Signs Pulse Rate 104 H 02/15/24 09:29 Respiratory Rate 19 02/15/24 09:29 Blood Pressure 191/86 H 02/15/24 09:29 Pulse Oximetry 96 02/15/24 09:29 General: Alert appropriate in no acute distress HEENT: Active bleeding through right Bradley, this is not arterial bleeding. Respiratory: Able to speak in full sentences, no obvious respiratory distress Skin: No obvious rashes, warm and dry Neurologic: Grossly intact no obvious asymmetries or abnormalities Psych: appropriate insight and affect, cooperative Course Orders Ordered: Discontinued Medications Tranexamic Acid (Tranexamic Acid 1,000 Mg Vial) 1,000 mg TOP NOW ONE Stop: 02/15/24 10:48 Last Admin: 02/15/24 10:54 Dose: 1,000 mg Documented By: HÉCTOR Vital Signs Vital signs: Vital Signs - 8 hr 02/15/24 11:00 02/15/24 11:00 02/15/24 11:30 Temperature Pulse Rate 94 H 93 H Respiratory Rate 23 Blood Pressure 166/95 H Pulse Oximetry 98 98 Oxygen Delivery Method 02/15/24 11:30 02/15/24 12:00 02/15/24 12:00 Temperature Pulse Rate 89 Respiratory Rate 22 Blood Pressure 168/81 H 158/68 H Pulse Oximetry 98 Oxygen Delivery Method 02/15/24 12:30 02/15/24 12:30 02/15/24 13:00 Temperature Pulse Rate 93 H 96 H Respiratory Rate 24 22 Blood Pressure 166/69 H Pulse Oximetry 93 99 Oxygen Delivery Method 02/15/24 13:00 02/15/24 13:30 02/15/24 14:00 Temperature Pulse Rate 92 H Respiratory Rate Blood Pressure 170/82 H 136/105 H Pulse Oximetry 94 Oxygen Delivery Method 02/15/24 14:00 Temperature 98.5 F Pulse Rate 98 H Respiratory Rate 20 Blood Pressure Pulse Oximetry 92 Oxygen Delivery Method Blow By Medical Decision Making MDM Narrative Medical decision making narrative: CC: Epistaxis, right side Complicating co-morbidities: Hypertension, on Eliquis for coronary artery disease, dialysis patient Data collected from: patient, medics Social determinants of health that may influence the patients condition: alf facility, dialysis Wednesday Medical records reviewed: Prior ER visits reviewed Differential considered: Anterior bleed, posterior bleed, secondary to trauma, nasal fracture, all exacerbated by blood pressure and Eliquis Exam documented above, pertinent findings include: After nose clamping and gauze soaked in TXA has had a chance to remain in place, the gauze is removed with long clot also removed. No continued bleeding. Patient is not in any pain. Not complaining of nausea Treatments: TXA soaked gauze as well as nose clamping with bleeding stopping Discussion: 68-year-old woman with right-sided nosebleed. Does not have a prior history. We will recommend humidified nasal cannula oxygen at the senior living facility and for the next week will recommend blow-by oxygen to avoid recurrent episodes of nosebleed. We will also recommend some bacitracin ointment inside the right Bradley for the next week to help with healing. We will call her dialysis facility as she missed her noon appointment and see if we can get her appointment rescheduled. As the patient incidentally is COVID positive, there is a separate dialysis area for her that is available at any time. We will arrange from transport from the ER to dialysis and then help with transport from dialysis back to her senior living facility she is safe for discharge Discharge Plan Departure Patient Disposition: Home Clinical Impression: Epistaxis, Elevated blood pressure reading, Anticoagulated, Dialysis patient, COVID Instructions: DI for Nosebleed Activity Restrictions/Additional Instructions: Thank you for coming in today When you return to your senior living facility, I am going to ask them if you are able to use humidified air through your nasal cannula oxygen. For the next week, I think you will benefit from blow-by oxygen rather than direct nasal cannula when you are feeling short of breath. I am also going to recommend that you use Neosporin, bacitracin or other topical antibiotic ointment gently applied inside your nose, both sides for the next week. This will keep the nasal tissue moist and help it heal so that you do not have recurrent nosebleeds We are going to arrange for you to go to dialysis after the emergency department and then home from there. If you find that you have new or worsening symptoms, please feel free to return to the ER Please make sure you share these instructions with the senior living facility so that they can help with the minor oxygen changes recommended above Prescriptions: No Action melatonin 3 mg Tablet 3 mg PO BEDTIME PRN (Reason: Insomnia) hydrocortisone acetate 25 mg Suppository 25 mg PA Q12H PRN (Reason: Hemorrhoids) lorazepam 0.5 mg Tablet 0.5 mg PO Q12H PRN (Reason: Anxiety) cholecalciferol (vitamin D3) [Vitamin D3] 1,000 unit Capsule 1,000 unit PO DAILY sevelamer carbonate 800 mg tablet 800 mg PO BID Eliquis 2.5 mg tablet metoprolol succinate 25 mg tablet extended release 24 hr PO omeprazole 20 mg capsule,delayed release(DR/EC) isosorbide mononitrate 30 mg tablet extended release 24 hr PO levetiracetam 250 mg tablet PO ondansetron HCl 4 mg tablet atorvastatin 40 mg tablet bisacodyl albuterol sulfate [Ventolin HFA] 90 mcg/actuation HFA aerosol inhaler 2 inhalation INHALATION QID PRN (Reason: shortness of breath or wheezing) Qty: 6.7 0RF acetaminophen-codeine 300-15 mg tablet 1 tab PO TID PRN (Reason: pain) Qty: 10 0RF Entresto 24-26 mg tablet 1 tab PO BID Rx Instructions: not to be taken on dialysis days clindamycin HCl 300 mg capsule 300 mg PO Q6H Qty: 40 0RF Lactobacillus acidophilus [Acidophilus] Capsule 1 tab PO DAILY acetaminophen-codeine 300-30 mg Tablet 1 tab PO Q12H PRN (Reason: pain) nitroglycerin [Nitrostat] 0.4 mg Tablet, Sublingual 0.4 mg SUBLINGUAL Q5-15M PRN (Reason: Chest Pain) Flovent HFA 44 mcg/actuation HFA aerosol inhaler 2 puff Inhalation BID mirtazapine 15 mg tablet 7.5 mg PO BEDTIMEX7 multivitamin Capsule 1 cap PO DAILY acetaminophen 325 mg Tablet 650 mg PO Q4H PRN (Reason: FEVER > 100 AND PAIN) cyanocobalamin (vitamin B-12) [Vitamin B-12] 1,000 mcg Tablet 1,000 mcg PO DAILY hydrocortisone 10 mg tablet 5 mg PO QAM levothyroxine 112 mcg tablet 125 mcg PO QAM Nepro Liquid 240 ml PO TID Rx Instructions: OR [employer] loperamide [Imodium A-D] 2 mg Capsule 2 mg PO PRN MDD 6 CAP PRN (Reason: Diarrhea) magnesium hydroxide [Milk of Magnesia] 400 mg/5 mL Suspension 30 ml PO PRN PRN (Reason: Constipation) calcium carbonate [Calcium 500] 500 mg calcium (1,250 mg) Tablet,Chewable 500 mg PO Q2H PRN (Reason: GI UPSET) benzonatate [Tessalon Perles] 100 mg capsule 100 mg PO Q8H PRN (Reason: cough) Referrals: Germaine Jalloh MD [Primary Care Provider] - Stand Alone Forms: Patient Portal/API
--- NOTE | 2024-02-15 14:17 | PC.NURSE ---
Attempted to reach Gallo (sister); voicemail left @ [phone]
== END 2024-02-15 14:16 | disposition home or self-care (01) ==
PROVIDERS: Emergency Provider Emergency Medicine; PCP Internal Medicine
DX: R04.0 Epistaxis (principal); I10 Essential (primary) hypertension; U07.1 COVID-19; Z79.01 Long term (current) use of anticoagulants; Z99.2 Dependence on renal dialysis; Z87.891 Personal history of nicotine dependence
CPT/HCPCS: 99282; 99283

== ENCOUNTER 2024-02-16 08:48 | Emergency (ER) | payer MEDICARE, MEDICAID, SELFPAY ==
[2024-02-16 08:50] VITALS: BP 137/74; PULSE 96; RESP 24; TEMP 36.9; O2SAT 89; BMI 24.0
[2024-02-16 08:53] VITALS: PULSE 93; O2SAT 97
--- NOTE | 2024-02-16 08:59 | ED_ITS ---
HPI - General Adult General Chief complaint: Upper Respiratory Symptoms Stated complaint: Diarrhea Time Seen by Provider: 02/16/24 08:48 Source: patient and EMS Mode of arrival: EMS Limitations: no limitations History of Present Illness HPI narrative: Patient is a 68-year-old female. End-stage renal disease on dialysis. Is also on anticoagulation. Was seen here yesterday for nosebleed. She was also COVID positive. Was discharged home with instructions to use humidified oxygen and an OxyMask as they felt that the nosebleed was most likely related to the dry air that she has been using for the nasal cannula more consistently since she has had positive COVID. She did have a full dialysis treatment yesterday. She stated that all day yesterday and overnight she was had multiple episodes of diarrhea. No abdominal pain. No fevers. She was having some shortness of breath but this is related to the COVID. The nursing facility he was concerned about C diff. Related Data Home Medications Medication Instructions Recorded Confirmed cholecalciferol (vitamin D3) 25 1,000 unit PO DAILY 07/04/18 06/14/19 mcg (1,000 unit) capsule (Vitamin D3) hydrocortisone acetate 25 mg 25 mg VA Q12H PRN Hemorrhoids 07/04/18 06/14/19 rectal suppository lorazepam 0.5 mg tablet 0.5 mg PO Q12H PRN Anxiety 07/04/18 06/14/19 melatonin 3 mg tablet 3 mg PO BEDTIME PRN Insomnia 07/04/18 06/14/19 Lactobacillus acidophilus 1 tab PO DAILY 07/13/18 03/12/20 (Acidophilus capsule) acetaminophen 300 mg-codeine 30 mg 1 tab PO Q12H PRN pain 07/13/18 03/12/20 tablet nitroglycerin 0.4 mg sublingual 0.4 mg sublingual Q5-15M PRN Chest 07/13/18 03/12/20 tablet (Nitrostat) Pain fluticasone propionate 44 2 puff inhalation BID 10/04/18 06/14/19 mcg/actuation HFA aerosol inhaler mirtazapine 15 mg tablet 7.5 mg PO BEDTIMEX7 10/04/18 06/14/19 multivitamin 1 cap PO DAILY 10/04/18 06/14/19 sevelamer carbonate 800 mg tablet 800 mg PO BID 11/03/18 06/14/19 Nepro Liquid 240 ml PO TID 06/14/19 06/14/19 acetaminophen 325 mg tablet 650 mg PO Q4H PRN FEVER > 100 AND 06/14/19 03/12/20 PAIN benzonatate 100 mg capsule 100 mg PO Q8H PRN cough 06/14/19 06/14/19 (Emeli Blanchard) calcium carbonate (Calcium 500) 500 mg PO Q2H PRN GI UPSET 06/14/19 06/14/19 cyanocobalamin (vitamin B-12) 1,000 mcg PO DAILY 06/14/19 03/12/20 1,000 mcg tablet (Vitamin B-12) hydrocortisone 10 mg tablet 5 mg PO QAM 06/14/19 06/14/19 levothyroxine 112 mcg tablet 125 mcg PO QAM 06/14/19 06/14/19 loperamide 2 mg capsule (Imodium 2 mg PO PRN PRN Diarrhea 06/14/19 06/14/19 A-D) magnesium hydroxide 400 mg/5 mL 30 ml PO PRN PRN Constipation 06/14/19 06/14/19 oral suspension (Milk of Vysr) apixaban 2.5 mg tablet (Eliquis) mg 03/12/20 atorvastatin 40 mg tablet 03/12/20 bisacodyl 03/12/20 isosorbide mononitrate 30 mg mg PO 03/12/20 tablet,extended release 24 hr levetiracetam 250 mg tablet PO 03/12/20 metoprolol succinate 25 mg PO 03/12/20 tablet,extended release 24 hr omeprazole 20 mg capsule,delayed 03/12/20 release ondansetron HCl 4 mg tablet 03/12/20 sacubitril 24 mg-valsartan 26 mg 1 tab PO BID 12/22/23 12/22/23 tablet (Entresto) Previous Rx's Medication Instructions Recorded albuterol sulfate 90 mcg/actuation 2 inhalation inhalation QID PRN 12/12/21 aerosol inhaler (Ventolin HFA) shortness of breath or wheezing #6.7 grams acetaminophen 300 mg-codeine 15 mg 1 tab PO TID PRN pain #10 tabs 05/11/23 tablet clindamycin HCl 300 mg capsule 300 mg PO Q6H #40 caps 12/22/23 vancomycin 125 mg capsule 125 mg PO QID 10 days #40 caps 02/16/24 Allergies Allergy/AdvReac Type Severity Reaction Status Date / Time No Known Drug Allergies Allergy Verified 02/16/24 08:57 Review of Systems Review of Systems ROS Unobtainable: All systems reviewed & are unremarkable except as noted in HPI and below Patient History Medical History Breast cancer, left Thrombocytopenia Peripheral vascular disease Major depressive disorder Hypothyroid Hyperlipidemia Fibromyalgia CHF (congestive heart failure) Anemia Malnutrition TIA (transient ischemic attack) IBS (irritable bowel syndrome) HTN (hypertension) GI bleed Acute renal failure on dialysis Anxiety Social History lives independently: No Smoking Status: Former smoker Smoking Status: Former smoker tobacco type: cigarettes alcohol intake frequency: holidays/special occasions only Substance Use Type: does not use Exam Initial Vital Signs Initial Vital Signs: Vital Signs Temperature 98.4 F 02/16/24 08:50 Pulse Rate 96 H 02/16/24 08:50 Respiratory Rate 24 02/16/24 08:50 Blood Pressure 137/74 02/16/24 08:50 Pulse Oximetry 89 L 02/16/24 08:50 Oxygen Delivery Method Room Air 02/16/24 08:50 Const General: well hydrated Other: Chronically ill-appearing HENTX Head: normal to inspection and normocephalic Resp Effort & Inspection: normal respiratory effort Auscultation: clear to auscultation bilaterally GI Inspection: normal to inspection and non-distended Palpation: soft, No firm, No guarding and No tender Skin General: no rashes or lesions noted Neuro General: patient alert, patient awake and moves all extremities Extrem General: normal to inspection Procedures Epistaxis Control Nostril: right Direct Inspection: yes and anterior source identified Device Inserted: hemostatic balloon Device Size: 55 Patient Tolerated Procedure: well and no complications Course Orders Ordered: ED Orders 02/16/24 09:02 Complete Blood Count AUTO DIFF Stat Comprehensive Metabolic Panel Stat Lipase Stat 02/16/24 10:34 GI Panel (Film Array) Stat Discontinued Medications Bacitracin (Bacitracin Oint 0.9 Gm Pckt) 1 applic TOP NOW ONE Stop: 02/16/24 08:56 Last Admin: 02/16/24 09:12 Dose: 1 applic Documented By: SPF Tranexamic Acid (Tranexamic Acid 1,000 Mg Vial) 1,000 mg TOP NOW ONE Stop: 02/16/24 12:15 Last Admin: 02/16/24 13:20 Dose: Not Given Documented By: HÉCTOR Vancomycin HCl (Vancomycin 125 Mg Capsule) 125 mg PO NOW ONE Stop: 02/16/24 12:59 Last Admin: 02/16/24 13:17 Dose: 125 mg Documented By: SB Vital Signs Vital signs: Vital Signs - 8 hr 02/16/24 08:50 02/16/24 08:53 02/16/24 09:00 Temperature 98.4 F Pulse Rate 96 H 93 H Respiratory Rate 24 Blood Pressure 137/74 134/68 Pulse Oximetry 89 L 97 Oxygen Delivery Method Room Air 02/16/24 09:00 02/16/24 09:30 02/16/24 09:30 Temperature Pulse Rate 97 H 90 Respiratory Rate 24 23 Blood Pressure 143/77 H Pulse Oximetry 95 93 Oxygen Delivery Method 02/16/24 10:00 02/16/24 10:00 02/16/24 15:44 Temperature 97.6 F Pulse Rate 78 86 Respiratory Rate 12 16 Blood Pressure 158/69 H 129/62 Pulse Oximetry 98 93 Oxygen Delivery Method Room Air Medical Decision Making Lab Data 02/16/24 09:02 02/16/24 09:02 Labs: Lab Results 02/16/24 02/16/24 Range/Units 09:02 10:34 WBC 5.3 (4.5-11.0) X10^3/uL RBC 2.86 L (4.0-5.2) X10^6/uL Hgb 9.0 L (12.0-16.0) g/dL Hct 26.6 L (36-46) % MCV 93.3 (80-100) fL MCH 31.5 (26-34) PG MCHC 33.8 (30-36) % RDW 16.3 H (11.6-14.8) % Plt Count 93 L (150-400) X10^3/uL Neut % (Auto) 75.6 H (50-75) % Lymph % (Auto) 12.6 L (25-40) % Andrew % (Auto) 6.3 (3-14) % Eos % (Auto) 4.7 H (2-4) % Baso % (Auto) 0.8 (0-2) % Neut # (Auto) 4000 (2005-1973) /uL Lymph # (Auto) 700 L (6432-4517) /uL Andrew # (Auto) 300 (0-900) /uL Eos # (Auto) 200 (0-450) /uL Baso # (Auto) 0 (0-100) /uL Sodium 132 L (137-145) mmol/L Potassium 3.7 (3.4-5.1) mmol/L Chloride 98 (98-107) mmol/L Carbon Dioxide 20 L (22-32) mmol/L BUN 22 H (7-17) mg/dL Creatinine 3.87 H (0.52-1.04) mg/dL Estimated GFR 12 L (>60) mL/min BUN/Creatinine Ratio 5.7 L (6-22) Glucose 70 L (80-110) mg/dL Calcium 8.0 L (8.4-10.2) mg/dL Total Bilirubin 0.7 (0.2-1.3) mg/dL AST 31 (14-36) IU/L ALT 13 (<35) IU/L Alkaline Phosphatase 59 (38-126) U/L Total Protein 5.6 L (6.3-8.2) g/dL Albumin 3.4 L (3.5-5.0) g/dL Globulin 2.2 (1.7-4.1) g/dL Albumin/Globulin Ratio 1.5 (1.0-2.8) Lipase 186 (23-300) U/L Stl C. cayetanensis PCR Not detected (Not Detect) Stool Rotavirus (PCR) Not detected (Not Detect) Stool Adenovirus (PCR) Not detected (Not Detect) Stool Astrovirus (PCR) Not detected (Not Detect) Stool Cryptosporidium PCR Not detected (Not Detect) Stl E.coli Shiga Tox PCR Not detected (Not Detect) St Sh/Enteroin Ecoli PCR Not detected (Not Detect) Stl Enterotoxigenic E PCR Not detected (Not Detect) Stool EPEC (PCR) Not detected (Not Detect) Stl E. histolytica PCR Not detected (Not Detect) Stool Giardia Lamblia PCR Not detected (Not Detect) Stool Sapovirus (PCR) Not detected (Not Detect) Stl P. shigelloides PCR Not detected (Not Detect) St Y.enterocolitica PCR Not detected (Not Detect) Stool Vibrio (PCR) Not detected (Not Detect) Stl Vibrio cholerae PCR Not detected (Not Detect) Stl Enteroaggr Ecoli PCR Not detected (Not Detect) Stl Norovirus GI/GII PCR Not detected (Not Detect) Campylobacter (PCR) Not detected (Not Detect) C. difficile Tox (PCR) Detected H (Not Detect) Salmonella (PCR) Not detected (Not Detect) Point of Care Testing Glucose POC 105 Point of care testing: Point of Care Testing Glucose POC 105 MDM Narrative Medical decision making narrative: Patient is positive for C diff. Her labs are relatively unremarkable. Will start her on oral vancomycin. First dose was given here in the emergency department. Patient did have oozing from her right nostril. I suspect that this is because of the nasal cannula that she has been using. Initially she declined the rhino rocket however after some continued oozing she agreed to this. A 5.5 rhino rocket was placed in the right nares without issue. Will have her follow-up with ENT for removal. No indication for admission to the hospital. Is well hydrated. Patient has oxygen at home. Patient was given return precautions. She expressed understanding and agreement. Discharge Plan Departure Patient Disposition: Home Clinical Impression: Epistaxis, C. difficile diarrhea Instructions: DI for Nosebleed, DI for Clostridioides difficile Infection Activity Restrictions/Additional Instructions: Continue to take all of your medications as directed. I highly recommend that you use some bacitracin or Vaseline in the right nares especially if you are using the nasal cannula. This can be helpful in preventing nosebleeds. Take the antibiotics as directed. Return to the emergency department for new symptoms. You will need to contact the [facility] N[facility] Throat provider the number provided below for follow-up with the beginning of next week to have the nasal packing removed. Prescriptions: New vancomycin 125 mg capsule 125 mg PO QID 10 Days Qty: 40 0RF No Action melatonin 3 mg Tablet 3 mg PO BEDTIME PRN (Reason: Insomnia) hydrocortisone acetate 25 mg Suppository 25 mg VA Q12H PRN (Reason: Hemorrhoids) lorazepam 0.5 mg Tablet 0.5 mg PO Q12H PRN (Reason: Anxiety) cholecalciferol (vitamin D3) [Vitamin D3] 1,000 unit Capsule 1,000 unit PO DAILY sevelamer carbonate 800 mg tablet 800 mg PO BID Eliquis 2.5 mg tablet metoprolol succinate 25 mg tablet extended release 24 hr PO omeprazole 20 mg capsule,delayed release(DR/EC) isosorbide mononitrate 30 mg tablet extended release 24 hr PO levetiracetam 250 mg tablet PO ondansetron HCl 4 mg tablet atorvastatin 40 mg tablet bisacodyl albuterol sulfate [Ventolin HFA] 90 mcg/actuation HFA aerosol inhaler 2 inhalation INHALATION QID PRN (Reason: shortness of breath or wheezing) Qty: 6.7 0RF acetaminophen-codeine 300-15 mg tablet 1 tab PO TID PRN (Reason: pain) Qty: 10 0RF Entresto 24-26 mg tablet 1 tab PO BID Rx Instructions: not to be taken on dialysis days clindamycin HCl 300 mg capsule 300 mg PO Q6H Qty: 40 0RF Lactobacillus acidophilus [Acidophilus] Capsule 1 tab PO DAILY acetaminophen-codeine 300-30 mg Tablet 1 tab PO Q12H PRN (Reason: pain) nitroglycerin [Nitrostat] 0.4 mg Tablet, Sublingual 0.4 mg SUBLINGUAL Q5-15M PRN (Reason: Chest Pain) Flovent HFA 44 mcg/actuation HFA aerosol inhaler 2 puff Inhalation BID mirtazapine 15 mg tablet 7.5 mg PO BEDTIMEX7 multivitamin Capsule 1 cap PO DAILY acetaminophen 325 mg Tablet 650 mg PO Q4H PRN (Reason: FEVER > 100 AND PAIN) cyanocobalamin (vitamin B-12) [Vitamin B-12] 1,000 mcg Tablet 1,000 mcg PO DAILY hydrocortisone 10 mg tablet 5 mg PO QAM levothyroxine 112 mcg tablet 125 mcg PO QAM Nepro Liquid 240 ml PO TID Rx Instructions: OR [employer] SHAKE loperamide [Imodium A-D] 2 mg Capsule 2 mg PO PRN MDD 6 CAP PRN (Reason: Diarrhea) magnesium hydroxide [Milk of Magnesia] 400 mg/5 mL Suspension 30 ml PO PRN PRN (Reason: Constipation) calcium carbonate [Calcium 500] 500 mg calcium (1,250 mg) Tablet,Chewable 500 mg PO Q2H PRN (Reason: GI UPSET) benzonatate [Tessalon Perles] 100 mg capsule 100 mg PO Q8H PRN (Reason: cough) Referrals: Chico Echavarria MD [Physician] - Germaine Jalloh MD [Primary Care Provider] - Stand Alone Forms: Patient Portal/API
[2024-02-16 09:00] VITALS: BP 134/68; PULSE 97; RESP 24; O2SAT 95
[2024-02-16 09:12] LABS: Add Manual Diff / Slide Review NO; Basophils Absolute Auto 0 /uL (0-100); Basophils Percent Auto 0.8 % (0-2); Eosinophils Absolute Auto 200 /uL (0-450); Eosinophils Percent Auto 4.7 % (2-4); Hematocrit 26.6 % (36-46); Lymphocytes Absolute Auto 700 /uL (1100-4500); Lymphocytes Percent Auto 12.6 % (25-40); Mean Corpuscular HGB Conc 33.8 % (30-36); Mean Corpuscular Hemoglobin 31.5 PG (26-34); Mean Corpuscular Volume 93.3 fL (80-100); Monocytes Absolute Auto 300 /uL (0-900); Monocytes Percent Auto 6.3 % (3-14); Neutrophils Absolute Auto 4000 /uL (1500-7000); Neutrophils Percent Auto 75.6 % (50-75); Platelet Count 93 X10^3/uL (150-400); Red Blood Cell Count 2.86 X10^6/uL (4.0-5.2); Red Cell Distribution Width 16.3 % (11.6-14.8); White Blood Cell Count 5.3 X10^3/uL (4.5-11.0)
[2024-02-16] MEDS: BACITRACIN OINT 0.9 GM PCKT 1 APPLIC TOP (09:12)
--- NOTE | 2024-02-16 09:16 | PC.NURSE ---
Pt bib ambulance on nasal cannula; per medics they were not made aware pt was seen here yesterday. Pt sent home with instructions to use oximask, humidified oxygen, and antibiotic ointment in nose to help with nose bleed. Pt found to still have intermittent nose bleed on arrival and no evidence of successful implementation discharge instructions. Pt reports SOB from walking from bed to bathroom; unsure if oxygen is in use during this---Sister, Gallo, stated yesterday this is something pt has been struggling with for a while.
[2024-02-16 09:26] LABS: Alanine Aminotransferase 13 IU/L (<35); Albumin 3.4 g/dL (3.5-5.0); Albumin Globulin Ratio 1.5 (1.0-2.8); Alkaline Phosphatase 59 U/L (38-126); Aspartate Aminotransferase 31 IU/L (14-36); BUN Creatinine Ratio 5.7 (6-22); Bilirubin Total 0.7 mg/dL (0.2-1.3); Blood Urea Nitrogen 22 mg/dL (7-17); Carbon Dioxide 20 mmol/L (22-32); Chloride 98 mmol/L (98-107); Estimated Glomerular Filt Rate 12 mL/min (>60); Globulin 2.2 g/dL (1.7-4.1); Glucose 70 mg/dL (80-110); HEMOLYSIS < 15 (0-50); Lipase 186 U/L (23-300); Potassium 3.7 mmol/L (3.4-5.1); Sodium 132 mmol/L (137-145); Total Protein 5.6 g/dL (6.3-8.2)
[2024-02-16 09:30] VITALS: BP 143/77; PULSE 90; RESP 23; O2SAT 93
--- NOTE | 2024-02-16 09:31 | PC.NURSE ---
EMS states [facility] only gave pt antiviral and no regularly scheduled home medicine.
[2024-02-16 10:00] VITALS: BP 158/69; PULSE 78; RESP 12; O2SAT 98
[2024-02-16 12:32] LABS: Adenovirus F 40/41 Not Detected (Not Detect); Astrovirus Not Detected (Not Detect); Campylobacter Not Detected (Not Detect); Clostridium difficile toxin AB Detected (Not Detect); Cryptosporidium Not Detected (Not Detect); Cyclospora cayetanensis Not Detected (Not Detect); Entamoeba histolytica Not Detected (Not Detect); Enteroaggregative E.coli Not Detected (Not Detect); Enteropathogenic E.coli Not Detected (Not Detect); Enterotoxigenic E.coli It/st Not Detected (Not Detect); Giardia lamblia Not Detected (Not Detect); Norovirus GI/GII Not Detected (Not Detect); Plesiomonsa shigelloides Not Detected (Not Detect); Rotavirus A Not Detected (Not Detect); Salmonella Not Detected (Not Detect); Sapovirus Not Detected (Not Detect); Shiga-like toxin-prod E.coli Not Detected (Not Detect); Shigella/Enteroinvasive E.coli Not Detected (Not Detect); Vibrio Not Detected (Not Detect); Vibrio cholerae Not Detected (Not Detect); Yersinia enterocolitica Not Detected (Not Detect)
[2024-02-16] MEDS: VANCOMYCIN 125 MG CAPSULE PO (13:17)
--- NOTE | 2024-02-16 15:39 | PC.NURSE ---
Pt sister informed that [facility] will be picking pt up; pt cleaned and dressed at d/c. BM x4 since [id number]
--- NOTE | 2024-02-16 15:42 | PC.NURSE ---
Spoke with Remington CAMPOVERDE at [facility] about d/c instructions (care for bloody nose, humidified oxygen, oxiflow, followup, rhino rocket, c-diff managment). Copies of d/c instructions went home with pt (2 copies from yesterdays visit and 3 copies from todays visit). Informed [place] [employer] driver of this as well.
[2024-02-16 15:44] VITALS: BP 129/62; PULSE 86; RESP 16; TEMP 36.4; O2SAT 93
[2024-02-17 13:10] LABS: C difficie Toxins A and B, EIA Negative (Negative)
== END 2024-02-16 15:45 | disposition home or self-care (01) ==
PROVIDERS: Emergency Provider Emergency Medicine; PCP Internal Medicine
DX: A04.72 Enterocolitis due to Clostridium difficile, not specified as recurrent (principal); R04.0 Epistaxis
CPT/HCPCS: 30901; 36415; 80053; 82962; 83690; 85025; 87324; 87507; 99284

== ENCOUNTER → 2024-03-09 07:14 | Outpatient (ROUT) | payer MEDICARE, MEDICAID, SELFPAY ==
[2024-03-09 08:14] LABS: Occult Blood 1 Negative (Negative)
== END ==
PROVIDERS: PCP Internal Medicine; Visit Provider Student in an Organized Health Care Education/Training Program
DX: D64.9 Anemia, unspecified (principal)
CPT/HCPCS: 82270